=== PATIENT | female | born 1960 | race Caucasian/White ===

== ENCOUNTER → 2023-04-17 06:57 | Outpatient (REF) | payer OTHER, SELFPAY | LOC: RAD 06:57 | PROVIDERS: ATTENDING PHYSICIAN Family Medicine | DX: M54.2 Cervicalgia (principal) | CPT/HCPCS: 72052 ==

== ENCOUNTER → 2023-05-08 13:57 | Outpatient (REF) | payer OTHER, SELFPAY ==
[2023-05-08 15:28] LABS: Blood Urea Nitrogen 24 mg/dl (7-17)
== END ==
LOC: RAD 13:57
PROVIDERS: ATTENDING PHYSICIAN Internal Medicine Hematology & Oncology; FAMILY PHYSICIAN Family Medicine
DX: I74.9 Embolism and thrombosis of unspecified artery (principal); C25.1 Malignant neoplasm of body of pancreas; D50.9 Iron deficiency anemia, unspecified
CPT/HCPCS: 36415; 71260; 74177; 82565; 84520; Q9967

== ENCOUNTER → 2023-05-10 06:59 | Outpatient (REF) | payer OTHER, SELFPAY | LOC: MRI 06:59 | PROVIDERS: ATTENDING PHYSICIAN Orthopaedic Surgery Hand Surgery; FAMILY PHYSICIAN Family Medicine | DX: M25.512 Pain in left shoulder (principal); M54.12 Radiculopathy, cervical region | CPT/HCPCS: 72141 ==

== ENCOUNTER → 2023-05-30 07:48 | Outpatient (REF) | payer OTHER, SELFPAY | LOC: RAD 07:48 | PROVIDERS: ATTENDING PHYSICIAN Surgery Vascular Surgery; FAMILY PHYSICIAN Family Medicine | DX: I73.9 Peripheral vascular disease, unspecified (principal) | CPT/HCPCS: 93922; 93925 ==

== ENCOUNTER → 2023-06-24 13:52 | Outpatient (REF) | payer OTHER, SELFPAY ==
[2023-06-24 10:13] LABS: % Basophils 0.4 % (0-2); % Eosinophils 2.6 % (0-6); % Immature Granulocytes 0.4 % (0-0.5); % Lymphocytes 32.6 % (20.5-51.1); Absolute Eosinophils 0.1 10^3/uL (0-0.7); Absolute Lymphocytes 1.6 10^3/uL (1.2-3.4); Absolute Monocytes 0.4 10^3/uL (0.1-0.6); Absolute Neutrophils 2.7 10^3/uL (1.4-6.5); Hematocrit 34.4 % (37.0-47.0); Hemoglobin 11.1 g/dL (12.0-16.0); Mean Corp Hgb Conc. 32.3 g/dL (33.0-37.0); Mean Corpuscular Hgb 29.3 pg (27.0-31.0); Mean Corpuscular Volume 90.8 fL (81.0-99.0); Mean Platelet Volume 9.8 fL (7.4-10.4); Nucleated Red Blood Cells % 0 %; Platelet Count 278 10^3/uL (130-400); Red Blood Cell Count 3.79 10^6/uL (4.20-5.40); Red Cell Dist. Width 14.2 % (11.5-14.5); White Blood Cell Count 4.9 10^3/uL (4.8-10.8)
[2023-06-24 10:25] LABS: ALT (SGPT) 21 U/L (0-35); AST (SGOT) 28 U/L (14-36); Albumin 3.4 g/dl (3.5-5.0); Alkaline Phosphatase 133 U/L (38-126); Blood Urea Nitrogen 19 mg/dl (7-17); Calcium 8.8 mg/dl (8.4-10.2); Carbon Dioxide 31 mmol/L (22-30); Chloride 101 mmol/L (98-107); Glucose 208 mg/dl (70-99); Sodium 133 mmol/L (135-145); Total Bilirubin 0.5 mg/dl (0.2-1.3); Total Protein 6.8 g/dl (6.3-8.2); eGFR > 60.00
== END ==
LOC: OIDL 13:52
PROVIDERS: ATTENDING PHYSICIAN Nurse Practitioner Adult Health
DX: I74.9 Embolism and thrombosis of unspecified artery (principal)
CPT/HCPCS: 80053; 85025

== ENCOUNTER 2023-07-19 06:49 | Outpatient (RCR) | payer OTHER, SELFPAY | END 2023-07-19 23:59 | disposition home or self-care (01) | LOC: RPT 06:49 | PROVIDERS: ATTENDING PHYSICIAN Orthopaedic Surgery; FAMILY PHYSICIAN Family Medicine | DX: M54.2 Cervicalgia (principal); Z73.6 Limitation of activities due to disability | CPT/HCPCS: 97010; 97110; 97140; 97162 ==

== ENCOUNTER → 2023-07-23 13:45 | Outpatient (REF) | payer OTHER, SELFPAY ==
[2023-07-23 11:58] LABS: ALT (SGPT) 16 U/L (0-35); AST (SGOT) 24 U/L (14-36); Alkaline Phosphatase 136 U/L (38-126); Blood Urea Nitrogen 14 mg/dl (7-17); Carbon Dioxide 27 mmol/L (22-30); Chloride 105 mmol/L (98-107); Glucose 180 mg/dl (70-99); Potassium 4.1 mmol/L (3.5-5.1); Sodium 138 mmol/L (135-145); Total Bilirubin 0.3 mg/dl (0.2-1.3); Total Protein 5.9 g/dl (6.3-8.2); eGFR > 60.00
== END ==
LOC: OIDL 13:45
PROVIDERS: ATTENDING PHYSICIAN Internal Medicine Hematology & Oncology
DX: I74.9 Embolism and thrombosis of unspecified artery (principal)
CPT/HCPCS: 80053

== ENCOUNTER → 2023-08-06 10:28 | Outpatient (REF) | payer OTHER, SELFPAY ==
[2023-08-06 11:07] LABS: ALT (SGPT) 24 U/L (0-35); AST (SGOT) 29 U/L (14-36); Alkaline Phosphatase 135 U/L (38-126); Blood Urea Nitrogen 15 mg/dl (7-17); Calcium 8.5 mg/dl (8.4-10.2); Carbon Dioxide 24 mmol/L (22-30); Chloride 111 mmol/L (98-107); Glucose 110 mg/dl (70-99); Potassium 4.2 mmol/L (3.5-5.1); Sodium 141 mmol/L (135-145); Total Bilirubin 0.3 mg/dl (0.2-1.3); eGFR > 60.00
== END ==
LOC: OIDL 10:28
PROVIDERS: ATTENDING PHYSICIAN Internal Medicine Hematology & Oncology
DX: I74.9 Embolism and thrombosis of unspecified artery (principal)
CPT/HCPCS: 80053

== ENCOUNTER 2023-08-16 08:02 | Outpatient (RCR) | payer OTHER, SELFPAY | END 2023-08-16 23:59 | disposition home or self-care (01) | LOC: RPT 08:02 | PROVIDERS: ATTENDING PHYSICIAN Orthopaedic Surgery; FAMILY PHYSICIAN Family Medicine | DX: M54.2 Cervicalgia (principal); Z73.6 Limitation of activities due to disability | CPT/HCPCS: 97110; 97140 ==

== ENCOUNTER → 2023-09-02 15:48 | Outpatient (REF) | payer OTHER, SELFPAY ==
[2023-09-02 11:49] LABS: % Basophils 0.6 % (0-2); % Eosinophils 0.6 % (0-6); % Immature Granulocytes 0.3 % (0-0.5); % Lymphocytes 17.3 % (20.5-51.1); % Monocytes 0.3 % (1.7-9.3); % Neutrophils 80.9 % (42.2-75.2); Absolute Lymphocytes 0.6 10^3/uL (1.2-3.4); Absolute Neutrophils 2.9 10^3/uL (1.4-6.5); Hematocrit 24.4 % (37.0-47.0); Hemoglobin 8.3 g/dL (12.0-16.0); Mean Corpuscular Hgb 32.9 pg (27.0-31.0); Mean Corpuscular Volume 96.8 fL (81.0-99.0); Mean Platelet Volume 10.2 fL (7.4-10.4); Nucleated Red Blood Cells % 0 %; Platelet Count 136 10^3/uL (130-400); Red Blood Cell Count 2.52 10^6/uL (4.20-5.40); Red Cell Dist. Width 18.3 % (11.5-14.5); White Blood Cell Count 3.5 10^3/uL (4.8-10.8)
== END ==
LOC: OIDL 15:48
PROVIDERS: ATTENDING PHYSICIAN Internal Medicine Hematology & Oncology
DX: I74.9 Embolism and thrombosis of unspecified artery (principal)
CPT/HCPCS: 85025

== ENCOUNTER → 2023-09-03 11:07 | Outpatient (REF) | payer OTHER, SELFPAY ==
[2023-09-03 12:23] LABS: ALT (SGPT) 25 U/L (0-35); AST (SGOT) 36 U/L (14-36); Albumin 3.3 g/dl (3.5-5.0); Alkaline Phosphatase 142 U/L (38-126); Blood Urea Nitrogen 17 mg/dl (7-17); Calcium 8.8 mg/dl (8.4-10.2); Carbon Dioxide 24 mmol/L (22-30); Chloride 111 mmol/L (98-107); Glucose 92 mg/dl (70-99); Potassium 3.8 mmol/L (3.5-5.1); Sodium 140 mmol/L (135-145); Total Bilirubin 0.6 mg/dl (0.2-1.3); Total Protein 6.1 g/dl (6.3-8.2); eGFR > 60.00
== END ==
LOC: OIDL 11:07
PROVIDERS: ATTENDING PHYSICIAN Internal Medicine Hematology & Oncology
DX: I74.9 Embolism and thrombosis of unspecified artery (principal); C25.1 Malignant neoplasm of body of pancreas; D50.9 Iron deficiency anemia, unspecified
CPT/HCPCS: 80053

== ENCOUNTER 2023-09-16 07:44 | Inpatient (IN) | payer OTHER, SELFPAY ==
[2023-09-16] VITALS (15 sets, daily range): BP systolic 120–168; BP diastolic 55–91; PULSE 90–98; O2SAT 100; BMI 26.0; BMI 24.9
[2023-09-16 04:56] LABS: Glucose - Point of Care 170 mg/dl (70-99)
[2023-09-16] MEDS: VENTOLIN NEBULES 7.5 MG INH (05:00)
[2023-09-16] MEDS: ATROVENT NEBULES 0.5 MG INH (05:00)
[2023-09-16] MEDS: VENTOLIN NEBULES INH (05:02)
--- NOTE | 2023-09-16 05:09 | ED.GENMED ---
History of Present Illness
General
Chief Complaint: Chest Pain
Source: patient and spouse
Time Seen by Provider: 09/16/23 04:53
History of Present Illness
History of Present Illness:
This patient is a 63-year-old female presents emergency department with dyspnea. Her offers most of the history given her respiratory distress. She states that she developed a cough recently associated with dyspnea for the last 4 to 5
days. She was seen by her oncologist on Saturday and at that time her pulse ox was within normal limits. She was short of breath throughout the day yesterday but went to sleep and then woke her up with complaints of dyspnea. Upon arrival,
patient was noted to be brought back to her room immediately. She also complains of feeling 'clammy'. She thought her symptoms might be related to her heart which prompted her to take nitroglycerin x 4. This did not help her dyspnea. There was
some discrepancy regarding chest pain, states that he thought she said she had chest discomfort earlier, but patient denies. Patient is currently being treated for pancreatic cancer, most recent chemotherapy was last week. No fever,
abdominal pain, vomiting, new leg swelling.
Past History
Past History
ED Past Medical History: CAD, CVA (TIA), GERD, HTN, Hypercholesterolemia, IDDM, NM, Psychiatric (Anxiety) and Other (Emphysema, pancreatic CA)
ED Past Surgical History: Cardiac (Stents X 7), Orthopedic (Right knee surgery, ), Urological (Right Nephrectomy) and Other (Pancreatic cancer surgery, right-sided nephrectomy)
Social History
Tobacco: Smoker
Alcohol: None
Drug: None
Personal:
Living: with family
Employment: Employed
Family History
Family History: CAD (Her brother at age 47 had an NM )
Phy Exam
Physical Exam
Physical Exam:
GENERAL: Alert , in moderate respiratory distress
EYE: pupils equal and reactive, conjunctive a slightly pale
NECK: Supple, no significant adenopathy.
ENT: o/p clr, mmm, uvula midline, no trismus, no drool, no stridor.
CARDIAC: Regular rate and rhythm .
LUNGS: Moderate respiratory distress, decreased breath sounds noted on the right base, diffuse wheezing with scattered rhonchi and rails, occasional cough noted, speaks in short phrases
ABDOMEN: Soft, without focal tenderness, no r/g
NEUROLOGICAL: Alert and oriented, no focal neuro deficits
SKIN: Warm and dry, skin intact.
MUSCULOSKELETAL: Trace to 1+ bilateral lower extremity edema, well perfused.
PSYCH: Normal and appropriate interaction.
Scores
Heart Score for Chest Pain Patients
STEMI patient?: Not applicable
Course
Orders/Labs/Results
Orders:
Orders
09/16/23 04:43
Electrocardiogram (*1) Urgent
Reason for Study: Chest Pain
EKG- Treatment ONCE
09/16/23 04:46
Chest X-ray Portable [CR Chest Portable - 1 View] Stat
Comment:
Reason For Exam: sob/chest pain
Reason Study Needs to be Portable: Patient Unstable
09/16/23 04:49
Albuterol Nebs [Ventolin Nebules] See Dose Instructions .ROUTE .STK-MED ONE
Ipratropium Nebs [Atrovent Nebules] 0.5 mg .ROUTE .STK-MED ONE
09/16/23 04:55
Cardiac Monitoring- Treatment ONCE
Albuterol Sulfate [Ventolin Nebules] 7.5 mg INH R NOW STA
Dexamethasone Sod Phosphate [Decadron] 10 mg IV NOW STA
Pulse Ox/cont/shift [RESP] Stat
Quantity: 1
09/16/23 04:59
Ipratropium Nebs [Atrovent Nebules] 0.5 mg INH R NOW STA
09/16/23 05:08
COVID-19 Antigen Stat
Source: Nasal Swab
Complete Blood Count/No Diff Urgent
Comprehensive Metabolic Panel Urgent
Glycohemoglobin (HgbA1c) Urgent
Lactic Acid Q4H
Comment: CANCEL 2nd LACTIC ACID IF 1st LACTIC ACID IS LESS THAN 2
NT-proBNP Urgent
Troponin I Urgent
Blood Culture Urgent
MARQUIS Source: Blood/Venous
Specimen Description:
Influenza A+B Rapid Molecular Urgent
MARQUIS Source: Nasal Swab
Specimen Description:
09/16/23 05:14
Vancomycin 1 Gram/200 ml [Vancocin] 1 gram in 200 ml IV NOW
09/16/23 05:16
Aztreonam [Azactam] 2,000 mg IV NOW STA
09/16/23 05:24
Heparin Pf [Heparin Lock Flush] 500 unit .ROUTE .STK-MED ONE
Sterile Water [Sterile Water For Injection] 10 ml .ROUTE .STK-MED ONE
09/16/23 05:26
Furosemide [Lasix] 40 mg IV ONCE ONE
09/16/23 Breakfast
NPO
Allow oral meds: Yes
Allow clear liquids: Sips of Clears
09/16/23 06:15
INR [Prothrombin Time] Urgent
PTT Urgent
09/16/23 06:37
Admit/Transfer Patient As Directed
Co-Sign Provider:
Level of Care: Inpatient admission
Assign to:: Telemetry
Physician / Group: Inocencio
Diagnosis: CHF / Pneumonia
Reason for Telemetry: Subacute Heart Failure
Date to Stop Telemetry: 09/18/23
Time to Stop Telemetry: 11:00
Reason for Hospitalization: CHF / Pneumonia
Expected length of stay greater than two midnights?: Yes
ELOS- Estimated Length of Stay in days: 3
I certify the patient meets the requirements for IP care: Yes
PRN Pain Medication Management As Directed
May give lesser potent ordered pain med per pt: Yes
preference::
Protocol:: Medication orders for pain may be administered in a
manner that supports deferring to patient preference
when the pt is:
- Requesting an ordered lesser potent pain medication.
Least to most potent pain medications are defined
as: acetaminophen < NSAID < tramadol < opioids
(morphine, oxycodone, hydromorphone).
- Requesting a lesser dose of the same medication IF
ORDERED.
- Requesting a less intrusive route of administration
if both routes are prescribed by the provider (PO <
IV).
09/16/23 06:40
Code Status As Directed
Resuscitation Status: Do not resuscitate
Reached after discussion with pt or family/Healthcare POA: Yes
DNR Bracelet Application ONCE
09/16/23 08:00
Piperacillin/Tazo 3.375 Gram [Zosyn] 3.375 gram in 50 ml IV Q6H
09/16/23 08:31
Acetaminophen [Tylenol] 650 mg PO Q4HPRN PRN
Albuterol Nebs [Ventolin Nebules] 2.5 mg INH R Q4HPRN PRN
Apixaban [Eliquis] 5 mg PO BID
Dextrose 50%-Water [Dextrose 50% Syringe] 12.5 grams IV [id number] PRN
Furosemide [Lasix] 40 mg IV DAILY
Glucagon [GlucaGen] 1 mg IM PRN PRN
Ipratropium/Albuterol Sulfate [Duoneb] 3 ml INH R QID
Pt's Own Ins. Pump Aspart [PT'S OWN INSULIN PUMP - NovoLOG] See Dose Instructions SC ACHS
Pt's Own Ins. Pump Aspart [PT'S OWN INSULIN PUMP - NovoLOG] See Dose Instructions SC PRN PRN
09/16/23 08:31
Echo 2D MMode Doppler [Echo 2D MMode Color/Doppler] Routine
Reason for Study: CHF
Diabetes Management by Nurse Practitioner Routine
Consulting Provider: Paola Dunn
Was provider already notified?: No
Reason for Consult: Insulin Management
Date consulting provider notified: 09/16/23
Time consulting provider notified: 08:32
Notified:: Provider
Activity As Directed
Activity Level: Ambulate
With Assistance
Bedside Glucose Monitoring As Directed
Frequency: AC&HS
Additional Instructions:: Change to q6h if pt on TPN, tube feeding or not eating
EKG with chest pain [ECG as needed] As Directed
ECG as needed for:: Chest Pain
I/O [Intake/ Output] As Directed
Frequency: Per unit guidelines
Orthostatic Vital Signs As Directed
Orthostatic VS Frequency: BID
Precautions As Directed
Type of Precautions: Aspiration
Vital Signs As Directed
Frequency: Per unit guidelines
Weight As Directed
Frequency: Daily
Incentive Spirometry [Rx Incentive Spirometry] [RESP] Routine
Frequency: q1h while awake
Oxygen Therapy [O2 Therapy] [RESP] Routine
Titrate/Wean O2 to maintain O2 sat greater than (%): 94
Ot Eval And Treat Routine
PT Consult [Pt Eval And Treat] Routine
Activity Level: Ambulate
With Assistance
Speech Therapy Eval & Treat Routine
US Chest - Right Routine
Comment:
Reason For Exam: Pleural effusion
09/16/23 09:02
TSH Reflex To Free T4 Routine
Troponin I Q6H
09/16/23 14:58
Troponin I Q6H
09/16/23 20:04
Troponin I Q6H
09/17/23 04:46
Basic Metabolic Panel IN AM
Complete Blood Count/No Diff IN AM
09/18/23 11:00
DC Protocol for Telemetry ONCE
Abnormal Lab Results
09/16/23 09/16/23
04:54 05:08
WBC 22.7 H 10^3/uL
(4.8-10.8)
RBC 2.76 L 10^6/uL
(4.20-5.40)
Hgb 9.0 L g/dL
(12.0-16.0)
Hct 28.3 L %
(37.0-47.0)
MCV 102.5 H fL
(81.0-99.0)
MCH 32.6 H pg
(27.0-31.0)
MCHC 31.8 L g/dL
(33.0-37.0)
RDW 23.3 H %
(11.5-14.5)
Plt Count 403 H 10^3/uL
(130-400)
Chloride 112 H mmol/L
(98-107)
Carbon Dioxide 21 L mmol/L
(22-30)
Glucose 146 H mg/dl
(70-99)
Hemoglobin A1c 5.9 H %
(4.0-5.6)
Calcium 8.2 L mg/dl
(8.4-10.2)
Alkaline Phosphatase 223 H U/L
(38-126)
Troponin I 0.095 H* ng/ml
Total Protein 6.2 L g/dl
(6.3-8.2)
Albumin 3.3 L g/dl
(3.5-5.0)
POC Glucose 170 H mg/dl
(70-99)
09/16/23 05:08
09/16/23 05:08
Vital Signs
Initial and Last Documented VS:
Initial Vital Signs
Pulse Resp BP Pulse Ox
116 28 155/88 94
09/16/23 04:39 09/16/23 04:39 09/16/23 04:39 09/16/23 04:39
Last Documented Vital Signs
Temp Pulse Resp BP Pulse Ox
97.8 F 79 14 129/77 99
09/17/23 11:00 09/17/23 11:00 09/17/23 11:00 09/17/23 11:00 09/17/23 11:00
*Critical Care Note
Total Time (30-74mins, 75-104mins- exclusive of procedures): 32
Update Note
Update Note:
Patient presents to the Emergency Department with __dyspnea and questionable chest pain
Number and Complexity of Problems Addressed at the Encounter
� Chronic conditions affecting care:
� Acute Exacerbation and/or Progression of Chronic Illness:
� Differential Diagnosis includes: But not limited to pneumonia, PE, ACS, COPD exacerbation, etc. etc.
Amount and/or Complexity of Data to be Reviewed and Analyzed
� I performed an independent evaluation of and my interpretation is:
EKG:reviewed by me, sinus tachycardia, no acute ischemia
CT:
Xrays: Chest x-ray read by me, mild to moderate right pleural effusion, diffuse increased interstitial markings
Laboratory Studies:increased wbc ?recent neupogen?, anemia noted (baseline), thrombocytosis likely reactive.. Lactic wnl. Indeterm trop at 0.095, trop 61380 (no prior for comparison)
Other:
� Review of other/old records reveals: Echocardiogram 2019 patient's EF was 45 to 50%. April 2023 CT of the chest showed nodules on lung thought likely to be metastatic
� Clinical information was obtained by an independent historian:
� Prescriptions/Medications Considered but not given:
� Further testing considered but not performed:
Risk of Complications and/or Morbidity or Mortality of Patient Management
� Social determinants of health affecting care:
� Discussion with other providers (PCP, Hospitalists, Consultants, etc):
� Escalation of care including admission/observation vs risk of discharge considered: 5:13 AM patient on an hour-long nebulizer treatment, Decadron ordered. X-ray reviewed at bedside, patient has right pleural effusion.
Clinically I think PE is extremely unlikely given that she is fully anticoagulated and compliant with her medication.
526am Pt states she feels good to 'be able to take a deep breathe' and feels better. On repeat exam, rr has lowered, min retractions, less wob. Looks improved. Lungs with min wheeze but diffuse rales now noted, bs decr on R. Will continue to
monitor closely. No cp. Consideration for copd exac with pna given cough, immunosuppressed, rales, etc.
Given persistent rales, elevated bnp, new pleural effusion, cnsoderation for hf, lasix ordered. Pt continues to improve, states' 'I feel better, thank you'. case d/w dr painter for admission.
ED Attending Note
-
Portions of this chart may have been created with voice recognition software.� Occasional wrong word or��sound alike� substitutions may have occurred due to the inherent limitations of voice recognition software.
Discharge Plan
Departure
Patient Disposition: Admit
Date of Disposition: 09/16/23
Time of Disposition: 06:00
Admit to: Telemetry
Admit to doctor: inocencio
Presentation/result/management discussed w/ accepting MD/DO: Hospitalist
Condition: Fair
Discharge Problem:
Acute respiratory distress
Interventions
Interventions:
*Risk Screen - Suicide Last Done: 09/16/23 05:15
*General Assessment Last Done: 09/16/23 05:15
*Neglect/Abuse Screening Last Done: 09/16/23 05:51
ED- Fall Risk Assessment Last Done: 09/16/23 05:15
*ED COVID-19 Vaccine History Last Done: 09/16/23 05:15
*Nursing Disposition Last Done: 09/16/23 08:38
ED- Cardiac Assessment Last Done: 09/16/23 05:15
ED- Pulmonary Assessment Last Done: 09/16/23 06:10
Discharge Date and Time
Discharge Date/Time: 09/16/23 08:41
[2023-09-16] MEDS: DECADRON 10 MG IV (05:27)
[2023-09-16 05:29] LABS: Hematocrit 28.3 % (37.0-47.0); Mean Corp Hgb Conc. 31.8 g/dL (33.0-37.0); Mean Corpuscular Hgb 32.6 pg (27.0-31.0); Mean Corpuscular Volume 102.5 fL (81.0-99.0); Mean Platelet Volume 10.3 fL (7.4-10.4); Platelet Count 403 10^3/uL (130-400); Red Blood Cell Count 2.76 10^6/uL (4.20-5.40); Red Cell Dist. Width 23.3 % (11.5-14.5); White Blood Cell Count 22.7 10^3/uL (4.8-10.8)
[2023-09-16 05:31] LABS: Lactic Acid 0.9 mmol/L (0.7-2.0)
[2023-09-16] MEDS: AZACTAM 2000 MG IV (05:31)
[2023-09-16 05:34] LABS: ALT (SGPT) 18 U/L (0-35); AST (SGOT) 23 U/L (14-36); Albumin 3.3 g/dl (3.5-5.0); Blood Urea Nitrogen 16 mg/dl (7-17); Carbon Dioxide 21 mmol/L (22-30); Estimated Creatinine Clearance 58 ml/min; Glucose 146 mg/dl (70-99); Total Bilirubin 0.4 mg/dl (0.2-1.3); Total Protein 6.2 g/dl (6.3-8.2); eGFR > 60.00
[2023-09-16 05:44] LABS: COVID-19 Antigen Negative (Negative)
[2023-09-16 05:45] LABS: Alkaline Phosphatase 223 U/L (38-126); Calcium 8.2 mg/dl (8.4-10.2); Chloride 112 mmol/L (98-107); Sodium 140 mmol/L (135-145)
[2023-09-16 05:47] LABS: NT-proBNP 17500 pg/ml; Troponin I 0.095 ng/ml
[2023-09-16] MEDS: VANCOCIN 200 IV (05:52)
[2023-09-16] MEDS: LASIX 40 MG IV ×2 (06:02→09:48)
[2023-09-16 06:36] LABS: INR 1.13; PT 14.3 Sec (11.4-14.6)
[2023-09-16 06:37] LABS: APTT 33.4 Sec (23.4-35.0)
--- NOTE | 2023-09-16 06:45 | HPS.HSE ---
Family Physician
-
Family Physician: Daniel Billingsley
Chief Complaint
-
SOB
History of Present Illness
Patient is a 63y F with PMH significant for metastatic pancreatic cancer, DM-II and ASCVD who presents to ED complaining of SOB. History obtained from patient and her at the bedside. Patient has been feeling progressively short of
breath for the past several days. She states that she has had cough productive of whitish mucus for the past 2 weeks or so. She notes recent issues with swallowing / choking on solids and liquids. Her cough occurs even when she is not eating /
drinking however.
Patient states that her dyspnea progressed until this evening. states that she was sitting upright in bed and complained that she could not lie flat due to SOB.
She woke him early this AM complaining of worsening SOB and they presented to the ED for further evaluation and treatment.
Patient denies any fever, sore throat, chest pain, etc.
She complains of feeling cold frequently - but this is chronic and she attributes it to chemo.
Patient is on active chemotherapy for pancreatic cancer. Her last treatment was about 10 days ago. She did receive G-CSF following that session.
Patient denies any prior history of CHF.
She is an active smoker, but also denies any history of formal COPD diagnosis. She does not take inhalers at home.
Medical History
Past Medical History
Past Medical History: Reports Other
Additional Past Medical History:
Metastatic Pancreatic Cancer
ASCVD (CAD, PAD, CVA)
DM-II
Renal Mass (Benign)
History of DVT
Hypothyroidism
Past Surgical History: Reports Other
Additional Past Surgical History:
PTCA with Multiple Stents (5)
LLE Bypass
Whipple
Right Nephrectomy (benign)
R ACW Port Placement
L 5th Toe Amputations (Osteomyelitis)
Social History
Tobacco: Smoker (Current every day smoker.)
Alcohol: None
Drug: None
Personal:
Living: With Family
Family History
Family History: CAD and Other (Mother: Multiple myeloma)
Allergies / Home Medications
Allergies reflects when Allergies were last updated in [facility].
Home Medications with original date entered in [facility]
Allergy/Medication List:
Patient cannot recite her current medications. Family is to bring in med list.
If medication reconciliation has not been performed, why?: Medication List N/A
Review of Systems
-
History Source: Patient
A 12 point ROS was completed and negative except as noted: Yes
Constitutional: Reports Fatigue and Chills; Denies Fever
EENT: Denies Sore Throat
Respiratory: Reports Cough and Trouble Breathing; Denies Hemoptysis
Cardiac: Denies Chest Pain, Diaphoresis or Palpitations
Abdomen/GI: Reports Nausea and Diarrhea (Chronic / unchanged.); Denies Abdominal Pain, Vomiting, Bloody Stools or Black Stools
: Denies Dysuria, Frequency or Flank Pain
Musculoskeletal: Denies Joint Pain or Edema
Neurological: Denies Dizzy or Headache
Psych: Denies Depression or Anxiety
Physical Exam
Vital Signs
Vital Signs
Temp Pulse Resp BP Pulse Ox
97.9 F 107 15 150/81 100
09/16/23 06:30 09/16/23 06:02 09/16/23 06:00 09/16/23 06:02 09/16/23 06:10
Physical Exam
General: Other (Pale, chroniclaly ill-appearing 63y F in no acute distress.)
HEENT: Moist mucous membranes, PERRLA and Other (No JVD or HJR.)
Respiratory: Other (Decreased BS / dullness to percussion at the R base. Decreased BS throughout. No wheezes / rhonchi.)
Cardiac: S1/S2 and Regular Rhythm; No Murmur
GI: Soft, Non Tender, Non Distended and Normal Bowel Sounds
Musculoskeletal: No Clubbing, No Cyanosis and Other (1+ pitting edema b/l LEs. )
Skin: Other (R ACW Port without erythema / bleeding.)
Neuro: AO x 3
Laboratory Results
-
09/16/23 05:08
09/16/23 05:08
Laboratory Results
PT 14.3 Sec (11.4-14.6) 09/16/23 06:15
INR 1.13 09/16/23 06:15
APTT 33.4 Sec (23.4-35.0) 09/16/23 06:15
Lactic Acid 0.9 mmol/L (0.7-2.0) 09/16/23 05:08
Total Bilirubin 0.4 mg/dl (0.2-1.3) 09/16/23 05:08
AST 23 U/L (14-36) 09/16/23 05:08
ALT 18 U/L (0-35) 09/16/23 05:08
Alkaline Phosphatase 223 U/L (38-126) H 09/16/23 05:08
Troponin I 0.095 ng/ml H* 09/16/23 05:08
Impression/Plan
-
A/P: Patient is a 63y F with PMH significant for pancreatic cancer, ASCVD and DM-II who presents to ED complaining of progressive SOB.
Acute HF - Unknown Type
Right Pleural Effusion
- Admit for further evaluation and treatment.
- Patient with new pedal edema, CXR with effusion / vasc prominence and markedly elevated BNP (no prior to compare).
- Significant history of CAD / multiple stents and on active chemo - risk factors for cardiomyopathy.
- Check Echo.
- Trial of IV Lasix and follow I/Os, daily weights, symptoms.
- Consider Cardiology evaluation if Echo is abnormal.
Right Pleural Effusion
- Potentially due to volume / CHF as noted above.
- Only single view CXR done so far.
- Check US chest to eval for volume of effusion.
- Possible IR eval / thoracentesis if significant effusion appreciated.
- May be due to CHF - but also possibly malignant given known pancreatic CA with pulmonary mets / involvement.
Cough / Aspiration
- Patient notes recent issues with coughing / choking with PO intake which she has attributed to uncontrolled GERD.
- NPO for now pending formal Speech eval.
- Aspiration precautions.
- With R base opacity / effusion - will cover with IV abx for now for possible aspiration pneumonia.
- Follow fever curve, cough and monitor foe any new symptoms.
Leukocytosis
Thrombocytosis
Macrocytic Anemia
- Suspect cell line changes are due to chemo / G-CSF received post-chemo.
- Possible infection / aspiration pneumonia as noted above.
- Monitor for changes in cell counts.
Metastatic Pancreatic Cancer
- Last chemo about 10 days ago. Next is due Saturday - will hold for now.
- Follow-up with [facility] as an outpatient after acute hospitalization.
ASCVD
Non-Ischemic Myocardial Injury
- Significant history of CAD, CVA and PAD s/p coronary stents, LLE bypass, etc.
- Continue Eliquis (per external med summary).
- Confirm med list and resume usual CV medications once reconciled.
- Troponin very mildly elevated - likely due to CHF / acute illness. No chest pain or EKG changes.
- Continue to follow to peak.
DM-II
- Stable. Insulin pump in place - continue.
- Follow glucose and update A1C.
- DM GAGE MAKER eval for insulin pump management.
Hypothyroidism
- Continue T4 supplementation (250mcg daily lst documented dose - change if needed after formal med rec).
- Update TFTs.
History of DVT
DVT Prophylaxis
- On Eliquis.
Code Status: DNR
--- NOTE | 2023-09-16 07:52 | PHANOTE ---
Addendum entered by John Estrada 09/16/23 15:50:
called back at 15:50, clarified that Synthroid was recently changed to both the 200mcg and 50mcg tablets every morning, for total of 250mcg every morning. Also mentioned her vascular Dr. was Dr. Ying.
Original Note:
med rec note- spoke to patient about her home medications but she does not take care of them. she did know most of them except Synthroid patient thought she was 150mg but she filling 200mcg and 50mcg. called her to clarify them awaiting call
back
[2023-09-16] MEDS: ELIQUIS 5 MG PO ×2 (08:25→20:59)
[2023-09-16] MEDS: DUONEB INH (08:33)
[2023-09-16 09:33] LABS: Troponin I 0.092 ng/ml
[2023-09-16] MEDS: ZOSYN 50 IV ×3 (09:46→20:56)
[2023-09-16] MEDS: PT'S OWN INSULIN PUMP - NovoLOG SC (09:49)
[2023-09-16 09:55] LABS: TSH Reflex To Free T4 0.81 uIU/ml (0.47-4.68)
--- NOTE | 2023-09-16 10:39 | W.PN.HOSP.TC ---
Today's Communication/Plan
-
Echocardiogram.
Lower extremity Doppler.
Trend troponin.
Right chest ultrasound with consideration of right thoracentesis.
Speech and swallow evaluation.
Empiric antibiotics
IV Lasix.
Continue anticoagulation with Eliquis
Diabetic diet
Insulin pump
Hold Farxiga
Cardiology/oncology consultation
Assessment / Plan
Assessment / Plan
Impression:
Patient is a 63y F with PMH significant for pancreatic cancer, ASCVD and DM-II who presents to ED complaining of progressive SOB.
Acute hypoxic respiratory insufficiency requires up to 4 L NC oxygen
Acute CHF/pulmonary edema suspected.
Right pleural effusion.
Persistent cough with concern for aspiration.
Leukocytosis.
Conditions prior to admission:
Metastatic pancreatic cancer on chemotherapy status post G-CSF 10 days prior to presentation.
CAD with cardiac stents.
PAD.
Ongoing anticoagulation with Eliquis with history of DVT
IDDM on insulin pump
Hypothyroidism on replacement
Plan
Acute HF - Unknown Type
Right Pleural Effusion
- Admit for further evaluation and treatment.
- Patient with new pedal edema, CXR with effusion / vasc prominence and markedly elevated BNP (no prior to compare).
- Significant history of CAD / multiple stents and on active chemo - risk factors for cardiomyopathy.
- Check Echo.
- Trial of IV Lasix and follow I/Os, daily weights, symptoms.
- Consider Cardiology evaluation if Echo is abnormal.
Right Pleural Effusion
- Potentially due to volume / CHF as noted above.
- Only single view CXR done so far.
- Check US chest to eval for volume of effusion.
- Possible IR eval / thoracentesis if significant effusion appreciated.
- May be due to CHF - but also possibly malignant given known pancreatic CA with pulmonary mets / involvement.
Cough / Aspiration
- Patient notes recent issues with coughing / choking with PO intake which she has attributed to uncontrolled GERD.
- NPO for now pending formal Speech eval.
- Aspiration precautions.
- With R base opacity / effusion - will cover with IV abx for now for possible aspiration pneumonia.
- Follow fever curve, cough and monitor foe any new symptoms.
Leukocytosis
Thrombocytosis
Macrocytic Anemia
- Suspect cell line changes are due to chemo / G-CSF received post-chemo.
- Possible infection / aspiration pneumonia as noted above.
- Monitor for changes in cell counts.
Metastatic Pancreatic Cancer
- Last chemo about 10 days ago. Next is due Saturday - will hold for now.
- Follow-up with [facility] as an outpatient after acute hospitalization.
ASCVD
Non-Ischemic Myocardial Injury
- Significant history of CAD, CVA and PAD s/p coronary stents, LLE bypass, etc.
- Continue Eliquis (per external med summary).
- Confirm med list and resume usual CV medications once reconciled.
- Troponin very mildly elevated - likely due to CHF / acute illness. No chest pain or EKG changes.
- Continue to follow to peak.
DM-II
- Stable. Insulin pump in place - continue.
- Follow glucose and update A1C.
- DM OUTSIDE RIGGER eval for insulin pump management.
Hypothyroidism
- Continue T4 supplementation (250mcg daily lst documented dose - change if needed after formal med rec).
- Update TFTs.
History of DVT
DVT Prophylaxis
- On Eliquis.
Code Status: DNR
Anticipated Discharge: > 48 hours
Subjective/Interval History
-
Date of Service: September 16, 2023
Objective Data
-
Labs:
Laboratory Results
09/16/23 09/16/23
05:08 06:15
WBC 22.7 H
Hgb 9.0 L
Hct 28.3 L
Plt Count 403 H
PT 14.3
INR 1.13
APTT 33.4
Sodium 140
Potassium 4.0
Chloride 112 H
Carbon Dioxide 21 L
BUN 16
Creatinine 0.9
Glucose 146 H
Calcium 8.2 L
Total Bilirubin 0.4
AST 23
ALT 18
Alkaline Phosphatase 223 H
Vital Signs:
Vital Signs
Temp Pulse Resp BP Pulse Ox
97.5 F 98 20 134/67 98
09/16/23 08:50 09/16/23 09:48 09/16/23 08:50 09/16/23 09:48 09/16/23 08:50
Physical Exam
-
General: Well Developed and No Apparent Distress
HEENT: Normocephalic, Atraumatic and Moist Mucous Membranes
Respiratory: Other (Decreased breath sounds at the right base); Negative Wheezes
Cardiac: Regular Rhythm and S1/S2; Negative Murmur, Rub or Gallop
GI: Soft, Nontender, Nondistended and Normal Bowel Sounds; Negative Organomegaly
Rectal: Deferred by Provider
Musculoskeletal: No Clubbing, No Cyanosis and No Edema
Skin: Negative Rash
Neuro: Nonfocal/Grossly Intact
--- NOTE | 2023-09-16 10:48 | PTOTSP ---
ST Acute Care Evaluation
Pt currently presents with fairly functional oral and pharyngeal parameters at bedside - no overt s/s of penetration or aspiration noted. Pt reports clinical symptoms of esophageal dysfunction including reports of oncologist in the process of
changing her reflux medications due to pt still being symptomatic (e.g. pt reports waking up in the middle of the night coughing; sudden onset of coughing on her saliva/air where she cannot catch her breath).
Recommendations:
- Initiate PO diet of soft bite sized solids (pt preference - upgrade if requested by pt), thin liquids, meds as tolerated.
- General aspiration precautions.
- Reflux precautions.
- Consider GI consultation given unmanaged GERD/LPR symptoms and pt's report of plan to change med management.
- RN FIELD CASE MANAGER to f/u to ensure pt is safely consuming the recommended diet consistencies and to determine whether pt would benefit from additional instrumental assessment.
--- NOTE | 2023-09-16 10:50 | PN.DE.MGMTRT ---
Insulin Management
- -
09/16/2023: Diabetes Management Consult
63 year old female admitted with progressive SOB and persistent cough concerning for aspiration, Acute CHF/pulmonary edema, Right pleural effusion and Acute hypoxic respiratory insufficiency requiring oxygen up to 4 L NC.
PMH: ASCVD s/p stents, PAD, Hypothyroidism, h/o DVT, Metastatic pancreatic cancer on chemotherapy s/p G-CSF 10 days prior to presentation, IDDM.
Pt awake, A/O x3, sitting up in bed, offers no complaint, appears malnourished with dry mucous membranes, at bedside.
States she sees Endo Dr. Hudson and MAGED Vivar, and was recently transitioned to an insulin pump- MedJayCut med with guardian sensor, due to difficulty controlling her blood sugars from chronic steroid use and recurrent Hypoglycemic episodes.
Reports that she is still taking Farxiga 10mg daily
Glucose on admission was 146(V). A1C 5.9%, Cr 0.9, eGFR >60. Current blood sugar reading via Sensor 182. Pt NPO for procedure.
Of note, pt was given a high dose of IV steroids, contributing to Hyperglycemia.
Current pump settings as follows:
Basal rate 12AM- 12AM 0.65 units
ICR 12AM - 12AM 1:14
ISF 12AM - 12AM 1:50
Target 100-120
24 hr total insulin 15.6 units
Will make no changes to current ump settings. Will follow and make adjustments if steroids continue and if necessary.
Explained to pt need to hold Farxiga while in the hospital given poor PO intake.
Discussed bedside insulin pump sheet with Pt, and Nurse and explained procedure for insulin pump use while staying in the hospital
Diabetes History
- -
Type of Diabetes: 2 requiring insulin
Pre-Admission Diabetes Regimen
09/16/23
05:08
Creatinine 0.9
Insulin Pump Settings
IP Diabetes Regimen
09/16/23 09/16/23
04:54 05:08
Glucose 146 H
POC Glucose 170 H
Meal type: Breakfast
Patient Education
[2023-09-16 11:23] LABS: Glycohemoglobin (HgbA1c) 5.9 % (4.0-5.6)
[2023-09-16] MEDS: DUONEB 3 ML INH (11:37)
--- NOTE | 2023-09-16 11:59 | CON.CAR ---
Addendum entered and electronically signed by Roscoe Gardner MD 09/16/23 16:14:
I saw and examined the patient.
The MILL PLATFORM SUPERVISOR's note was reviewed and I agree with the note.
Comment: 63 y/o female with pancreatic cancer (hx mini whipple post-op UE DVT, receiving chemo therapy- details unknown), severe CAD (hx BMS LAD 2009, multivessel PCI sep and nov 2015, RCA PCI August 2020, LCX PCI 2021, PAD (Dr. Ying), dyslipidemia,
DM2, hx smoking, hx stroke 2009, ICM EF 45-50%, and GERD who is here for evaluation of SOB x 1 week. Although her weight is only mildly elevated, she does have poor p.o. intake. She is feeling so much better after diuresis. On exam, she has a
regular rate and rhythm with a normal S1-S2. She had is decreased at the right base to midlung, no wheezes or rhonchi. She has a port in the right upper chest. Lungs are without edema. Chest x-ray shows pulmonary edema with a right pleural
effusion. EKG shows sinus tachycardia with PVCs. Poor R wave progression and nonspecific ST changes. Acute heart failure with mildly reduced ejection fraction, will update echocardiogram. Agree with ongoing Lasix. add GDMT as indicated pending
echocardiogram result. Seems like we should be able to get some therapy on board with today's blood pressure. She has a right pleural effusion, it is moderate in size and ultrasound, continue diuresis and consider therapeutic thoracentesis.
Pancreatic cancer undergoing chemotherapy, details unknown.
Original Note:
Consultation
Consultation Request
Date/Time Consultation Requested: 09/16/23 1033
Date/Time Consultation Performed: 09/16/23 1159
Requesting Provider: Dr. Rangel
Performing Provider: Josiane SWARTZ for Dr. Gardner
Reason for Consultation: CHF
Medical History
-
Chief Complaint: SOB
History of Present Illness:
63 y/o female with pancreatic cancer (hx mini whipple post-op UE DVT, receiving chemo therapy- details unknown), severe CAD (hx BMS LAD 2009, multivessel PCI sep and nov 2015, RCA PCI August 2020, LCX PCI 2021, PAD (Dr. Ying), dyslipidemia, DM2, hx
smoking, hx stroke 2009, ICM EF 45-50%, and GERD who is here for evaluation of SOB x 1 week. Reports orthopnea, PND, and productive cough (white). 2 lb weight gain, minimal edema. Worsened this AM and became severe. She feels improved s/p steroids,
breathing tx, lasix, and abx. Denies fevers, has chills with chemo. We are consulted for CHF.
Past Medical History
Past Medical History: CAD, Cancer, CVA, GERD, Hypercholesterolemia and NIDDM
Social History
Personal:
Living: With Family
Family History
Family History: Reviewed & Not Pertinent
Allergies / Home Medications
Allergy/AdvReac Type Severity Reaction Status Date / Time
cephalexin monohydrate Allergy Rash; Verified 09/16/23 06:08
[From Keflex] tolerated
PCN per pt
clindamycin Allergy Unknown Verified 09/16/23 06:08
influenza virus vaccine, Allergy Rash Verified 09/16/23 06:08
specific Swelling,
[influenza virus itching.
vacc,specific]
lisinopril Allergy cough Verified 09/16/23 06:08
pneumococcal vaccine Allergy rash, Verified 09/16/23 06:08
welts
throughout
body
Drbjyse-EUT-PbL Reductase Allergy LEG PAIN Verified 09/16/23 06:08
Inhibitor
[Qpqqzqi-Rvc-Cyn Reductase
Inhibitor]
�Medication �Instructions �Recorded �Confirmed �Type
famotidine 40 mg tablet 40 mg PO HS Gastrointestinal issue 08/04/20 09/16/23 History
dapagliflozin propanediol 10 mg 10 mg PO DAILY #30 tabs 08/05/20 09/16/23 Rx
tablet (Farxiga)
duloxetine 60 mg capsule,delayed 60 mg PO DAILY Mental 06/20/21 09/16/23 History
release Health/Anxiety
gabapentin 600 mg tablet 600 mg PO TID Neurological 10/02/21 09/16/23 History
Condition
Patient Own Insulin Pump 1 sliding scale dose SC .NOVOLOG 09/16/23 09/16/23 History
VIA PUMP
apixaban 5 mg tablet (Eliquis) 5 mg PO BID 09/16/23 09/16/23 History
insulin glargine U-300 conc 300 0 unit SC DAILY 09/16/23 History
unit/mL (3 mL) subcutaneous pen
(Toujeo Max U-300 SoloStar)
levothyroxine 200 mcg tablet 200 mcg PO .6 DAYS A WEEK 09/16/23 09/16/23 History
(Synthroid)
levothyroxine 50 mcg tablet 50 mcg PO .6 DAYS A WEEK 09/16/23 09/16/23 History
(Synthroid)
atxeom-sscmwwjk-ltyntbh 2 cap PO DAILYPRN PRN with a snack 09/16/23 09/16/23 History
36,000-114,000-180,000 unit
capsule,delay rel (Creon)
ymkbmb-fsruusqm-atuxeqk 4 cap PO AC 09/16/23 09/16/23 History
36,000-114,000-180,000 unit
capsule,delay rel (Creon)
pantoprazole 40 mg tablet,delayed 40 mg PO DAILY 09/16/23 History
release (Protonix)
Review of Systems
-
History Source: Patient
All other systems: Negative unless noted
Constitutional: Weight Gain and Fatigue
Respiratory: Cough and Trouble Breathing
Physical Exam
Vital Signs
Temp Pulse Resp BP Pulse Ox
98.2 F 88 18 131/71 99
09/16/23 11:00 09/16/23 11:40 09/16/23 11:40 09/16/23 11:00 09/16/23 11:51
Lab Results
09/16/23 05:08
09/16/23 05:08
Troponin I 0.092 ng/ml H* 09/16/23 09:02
Rnd-Y-Zoqqljqvkey Pept 14339 pg/ml 09/16/23 05:08
Physical Exam
General: Well Developed and No Apparent Distress
HEENT: Normocephalic
Respiratory: Other (diminished to b/l bases; on o2 by NC)
Cardiac: Regular Rhythm
Musculoskeletal: Edema (mild BLE edema)
Skin: Warm and Dry
Neuro: AO x 3
Psych: Calm
Impression / Plan
-
Acute HF (type unknown, but last echo 2021 mid range EF 45-50%):
-bnp 35308, CXR as noted below. Patient with orthopnea and PND as well.
-agree with IV lasix, which requires intensive monitoring
-pleural effusion noted and being evaluated for thoracentesis
-update echo
ICM EF 45-50% (2021 study):
-on Farxiga. Not on metoprolol due to hx hypotension per chart, which would also limit other meds, though BP is fine here. Update echo as reassess.
CAD with hx multiple stents:
-denies any CP
-continue Eliquis. Statin is listed as allergy/intolerance.
Pancreatic cancer:
-hx surgery
-on chemotherapy, type unknown
-oncology is consulted
Hx smoking:
-received steroids and breathing tx
Leukocytosis:
-poss aspiration PNA per chart
-on abx
-management per primary
Abnormal troponin:
-suspect acute non-ischemic myocardial injury in setting of acute CHF
-already trending down
-checking echo
Data Reviewed
-
EKG: Tracing Personally Visualized and interpreted (ST with PVC's)
Radiology: Report Reviewed by me (CXR: Pulmonary edema with hfcsq-ng-ifobgoso right and small left pleural effusions. 5 mm nodular opacity in the left upper lobe. )
Medical Tests (Nuc Med, Echo etc): Report Reviewed by me (Echo 06/29/21: Left ventricular ejection fraction is 45-50%. Mid anterolateral and apical lateral dyskinesis. Mid to distal inferolateral severe hypokinesis. Trace MR, TR. )
Labs: Labs Reviewed by me
[2023-09-16 12:12] LABS: Glucose - Point of Care 266 mg/dl (70-99)
[2023-09-16] MEDS: ZENPEP DELAYED RELEASE CAPSULE 4 CAPSULE PO ×2 (12:14→16:19)
[2023-09-16] MEDS: CYMBALTA DELAYED RELEASE 60 MG PO (12:16)
[2023-09-16] MEDS: PT'S OWN INSULIN PUMP - NovoLOG 4.2 UNIT SC (12:19)
[2023-09-16 15:48] LABS: Troponin I 0.083 ng/ml
[2023-09-16] MEDS: NEURONTIN 600 MG PO ×2 (16:20→20:56)
[2023-09-16 16:25] LABS: Glucose - Point of Care 252 mg/dl (70-99)
--- NOTE | 2023-09-16 16:53 | CON.ONC ---
Impression
Impression
CHF, new
Pancreatic cancer
Prior hx CAD s/p [place]
Plan
Plan
Due for outpt restaging, no apparent reason to do scans as inpt.
Risk of cardiac failure <10% and fluid retention <10% with Abraxane.
Gemcitabine can cause peripheral edema and capillary leak syndrome but should not cause CHF.
Aranesp has association with vascular events at undefined frequency.
Cardiac w/u ongoing.
Pt feeling better.
Last chemo was 09/02, Neulasta 09/03. Would not expect cytopenias to develop or worsen from chemo at this point.
Slight platelet elevation likely reflects rebound from gemcitabine.
Thank you for consult, will follow along with you.
Patient History
History of Present Illness
63-year-old woman with metastatic pancreatic cancer, treated with gemcitabine and Abraxane cycle 3, day 15 on September 02. She has not been restaged yet since starting treatment. Treatment has recently been complicated by anemia requiring initiation
of Aranesp 200 mcg on September 02. Over the last 2 weeks or so, patient developed a cough and subsequently paroxysmal nocturnal dyspnea. The symptoms were thought to possibly be due to to reflux and her antireflux medications were adjusted. As of
September 12 she had had an 8 pound weight gain since September 01. She came to the ER earlier this morning with complaint of worsening PND, having trouble breathing even sitting up. She was found to be in hypoxic respiratory failure. Her BNP returned
significantly elevated at 17,500. Patient does have an extensive cardiac history but has no prior history of CHF. She had minimal swelling in her legs. Patient now feeling better, seen on room air this afternoon.
Past-Medical/Surgical History
Past Medical History
Past Medical History: CAD, Pancreatic Cancer, CVA, GERD, Hypercholesterolemia and NIDDM
Past Surgical History
Myocardial infarction, right nephrectomy, fifth toe removed, vascular surgery
Social History
Personal:
Living: With Family
Family History
Mother has multiple myeloma
Patient Medication
�Medication �Instructions �Recorded �Confirmed �Last Taken �Type
famotidine 40 mg tablet 40 mg PO HS Gastrointestinal issue 08/04/20 09/16/23 09/15/23 History
dapagliflozin propanediol 10 mg 10 mg PO DAILY #30 tabs 08/05/20 09/16/23 09/15/23 Rx
tablet (Farxiga)
duloxetine 60 mg capsule,delayed 60 mg PO DAILY Mental 06/20/21 09/16/23 09/15/23 History
release Health/Anxiety
gabapentin 600 mg tablet 600 mg PO TID Neurological 10/02/21 09/16/23 09/15/23 History
Condition
Patient Own Insulin Pump 1 sliding scale dose SC .NOVOLOG 09/16/23 09/16/23 09/15/23 History
VIA PUMP
apixaban 5 mg tablet (Eliquis) 5 mg PO BID 09/16/23 09/16/23 09/15/23 History
insulin glargine U-300 conc 300 0 unit SC DAILY 09/16/23 09/16/23 Unknown History
unit/mL (3 mL) subcutaneous pen
(Toujeo Max U-300 SoloStar)
levothyroxine 200 mcg tablet 200 mcg PO DAILY 09/16/23 09/16/23 Unknown History
(Synthroid)
levothyroxine 50 mcg tablet 50 mcg PO DAILY 09/16/23 09/16/23 Unknown History
(Synthroid)
txaoiu-lcwfroti-kkcotdr 2 cap PO DAILYPRN PRN with a snack 09/16/23 09/16/23 Unknown History
36,000-114,000-180,000 unit
capsule,delay rel (Creon)
mhbwxo-dkubnkpo-xwlvjlk 4 cap PO AC 09/16/23 09/16/23 Unknown History
36,000-114,000-180,000 unit
capsule,delay rel (Creon)
pantoprazole 40 mg tablet,delayed 40 mg PO DAILY 09/16/23 09/16/23 Unknown History
release (Protonix)
Active Medications
Generic Name Dose Route Start Last Admin
Trade Name Freq PRN Reason Stop Dose Admin
Acetaminophen 650 mg 09/16/23 08:31
Acetaminophen 325 Mg Tablet PO 10/14/23 08:30
Q4HPRN PRN
Mild Pain / Temp > 101
Albuterol Sulfate 2.5 mg 09/16/23 08:31
Albuterol Nebs 2.5 Mg/3 Ml Ampul INH
R Q4HPRN PRN
SOB
Protocol
Apixaban 5 mg 09/16/23 08:31 09/16/23 08:25
Apixaban (Eliquis) 5 Mg Tablet PO 10/14/23 08:30 5 mg
BID ENDY Administration
Dextrose 12.5 grams 09/16/23 08:31
Dextrose 50% (0.5 Grams/Ml) 50 Ml Syringe IV 10/14/23 08:30
H22APGE PRN
hypoglycemia
Protocol
Duloxetine HCl 60 mg 09/16/23 11:00 09/16/23 12:16
Duloxetine Delayed Release 60 Mg Capsule PO 10/14/23 10:59 60 mg
DAILY ENDY Administration
Famotidine 40 mg 09/16/23 22:00
Famotidine 40 Mg Tablet PO 10/14/23 21:59
HS ENDY
Furosemide 40 mg 09/16/23 08:31 09/16/23 09:48
Furosemide 40 Mg (10 Mg/Ml) 4 Ml Vial IV 10/14/23 08:30 40 mg
DAILY ENDY Administration
Gabapentin 600 mg 09/16/23 16:00 09/16/23 16:20
Gabapentin 300 Mg Capsule PO 10/14/23 15:59 600 mg
TID ENDY Administration
Glucagon 1 mg 09/16/23 08:31
Glucagon 1 Mg Vial IM 10/14/23 08:30
PRN PRN
hypoglycemia
Protocol
Heparin Sodium (Porcine) 500 unit 09/16/23 09:45 09/16/23 13:41
Heparin Flush Pf (100 Unit/Ml) 5 Ml Syringe IV 10/14/23 09:44 500 unit
PER PROTOCOL ENDY Administration
Piperacillin Sod/Tazobactam Sod 3.375 gram in 50 mls @ 100 mls/hr 09/16/23 08:00 09/16/23 13:02
Zosyn IV 50 mls
Q6H ENDY Administration
Levothyroxine Sodium 50 mcg 09/16/23 11:00
Levothyroxine 50 Mcg Tablet PO 10/14/23 10:59
.6 DAYS A WEEK ENDY
Levothyroxine Sodium 200 mcg 09/16/23 11:00
Levothyroxine 200 Mcg Tablet PO 10/14/23 10:59
.6 DAYS A WEEK ENDY
Pancrelipase 2 capsule 09/16/23 11:07
Pancrelipase (Zenpep) Delayed Release Capsule PO 10/14/23 11:06
DAILYPRN PRN
with a snack
Pancrelipase 4 capsule 09/16/23 11:30 09/16/23 16:19
Pancrelipase (Zenpep) Delayed Release Capsule PO 10/14/23 11:29 4 capsule
AC ENDY Administration
Pantoprazole Sodium 40 mg 09/16/23 20:00
Pantoprazole 40 Mg Delayed Release Tablet PO 10/14/23 19:59
BID ENDY
Patient Own Medication 0 unit 09/16/23 08:31 09/16/23 12:19
Insulin Pump - Patient's Own Novolog (Aspart) SC 10/14/23 08:30 4.2 unit
ACHS ENDY Administration
Patient Own Medication 0 unit 09/16/23 08:31
Insulin Pump - Patient's Own Novolog (Aspart) SC 10/14/23 08:30
PRN PRN
hyperglycemia
Review of Systems
-
History Source: Patient and Records
Constitutional: Reports Weight Gain; Denies Fever or Chills
EENT: Reports No Symptoms
Respiratory: Reports Cough and Trouble Breathing
Cardiac: Denies Chest Pain or Palpitations
GI: Reports No Symptoms
: Reports No Symptoms
Musculoskeletal: Reports No Symptoms
Skin: Reports No Symptoms
Neuro: Reports No Symptoms
Endocrine: Reports No Symptoms
Hematologic/Lymphatic: Reports No Symptoms
Allergy / Immunology: Reports No Symptoms
Psych: Reports No Symptoms
Physical Exam
-
General: Comfortable and Appears Chronically Ill; Negative Respiratory Distress
HEENT: Moist Mucous Membranes; Negative Jaundice
Cardiology: Normal Sinus Rhythm, S1 and S2
Pulmonary: Clear; Negative Wheezes or Rales
GI: Soft; Negative Distended
Genito-Urinary: Negative Costovertebral Angle Tenderness
Musculoskeletal: No Clubbing and No Cyanosis
Extremities: No C/C/E; Negative Phlebitic Signs
Neurology: Non Focal
Skin: Warm and Dry
Hematologic / Lymphatic: No Lymphadenopathy
Psych: Calm and Intact Judgement/Insight
Labs
Lab Results
WBC 22.7 10^3/uL (4.8-10.8) H 09/16/23 05:08
RBC 2.76 10^6/uL (4.20-5.40) L 09/16/23 05:08
Hgb 9.0 g/dL (12.0-16.0) L 09/16/23 05:08
Hct 28.3 % (37.0-47.0) L 09/16/23 05:08
MCV 102.5 fL (81.0-99.0) H 09/16/23 05:08
MCH 32.6 pg (27.0-31.0) H 09/16/23 05:08
MCHC 31.8 g/dL (33.0-37.0) L 09/16/23 05:08
RDW 23.3 % (11.5-14.5) H 09/16/23 05:08
Plt Count 403 10^3/uL (130-400) H 09/16/23 05:08
MPV 10.3 fL (7.4-10.4) 09/16/23 05:08
Creatinine 0.9 mg/dL (0.6-1.0) 09/16/23 05:08
Vital Signs
Vital Signs
Temp Pulse Resp BP Pulse Ox
97.3 F 91 16 122/67 99
09/16/23 15:00 09/16/23 15:00 09/16/23 15:00 09/16/23 15:00 09/16/23 15:00
Wt's in the office: 152.8 on 09/12, 144.4 on 09/01
[2023-09-16] MEDS: PT'S OWN INSULIN PUMP - NovoLOG 3.4 UNIT SC (18:29)
[2023-09-16 20:38] LABS: Troponin I 0.088 ng/ml
[2023-09-16] MEDS: PROTONIX 40 MG PO (20:56)
[2023-09-16] MEDS: PEPCID 40 MG PO (20:59)
[2023-09-16 21:06] LABS: Glucose - Point of Care 154 mg/dl (70-99)
[2023-09-16] MEDS: PT'S OWN INSULIN PUMP - NovoLOG 0.7 UNIT SC (22:18)
[2023-09-17] MEDS: ZOSYN 50 IV ×4 (01:25→20:59)
[2023-09-17 03:00] VITALS: BP 121/69
[2023-09-17 05:10] LABS: Hematocrit 24.8 % (37.0-47.0); Mean Corp Hgb Conc. 32.3 g/dL (33.0-37.0); Mean Corpuscular Hgb 33.5 pg (27.0-31.0); Mean Corpuscular Volume 103.8 fL (81.0-99.0); Mean Platelet Volume 10.3 fL (7.4-10.4); Platelet Count 368 10^3/uL (130-400); Red Blood Cell Count 2.39 10^6/uL (4.20-5.40); Red Cell Dist. Width 22.5 % (11.5-14.5); White Blood Cell Count 14.2 10^3/uL (4.8-10.8)
[2023-09-17 05:27] LABS: Blood Urea Nitrogen 20 mg/dl (7-17); Calcium 8.1 mg/dl (8.4-10.2); Carbon Dioxide 27 mmol/L (22-30); Chloride 110 mmol/L (98-107); Estimated Creatinine Clearance 52 ml/min; Glucose 87 mg/dl (70-99); Potassium 3.7 mmol/L (3.5-5.1); Sodium 139 mmol/L (135-145); eGFR > 60.00
[2023-09-17 06:00] VITALS: BMI 23.7
[2023-09-17 07:00] VITALS: BP 107/63; BP 113/56; BP 115/57; PULSE 86; PULSE 87; PULSE 91
[2023-09-17 07:27] LABS: Glucose - Point of Care 96 mg/dl (70-99)
--- NOTE | 2023-09-17 08:24 | PTCARENOTE ---
Diabetes Education- Suzanne seen by GULSHAN Gillespie. Using insulin pump w/ CGM, no need for monitor instructions.
[2023-09-17] MEDS: PT'S OWN INSULIN PUMP - NovoLOG 0.9 UNIT SC (08:58)
[2023-09-17] MEDS: ZENPEP DELAYED RELEASE CAPSULE 4 CAPSULE PO ×3 (08:58→16:36)
[2023-09-17] MEDS: CYMBALTA DELAYED RELEASE 60 MG PO (08:59)
[2023-09-17] MEDS: NEURONTIN 600 MG PO ×3 (08:59→21:00)
[2023-09-17] MEDS: ELIQUIS 5 MG PO ×2 (09:00→20:59)
[2023-09-17] MEDS: PROTONIX 40 MG PO ×2 (09:00→21:00)
[2023-09-17] MEDS: LASIX 40 MG IV (09:01)
--- NOTE | 2023-09-17 09:12 | PN.DE.MGMTRT ---
Insulin Management
- -
09/17/2023: Diabetes Management Consult Follow up
Patient admitted with progressive SOB and persistent cough concerning for aspiration, Acute CHF/pulmonary edema, Right pleural effusion and Acute hypoxic respiratory insufficiency requiring oxygen up to 4 L NC.
PMH: ASCVD s/p stents, PAD, Hypothyroidism, h/o DVT, Metastatic pancreatic cancer on chemotherapy s/p G-CSF 10 days prior to presentation, IDDM.
Pt awake, A/O x3, sitting up in bed, offers no complaint, appears malnourished with dry mucous membranes, at bedside.
States she sees Endo Dr. Hudson and MAGED Vivar, and was recently transitioned to an insulin pump- Medtronic mini med with guardian sensor, due to difficulty controlling her blood sugars from chronic steroid use and recurrent Hypoglycemic episodes.
Reports that she is still taking Farxiga 10mg daily
Glucose on admission was 146(V). A1C 5.9%, Cr 0.9, eGFR >60. Current blood sugar reading via Sensor 182. Pt NPO for procedure.
Of note, pt was given a high dose of IV steroids, contributing to Hyperglycemia.
Current pump settings as follows:
Basal rate 12AM- 12AM 0.65 units
ICR 12AM - 12AM 1:14
ISF 12AM - 12AM 1:50
Target 100-120
24 hr total insulin 15.6 units, she uses a Trent infusion set and novolog.
Glucose improved today 87.
Will make no changes to current pump settings. Will follow and make adjustments if steroids continue and if necessary.
Explained to pt need to hold Farxiga while in the hospital given poor PO intake and potential for pancreatitis, she is agreeable.
Discussed bedside insulin pump sheet.
Diabetes History
- -
Type of Diabetes: 2 requiring insulin
Pre-Admission Diabetes Regimen
09/17/23
04:46
Creatinine 1.0
Lab Results
Hemoglobin A1c 5.9 % (4.0-5.6) H 09/16/23 05:08
Insulin Pump Settings
IP Diabetes Regimen
09/16/23 09/16/23 09/16/23
12:10 16:23 21:04
Glucose
POC Glucose 266 H 252 H 154 H
09/17/23 09/17/23
04:46 07:26
Glucose 87
POC Glucose 96
Meal type: Dinner
Meal type: Lunch
Amount consumed: 100%
Amount consumed: 100%
Patient Education
[2023-09-17 11:00] VITALS: BP 129/77
--- NOTE | 2023-09-17 11:10 | W.PN.CD ---
Addendum entered and electronically signed by Star Duncan MD 09/17/23 15:16:
Patient seen and examined in collaboration with UPSETTING MACHINE OPERATOR; agree with below.
-Volume status improved with IV Lasix.
-Can discharge to home on Lasix 20 mg PO daily starting tomorrow.
Original Note:
Today's Communication / Plan
-
Continue diuresis
Impression / Plan
-
BACKGROUND: 63F pancreatic cancer (hx mini whipple post-op UE DVT, treated with gemcitabine and Abraxane cycle 3, day 15 on September 02), severe CAD (hx BMS LAD 2009, multivessel PCI sep and nov 2015, RCA PCI August 2020, LCX PCI 2021, PAD (Dr. Ying),
dyslipidemia, DM2, hx smoking, hx stroke 2009, ICM EF 45-50%, and GERD who is here for evaluation of SOB x 1 week.
HFrEF (EF 35-40%), acute
-proBNP 49849, CXR with pulmonary edema with ttfgh-bb-fqbbwrvp right and small left pleural effusions & orthopnea with PND
-Diuresis with furosemide 40mg IV daily, this requires intensive monitoring
-Heart failure education
-GDMT is limited by blood pressure
-SGLT2: Farxiga
-Beta kristina: Had hypotension
-MRA: Can consider, no documented hyperkalemia
-Daily weight, I/Os, and BMP with diuresis
CAD with hx multiple stents:
-Denies any CP
-Statin is listed as allergy/intolerance, consider PCSk9i
Prior DVT, on apixaban
Pancreatic cancer, treated with gemcitabine and Abraxane, per Dr Erazo
Leukocytosis, improving, possible aspiration pneumonia, on antibiotics, per primary
Abnormal troponin, nonischemic myocardial injury in the setting of acute heart failure, peak troponin 0.095
SUBJECTIVE:
Shortness of breath and BARROW is improving
Physical Exam
Vital Signs/Labs
Vital Signs
Temp Pulse Resp BP Pulse Ox
98.1 F 91 14 107/63 94
09/17/23 07:00 09/17/23 07:00 09/17/23 07:00 09/17/23 07:00 09/17/23 07:00
09/16/23 09/17/23 09/18/23
06:59 06:59 06:59
Actual Weight 71 kg 67.993 kg
09/17/23 04:46
09/17/23 04:46
PT 14.3 Sec (11.4-14.6) 09/16/23 06:15
INR 1.13 09/16/23 06:15
APTT 33.4 Sec (23.4-35.0) 09/16/23 06:15
09/16/23
05:08
Zou-B-Wimcmvsyplz Pept [id number]
LAB Results
09/16/23 09/16/23 09/16/23
05:08 09:02 14:58
Troponin I 0.095 H* 0.092 H* 0.083 H*
09/16/23
20:04
Troponin I 0.088 H*
Physical Exam
Constitutional: No acute distress and Comfortable
EENT: Anicteric and Moist mucous membranes
Cardiovascular: Rhythm & rate is regular, Pedal edema is absent and S1S2 is normal
Respiratory: Respiratory effort normal and Lungs clear to auscul.
GI: Soft, Distention absent, Flat, Non tender and Normal bowel sounds
Neuro/Psych: AO x 3
Other: Skin
Data Reviewed
-
Date of Service: September 17, 2023
Labs: Labs Reviewed by me
Old Records: Reviewed
[2023-09-17 11:57] LABS: Glucose - Point of Care 112 mg/dl (70-99)
[2023-09-17] MEDS: PT'S OWN INSULIN PUMP - NovoLOG 3.5 UNIT SC (12:25)
--- NOTE | 2023-09-17 12:36 | W.PN.ONC ---
Today's Communication / Plan
-
She seems much improved. Agree with plans for diagnostic thoracentesis.
Impression
Impression
CHF, new
Pancreatic cancer
Prior hx CAD s/p [place]
Plan
Plan
Due for outpt restaging, no apparent reason to do scans as inpt.
Risk of cardiac failure <10% and fluid retention <10% with Abraxane.
Gemcitabine can cause peripheral edema and capillary leak syndrome but should not cause CHF.
Aranesp has association with vascular events at undefined frequency.
Cardiac w/u ongoing.
Pt feeling better.
Last chemo was 09/02, Neulasta 09/03. Would not expect cytopenias to develop or worsen from chemo at this point.
Slight platelet elevation likely reflects rebound from gemcitabine.
Thank you for consult, will follow along with you.
Subjective/Objective
Subjective/Objective
She is feeling much better. Her breathing has improved. She is off oxygen. Examination shows some diminished breath sounds at the right base. Heart tones are unremarkable.
Vital Signs:
Vital Signs
Temp Pulse Resp BP Pulse Ox
97.8 F 79 14 129/77 99
09/17/23 11:00 09/17/23 11:00 09/17/23 11:00 09/17/23 11:00 09/17/23 11:00
Lab Results:
Laboratory Data
WBC 14.2 10^3/uL (4.8-10.8) H 09/17/23 04:46
Hgb 8.0 g/dL (12.0-16.0) L 09/17/23 04:46
Plt Count 368 10^3/uL (130-400) 09/17/23 04:46
PT 14.3 Sec (11.4-14.6) 09/16/23 06:15
INR 1.13 09/16/23 06:15
APTT 33.4 Sec (23.4-35.0) 09/16/23 06:15
eGFR > 60.00 09/17/23 04:46
[2023-09-17 15:25] VITALS: BP 127/73
--- NOTE | 2023-09-17 16:35 | CM ---
office manager receptionist reviewed patient's chart and met with patient and patient lives alone in an apartment, with 14 steps [place] enter, patient was recently discharged from [facility] home with [facility]. Patient is independent with adl's and uses a cane
with ambulation. Per physical therapy patient will need skilled placement, options reviewed with patient and patient has selected [facility].
PCP: Dr. Donnelly
Pharmacy; [facility]
Plan; Skilled placement
[2023-09-17] MEDS: SYNTHROID 200 MCG PO (16:37)
[2023-09-17] MEDS: SYNTHROID 50 MCG PO (16:37)
[2023-09-17] MEDS: PT'S OWN INSULIN PUMP - NovoLOG 1 UNIT SC (16:39)
--- NOTE | 2023-09-17 16:39 | CM ---
Patient lives with spouse in a one story home, patient is independent with adl's and ambulation, no dme. [employer] reviewed possible visiting nurse services and patient feels she does not need visiting nurses.
PCP: Dr. Billingsley
Pharmacy; [facility]
--- NOTE | 2023-09-17 16:51 | PTOTSP ---
ST Follow-Up
Pt continues to present with slight oral dysphagia 2/2 dentition issues. Pt communicated she would like to be upgraded to regular diet for more options. Pt is deemed safe enough to do so (as IDDSI 6 was initially only chosen per her preference).
Recommendations:
- UPGRADE diet to REGULAR SOLIDS and THIN LIQUIDS with meds as tolerated.
- General aspiration and reflux precautions.
- ROLLER VARNISHER to f/u to ensure pt is safely consuming the recommended diet consistencies and to determine whether or not pt would benefit from an instrumental swallow assessment.
[2023-09-17 16:52] LABS: Glucose - Point of Care 170 mg/dl (70-99)
--- NOTE | 2023-09-17 16:58 | W.PN.HOSP.TC ---
Today's Communication/Plan
-
IV diuresis with plan to transition to oral Lasix on 09/17.
Right pleural effusion improved with diuresis and not amenable for thoracentesis.
Chest x-ray to follow-up with bilateral infiltrates if improved, would consider to discontinue antibiotics and observe
Follow WBC
Physical therapy assessment.
Assessment / Plan
Assessment / Plan
Impression:
Patient is a 63y F with PMH significant for pancreatic cancer, ASCVD and DM-II who presents to ED complaining of progressive SOB.
Acute hypoxic respiratory insufficiency requires up to 4 L NC oxygen
Acute CHF reduced EF/pulmonary edema suspected.
Right pleural effusion.
Persistent cough with concern for aspiration.
Leukocytosis.
Conditions prior to admission:
Metastatic pancreatic cancer on chemotherapy status post G-CSF 10 days prior to presentation.
CAD with cardiac stents.
PAD.
Ongoing anticoagulation with Eliquis with history of DVT
IDDM on insulin pump
Hypothyroidism on replacement
Plan
Acute HF reduced EF.
Echocardiogram 09/15 LVEF 35-40%. Mild to moderate MR. Mild pulmonary hypertension with PA pressure 42 mmHg. Compared with prior study 07/09 EF decreased from 45 to 50%.
Right Pleural Effusion
Responding to diuresis was able to wean off supplemental oxygen
Plan is to transition to oral Lasix on 09/17
Right Pleural Effusion
Most likely due to CHF
Chest ultrasound with mild to moderate pleural effusion
Follow-up ultrasound on 09/16 with minimal effusion not amenable for thoracentesis.
Persistent cough with concern for aspiration
Speech and swallow evaluation with no evidence of aspiration.
Afebrile.
Leukocytosis likely related to recent G-CSF.
Follow-up chest x-ray 09/16 if improvement of bilateral infiltrates, will consider to stop antibiotics and monitor closely.
Leukocytosis
Thrombocytosis
Macrocytic Anemia
- Suspect cell line changes are due to chemo / G-CSF received post-chemo.
- Possible infection / aspiration pneumonia as noted above.
- Monitor for changes in cell counts.
Metastatic Pancreatic Cancer
Outpatient regimen Abraxane/gemfibrozil
- Last chemo about 10 prior to presentation. Next is due Saturday - will hold for now.
-Oncology input appreciated.
ASCVD
Non-Ischemic Myocardial Injury
- Significant history of CAD, CVA and PAD s/p coronary stents, LLE bypass, etc.
- Continue Eliquis (per external med summary).
- Confirm med list and resume usual CV medications once reconciled.
- Troponin very mildly elevated - likely due to CHF / acute illness. No chest pain or EKG changes.
- Continue to follow to peak.
DM-II
- Stable. Insulin pump in place - continue.
- Follow glucose and update A1C.
- DM ELECTRONIC DIE MAKER eval for insulin pump management.
Hypothyroidism
- Continue T4 supplementation (250mcg daily lst documented dose - change if needed after formal med rec).
- Update TFTs.
History of DVT
DVT Prophylaxis
- On Eliquis.
Code Status: DNR
Anticipated Discharge: 24 - 48 hours
Subjective/Interval History
-
Date of Service: September 17, 2023
Objective Data
-
Labs:
Laboratory Results
09/17/23
04:46
WBC 14.2 H
Hgb 8.0 L
Hct 24.8 L
Plt Count 368
Sodium 139
Potassium 3.7
Chloride 110 H
Carbon Dioxide 27
BUN 20 H
Creatinine 1.0
Glucose 87
Calcium 8.1 L
Vital Signs:
Vital Signs
Temp Pulse Resp BP Pulse Ox
98.3 F 79 14 127/73 100
09/17/23 15:25 09/17/23 15:25 09/17/23 15:25 09/17/23 15:25 09/17/23 15:25
I&O
09/16/23 09/17/23 09/18/23
06:59 06:59 06:59
Intake Total 0 / 111
Balance 1109
Physical Exam
-
General: Well Developed and No Apparent Distress
HEENT: Normocephalic, Atraumatic and Moist Mucous Membranes
Respiratory: Other (Decreased breath sounds at the right base); Negative Wheezes
Cardiac: Regular Rhythm and S1/S2; Negative Murmur, Rub or Gallop
GI: Soft, Nontender, Nondistended and Normal Bowel Sounds; Negative Organomegaly
Rectal: Deferred by Provider
Musculoskeletal: No Clubbing, No Cyanosis and No Edema
Skin: Negative Rash
Neuro: Nonfocal/Grossly Intact
[2023-09-17 19:00] VITALS: BP 129/70
[2023-09-17 20:55] LABS: Glucose - Point of Care 116 mg/dl (70-99)
[2023-09-17] MEDS: PEPCID 20 MG PO (20:59)
[2023-09-17 23:00] VITALS: BP 114/64
[2023-09-17] MEDS: PT'S OWN INSULIN PUMP - NovoLOG SC (23:55)
[2023-09-18] MEDS: ZOSYN 50 IV ×3 (01:53→13:16)
[2023-09-18 03:00] VITALS: BP 123/70
[2023-09-18 05:34] LABS: % Basophils 0.7 % (0-2); % Eosinophils 1.5 % (0-6); % Immature Granulocytes 2.8 % (0-0.5); % Lymphocytes 21.2 % (20.5-51.1); % Monocytes 11.3 % (1.7-9.3); % Neutrophils 62.5 % (42.2-75.2); Absolute Basophils 0.1 10^3/uL (0-0.2); Absolute Eosinophils 0.2 10^3/uL (0-0.7); Absolute Immature Granulocytes 0.3 10^3/uL (0-0.05); Absolute Lymphocytes 2.1 10^3/uL (1.2-3.4); Absolute Monocytes 1.1 10^3/uL (0.1-0.6); Absolute Neutrophils 6.3 10^3/uL (1.4-6.5); Hematocrit 27.1 % (37.0-47.0); Hemoglobin 8.6 g/dL (12.0-16.0); Mean Corp Hgb Conc. 31.7 g/dL (33.0-37.0); Mean Corpuscular Volume 100.7 fL (81.0-99.0); Platelet Count 502 10^3/uL (130-400); Red Blood Cell Count 2.69 10^6/uL (4.20-5.40); Red Cell Dist. Width 22.4 % (11.5-14.5)
[2023-09-18] MEDS: SYNTHROID 200 MCG PO (05:51)
[2023-09-18] MEDS: SYNTHROID 50 MCG PO (05:51)
[2023-09-18 05:57] LABS: Blood Urea Nitrogen 17 mg/dl (7-17); Carbon Dioxide 29 mmol/L (22-30); Chloride 109 mmol/L (98-107); Estimated Creatinine Clearance 48 ml/min; Glucose 90 mg/dl (70-99); Potassium 4.1 mmol/L (3.5-5.1); Sodium 140 mmol/L (135-145); eGFR 56.81
[2023-09-18 07:00] VITALS: BP 99/70
[2023-09-18 07:34] LABS: Glucose - Point of Care 106 mg/dl (70-99)
--- NOTE | 2023-09-18 08:24 | PN.DE.MGMTRT ---
Insulin Management
- -
09/18/2023: Diabetes Management Consult Follow up
Patient admitted with progressive SOB and persistent cough concerning for aspiration, Acute CHF/pulmonary edema, Right pleural effusion and Acute hypoxic respiratory insufficiency requiring oxygen up to 4 L NC.
PMH: ASCVD s/p stents, PAD, Hypothyroidism, h/o DVT, Metastatic pancreatic cancer on chemotherapy s/p G-CSF 10 days prior to presentation, IDDM. Glucose on admission was 146(V). A1C 5.9%, Cr 0.9, eGFR >60.
Pt awake, A/O x3, sitting up in bed, offers no complaint. Sees Dr. Hudson and [facility] Vivar at [facility], and was recently transitioned to an insulin pump- Medtronic mini med with guardian sensor, due to difficulty controlling her
blood sugars from chronic steroid use and recurrent Hypoglycemic episodes. Reports that she is still taking Farxiga 10mg daily
Of note, pt was given a high dose of IV steroids, contributing to Hyperglycemia.
Current pump settings as follows:
Basal rate 12AM- 12AM 0.65 units
ICR 12AM - 12AM 1:14
ISF 12AM - 12AM 1:50
Target 100-120
24 hr total insulin 15.6 units, she uses a [place] infusion set and novolog.
09/16 Glucose improved pre meal range 112 to 170.
Will make no changes to current pump settings. Will follow and make adjustments if needed.
Explained to pt need to hold Farxiga while in the hospital given poor PO intake and potential for pancreatitis, she is agreeable.
Discussed bedside insulin pump sheet.
Diabetes History
- -
Type of Diabetes: 2 requiring insulin
Pre-Admission Diabetes Regimen
09/18/23
05:15
Creatinine 1.1 H
Lab Results
Hemoglobin A1c 5.9 % (4.0-5.6) H 09/16/23 05:08
Insulin Pump Settings
IP Diabetes Regimen
09/17/23 09/17/23 09/17/23
11:56 16:50 20:52
Glucose
POC Glucose 112 H 170 H 116 H
09/18/23 09/18/23
05:15 07:31
Glucose 90
POC Glucose 106 H
Patient Education
[2023-09-18] MEDS: PT'S OWN INSULIN PUMP - NovoLOG 3.2 UNIT SC (09:20)
[2023-09-18] MEDS: ZENPEP DELAYED RELEASE CAPSULE 4 CAPSULE PO ×2 (09:21→11:41)
[2023-09-18] MEDS: NEURONTIN 600 MG PO (09:21)
[2023-09-18] MEDS: PROTONIX 40 MG PO (09:21)
[2023-09-18] MEDS: ELIQUIS 5 MG PO (09:22)
[2023-09-18] MEDS: LASIX 20 MG PO (09:23)
[2023-09-18] MEDS: CYMBALTA DELAYED RELEASE 60 MG PO (09:23)
--- NOTE | 2023-09-18 09:52 | PN.CDI ---
CDI
- -
CDI:
Physician Documentation Request
Admit Date: 09/16/23 07:44
Dear Doctor Claire,
Clinical Indicators:
Patient admitted with suspected Acute CHF reduced EF/pulmonary edema.
09/15 ED Report, Physical Exam: 'Moderate respiratory distress...speaks in short phrases...On repeat exam, rr has lowered, min retractions, less wob.'
02 requirement on admission:
09/16/23
06:10
Nasal Cannula flow liters per minute 6
09/16 PN, 'Acute hypoxic respiratory insufficiency requires up to 4 L NC oxygen'
Please clarify which of the following accurately represents the patient's respiratory status:
Acute hypoxic respiratory failure, resolved
Acute hypoxic respiratory insufficiency (documentation complete)
Other, please specify
Additional information for Respiratory Failure:
Recognized criteria for Respiratory Failure (Source: [facility] Hospitalist Dec 2012)
ABGs: (1 or more) Symptoms Please indicate type if known
1. p)2 <60 or RA SPO2 <91% on RA 1. Tachypnea, SOB, dyspnea Hypoxic
2. pCO2 50 and pH <7.35 2. Use of accessory muscles Hypercapnic
3. pO2 decrease of pCO2 increase by 3. Pallor or cyanosis Hypoxic and Hypercapnic
10 mmHg from baseline if known 4. Anxiety or restlessness Unable to determine
5. Unable to speak in full sentences
Supplemental O2 of > 40% (5LPM) Intubation is not required
Use of terms such as suspected, likely, concern for, or probable (associated with a specific diagnosis that is being evaluated, monitored, or treated as if it exists) are acceptable and can be coded in the inpatient setting, when documented at the
time of discharge.
Thank you,
Viri Gonzalez RN BSN
CDI Specialist
available via tiger text
Please use your independent medical judgment in providing your response.
[2023-09-18 11:28] VITALS: BP 123/72
[2023-09-18 11:43] LABS: Glucose - Point of Care 133 mg/dl (70-99)
[2023-09-18] MEDS: PT'S OWN INSULIN PUMP - NovoLOG 5.7 UNIT SC (11:52)
[2023-09-18 12:48] VITALS: BP 122/62; O2SAT 98
--- NOTE | 2023-09-18 13:22 | W.DS.TRANS ---
DC Summary - Instructor Decorating
-
Discharge Instructions:
Discharge Diagnosis/Procedures Acute hypoxic respiratory insufficiency requires
up to 4 L NC oxygen
Acute CHF reduced EF/pulmonary edema suspected.
Right pleural effusion.
Diet Regular
Instructions:
Stand-Alone Forms:
Changes to Home Medications: Yes
Discharge Medications:
DC Medications w/original date entered in [employer]
famotidine 40 mg tablet 40 mg PO HS Gastrointestinal issue 08/04/20
dapagliflozin propanediol 10 mg tablet (Farxiga) 10 mg PO DAILY #30 tabs 08/05/20
duloxetine 60 mg capsule,delayed release 60 mg PO DAILY Mental Health/Anxiety 06/20/21
gabapentin 600 mg tablet 600 mg PO TID Neurological Condition 10/02/21
Patient Own Insulin Pump 1 sliding scale dose SC .NOVOLOG VIA PUMP Diabetes 09/16/23
apixaban 5 mg tablet (Eliquis) 5 mg PO BID Blood Clot Prevention/Tx 09/16/23
insulin glargine U-300 conc 300 unit/mL (3 mL) subcutaneous pen (Toujeo Max U-300 SoloStar) 0 unit SC DAILY Diabetes 09/16/23
levothyroxine 200 mcg tablet (Synthroid) 200 mcg PO DAILY Thyroid 09/16/23
levothyroxine 50 mcg tablet (Synthroid) 50 mcg PO DAILY Thyroid 09/16/23
xzcdhe-yqklmupy-wofrzzh 36,000-114,000-180,000 unit capsule,delay rel (Creon) 2 cap PO DAILYPRN PRN with a snack 09/16/23
fifpii-mytjfvab-kfemccj 36,000-114,000-180,000 unit capsule,delay rel (Creon) 4 cap PO AC Gastrointestinal Issue 09/16/23
pantoprazole 40 mg tablet,delayed release (Protonix) 40 mg PO DAILY Gastrointestinal Issue 09/16/23
amoxicillin 875 mg-potassium clavulanate 125 mg tablet 1 tab PO BID #10 tabs 09/18/23
furosemide 20 mg tablet 20 mg PO DAILY #30 tabs 09/18/23
Home Medication Changes
Lasix added.
Antibiotics for additional 5 days
Pending Results: No
--- NOTE | 2023-09-18 13:24 | CM ---
Home no needs, patient has declined visiting nurses at discharge.
Plan; Home with spouse no needs.
--- NOTE | 2023-09-23 15:09 | W.HF.CON ---
Heart Failure
- LV Function
Left ventricular function study result: LV Ejection fraction >35% - 40%
Ejection Fraction Percentage: 35-40
- ARNI
Patient already on ARNI: No
Heart Failure ARNI Contraindication: Hypotension
- ACEI/ARB
Patient already on ACEI/ARB: No
Heart Failure ACEI/ARB Contraindication: Hypotension
- Beta Andres
Patient already on Evidence Based Beta Andres: No
Heart Failure Evidence Based Beta Andres: Hypotension
- Mineralocorticord Receptor Antagonist
Patient already on MRA: No
Heart Failure MRA Contraindication: Hypotension
- SGLT-2 Inhibitor
Patient already on SGLT-2 Inhibitor: Yes
- NYHA CHF Classification
NYHA CHF Classification Level: Class III - Symptoms w/ min exertion, interferes w/ nml daily activity (under going chemotherapy, anemia)
- ACC/AHA Stage
ACC/AHA Stage: Stage C: Symptomatic Heart Failure
--- NOTE | 2023-09-23 15:17 | HFEDUCATE ---
Pt has a F/U appt on 09/26/23 at 9:15AM with Dr. Daniel Billingsley MD
== END 2023-09-18 14:38 | disposition home or self-care (01) | DRG 291 ==
LOC: 4 WEST ACU 07:44
PROVIDERS: ADMITTING PHYSICIAN Hospitalist; ATTENDING PHYSICIAN Internal Medicine; CONSULT PHYSICIAN Internal Medicine Cardiovascular Disease; CONSULT PHYSICIAN Internal Medicine Hematology & Oncology; EMERGENCY PHYSICIAN Emergency Medicine; FAMILY PHYSICIAN Family Medicine
DX: I11.0 Hypertensive heart disease with heart failure (principal); I50.21 Acute systolic (congestive) heart failure; J18.9 Pneumonia, unspecified organism; C25.9 Malignant neoplasm of pancreas, unspecified; D84.821 Immunodeficiency due to drugs; C78.02 Secondary malignant neoplasm of left lung; J90 Pleural effusion, not elsewhere classified; E78.00 Pure hypercholesterolemia, unspecified; Z66 Do not resuscitate; I25.10 Atherosclerotic heart disease of native coronary artery without angina pectoris; K21.9 Gastro-esophageal reflux disease without esophagitis; E11.51 Type 2 diabetes mellitus with diabetic peripheral angiopathy without gangrene; E03.9 Hypothyroidism, unspecified; D64.81 Anemia due to antineoplastic chemotherapy; T45.1X5A Adverse effect of antineoplastic and immunosuppressive drugs, initial encounter; Z96.41 Presence of insulin pump (external) (internal); F41.9 Anxiety disorder, unspecified; R06.89 Other abnormalities of breathing; R09.02 Hypoxemia; D75.839 Thrombocytosis, unspecified; F17.200 Nicotine dependence, unspecified, uncomplicated; I25.2 Old myocardial infarction; Z95.5 Presence of coronary angioplasty implant and graft; Z95.820 Peripheral vascular angioplasty status with implants and grafts; Z89.422 Acquired absence of other left toe(s); Z86.73 Personal history of transient ischemic attack (TIA), and cerebral infarction without residual deficits; Z88.7 Allergy status to serum and vaccine; Z88.8 Allergy status to other drugs, medicaments and biological substances; Z86.718 Personal history of other venous thrombosis and embolism; Z90.5 Acquired absence of kidney; Z79.01 Long term (current) use of anticoagulants; Z79.4 Long term (current) use of insulin; Z79.899 Other long term (current) drug therapy; Z79.890 Hormone replacement therapy
CPT/HCPCS: 71045; 71046; 76604; 80048; 80053; 82962; 83036; 83605; 83880; 84443; 84484; 85025; 85027; 85610; 85730; 87040; 87502; 87811; 92526; 92610; 93005; 93306; 93970; 94640; 96365; 96375; 97162; 97166; 97535; 99291; 99406

== ENCOUNTER → 2023-09-23 09:07 | Outpatient (REF) | payer OTHER, SELFPAY | LOC: RAD 09:07 | PROVIDERS: ATTENDING PHYSICIAN Nurse Practitioner Adult Health; FAMILY PHYSICIAN Family Medicine | DX: I74.9 Embolism and thrombosis of unspecified artery (principal); C25.1 Malignant neoplasm of body of pancreas; D50.9 Iron deficiency anemia, unspecified; D63.0 Anemia in neoplastic disease | CPT/HCPCS: 71046 ==

== ENCOUNTER → 2023-10-09 07:46 | Outpatient (REF) | payer OTHER, SELFPAY | LOC: RAD 07:46 | PROVIDERS: ATTENDING PHYSICIAN Internal Medicine Hematology & Oncology; FAMILY PHYSICIAN Family Medicine | DX: I74.9 Embolism and thrombosis of unspecified artery (principal); C25.1 Malignant neoplasm of body of pancreas; D50.9 Iron deficiency anemia, unspecified; D63.0 Anemia in neoplastic disease | CPT/HCPCS: 71260; 74177; Q9967 ==

== ENCOUNTER 2023-10-13 12:54 | Emergency (ER) | payer OTHER, SELFPAY ==
[2023-10-13 13:05] VITALS: BP 129/64
[2023-10-13 14:37] VITALS: BMI 25.4
--- NOTE | 2023-10-13 14:46 | ED.GENMED ---
History of Present Illness
General
Chief Complaint: Back Pain
Time Seen by Provider: 10/13/23 14:15
History of Present Illness
History of Present Illness:
63-year-old female with history of pancreatic cancer with metastasis to the lung, CHF, anticoagulation with Eliquis, diabetes presenting to the emergency department for generalized weakness and right-sided back pain. Patient reports that she had
her last chemotherapy on Saturday, 10/07. The following day she had infusion of white blood cells. Since her chemo, she has felt generally weak and has had right sided back pain. Does note some mild dyspnea and cough. She reports that this was her
last of 12 chemo treatments. Denies fever. Reports some generalized abdominal discomfort without any vomiting. Denies any changes in her stool. Notes she was hospitalized about 2 weeks ago for congestive heart failure. Denies any present chest
pain. Notes that she typically feels unwell after her chemo, however this feels worse than usual. Denies additional acute medical complaints.
Past History
Past History
ED Past Medical History: CAD, CVA (TIA), GERD, HTN, Hypercholesterolemia, IDDM, [place], Psychiatric (Anxiety) and Other (Emphysema, pancreatic CA)
ED Past Surgical History: Cardiac (Stents X 7), Orthopedic (Right knee surgery, ), Urological (Right Nephrectomy) and Other (Pancreatic cancer surgery, right-sided nephrectomy)
Social History
Tobacco: Smoker
Alcohol: None
Drug: None
Personal:
Living: with family
Employment: Employed
Family History
Family History: CAD (Her brother at age 47 had an TN )
Phy Exam
Physical Exam
Physical Exam:
General: no clinical signs of dehydration, nontoxic and in no acute distress
HEENT: protecting airway
Neck: appears supple
CV: Normal heart rate, regular rhythm, no evidence of cyanosis
Resp: No accessory muscle use, no increased work of breathing, lungs clear to auscultation bilaterally
Abd: Soft and non-distended, no tenderness to palpation, normal bowel sounds
Extremities: No deformities, no swelling, no erythema, pulses and sensation intact. No reproducible tenderness to the back
Neuro: alert, no focal neurologic deficit
: deferred
Rectal: deferred
Psych: Normal affect
Skin: Intact
Course
Orders/Labs/Results
Orders:
Orders
10/13/23 13:08
EKG [Electrocardiogram (*1)] Urgent
Reason for Study: Tachycardia
EKG- Treatment ONCE
10/13/23 14:38
CR Chest - 2 Views Urgent
Comment:
Reason For Exam: R-back pain, hx pneumonia
10/13/23 14:46
COVID-19 Antigen Urgent
Source: Nasal Swab
10/13/23 14:52
Complete Blood Count/With Diff Urgent
10/13/23 14:53
Comprehensive Metabolic Panel Urgent
10/13/23 17:04
Doxycycline [Vibramycin] 100 mg PO NOW STA
Abnormal Lab Results
10/13/23 10/13/23
14:52 14:53
WBC 19.9 H 10^3/uL
(4.8-10.8)
RBC 2.33 L 10^6/uL
(4.20-5.40)
Hgb 7.8 L g/dL
(12.0-16.0)
Hct 23.5 L %
(37.0-47.0)
MCV 100.9 H fL
(81.0-99.0)
MCH 33.5 H pg
(27.0-31.0)
RDW 18.8 H %
(11.5-14.5)
Plt Count 117 L 10^3/uL
(130-400)
Abs Immat Gran (auto) 0.4 H 10^3/uL
(0-0.05)
Absolute Neuts (auto) 17.3 H 10^3/uL
(1.4-6.5)
Immature Gran % 1.9 H %
(0-0.5)
Neutrophils % 87.0 H %
(42.2-75.2)
Lymphocytes % 7.2 L %
(20.5-51.1)
BUN 23 H mg/dl
(7-17)
Creatinine 1.1 H mg/dL
(0.6-1.0)
Alkaline Phosphatase 199 H U/L
(38-126)
Total Protein 5.8 L g/dl
(6.3-8.2)
Albumin 3.0 L g/dl
(3.5-5.0)
10/13/23 14:52
10/13/23 14:53
Vital Signs
Initial and Last Documented VS:
Initial Vital Signs
Temp Pulse Resp BP Pulse Ox
98.9 F 103 16 129/64 98
10/13/23 13:05 10/13/23 13:05 10/13/23 13:05 10/13/23 13:05 10/13/23 13:05
Last Documented Vital Signs
Temp Pulse Resp BP Pulse Ox
98.9 F 74 18 124/74 98
10/13/23 13:05 10/13/23 17:26 10/13/23 17:26 10/13/23 17:26 10/13/23 17:26
MDM/Problems Addressed
MDM/Problems Addressed:
63-year-old female with history of pancreatic cancer with metastasis to the lung, CHF, anticoagulation with Eliquis, diabetes presenting for generalized weakness and right-sided back pain. Vital signs on arrival are significant for mild tachycardia
On exam, patient is in no acute distress, nontoxic. She is afebrile. Benign cardiac and pulmonary exam. No reproducible tenderness. Lungs clear to auscultation. No signs of volume overload. Suspect source of patient's symptoms is reaction to
recent chemotherapy, possible mild dehydration. EKG obtained, nonischemic with lower suspicion for cardiac etiology. No focal abnormal lung sounds, no lower extremity edema, lower suspicion for acute on chronic CHF. Patient does note mild cough,
has had pneumonia in the past, so we will obtain chest x-ray imaging and COVID swab. Patient is anticoagulated on Eliquis, denies missing any doses, without concern for PE. Will screen with laboratory analysis to assess for any signs of severe
dehydration. On review of EMR, patient recently had CT of the chest/abdomen/pelvis on 10/08, 4 days ago which showed improved pulmonary nodules and a small right pleural effusion, otherwise no acute pathology. Do not feel patient requires repeat
advanced imaging at this time.
17:00 -Labs relatively unremarkable. Patient does have a leukocytosis, however suspected to be reactive from recent chemotherapy. Mild anemia, increased from baseline, however no transfusion criteria. Chest x-ray shows possible right lower lobe
pneumonia, which is region of patient's pain. This is consistent with patient's symptoms. Patient remains hemodynamically stable, particularly stable from a respiratory standpoint. Patient offered admission versus discharge with close outpatient
follow-up and oral antibiotics. She would prefer to go home with outpatient follow-up. Will start doxycycline. Strict return precautions communicated and patient verbalized understanding.
*EKG
Interpreted by ED Provider?: Yes
EKG Intrepretation Date: 10/13/23
EKG Intrepretation Time: 14:52
Interpretation: normal
Comparison EKG: no changes (09/11/23)
Heart Rate: 103
Rate: tachycardiac
Rhythm: sinus
[place]: normal axis
Interval: normal interval
QRS Pattern: normal QRS
Ischemia: no ischemia
*Critical Care Note
Total Time (30-74mins, 75-104mins- exclusive of procedures): Not Applicable
ED Attending Note
-
Portions of this chart may have been created with voice recognition software.� Occasional wrong word or��sound alike� substitutions may have occurred due to the inherent limitations of voice recognition software.
Discharge Plan
Departure
Patient Disposition: Home (Routine Discharge)
Date of Disposition: 10/13/23
Time of Disposition: 17:06
Patient with high blood pressure during this ER visit?: No
Condition: Good
Discharge Problem:
Pneumonia involving right lung, Weakness
Instructions: Pneumonia in adults
Prescriptions:
New
doxycycline hyclate 100 mg capsule
100 mg PO BID 7 Days Qty: 14 0RF
No Action
famotidine 40 MG tablet
40 mg PO HS
dapagliflozin propanediol [Farxiga] 10 MG tablet
10 mg PO DAILY Qty: 30 5RF
duloxetine 60 MG capsule,delayed release(DR/EC)
60 mg PO DAILY
gabapentin 600 mg Tablet
600 mg PO TID
levothyroxine [Synthroid] 50 mcg Tablet
50 mcg PO DAILY
Rx Instructions:
take with 200mcg for total of 250mcg
pantoprazole [Protonix] 40 mg Tablet,Delayed Release (Dr/Ec)
40 mg PO DAILY
levothyroxine [Synthroid] 200 mcg Tablet
200 mcg PO DAILY
Rx Instructions:
take with 50mcg for total of 250mcg
Eliquis 5 mg Tablet
5 mg PO BID
Creon 36,000-114,000- 180,000 unit Capsule,Delayed Release(Dr/Ec)
4 cap PO AC
Creon 36,000-114,000- 180,000 unit Capsule,Delayed Release(Dr/Ec)
2 cap PO DAILYPRN PRN (Reason: with a snack)
insulin glargine U-300 conc [Toujeo Max U-300 SoloStar] 300 unit/mL (3 mL) Insulin Pen
0 unit SC DAILY
Patient Own Insulin Pump
1 sliding scale dose SC .NOVOLOG VIA PUMP
furosemide 20 mg Tablet
20 mg PO DAILY Qty: 30 0RF
amoxicillin-pot clavulanate 875-125 mg tablet
1 tab PO BID Qty: 10 0RF
Referrals:
Daniel Billingsley MD [Family Provider] -
Activity Restrictions/Additional Instructions:
You were seen in the emergency department for generalized weakness and cough
You were found to have a right lower lobe pneumonia. You were started on antibiotics.
Please follow-up closely with your primary care physician.
Return to the emergency department for any worsening of your symptoms, or any development of chest pain, difficulty breathing, abdominal pain with persistent vomiting and inability to tolerate food or liquid by mouth (concern for dehydration),
weakness or feeling like you are going to pass out, headache or confusion, fever greater than 100.4, or any additional symptoms that are concerning to you.
Thank you for choosing [facility].
Interventions
Interventions:
*Risk Screen - Suicide Last Done: 10/13/23 16:50
*General Assessment Last Done: 10/13/23 17:26
*Neglect/Abuse Screening Last Done: 10/13/23 16:50
ED- Fall Risk Assessment Last Done: 10/13/23 17:26
*ED COVID-19 Vaccine History Last Done: 10/13/23 17:26
*Nursing Disposition Last Done: 10/13/23 17:26
ED-Musculoskeletal Assessment Last Done: 10/13/23 17:26
Discharge Date and Time
Discharge Date/Time: 10/13/23 17:27
Print Language: MACANESE
[2023-10-13 15:08] LABS: Hematocrit 23.5 % (37.0-47.0); Hemoglobin 7.8 g/dL (12.0-16.0); Mean Corp Hgb Conc. 33.2 g/dL (33.0-37.0); Mean Corpuscular Hgb 33.5 pg (27.0-31.0); Mean Corpuscular Volume 100.9 fL (81.0-99.0); Mean Platelet Volume 10.2 fL (7.4-10.4); Platelet Count 117 10^3/uL (130-400); Red Blood Cell Count 2.33 10^6/uL (4.20-5.40); Red Cell Dist. Width 18.8 % (11.5-14.5); White Blood Cell Count 19.9 10^3/uL (4.8-10.8)
[2023-10-13 15:18] LABS: COVID-19 Antigen Negative (Negative)
[2023-10-13 15:31] LABS: ALT (SGPT) 17 U/L (0-35); AST (SGOT) 35 U/L (14-36); Alkaline Phosphatase 199 U/L (38-126); Blood Urea Nitrogen 23 mg/dl (7-17); Calcium 8.6 mg/dl (8.4-10.2); Carbon Dioxide 23 mmol/L (22-30); Chloride 107 mmol/L (98-107); Estimated Creatinine Clearance 46 ml/min; Glucose 75 mg/dl (70-99); Potassium 4.3 mmol/L (3.5-5.1); Sodium 137 mmol/L (135-145); Total Bilirubin 0.6 mg/dl (0.2-1.3); Total Protein 5.8 g/dl (6.3-8.2); eGFR 56.81
[2023-10-13 15:40] LABS: % Basophils 0.6 % (0-2); % Immature Granulocytes 1.9 % (0-0.5); % Lymphocytes 7.2 % (20.5-51.1); % Monocytes 2.3 % (1.7-9.3); Absolute Basophils 0.1 10^3/uL (0-0.2); Absolute Eosinophils 0.2 10^3/uL (0-0.7); Absolute Immature Granulocytes 0.4 10^3/uL (0-0.05); Absolute Lymphocytes 1.4 10^3/uL (1.2-3.4); Absolute Monocytes 0.5 10^3/uL (0.1-0.6); Absolute Neutrophils 17.3 10^3/uL (1.4-6.5); Nucleated Red Blood Cells % 0.1 %
[2023-10-13] MEDS: VIBRAMYCIN 100 MG PO (17:10)
[2023-10-13 17:26] VITALS: BP 124/74
== END 2023-10-13 17:27 | disposition home or self-care (01) ==
LOC: EMR 12:54
PROVIDERS: EMERGENCY PHYSICIAN Student in an Organized Health Care Education/Training Program; FAMILY PHYSICIAN Family Medicine
DX: J18.9 Pneumonia, unspecified organism (principal); R53.1 Weakness; I11.0 Hypertensive heart disease with heart failure; I50.9 Heart failure, unspecified; K21.9 Gastro-esophageal reflux disease without esophagitis; E11.9 Type 2 diabetes mellitus without complications; E78.00 Pure hypercholesterolemia, unspecified; F41.9 Anxiety disorder, unspecified; I25.10 Atherosclerotic heart disease of native coronary artery without angina pectoris; D64.9 Anemia, unspecified; F17.200 Nicotine dependence, unspecified, uncomplicated; C78.00 Secondary malignant neoplasm of unspecified lung; Z79.01 Long term (current) use of anticoagulants; Z82.49 Family history of ischemic heart disease and other diseases of the circulatory system; Z85.07 Personal history of malignant neoplasm of pancreas; Z86.73 Personal history of transient ischemic attack (TIA), and cerebral infarction without residual deficits; Z87.01 Personal history of pneumonia (recurrent); Z95.5 Presence of coronary angioplasty implant and graft
CPT/HCPCS: 99283; 71046; 80053; 85025; 87811; 93005

== ENCOUNTER → 2023-10-18 08:20 | Outpatient (REF) | payer OTHER, SELFPAY | LOC: RAD 08:20 | PROVIDERS: ATTENDING PHYSICIAN Internal Medicine Hematology & Oncology; FAMILY PHYSICIAN Family Medicine | DX: I74.9 Embolism and thrombosis of unspecified artery (principal); Y84.4 Aspiration of fluid as the cause of abnormal reaction of the patient, or of later complication, without mention of misadventure at the time of the procedure; C25.1 Malignant neoplasm of body of pancreas; D50.9 Iron deficiency anemia, unspecified; D63.0 Anemia in neoplastic disease | CPT/HCPCS: 74230; 92611 ==

== ENCOUNTER → 2023-10-31 10:26 | Outpatient (REF) | payer OTHER, SELFPAY | LOC: RAD 10:26 | PROVIDERS: ATTENDING PHYSICIAN Nurse Practitioner Primary Care | DX: I74.9 Embolism and thrombosis of unspecified artery (principal); C25.1 Malignant neoplasm of body of pancreas; D50.9 Iron deficiency anemia, unspecified; D63.0 Anemia in neoplastic disease | CPT/HCPCS: 71046 ==

== ENCOUNTER → 2023-11-29 08:50 | Outpatient (REF) | payer OTHER, SELFPAY | LOC: RAD 08:50 | PROVIDERS: ATTENDING PHYSICIAN Family Medicine | DX: Z20.828 Contact with and (suspected) exposure to other viral communicable diseases (principal); Z90.5 Acquired absence of kidney; Z79.4 Long term (current) use of insulin; N18.31 Chronic kidney disease, stage 3a; J44.9 Chronic obstructive pulmonary disease, unspecified; I25.10 Atherosclerotic heart disease of native coronary artery without angina pectoris; E11.40 Type 2 diabetes mellitus with diabetic neuropathy, unspecified; E13.40 Other specified diabetes mellitus with diabetic neuropathy, unspecified; C25.9 Malignant neoplasm of pancreas, unspecified; I25.5 Ischemic cardiomyopathy; I50.22 Chronic systolic (congestive) heart failure | CPT/HCPCS: 71046 ==

== ENCOUNTER → 2023-12-03 12:45 | Outpatient (REF) | payer OTHER, SELFPAY ==
[2023-12-03 13:25] VITALS: BP 134/88; BP_SYST 105
[2023-12-03 13:42] VITALS: BP 135/90; BP_SYST 104
[2023-12-03 13:55] VITALS: BP 130/84; BP_SYST 105
[2023-12-03 14:45] VITALS: BP 130/84
== END ==
LOC: RADI 12:45
PROVIDERS: ATTENDING PHYSICIAN Internal Medicine Hematology & Oncology; FAMILY PHYSICIAN Family Medicine
DX: J90 Pleural effusion, not elsewhere classified (principal)
CPT/HCPCS: 88305; 32555; 71045; 88112

== ENCOUNTER 2023-12-04 21:44 | Inpatient (IN) | payer OTHER, SELFPAY ==
[2023-12-04] VITALS (23 sets, daily range): BP systolic 80–109; BP diastolic 53–75; BMI 25.5
[2023-12-04 17:43] LABS: % Basophils 0.4 % (0-2); % Eosinophils 1.1 % (0-6); % Immature Granulocytes 0.4 % (0-0.5); % Lymphocytes 6.6 % (20.5-51.1); % Neutrophils 83.5 % (42.2-75.2); Absolute Eosinophils 0.1 10^3/uL (0-0.7); Absolute Lymphocytes 0.7 10^3/uL (1.2-3.4); Absolute Monocytes 0.8 10^3/uL (0.1-0.6); Absolute Neutrophils 8.5 10^3/uL (1.4-6.5); Hematocrit 30.3 % (37.0-47.0); Hemoglobin 9.4 g/dL (12.0-16.0); Mean Corpuscular Hgb 32.1 pg (27.0-31.0); Mean Corpuscular Volume 103.4 fL (81.0-99.0); Nucleated Red Blood Cells % 0 %; Platelet Count 579 10^3/uL (130-400); Red Blood Cell Count 2.93 10^6/uL (4.20-5.40); Red Cell Dist. Width 18.7 % (11.5-14.5); White Blood Cell Count 10.2 10^3/uL (4.8-10.8)
[2023-12-04 18:07] LABS: Troponin I 0.055 ng/ml
--- NOTE | 2023-12-04 18:46 | EDRN ---
Received patient on stretcher with c/o right sided chest pain. Denies any SOB. Patient stated that she had a thoracentesis done yesterday and had 1 Liter of fluid removed.
--- NOTE | 2023-12-04 18:48 | ED.GENMED ---
Addendum entered and electronically signed by SHERIDAN Nassar 12/05/23 01:38:
Into see patient. Patient was sleeping. Patient arouses easily. States that she was feeling better after the IV fluid was started. Explained that her Chest x-ray shows an increased in a small Pneumothorax. Will admit patient. Second Troponin was
also elevated to 0.637/ Hospitalist notified.
Original Note:
History of Present Illness
General
Chief Complaint: Chest Pain
Source: patient
Exam Limitations: none
Time Seen by Provider: 12/04/23 18:22
History of Present Illness
History of Present Illness:
This is a 63 year old female that comes in with c/o right sided chest pain with pain in the right elbow. States that this started at 5pm tonight. States that yesterday she was here in the ER as Dr. Erazo sent her in for evaluation as she had a
Pleural effusion. States that she had a Thoracentesis and they took 1 liter out. States that she also has a headache. Denies any fever, chills, SOB, abd pain, nausea, vomiting, diarrhea, dizziness, urinary burning.
Past History
Past History
ED Past Medical History: CAD, Cancer (Pancreatic CA, Kidney CA), CVA (No residual), GERD, HTN, Hypercholesterolemia, IDDM, NE, Psychiatric (Anxiety) and Other (Emphysema, PNA, )
ED Past Surgical History: Cardiac (Stents X 7), Cholecystectomy, Orthopedic (Right knee surgery, , Left 5th toe amputation, ), Urological (Right Nephrectomy) and Other (Mini Whipple, right-sided nephrectomy, Popliteal to tibial artery bypass)
Social History
Tobacco: Smoker
Alcohol: None
Drug: None
Personal:
Living: with family
Employment: Employed
Family History
Family History: CAD (Her brother at age 47 had an NE )
Review of Systems
Review of Systems
All Other Systems: ROS reviewed and negative except as documented in HPI and ROS
Constitutional: Reports no symptoms; Denies fever or chills
EENT: Reports no symptoms
Respiratory: Reports cough; Denies trouble breathing
Cardiac: Reports chest pain
ABD/GI: Reports no symptoms; Denies abdominal pain, nausea, vomiting or diarrhea
: Reports no symptoms; Denies dysuria, frequency or urgency
Musculoskeletal: Reports no symptoms
Skin: Reports no symptoms
Neurological: Reports headache; Denies dizzy
Psychiatric: Reports no symptoms
Phy Exam
General Physical Exam
General Presentation: mild distress
General age: appears older than age
General Skin: warm, dry and pale
General Habitus: normal
General Mental: alert
General Hydration: dry mucous membranes
ENT Exam
ENT Exam: TM's normal, pharynx normal and neck supple
Eye Exam
Eye Exam: EOMI
Cardiovascular Exam
Cardiovascular Exam: regular rate/rhythm, no edema and normal peripheral pulses
Pulmonary Exam
Pulmonary Exam: no respiratory distress, chest non tender, no rhonchi, no wheezing and other (Fine crackles at right base, Cough noted)
Gastrointestinal Exam
Gastrointestinal Exam: normal bowel sounds, non tender, soft, no organomegaly, no pulsatile mass and non distended
Musculoskeletal Exam
Musculoskeletal Exam: full ROM and no edema
Skin Exam
Skin Exam: warm/dry, no rash, no petechia and pallor
Psychiatric Exam
Psychiatric Exam: normal mood/affect
Scores
Heart Score for Chest Pain Patients
STEMI patient?: No
History: Slightly or Non-Suspicious
ECG: Normal
Age: >45 - <65 years
Risk Factors: 1 or 2 Risk Factors
Troponin: >1 - <3 x Normal Limit
Heart Score for Chest Pain Patients: 3
Heart Score Risk: 2.5% MACE over next 6 weeks
Course
Orders/Labs/Results
Orders:
Orders
12/04/23 17:24
Electrocardiogram (*1) Urgent
Reason for Study: Chest Pain
EKG- Treatment ONCE
12/04/23 17:36
Complete Blood Count/With Diff Urgent
Comprehensive Metabolic Panel Urgent
NT-proBNP Urgent
Comment: ADDON
Troponin I Urgent
12/04/23 18:46
CR Chest - 2 Views Urgent
Comment:
Reason For Exam: Chest pain
12/04/23 18:47
Electrocardiogram (*1) Urgent
Reason for Study: Chest Pain
Other Reason for Exam: Repeat with Troponin
Nitroglycerin Sublingual [Nitrostat (Sublingual)] 0.4 mg SL [id number] PRN
12/04/23 18:58
Morphine Sulfate 2 mg IV NOW STA
12/04/23 19:31
Add On- LAB Urgent
Tests Added?: Pro-BNP
12/04/23 19:33
0.9% Sodium Chloride 500 ml [Nss] 500 ml IV BOLUS
12/04/23 20:35
EKG- Treatment ONCE
12/04/23 20:41
Sodium Zirconium Cyclosilicate [Lokelma] 10 gram PO NOW STA
12/04/23 20:47
Admit/Transfer Patient As Directed
Co-Sign Provider:
Level of Care: Inpatient admission
Assign to:: Telemetry
Physician / Group: Kimmy
Diagnosis: Hyperkalemia, Chest Pain, Pneumothorax
Reason for Telemetry: Arrhythmia
Date to Stop Telemetry: 12/07/23
Time to Stop Telemetry: 11:00
Reason for Hospitalization: serial troponin, lab monitoring, repeat CXR
Expected length of stay greater than two midnights?: Yes
ELOS- Estimated Length of Stay in days: 3
I certify the patient meets the requirements for IP care: Yes
12/04/23 20:49
PRN Pain Medication Management As Directed
May give lesser potent ordered pain med per pt: Yes
preference::
Protocol:: Medication orders for pain may be administered in a
manner that supports deferring to patient preference
when the pt is:
- Requesting an ordered lesser potent pain medication.
Least to most potent pain medications are defined
as: acetaminophen < NSAID < tramadol < opioids
(morphine, oxycodone, hydromorphone).
- Requesting a lesser dose of the same medication IF
ORDERED.
- Requesting a less intrusive route of administration
if both routes are prescribed by the provider (PO <
IV).
12/04/23 20:53
BMP [Basic Metabolic Panel] Urgent
Troponin I Urgent
12/04/23 20:55
Code Status As Directed
Resuscitation Status: Full Code
0.9% Sodium Chloride [Nss (Preservative Free)] 8 ml IV NOW STA
Famotidine [Pepcid] 20 mg IV NOW STA
12/04/23 21:12
Furosemide [Lasix] 40 mg IV NOW STA
12/04/23 21:15
COVID-19 Antigen Urgent
Source: Nasal Swab
Influenza A+B Rapid Molecular Urgent
MARQUIS Source: Nasal Swab
Specimen Description:
12/04/23 21:19
Apixaban [Eliquis] 5 mg PO NOW STA
12/04/23 21:24
Aspirin Chewable [Low Strength Aspirin] 81 mg PO NOW STA
12/07/23 11:00
DC Protocol for Telemetry ONCE
Abnormal Lab Results
12/04/23 12/04/23
17:36 20:53
RBC 2.93 L 10^6/uL
(4.20-5.40)
Hgb 9.4 L g/dL
(12.0-16.0)
Hct 30.3 L %
(37.0-47.0)
MCV 103.4 H fL
(81.0-99.0)
MCH 32.1 H pg
(27.0-31.0)
MCHC 31.0 L g/dL
(33.0-37.0)
RDW 18.7 H %
(11.5-14.5)
Plt Count 579 H 10^3/uL
(130-400)
Absolute Neuts (auto) 8.5 H 10^3/uL
(1.4-6.5)
Absolute Lymphs (auto) 0.7 L 10^3/uL
(1.2-3.4)
Absolute Monos (auto) 0.8 H 10^3/uL
(0.1-0.6)
Neutrophils % 83.5 H %
(42.2-75.2)
Lymphocytes % 6.6 L %
(20.5-51.1)
Potassium 5.9 H mmol/L
(3.5-5.1)
BUN 31 H mg/dl 31 H mg/dl
(7-17) (7-17)
Creatinine 1.1 H mg/dL
(0.6-1.0)
Glucose 147 H mg/dl 124 H mg/dl
(70-99) (70-99)
Calcium 7.8 L mg/dl
(8.4-10.2)
Alkaline Phosphatase 146 H U/L
(38-126)
Troponin I 0.055 H* ng/ml
Albumin 3.0 L g/dl
(3.5-5.0)
12/04/23 17:36
12/04/23 20:53
RBC's low. H/H low. Anemia Thrombocytosis, Elevated Troponin, Chronic renal insufficiency, Alk phos elevation, Hyperglycemia. Albumin low. Pro-BNP 23,200
Vital Signs
Initial and Last Documented VS:
Initial Vital Signs
Temp Pulse Resp BP Pulse Ox
98.4 F 84 16 108/63 98
12/04/23 17:29 12/04/23 17:29 12/04/23 17:29 12/04/23 17:29 12/04/23 17:29
Last Documented Vital Signs
Temp Pulse Resp BP Pulse Ox
98.4 F 90 15 95/61 99
12/04/23 17:29 12/04/23 20:30 12/04/23 20:30 12/04/23 20:30 12/04/23 19:50
MDM/Problems Addressed
Differential Diagnosis Includes:
Coronary Syndrome. Pneumothorax,
MDM/Problems Addressed:
This is a 63 year old female that comes in with c/o right sided chest pain. States that she has pain down to the right elbow. States that this started at 5pm. Nursing states that the patient took 2 nitro at home and she told them that this did not
help.
Will get labs, Chest x-ray and medicate with nitro.
Repeat ECG: rate 94, NSR, NOrmal axis. NOrmal QRS, T wave inversion. I, aVL, V4, V5, V6,
Chronic conditions affecting care:
Thoracentesis yesterday
Chronic conditions affecting care: CAD and Cancer
Acute Exacerbation and/or Progression of Chronic Illness: CAD and Cancer
*Radiology
Radiology exam reviewed: preliminary read by ED provider (Chest- Right pleural effusion. ) and radiology read reviewed (Chest-Small right apical pneumothorax. Slightly progressed. Moderate right pleural effusion. Small left pleural effusion. Both
probably loculated. Mildly progressed on the right. Stable on the left. )
*Pulse Oximetry
Patient hypoxic: no
*EKG
Interpreted by ED Provider?: Yes
Heart Rate: 96
Rate: tachycardiac
Rhythm: sinus tachycardia
[place]: normal axis
Interval: normal interval
QRS Pattern: normal QRS
Ischemia: non-specific ST changes (and T wave, I, aVL, V4, V5, V6, )
*Railroad Car Inspector Interpretation
Rate: tachycardiac
Heart Rate: 100
Rhythm: sinus tachycardia
*Critical Care Note
Total Time (30-74mins, 75-104mins- exclusive of procedures): Not Applicable
ED Attending Note
-
Portions of this chart may have been created with voice recognition software.� Occasional wrong word or��sound alike� substitutions may have occurred due to the inherent limitations of voice recognition software.
Discharge Plan
Departure
Patient Disposition: Admit
Date of Disposition: 12/04/23
Time of Disposition: 20:38
Admit to: Telemetry
Presentation/result/management discussed w/ accepting MD/DO: Hospitalist
Patient with high blood pressure during this ER visit?: No
Condition: Good
Covid-19: Not Applicable
Discharge Problem:
right upper lobe Pneumothorax, Bilateral pleural effusion
Prescriptions:
No Action
dapagliflozin propanediol [Farxiga] 10 MG tablet
10 mg PO DAILY Qty: 30 5RF
duloxetine 60 MG capsule,delayed release(DR/EC)
60 mg PO DAILY
gabapentin 600 mg Tablet
600 mg PO TID
levothyroxine [Synthroid] 50 mcg Tablet
50 mcg PO DAILY
Rx Instructions:
take with 200mcg for total of 250mcg
levothyroxine [Synthroid] 200 mcg Tablet
200 mcg PO DAILY
Rx Instructions:
take with 50mcg for total of 250mcg
Eliquis 5 mg Tablet
5 mg PO BID
Creon 36,000-114,000- 180,000 unit Capsule,Delayed Release(Dr/Ec)
5 cap PO AC
Creon 36,000-114,000- 180,000 unit Capsule,Delayed Release(Dr/Ec)
2 cap PO DAILYPRN PRN (Reason: with a snack)
Patient Own Insulin Pump
1 sliding scale dose SC .NOVOLOG VIA PUMP
omeprazole 20 mg Capsule,Delayed Release(Dr/Ec)
20 mg PO DAILY
acetaminophen [Tylenol Extra Strength] 500 mg Tablet
1,000 mg PO Q6HPRN PRN (Reason: mild pain)
furosemide 20 mg tablet
20 mg PO BID
Referrals:
Daniel Billingsley MD [Family Provider] -
Interventions
Interventions:
*Risk Screen - Suicide Last Done: 12/04/23 17:29
*General Assessment Last Done: 12/04/23 18:23
*Neglect/Abuse Screening Last Done: 12/04/23 17:29
ED- Fall Risk Assessment Last Done: 12/04/23 18:23
*ED COVID-19 Vaccine History Last Done: 12/04/23 18:23
ED- Cardiac Assessment Last Done: 12/04/23 18:23
Discharge Date and Time
Print Language: THAI
[2023-12-04] MEDS: NITROSTAT (SUBLINGUAL) 0.4 MG SL (18:53)
--- NOTE | 2023-12-04 18:54 | EDRN ---
Patient given NTG SL x1 as ordered. Patient with c/o 10 out of 10 right sided chest pain that radiates into her right elbow and head. Patient stated that she took NTG SL x2 earlier with no relief.
[2023-12-04 19:27] LABS: ALT (SGPT) 12 U/L (0-35); AST (SGOT) 22 U/L (14-36); Alkaline Phosphatase 146 U/L (38-126); Blood Urea Nitrogen 31 mg/dl (7-17); Calcium 8.5 mg/dl (8.4-10.2); Carbon Dioxide 26 mmol/L (22-30); Chloride 105 mmol/L (98-107); Estimated Creatinine Clearance 48 ml/min; Glucose 147 mg/dl (70-99); Potassium 5.9 mmol/L (3.5-5.1); Sodium 140 mmol/L (135-145); Total Bilirubin 0.4 mg/dl (0.2-1.3); Total Protein 6.3 g/dl (6.3-8.2); eGFR 56.81
[2023-12-04] MEDS: NSS 500 IV (19:37)
--- NOTE | 2023-12-04 20:18 | HPS.HSE ---
Family Physician
-
Family Physician: Daniel Billingsley
Chief Complaint
-
Chest Pain
History of Present Illness
Patient is a 63 y/o female past medical history of metastatic pancreatic, ASCVD and right pleural effusion s/p thoracentesis yesterday who presents with chest pain. Patient reports she was feeling well most of the day, but around 5pm she started to
feel 'flu-johnnie'. She states she took some Tylenol with a big glass of orange juice, and then she developed chest pain. She describes the pain as a pressure in the center of her chest radiating to the right breast, and the right armpit. She notes
persistent lower extremity edema associated with moist cough and shortness of breath.
Medical History
Past Medical History
Past Medical History: Reports Other
Additional Past Medical History:
Metastatic Pancreatic Cancer
ASCVD (CAD, PAD, CVA)
DM-II
Renal Mass (Benign)
History of DVT
Hypothyroidism
Past Surgical History: Reports Other
Additional Past Surgical History:
PTCA with Multiple Stents (5)
LLE Bypass
Whipple
Right Nephrectomy (benign)
R ACW Port Placement
L 5th Toe Amputations (Osteomyelitis)
Social History
Tobacco: Smoker (Current every day smoker.)
Alcohol: None
Drug: None
Personal:
Living: With Family
Family History
Family History: CAD and Other (Mother: Multiple myeloma)
Allergies / Home Medications
Allergies reflects when Allergies were last updated in [facility]
Home Medications with original date entered in [facility]
Allergy/Medication List:
Allergies
Allergy/AdvReac Type Severity Reaction Status Date / Time
cephalexin monohydrate Allergy Rash; Verified 12/04/23 17:28
[From Keflex] tolerated
PCN per pt
clindamycin Allergy Unknown Verified 12/04/23 17:28
influenza virus vaccine, Allergy Rash Verified 12/04/23 17:28
specific Swelling,
[influenza virus itching.
vacc,specific]
lisinopril Allergy cough Verified 12/04/23 17:28
pneumococcal vaccine Allergy rash, Verified 12/04/23 17:28
welts
throughout
body
Ogskrpe-DTC-BxQ Reductase Allergy LEG PAIN Verified 12/04/23 17:28
Inhibitor
[Lrdeopg-Wgg-Qmj Reductase
Inhibitor]
Home Medications
dapagliflozin propanediol 10 mg tablet (Farxiga) 10 mg PO DAILY #30 tabs 08/05/20
duloxetine 60 mg capsule,delayed release 60 mg PO DAILY Mental Health/Anxiety 06/20/21
gabapentin 600 mg tablet 600 mg PO TID Neurological Condition 10/02/21
Patient Own Insulin Pump 1 sliding scale dose SC .NOVOLOG VIA PUMP Diabetes 09/16/23
apixaban 5 mg tablet (Eliquis) 5 mg PO BID Blood Clot Prevention/Tx 09/16/23
levothyroxine 200 mcg tablet (Synthroid) 200 mcg PO DAILY Thyroid 09/16/23
levothyroxine 50 mcg tablet (Synthroid) 50 mcg PO DAILY Thyroid 09/16/23
hnftgw-wifucmqq-trszbrm 36,000-114,000-180,000 unit capsule,delay rel (Creon) 2 cap PO DAILYPRN PRN with a snack 09/16/23
riruto-kleczqlx-qiyouas 36,000-114,000-180,000 unit capsule,delay rel (Creon) 5 cap PO AC Gastrointestinal Issue 09/16/23
omeprazole 20 mg capsule,delayed release 20 mg PO DAILY 12/03/23
acetaminophen 500 mg tablet (Tylenol Extra Strength) 1,000 mg PO Q6HPRN PRN mild pain 12/04/23
furosemide 20 mg tablet 20 mg PO BID 12/04/23
Review of Systems
-
A 12 point ROS was completed and negative except as noted: Yes
Respiratory: Reports Cough and Trouble Breathing
Cardiac: Reports Chest Pain
Physical Exam
Vital Signs
Vital Signs
Temp Pulse Resp BP Pulse Ox
98.4 F 96 17 93/70 99
12/04/23 17:29 12/04/23 20:00 12/04/23 19:50 12/04/23 20:00 12/04/23 19:50
Physical Exam
General: Comfortable, Conversant and Appears Chronically Ill
HEENT: Anicteric and Moist mucous membranes
Respiratory: Rales (Bilateral Bases) and Non Labored Respirations
Cardiac: S1/S2 and Regular Rhythm
GI: Soft and Non Tender
Rectal: Deferred by Provider
Musculoskeletal: No Clubbing, No Cyanosis and Other (+2 pitting edema bilateral lower extremities)
Skin: Warm and Dry
Neuro: Awake, Alert, Oriented and Nonfocal/grossly intact
Psych: Calm
Laboratory Results
-
12/04/23 17:36
12/04/23 17:36
Laboratory Results
Total Bilirubin 0.4 mg/dl (0.2-1.3) 12/04/23 17:36
AST 22 U/L (14-36) 12/04/23 17:36
ALT 12 U/L (0-35) 12/04/23 17:36
Alkaline Phosphatase 146 U/L (38-126) H 12/04/23 17:36
Troponin I 0.055 ng/ml H* 12/04/23 17:36
Data Reviewed
-
Diagnostic Radiology: Report Reviewed by me
Lab Data: Labs Reviewed by me
Impression/Plan
-
Acute on Chronic HFpEF
-Consult Cardiology
-Give Lasix 40mg IV Now then transition to Lasix 20mg IV BID
-Monitor Is&Os and Daily Weights
Elevated Troponin, possible NSTEMI vs Non-Ischemic Myocardial Injury due to CHF
-Continue to trend troponin
-If troponin trends upwards would start heparin drip
-Start aspirin
Hyperkalemia
-Check repeat potassium later this evening - suspect will improve following Lasix
Metastatic Pancreatic Cancer
-Patient received chemotherapy 12/02
-Monitor CBC
-Continue Creon
Insulin-Dependent Diabetes Mellitus
-Continue patient's own insulin pump
-Monitor sugars and continue coverage insulin
Hypothyroidism
-Continue levothyroxine
Hx DVT: Continue Eliquis
Code Status: Full Code
[2023-12-04 20:30] LABS: NT-proBNP 23200 pg/ml
--- NOTE | 2023-12-04 20:35 | W.PN.UPDATE ---
Addendum entered and electronically signed by Lilly Oneal MD 12/04/23 21:37:
Patient is on Eliquis for hx DVT
Original Note:
Update Note
Progress Note Update
This is an addendum to H&P written by PEARL Brown
I saw and examined the patient.
The PURCHASING AGENT's note was reviewed and I agree with the note.
Comment:
Ms. Suzanne Corado is a 63 yo woman with hx metastatic pancreatic CA, severe CAD s/p multiple PCI, HFrEF with worsening EF to 35-40% dx admission in August presented with chest pain after drinking orange juice. She describes the pain as right-sided
extending to right elbow but similar to how she felt during prior episodes of IA. She received nitro in the ER. Currently she is chest pain free. She also reports increased LE swelling. Her PERSONNEL MONITOR lasix was recently increased from daily to BID 1-2
days ago without significant effect.
On exam patient is in no acute distress, frail appearing. port in place. CV: S1, S2. Lungs with decreased breath sounds. Abdomen benign. LE with 2+ edema.
Initial Troponin is 0.055, BNP 23,200.
CXR
IMPRESSION:
Small right apical pneumothorax. Slightly progressed.
Patient will be admitted for further evaluation of chest discomfort, leading diagnosis GERD (as occurred post orange juice) versus ACS given patient's history and description of similar symptoms to prior IA. She is currently pain free. She is also
found to be in heart failure without response to increasing oral dose. Heart failure may explain Troponin elevation.
-admit to telemetry
-trend Troponins. Discussed with Dr. Nolasco - will continue PERSONNEL MONITOR Eliquis for now but if Troponin rises, will need to switch to IV heparin gtt
-give baby aspirin now
-s/p IV pepcid, continue PERSONNEL MONITOR PPI
-IV lasix 40mg x 1 now, continue 20 IV BID starting tomorrow
-formal cardiology consult
-monitor hyperK - should improve s/p fluids + lasix
-regarding pneumothorax, this is small and was present yesterday; doubt cause of symptoms. repeat CXR tomorrow
76 minutes spent on patient care
[2023-12-04 21:21] LABS: Blood Urea Nitrogen 31 mg/dl (7-17); Calcium 7.8 mg/dl (8.4-10.2); Carbon Dioxide 24 mmol/L (22-30); Chloride 105 mmol/L (98-107); Estimated Creatinine Clearance 52 ml/min; Glucose 124 mg/dl (70-99); Sodium 140 mmol/L (135-145); eGFR > 60.00
[2023-12-04 21:36] LABS: Troponin I 0.637 ng/ml
[2023-12-04 21:45] LABS: COVID-19 Antigen Negative (Negative)
[2023-12-04] MEDS: LASIX 40 MG IV (22:20)
[2023-12-04] MEDS: PEPCID 20 MG IV (22:23)
[2023-12-04] MEDS: NSS (PRESERVATIVE FREE) 8 ML IV (22:23)
[2023-12-04] MEDS: LOW STRENGTH ASPIRIN 81 MG PO (22:24)
[2023-12-04] MEDS: NSS 250 IV (23:28)
[2023-12-05] VITALS (15 sets, daily range): BP systolic 89–114; BP diastolic 57–77; BMI 24.7
[2023-12-05] MEDS: NEURONTIN 600 MG PO ×4 (00:11→21:09)
[2023-12-05] MEDS: HEPARIN 25000 UNITS/250 ML IV ×2 (00:27→20:26)
[2023-12-05 03:51] LABS: APTT 55.6 Sec (23.4-35.0)
[2023-12-05 04:07] LABS: Hematocrit 26.5 % (37.0-47.0); Hemoglobin 8.4 g/dL (12.0-16.0); Mean Corp Hgb Conc. 31.7 g/dL (33.0-37.0); Mean Corpuscular Hgb 32.1 pg (27.0-31.0); Mean Corpuscular Volume 101.1 fL (81.0-99.0); Mean Platelet Volume 10.1 fL (7.4-10.4); Platelet Count 454 10^3/uL (130-400); Red Blood Cell Count 2.62 10^6/uL (4.20-5.40); Red Cell Dist. Width 18.7 % (11.5-14.5); White Blood Cell Count 5.6 10^3/uL (4.8-10.8)
[2023-12-05 04:13] LABS: Blood Urea Nitrogen 32 mg/dl (7-17); Calcium 7.8 mg/dl (8.4-10.2); Carbon Dioxide 21 mmol/L (22-30); Chloride 108 mmol/L (98-107); Estimated Creatinine Clearance 52 ml/min; Glucose 176 mg/dl (70-99); Potassium 4.8 mmol/L (3.5-5.1); Sodium 139 mmol/L (135-145); eGFR > 60.00
--- NOTE | 2023-12-05 04:13 | PTCARENOTE ---
Pt. received from Emergency Department. Pt. AOx3, tele reading. Pt. has no complaints at this time. Heparin gtt running. Normal Saline running through subq port. Pt. oriented to room. Call cabrera within reach. RN explained plan of care to patient. Pt.
verbalizes understanding of plan of care. Continuing to monitor at this time.
--- NOTE | 2023-12-05 04:40 | PTCARENOTE ---
3am troponin done. Resulting as 7.92, previous troponin done at 2052 in ED, troponin was 0.637 then. Next troponin to be done at 10am. EKG done. House provider and multimedia services manager aware. Pt. stating she has no chest pain, just 'feeling tired'. BP
between 89-110s/70s. HR 90s. Heparin gtt running at 1250u/hr, next PTT at 1015. Continuing to monitor at this time.
[2023-12-05] MEDS: SYNTHROID 50 MCG PO (04:50)
[2023-12-05] MEDS: SYNTHROID 200 MCG PO (04:50)
[2023-12-05 04:51] LABS: Glucose - Point of Care 158 mg/dl (70-99)
--- NOTE | 2023-12-05 05:28 | W.PN.UPDATE ---
Update Note
Progress Note Update
RN notified CUTTING TORCH OPERATOR, Troponin level increased to 7.92. Patient is on Heparin drip for possible NSTEMI vs Non-Ischemic Myocardial Injury due to CHF. Advised RN to check EKG and make sandblaster supervisor aware. Stable VS, Patient stated tired, but without chest
pain or shortness of breath. Will trend Troponin. Java Websphere Developer made aware by RN.
--- NOTE | 2023-12-05 06:51 | CON.CAR ---
Consultation
Consultation Request
Date/Time Consultation Requested: Dec 03 2199
Date/Time Consultation Performed: Dec 04 629
Requesting Provider: hospitalist
Performing Provider: Antoine Nolasco
Reason for Consultation: CP and elevated trop
Medical History
-
Chief Complaint: Chest pain
History of Present Illness:
63-year-old female with past medical history of CAD status post RCA circumflex and PDA stenting, DVT on Eliquis, metastatic pancreatic cancer, pleural effusions with recent thoracentesis on December 02 who is coming in with chest pain. She reports
that she felt well most of the day on December 03 however, around 5 PM she started to feel unwell. She then took a glass of orange juice and drink some and developed chest pain. The pain is in the center and radiates to the right breast and into
the armpit. Because of this she decided to present to the emergency room. In the emergency room troponin was mildly elevated and ECG showed possible lateral ischemia. Troponins have been trending and most recent is significantly elevated at
approximately 7 with evolving ECG changes with worsening lateral ST depressions concerning for ischemia.
She is currently chest pain-free and is only complaining of a cough.
Past Medical History
Past Medical History: Other (Metastatic Pancreatic Cancer ASCVD (CAD, PAD, CVA) DM-II Renal Mass (Benign) History of DVT Hypothyroidism)
Past Surgical History: Other (PTCA with Multiple Stents (5) LLE Bypass Whipple Right Nephrectomy (benign) R ACW Port Placement L 5th Toe Amputations (Osteomyelitis))
Social History
Tobacco: Smoker
Alcohol: None
Drug: None
Personal:
Living: With Family
Family History
Family History: CAD and Other (multiple myeloma)
Allergies / Home Medications
Allergy/AdvReac Type Severity Reaction Status Date / Time
cephalexin monohydrate Allergy Rash; Verified 12/04/23 17:28
[From Keflex] tolerated
PCN per pt
clindamycin Allergy Unknown Verified 10/16/24 17:28
influenza virus vaccine, Allergy Rash Verified 12/04/23 17:28
specific Swelling,
[influenza virus itching.
vacc,specific]
lisinopril Allergy cough Verified 12/04/23 17:28
pneumococcal vaccine Allergy rash, Verified 12/04/23 17:28
welts
throughout
body
Glaoqeq-MAB-RcY Reductase Allergy LEG PAIN Verified 12/04/23 17:28
Inhibitor
[Suotpbm-Hkt-Kzr Reductase
Inhibitor]
�Medication �Instructions �Recorded �Confirmed �Type
dapagliflozin propanediol 10 mg 10 mg PO DAILY #30 tabs 08/05/20 12/04/23 Rx
tablet (Farxiga)
duloxetine 60 mg capsule,delayed 60 mg PO DAILY Mental 06/20/21 12/04/23 History
release Health/Anxiety
gabapentin 600 mg tablet 600 mg PO TID Neurological 10/02/21 12/04/23 History
Condition
Patient Own Insulin Pump 1 sliding scale dose SC .NOVOLOG 09/16/23 12/04/23 History
VIA PUMP Diabetes
apixaban 5 mg tablet (Eliquis) 5 mg PO BID Blood Clot 09/16/23 12/04/23 History
Prevention/Tx
levothyroxine 200 mcg tablet 200 mcg PO DAILY Thyroid 09/16/23 12/04/23 History
(Synthroid)
levothyroxine 50 mcg tablet 50 mcg PO DAILY Thyroid 09/16/23 12/04/23 History
(Synthroid)
nmkopi-czjijuic-lrokvaa 2 cap PO DAILYPRN PRN with a snack 09/16/23 12/04/23 History
36,000-114,000-180,000 unit
capsule,delay rel (Creon)
dkwawy-qcbykfgy-xontlfl 5 cap PO AC Gastrointestinal Issue 09/16/23 12/04/23 History
36,000-114,000-180,000 unit
capsule,delay rel (Creon)
omeprazole 20 mg capsule,delayed 20 mg PO DAILY 12/03/23 12/04/23 History
release
acetaminophen 500 mg tablet 1,000 mg PO Q6HPRN PRN mild pain 12/04/23 12/04/23 History
(Tylenol Extra Strength)
furosemide 20 mg tablet 20 mg PO BID 12/04/23 12/04/23 History
Review of Systems
-
All other systems: Negative unless noted
Physical Exam
Vital Signs
Temp Pulse Resp BP Pulse Ox
98 F 101 29 89/60 95
12/05/23 04:39 12/05/23 05:15 12/05/23 01:21 12/05/23 03:23 12/05/23 01:00
Lab Results
12/05/23 03:33
12/05/23 03:32
Troponin I 7.920 ng/ml H* D 12/05/23 03:32
Qei-A-Yqhpvlllwlz Pept Cancelled 12/04/23 20:35
Physical Exam
General: Other (chronically ill appearing)
HEENT: Normocephalic
Respiratory: Clear and Non Labored Respirations
Cardiac: Regular Rhythm
GI: Soft
Musculoskeletal: Edema (trace to 1+ )
Skin: Warm and Dry
Neuro: AO x 3
Psych: Calm
Impression / Plan
-
A: 63-year-old female with past medical history of CAD status post RCA circumflex and PDA stenting, DVT on Eliquis, metastatic pancreatic cancer, pleural effusions with recent thoracentesis on December 02 who is coming in with chest pain. She has
worsening lateral ST-T wave depressions and elevated troponin consistent with NSTEMI.
NSTEMI
- aspirin and heparin gtt
- start statin
- NPO for cath later today
- lipid profile
- cessation of smoking
- update echo
DVT hx
- holding Eliquis for heparin gtt
Pleural effusions
- consider thoracentesis later if necessary
metastatic pancreatic CA
- receiving chemo
DM2
- per primary
Data Reviewed
-
EKG: Tracing Personally Visualized and interpreted (sr )
Medical Tests (Nuc Med, Echo etc): Report Reviewed by me
Labs: Labs Reviewed by me, Discussed with Nurse and Discussed with Patient
[2023-12-05] MEDS: ASPIRIN 325 MG PO (08:23)
[2023-12-05] MEDS: CYMBALTA DELAYED RELEASE 60 MG PO (08:24)
[2023-12-05] MEDS: PT'S OWN INSULIN PUMP - NovoLOG SC ×4 (08:24→22:01)
[2023-12-05] MEDS: FARXIGA 10 MG PO (08:24)
[2023-12-05] MEDS: LASIX 20 MG IV ×2 (08:25→17:36)
[2023-12-05 08:30] LABS: Glucose - Point of Care 112 mg/dl (70-99)
--- NOTE | 2023-12-05 09:38 | W.PN.HOSP.TC ---
Today's Communication/Plan
-
Echocardiogram
Cardiac catheterization
Assessment / Plan
Assessment / Plan
Gen-AAOx3, NAD
HEENT-NC, AT, anicteric, clear oral mm
Neck-supple
CV-reg, no M, +S1/S2
Lungs-clear B/L
Abd-soft, NT, ND
Ext-no edema
Musculoskeletal-no cyanosis, clubbing
Skin-warm and dry
Neuro-grossly non-focal
Psych-calm, cooperative
NSTEMI -continue aspirin, heparin IV. Await cardiac catheterization today. Cardiology following.
Acute on chronic heart failure reduced EF -started on IV Lasix on admission. BNP elevated. She admits to weight gain prior to admission. Admits to drinking at least 64 ounces of fluid daily. Discussed fluid restriction with patient. Sodium
restriction moving forward. Check echocardiogram. Prior to admission she was on furosemide 20 mg once daily, just increased to twice daily 2 days prior to admission.
Hyperkalemia -resolved.
Recurrent right pleural effusion -had thoracentesis 12/02, residual small apical pneumothorax noted on chest x-ray. Asymptomatic. Fluid cytology from thoracentesis pending. Differential diagnosis for pleural effusion includes heart failure versus
cancer versus other.
DM 2 without hyperglycemia -she has an insulin pump. Uses glargine insulin as well as NovoLog. Pump is running currently. Glucoses are controlled.
Hypothyroidism -continue Synthroid.
Chronic macrocytic anemia -hemoglobin trending 8-9 range which appears to be her recent baseline. Monitor for now. Etiology unclear but possibly due to metastatic cancer, chemotherapy, etc.
Metastatic pancreatic cancer -on chemotherapy, followed by Dr. Erazo. I did inform Dr. Erazo via [place] text.
History of DVT -hold Eliquis, continue heparin IV.
Full code
Anticipated Discharge: 24 - 48 hours
Subjective/Interval History
-
Date of Service: December 05, 2023
Patient seen and examined. No complaints.
Objective Data
-
Labs:
Laboratory Results
12/04/23 12/05/23 12/05/23
22:51 03:32 03:33
WBC 5.6
Hgb 8.4 L
Hct 26.5 L
Plt Count 454 H D
APTT 35.0 55.6 H
Sodium 139
Potassium 4.8
Chloride 108 H
Carbon Dioxide 21 L
BUN 32 H
Creatinine 1.0
Glucose 176 H
Calcium 7.8 L
12/05/23
10:16
WBC
Hgb
Hct
Plt Count
APTT Pending
Sodium
Potassium
Chloride
Carbon Dioxide
BUN
Creatinine
Glucose
Calcium
Vital Signs:
Vital Signs
Temp Pulse Resp BP Pulse Ox
99.6 F 107 20 111/70 94
12/05/23 06:58 12/05/23 08:25 12/05/23 06:58 12/05/23 08:25 12/05/23 06:58
I&O
12/04/23 12/05/23 12/06/23
06:59 06:59 06:59
Intake Total 220 / 220
Balance 220 / 220
Review of Systems
-
History Source: Patient
All other systems: Reviewed and negative
[2023-12-05 10:54] LABS: APTT 77.3 Sec (23.4-35.0)
[2023-12-05] MEDS: ZENPEP DELAYED RELEASE CAPSULE PO ×2 (11:30→16:07)
--- NOTE | 2023-12-05 11:58 | PTCARENOTE ---
Pt noted to be in sinus tachycardia, heart rate 138. Pt asleep and w/o symptoms. VSS. EKG obtained and MD notified. Will monitor.
--- NOTE | 2023-12-05 13:35 | CM ---
Chart reviewed. Patient is independent of ADLS, lives with her in a 1 S[address], 3 TOPHER, 0 DME. Plan is for the patient to return home. CM to follow
--- NOTE | 2023-12-05 14:55 | W.PN.UPDATE ---
Update Note
Progress Note Update
When I went to bedside to consent, pt was in ST 136, BP 96/60. Cath cancelled and pt sent for followup CXR to make sure PTX stable. CXR confirms stable PTX. Pt fed.
Will be reevaluated in AM for possible cath.
--- NOTE | 2023-12-05 15:00 | W.PN.UPDATE ---
Update Note
Progress Note Update
possible npo after breakfast except clears as we are orally hydrating all cath patients now due to IVF shortage. This will be ordered tomorrow. Regular diet tonight and for breakfast
--- NOTE | 2023-12-05 16:04 | PTOTSP ---
ST Acute Care Evaluations
Pt is currently presenting with fairly functional oropharyngeal and esophageal parameters for safe PO intake of all solids and liquids. No overt s/s of penetration or aspiration noted at bedside.
Recommendations:
- Continue with regular solids, thin liquids, meds as tolerated.
- General aspiration and reflux aspirations.
- RESOURCE RECOVERY SPECIALIST to sign off - no skilled services deemed necessary at this time.
[2023-12-05 16:07] LABS: Glucose - Point of Care 104 mg/dl (70-99)
[2023-12-05] MEDS: ZENPEP DELAYED RELEASE CAPSULE 5 CAPSULE PO (16:08)
[2023-12-05 18:17] LABS: APTT 102.6 Sec (23.4-35.0)
[2023-12-05 21:11] LABS: Glucose - Point of Care 256 mg/dl (70-99)
--- NOTE | 2023-12-05 21:18 | PTCARENOTE ---
Received patient at change of shift. patient awake, alert, and oriented sitting in bed with family around. Patient has no complaints of chest pain. BP 102/67, NSR 99, 98%. Discussed being NPO after breakfast tomorrow for possible cath, but to
continue drinking clear liquids. Patient verbalized understanding. Call cabrera within reach.
--- NOTE | 2023-12-05 21:39 | PTCARENOTE ---
Patient ST 120. Reached out to Dr. Nolan about rate-- as long as patient remains asymptomatic, no need to control rate with medication at this time.
[2023-12-06] VITALS (17 sets, daily range): BP systolic 100–122; BP diastolic 60–79; PULSE 97–100; O2SAT 97; BMI 24.7
[2023-12-06] MEDS: NSS IV (01:10)
[2023-12-06 04:03] LABS: Hematocrit 27.2 % (37.0-47.0); Hemoglobin 8.6 g/dL (12.0-16.0); Mean Corp Hgb Conc. 31.6 g/dL (33.0-37.0); Mean Corpuscular Hgb 32.2 pg (27.0-31.0); Mean Corpuscular Volume 101.9 fL (81.0-99.0); Mean Platelet Volume 10.6 fL (7.4-10.4); Platelet Count 503 10^3/uL (130-400); Red Blood Cell Count 2.67 10^6/uL (4.20-5.40); Red Cell Dist. Width 18.7 % (11.5-14.5); White Blood Cell Count 7.4 10^3/uL (4.8-10.8)
[2023-12-06] MEDS: SYNTHROID 50 MCG PO (06:26)
[2023-12-06] MEDS: SYNTHROID 200 MCG PO (06:26)
[2023-12-06 07:02] LABS: Glucose - Point of Care 92 mg/dl (70-99)
--- NOTE | 2023-12-06 08:46 | W.PN.HOSP.TC ---
Today's Communication/Plan
-
[place]
Await cardiac cath
Increase Lasix if okay with cardiology
Assessment / Plan
Assessment / Plan
Gen-AAOx3, NAD
HEENT-NC, AT, anicteric, clear oral mm
Neck-supple
CV-reg, no M, +S1/S2
Lungs-clear B/L
Abd-soft, NT, ND
Ext-bilateral lower extremity edema
Musculoskeletal-no cyanosis, clubbing
Skin-warm and dry
Neuro-grossly non-focal
Psych-calm, cooperative
NSTEMI -continue aspirin, heparin IV. Await cardiac catheterization today. Cardiology following.
Acute on chronic heart failure reduced EF -started on IV Lasix 20 mg twice daily on admission. BNP elevated. She admits to weight gain prior to admission. Admits to drinking at least 64 ounces of fluid daily. Discussed fluid restriction with
patient. Sodium restriction moving forward. Prior to admission she was on furosemide 20 mg once daily, just increased to twice daily 2 days prior to admission.
Echocardiogram looks worse, LVEF 20 to 25%, global hypokinesis, stage III diastolic dysfunction, moderate to severe MR, moderate TR. EF declined compared to August echo.
Of note she is on gemcitabine which can rarely cause congestive heart failure.
Still looks volume overloaded, lower extremity edema. Chest x-ray from yesterday looks wet. Would increase Lasix to 40 mg twice daily if okay with cardiology. Not requiring oxygen currently. Unclear why urine output is not recorded, discussed
with nursing.
Hyperkalemia -resolved.
Recurrent right pleural effusion -had thoracentesis 12/02, residual small apical pneumothorax noted on chest x-ray. Asymptomatic. Fluid cytology from thoracentesis negative. Differential diagnosis for pleural effusion includes heart failure
versus cancer versus other. Chest x-ray from 12/04 with stable tiny right apical pneumothorax.
DM 2 without hyperglycemia -she has an insulin pump. Uses glargine insulin as well as NovoLog. Pump is running currently. Glucoses are controlled. Hemoglobin A1c 6.0%. Glucose 92 this morning. She is also on Farxiga.
Hypothyroidism -continue Synthroid.
Chronic macrocytic anemia -hemoglobin trending 8-9 range which appears to be her recent baseline. Monitor for now. Etiology unclear but possibly due to metastatic cancer, chemotherapy, etc.
Metastatic pancreatic cancer -on gemcitabine, followed by Dr. Erazo. I did inform Dr. Erazo via [place] text.
History of DVT -hold Eliquis, continue heparin IV.
Full code
Anticipated Discharge: 24 - 48 hours
Subjective/Interval History
-
Date of Service: December 06, 2023
Patient seen and examined. Complaining of cough.
Objective Data
-
Labs:
Laboratory Results
12/06/23
03:21
WBC 7.4
Hgb 8.6 L
Hct 27.2 L
Plt Count 503 H
APTT 96.0 H
Vital Signs:
Vital Signs
Temp Pulse Resp BP Pulse Ox
98.8 F 107 16 105/67 93
12/06/23 06:51 12/06/23 05:30 12/06/23 06:51 12/06/23 03:18 12/06/23 06:51
I&O
12/05/23 12/06/23 12/07/23
06:59 06:59 06:59
Intake Total 220 / 220 390.0 / 390.0
Balance 220 / 220 390.0 / 390.0
Review of Systems
-
History Source: Patient
All other systems: Reviewed and negative
[2023-12-06] MEDS: CYMBALTA DELAYED RELEASE 60 MG PO (08:48)
[2023-12-06] MEDS: FARXIGA 10 MG PO (08:48)
[2023-12-06] MEDS: NEURONTIN 600 MG PO ×3 (08:48→21:11)
[2023-12-06] MEDS: LASIX 20 MG IV ×2 (08:49→09:11)
[2023-12-06] MEDS: PT'S OWN INSULIN PUMP - NovoLOG 30 UNIT SC (08:52)
[2023-12-06] MEDS: ZENPEP DELAYED RELEASE CAPSULE PO ×2 (08:52→15:17)
[2023-12-06 11:22] LABS: Glucose - Point of Care 224 mg/dl (70-99)
--- NOTE | 2023-12-06 13:13 | CM ---
Chart reviewed. Patient is independent of ADLS, lives with her in a 1 STH, 3 TOPHER, 0 DME. PT evaluation recommending HH. Patient agreeable. Referral sent to [facility]. Plan is for the patient to return home with [facility]. CM to follow
--- NOTE | 2023-12-06 15:10 | W.PN.UPDATE ---
Addendum entered and electronically signed by Star Duncan MD 12/06/23 17:05:
Agree with below.
-Patient will undergo diagnostic cardiac catheterization today.
Original Note:
Update Note
Progress Note Update
Patient without SOB, vitals stable. CXR 12/05/23 with stable tiny right apical pneumothorax. Stable for cath today, updated patient and family and all questions answered.
[2023-12-06] MEDS: PT'S OWN INSULIN PUMP - NovoLOG SC ×2 (15:16→17:30)
--- NOTE | 2023-12-06 16:51 | ITS.CL.CATH ---
[facility] - Catheterization
Cardiac Catheterization
Procedure Report:
LEFT HEART CATHETERIZATION
Date of Procedure: December 06, 2023
Referring: Antoine Nolasco
PROCEDURES:
1. Left heart catheterization, coronary angiogram.
2. Ultrasound-guided access
INDICATION: Suzanne is a 63-year-old female with metastatic pancreatic cancer undergoing active chemotherapy, hypertension, hyperlipidemia, prior DVT on chronic Eliquis, coronary artery disease with multiple prior stents who presents with an NSTEMI
and a new reduction in LVEF of 20 to 25%, down from 35 to 40% being referred for a diagnostic left heart catheterization.
ACCESS: Right common femoral artery, 5 Tunisian sheath, under ultrasound guidance using a micropuncture kit.
HEMODYNAMICS : (mmHg)
AO (s/d) : 117/64
LV (s/d) : 112/12
LVEDP : 35
CORONARY FINDINGS
DOMINANCE: Right
LEFT MAIN: The left main artery is a large caliber vessel which gives rise to the left anterior descending artery and the left circumflex artery. There is minimal luminal irregularities.
LEFT ANTERIOR DESCENDING: The left anterior descending artery is medium to large caliber and gives rise to 1 major diagonal branch. Proximal to mid LAD stents are widely patent with mild luminal irregularities in the LAD. D1 is a jailed branch
vessel from prior LAD stents and appears to have a hazy eccentric ostial 80% stenosis with AXEL II flow into the distal vessel, likely culprit for presenting NSTEMI.
CIRCUMFLEX: The left circumflex artery is a large-caliber, nondominant vessel which gives rise to 1 major obtuse marginal branch. Previously placed mid left circumflex stent extending into the OM is patent with eccentric 50% in-stent restenosis in
the midportion.
RIGHT CORONARY ARTERY: The right coronary artery is a large-caliber, dominant vessel that gives rise to the right posterior descending artery and the right posterolateral system. Previously placed proximal RCA stent is patent. There is an
eccentric ostial 70 to 75% stenosis with significant pressure dampening and ventricularization upon selective engagement with a 5 Tunisian diagnostic catheter. Ostial RPL branch has 60 to 70% stenosis. There is otherwise mild luminal irregularities.
SEDATION: 21 minutes of procedural sedation was utilized. An independent emergency medical dispatcher was present to assist with and help manage the patient's level of consciousness and physiologic status.
RADIATION SUMMARY: Fluoro Time (min): 2.4, Dose (mGy): 212.84, DAP (Gy.cm2) : 22.9
Closure Device: Manual pressure was held over the right common femoral arterial access site with successful hemostasis.
CONCLUSIONS
1. D1 is a a jailed branch vessel from prior LAD stents and appears to have a hazy eccentric ostial 80% stenosis with AXEL II flow into the distal vessel, likely culprit for presenting NSTEMI.
2. Previously placed mid left circumflex stent extending into the OM is patent with eccentric 50% in-stent restenosis in the midportion.
3. There is an eccentric ostial 70 to 75% RCA stenosis with significant pressure dampening and ventricularization upon selective engagement with a 5 Tunisian diagnostic catheter. Ostial RPL branch has 60 to 70% stenosis.
4. Significantly elevated LVEDP at 35 mmHg.
RECOMMENDATIONS
1. Coronary artery disease appears to be out of proportion to explain LVEF drop to 20-25%.
2. Multidisciplinary discussion with oncology in regards to overall prognosis with metastatic pancreatic cancer.
3. 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
4. If fails medical therapy and deemed to have good prognosis from an oncologic standpoint with recurrent angina, consider PCI to ostial RCA for symptom relief.
Copy to: Antoine Nolasco
Stacy Wilson MD, FACC, [facility]
--- NOTE | 2023-12-06 17:05 | W.PN.CD ---
Today's Communication / Plan
-
- Will undergo diagnostic cardiac catheterization today.
- Echocardiogram yesterday revealed a decline in LVEF compared to previous echo on 09/16/2023, and with progressive valvular heart disease.
- Moderate to severe MR, moderate TR.
- Monitor volume status; was diuresed with Lasix on admission.
- Receiving chemo; long-term oncologic prognosis uncertain (that is why only diagnostic cath only is being performed today for now).
Impression / Plan
-
A: 63-year-old female with CAD status-post RCA circumflex and PDA stenting, chronic HFrEF (previous EF 35-40%), DVT on Eliquis, metastatic pancreatic cancer, pleural effusions with recent thoracentesis on December 02 who is coming in with chest pain.
She has worsening lateral ST-T wave depressions and elevated troponin consistent with NSTEMI.
NSTEMI
- Aspirin 81 mg daily while Eliquis is being held.
- Statin-allergy.
- Will undergo diagnostic cardiac catheterization today.
- cessation of smoking
Chronic HFrEF (EF 20-25%)
-Echocardiogram yesterday revealed a decline in LVEF compared to previous echo on 09/16/2023, and with progressive valvular heart disease.
-GDMT limited by low blood pressure.
Valvular heart disease:
-Moderate to severe MR, moderate TR.
-Monitor volume status; was diuresed with Lasix on admission.
DVT hx
- holding Eliquis for heparin gtt
Pleural effusions
- consider thoracentesis later if necessary
metastatic pancreatic CA
- Receiving chemo; long-term oncologic prognosis uncertain (that is why only diagnostic cath only is being performed today for now).
DM2
- per primary
Physical Exam
Vital Signs/Labs
Vital Signs
Temp Pulse Resp BP Pulse Ox
98.6 F 98 16 106/64 97
12/06/23 16:07 12/06/23 16:03 12/06/23 16:07 12/06/23 16:03 12/06/23 16:07
12/05/23 12/06/23 12/07/23
06:59 06:59 06:59
Actual Weight 67.4 kg 67.4 kg
12/06/23 03:21
12/05/23 03:32
APTT 96.0 Sec (23.4-35.0) H 12/06/23 03:21
12/04/23 12/04/23
17:36 20:35
Ecw-Y-Krgpiuslseu Pept 18531 Cancelled
LAB Results
12/04/23 12/04/23 12/05/23
17:36 20:53 03:32
Troponin I 0.055 H* 0.637 H* D 7.920 H* D
12/05/23 12/05/23 12/06/23
10:31 17:44 00:13
Troponin I 9.340 H* 8.020 H* Cancelled
Physical Exam
Constitutional: No acute distress and Comfortable
EENT: Anicteric
Cardiovascular: Rhythm & rate is regular, Systolic murmur present (2/) and S1S2 is normal
Respiratory: Respiratory effort normal and Lungs clear to auscul.
GI: Soft
Neuro/Psych: AO x 3
Other: Skin (warm)
Data Reviewed
-
Date of Service: December 06, 2023
Echo: Report Reviewed by me (EF 20-25%)
Labs: Labs Reviewed by me
[2023-12-06] MEDS: LASIX IV (18:44)
[2023-12-06] MEDS: ZENPEP DELAYED RELEASE CAPSULE 5 CAPSULE PO (18:44)
[2023-12-06] MEDS: LOW STRENGTH ASPIRIN 81 MG PO (18:44)
--- NOTE | 2023-12-06 19:35 | PTCARENOTE ---
Received pt from label pinker w/ right groin site intact. No redness, swelling or hematoma noted. VSS. Pt w/o any chest discomfort. Orders noted.
[2023-12-06] MEDS: PT'S OWN INSULIN PUMP - NovoLOG 2.5 UNIT SC (22:21)
[2023-12-06 22:22] LABS: Glucose - Point of Care 225 mg/dl (70-99)
--- NOTE | 2023-12-06 23:23 | PTCARENOTE ---
Received patient at change of shift. Patient awake, alert, and oriented on bed rest post cath. bedside. Right groin clean, dry, and intact. No ecchymosis or hematoma. BP 122/78, SB/NSR 99-103, 93% on room air. Discussed plan to restart
Heparin at midnight. Patient verbalized understanding. Call cabrera within reach.
[2023-12-07] VITALS (8 sets, daily range): BP systolic 109–125; BP diastolic 55–76; BMI 24.5
[2023-12-07] MEDS: NSS 500 IV (00:01)
[2023-12-07] MEDS: HEPARIN 25000 UNITS/250 ML IV ×2 (00:03→16:56)
[2023-12-07 06:08] LABS: Glucose - Point of Care 104 mg/dl (70-99)
[2023-12-07] MEDS: SYNTHROID 200 MCG PO (06:12)
[2023-12-07] MEDS: SYNTHROID 50 MCG PO (06:12)
[2023-12-07 06:18] LABS: Hematocrit 24.6 % (37.0-47.0); Hemoglobin 7.9 g/dL (12.0-16.0); Mean Corp Hgb Conc. 32.1 g/dL (33.0-37.0); Mean Corpuscular Hgb 32.4 pg (27.0-31.0); Mean Corpuscular Volume 100.8 fL (81.0-99.0); Mean Platelet Volume 10.2 fL (7.4-10.4); Platelet Count 437 10^3/uL (130-400); Red Blood Cell Count 2.44 10^6/uL (4.20-5.40); Red Cell Dist. Width 18.6 % (11.5-14.5)
[2023-12-07 06:33] LABS: APTT 57.2 Sec (23.4-35.0)
[2023-12-07 06:49] LABS: Blood Urea Nitrogen 36 mg/dl (7-17); Calcium 7.9 mg/dl (8.4-10.2); Carbon Dioxide 26 mmol/L (22-30); Chloride 102 mmol/L (98-107); Estimated Creatinine Clearance 52 ml/min; Potassium 3.9 mmol/L (3.5-5.1); Sodium 137 mmol/L (135-145); eGFR > 60.00
[2023-12-07 06:59] LABS: Glucose 93 mg/dl (70-99)
[2023-12-07 07:48] LABS: Glucose - Point of Care 108 mg/dl (70-99)
--- NOTE | 2023-12-07 08:18 | W.PN.HOSP.TC ---
Today's Communication/Plan
-
Continue diuretics
Assessment / Plan
Assessment / Plan
Gen-AAOx3, NAD
HEENT-NC, AT, anicteric, clear oral mm
Neck-supple
CV-reg, no M, +S1/S2
Lungs-clear B/L
Abd-soft, NT, ND
Ext-bilateral lower extremity edema
Musculoskeletal-no cyanosis, clubbing
Skin-warm and dry
Neuro-grossly non-focal
Psych-calm, cooperative
NSTEMI -continue aspirin, heparin IV. Underwent catheterization 12/05 showing D1 eccentric ostial 80% stenosis, likely culprit for presenting NSTEMI. Previously placed mid left circumflex stent extending into the OM is patent with a eccentric 50%
in-stent restenosis. Eccentric ostial 70 to 75% RCA stenosis. 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 No intervention was done yesterday. Cardiology recommends oncology input.
Acute on chronic heart failure reduced EF -volume status improving on increased dose of Lasix, 40 mg BID.
Echocardiogram looks worse, LVEF 20 to 25%, global hypokinesis, stage III diastolic dysfunction, moderate to severe MR, moderate TR. EF declined compared to August echo.
Of note she is on gemcitabine which can rarely cause congestive heart failure.
Still looks volume overloaded, lower extremity edema. Chest x-ray from 12/04 looks wet, right greater than left pleural effusions.
Hyperkalemia -resolved.
Recurrent right pleural effusion -had thoracentesis 12/02, residual small apical pneumothorax noted on chest x-ray. Asymptomatic. Fluid cytology from thoracentesis negative. Differential diagnosis for pleural effusion includes heart failure
versus cancer versus other. Chest x-ray from 12/04 with stable tiny right apical pneumothorax.
DM 2 without hyperglycemia -she has an insulin pump. Uses glargine insulin as well as NovoLog. Pump is running currently. Glucoses are controlled. Hemoglobin A1c 6.0%. Glucose 93 this morning. She is also on Farxiga.
Hypothyroidism -continue Synthroid.
Chronic macrocytic anemia -hemoglobin trending 8-9 range which appears to be her recent baseline. Monitor for now. Etiology unclear but possibly due to metastatic cancer, chemotherapy, etc. hemoglobin noted to be 7.9 this morning, recheck in the
morning. No evidence of bleeding.
Metastatic pancreatic cancer -on gemcitabine, followed by Dr. Erazo. I did inform Dr. Erazo via [place] text.
History of DVT -hold Eliquis, continue heparin IV.
Full code
Anticipated Discharge: 24 - 48 hours
Subjective/Interval History
-
Date of Service: December 07, 2023
Patient seen and examined. States she feels better overall. No complaints.
Objective Data
-
Labs:
Laboratory Results
12/07/23 12/07/23
05:55 12:45
WBC 8.0
Hgb 7.9 L
Hct 24.6 L
Plt Count 437 H
APTT 57.2 H Pending
Sodium 137
Potassium 3.9
Chloride 102
Carbon Dioxide 26
BUN 36 H
Creatinine 1.0
Glucose 93
Calcium 7.9 L
Vital Signs:
Vital Signs
Temp Pulse Resp BP Pulse Ox
98.8 F 100 16 124/76 100
12/07/23 00:18 12/07/23 07:50 12/07/23 00:18 12/07/23 07:50 12/07/23 08:14
I&O
12/06/23 12/07/23 12/08/23
06:59 06:59 06:59
Intake Total 390.0 / 390.0 438.75 / 438.75
Output Total 2925 / 2925
Balance 390.0 / 390.0 -2486.25 / -2486.25
Review of Systems
-
History Source: Patient
All other systems: Reviewed and negative
[2023-12-07] MEDS: FARXIGA 10 MG PO (08:54)
[2023-12-07] MEDS: NEURONTIN 600 MG PO ×3 (08:54→21:07)
[2023-12-07] MEDS: LOW STRENGTH ASPIRIN 81 MG PO (08:54)
[2023-12-07] MEDS: ZENPEP DELAYED RELEASE CAPSULE 5 CAPSULE PO ×3 (08:54→16:44)
[2023-12-07] MEDS: CYMBALTA DELAYED RELEASE 60 MG PO (08:54)
[2023-12-07] MEDS: LASIX 40 MG IV ×2 (08:54→16:44)
[2023-12-07] MEDS: PT'S OWN INSULIN PUMP - NovoLOG 3 UNIT SC (08:57)
--- NOTE | 2023-12-07 10:50 | W.PN.CD ---
Addendum entered and electronically signed by Inge Delacruz MD 12/07/23 13:00:
I personally evaluated and examined the patient. I agree with the assessment and documentation, examination and plan of care as noted below.
Briefly, 64-year-old woman with coronary disease status post PCI to RCA and PDA, chronic systolic heart failure with LVEF of 35%, metastatic pancreatic cancer with history of mini Whipple on chemotherapy and pleural effusions who is hospitalized
with heart failure and pleural effusions. Patient appears to be close to euvolemic at this time. Continue IV diuresis today. Will switch her back to p.o. tomorrow.
Original Note:
Today's Communication / Plan
-
She had a diagnostic cardiac catheterization yesterday due to her decline in LVEF and progressive valvular heart disease. Cardiomyopathy appears to be a mixed picture. Diagnostic catheterization was being performed as her long-term oncologic
process is currently uncertain.
We may be nearing euvolemia, consider possible transition to oral diuretic tomorrow.
Impression / Plan
-
BACKGROUND: 63-year-old female with CAD status-post RCA circumflex and PDA stenting, chronic HFrEF (previous EF 35-40%), DVT on Eliquis, metastatic pancreatic cancer s/p mini Whipple on chemotherapy, pleural effusions with recent thoracentesis on
December 02 who is coming in with chest pain. She has worsening lateral ST-T wave depressions and elevated troponin consistent with NSTEMI.
NSTEMI
-Aspirin 81 mg daily, apixaban on hold she is on heparin drip
-Statin-allergy.
-Diagnostic [facility] 12/06/2023, can consider PCI to ostial RCA if she has recurrent angina
-Cessation of smoking
HFrEF (EF 20-25%), acute on chronic
-Diuresis as tolerated with furosemide 40 mg IV twice daily, her standing home dose will likely need to be increased at discharge
-Dry weight to be determined, she is currently her lowest documented weight at this facility
-CAD appears to be out of proportion to explain her significant decline in LVEF, mixed ischemic/nonischemic picture
-GDMT limited by low blood pressure.
-SGLT2: Farxiga
-ACEi/ARB: Lisinopril caused cough, currently with low BP
-Beta kristina: Had hypotension
-MRA: Can consider, no documented hyperkalemia
-ICD: Long-term prognosis uncertain, re-evaluate LVEF in 3 months
-Trend daily weight, I/O, and BMP with diuresis
-Heart failure education
Valvular heart disease:
-Moderate to severe MR, moderate TR.
-Achieve and maintain euvolemia
Anemia, acute on chronic
-Worsening anemia, on heparin drip, apixaban on hold
-She denies abnormal bleeding
-Right femoral access site soft
DVT hx, heparin drip while apixaban is on hold
Pleural effusions, consider thoracentesis later if necessary
Metastatic pancreatic CA
-Receiving chemo
-Long-term oncologic prognosis uncertain, consider oncology evaluation
DM2, per primary
SUBJECTIVE:
Breathing has improved. She has no chest pain with activity.
DATA:
Cardiac catheterization 12/06/2023:
CONCLUSIONS
1. D1 is a a jailed branch vessel from prior LAD stents and appears to have a hazy eccentric ostial 80% stenosis with AXEL II flow into the distal vessel, likely culprit for presenting NSTEMI.
2. Previously placed mid left circumflex stent extending into the OM is patent with eccentric 50% in-stent restenosis in the midportion.
3. There is an eccentric ostial 70 to 75% RCA stenosis with significant pressure dampening and ventricularization upon selective engagement with a 5 [place] diagnostic catheter. Ostial RPL branch has 60 to 70% stenosis.
4. Significantly elevated LVEDP at 35 mmHg.
RECOMMENDATIONS
1. Coronary artery disease appears to be out of proportion to explain LVEF drop to 20-25%.
2. Multidisciplinary discussion with oncology in regards to overall prognosis with metastatic pancreatic cancer.
3. 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
4. If fails medical therapy and deemed to have good prognosis from an oncologic standpoint with recurrent angina, consider PCI to ostial RCA for symptom relief.
Transthoracic echocardiogram, 12/05/2023:
Severely reduced left ventricular systolic function. LV ejection fraction is
20-25%.
Global hypokinesis with more severe hypokinesis of the inferior/inferolateral
segments.
Stage III diastolic dysfunction suggestive of restrictive filling pattern and
increased filling pressures.
Moderate/severe eccentric mitral regurgitation.
Moderate tricuspid regurgitation. Moderately elevated PASP. Estimated pulmonary
artery pressure of 45 mmHg assuming a right atrial pressure of 8 mmHg.
Trivial pericardial effusion.
Pleural effusion present.
Physical Exam
Vital Signs/Labs
Vital Signs
Temp Pulse Resp BP Pulse Ox
98.8 F 100 16 124/76 100
12/07/23 00:18 12/07/23 07:50 12/07/23 00:18 12/07/23 07:50 12/07/23 08:14
12/06/23 12/07/23 12/08/23
06:59 06:59 06:59
Actual Weight 67.4 kg 66.9 kg
12/07/23 05:55
12/07/23 05:55
APTT 57.2 Sec (23.4-35.0) H 12/07/23 05:55
12/04/23 12/04/23
17:36 20:35
Qvm-L-Hxgytgjgqtg Pept [id number] Cancelled
LAB Results
12/04/23 12/04/23 12/05/23
17:36 20:53 03:32
Troponin I 0.055 H* 0.637 H* D 7.920 H* D
12/05/23 12/05/23 12/06/23
10:31 17:44 00:13
Troponin I 9.340 H* 8.020 H* Cancelled
Data Reviewed
-
Date of Service: December 07, 2023
[2023-12-07 12:34] LABS: Glucose - Point of Care 237 mg/dl (70-99)
[2023-12-07] MEDS: PT'S OWN INSULIN PUMP - NovoLOG 4.5 UNIT SC (12:51)
[2023-12-07 13:57] LABS: APTT > 200 Sec (23.4-35.0)
[2023-12-07 15:01] LABS: APTT 81.9 Sec (23.4-35.0)
[2023-12-07 17:49] LABS: Glucose - Point of Care 115 mg/dl (70-99)
[2023-12-07] MEDS: PT'S OWN INSULIN PUMP - NovoLOG 5 UNIT SC (18:37)
[2023-12-07 21:05] LABS: Glucose - Point of Care 91 mg/dl (70-99)
[2023-12-07] MEDS: PT'S OWN INSULIN PUMP - NovoLOG SC (21:23)
[2023-12-07 21:52] LABS: APTT 92.1 Sec (23.4-35.0)
--- NOTE | 2023-12-07 22:30 | PTCARENOTE ---
Received patient at change of shift. SR on the monitor, HR in the 90s. Heparin running as per protocol. No complaints from pt at this time, call cabrera within reach.
[2023-12-08 02:04] VITALS: BP 113/59
[2023-12-08 02:09] VITALS: BMI 24.2
[2023-12-08] MEDS: SYNTHROID 50 MCG PO (05:29)
[2023-12-08] MEDS: SYNTHROID 200 MCG PO (05:30)
[2023-12-08 05:55] LABS: Hematocrit 24.4 % (37.0-47.0); Hemoglobin 7.7 g/dL (12.0-16.0); Mean Corp Hgb Conc. 31.6 g/dL (33.0-37.0); Mean Corpuscular Hgb 30.7 pg (27.0-31.0); Mean Corpuscular Volume 97.2 fL (81.0-99.0); Mean Platelet Volume 9.9 fL (7.4-10.4); Platelet Count 431 10^3/uL (130-400); Red Blood Cell Count 2.51 10^6/uL (4.20-5.40); Red Cell Dist. Width 18.5 % (11.5-14.5); White Blood Cell Count 7.9 10^3/uL (4.8-10.8)
[2023-12-08 05:59] LABS: APTT 129.6 Sec (23.4-35.0)
[2023-12-08 06:14] LABS: Blood Urea Nitrogen 29 mg/dl (7-17); Calcium 7.8 mg/dl (8.4-10.2); Carbon Dioxide 29 mmol/L (22-30); Chloride 101 mmol/L (98-107); Estimated Creatinine Clearance 52 ml/min; Glucose 86 mg/dl (70-99); Potassium 3.6 mmol/L (3.5-5.1); Sodium 139 mmol/L (135-145); eGFR > 60.00
[2023-12-08 06:47] VITALS: BP 106/63
[2023-12-08 07:26] LABS: Glucose - Point of Care 92 mg/dl (70-99)
[2023-12-08] MEDS: ZENPEP DELAYED RELEASE CAPSULE 5 CAPSULE PO (07:39)
[2023-12-08] MEDS: FARXIGA 10 MG PO (07:39)
[2023-12-08] MEDS: CYMBALTA DELAYED RELEASE 60 MG PO (07:39)
[2023-12-08] MEDS: NEURONTIN 600 MG PO (07:39)
[2023-12-08] MEDS: LOW STRENGTH ASPIRIN 81 MG PO (07:40)
[2023-12-08] MEDS: PT'S OWN INSULIN PUMP - NovoLOG 2.1 UNIT SC (07:41)
[2023-12-08] MEDS: LASIX 40 MG IV (07:41)
--- NOTE | 2023-12-08 09:29 | W.PN.HOSP.TC ---
Today's Communication/Plan
-
Discharge
Assessment / Plan
Assessment / Plan
Gen-AAOx3, NAD
HEENT-NC, AT, anicteric, clear oral mm
Neck-supple
CV-reg, no M, +S1/S2
Lungs-clear B/L
Abd-soft, NT, ND
Ext-bilateral lower extremity edema
Musculoskeletal-no cyanosis, clubbing
Skin-warm and dry
Neuro-grossly non-focal
Psych-calm, cooperative
NSTEMI -continue aspirin, heparin IV. Underwent catheterization 12/05 showing D1 eccentric ostial 80% stenosis, likely culprit for presenting NSTEMI. Previously placed mid left circumflex stent extending into the OM is patent with a eccentric 50%
in-stent restenosis. Eccentric ostial 70 to 75% RCA stenosis. 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 No intervention was done. Cardiology recommends oncology input.
Acute on chronic heart failure reduced EF -volume status improving on increased dose of Lasix, 40 mg BID.
Echocardiogram looks worse, LVEF 20 to 25%, global hypokinesis, stage III diastolic dysfunction, moderate to severe MR, moderate TR. EF declined compared to August echo.
Of note she is on gemcitabine which can rarely cause congestive heart failure.
Volume status improved on higher dose of IV Lasix. I spoke with cardiology, okay to discharge on higher dose of Lasix 40 mg twice daily. Outpatient follow-up.
Hyperkalemia -resolved.
Recurrent right pleural effusion -had thoracentesis 12/02, residual small apical pneumothorax noted on chest x-ray. Asymptomatic. Fluid cytology from thoracentesis negative. Differential diagnosis for pleural effusion includes heart failure
versus cancer versus other. Chest x-ray from 12/04 with stable tiny right apical pneumothorax.
DM 2 without hyperglycemia -she has an insulin pump. Uses glargine insulin as well as NovoLog. Pump is running currently. Glucoses are controlled. Hemoglobin A1c 6.0%. Glucose 86 this morning. She is also on Farxiga.
Hypothyroidism -continue Synthroid.
Chronic macrocytic anemia -hemoglobin trending 8-9 range which appears to be her recent baseline. Monitor for now. Etiology unclear but possibly due to metastatic cancer, chemotherapy, etc. hemoglobin noted to be 7.9 this morning, recheck in the
morning. No evidence of bleeding.
Metastatic pancreatic cancer -on gemcitabine, followed by Dr. Erazo. I did inform Dr. Erazo via [place] text.
History of DVT -resume Eliquis this morning if okay with cardiology. Heparin discontinued.
Full code
Dispo -discharge today and outpatient follow-up. Discussed with cardiology, Dr. Delacruz.
32 minutes spent in discharge process.
Anticipated Discharge: Today
Subjective/Interval History
-
Date of Service: December 08, 2023
Patient seen and examined. Denies shortness of breath. No complaints.
Objective Data
-
Labs:
Laboratory Results
12/07/23 12/08/23 12/08/23
21:32 05:34 12:30
WBC 7.9
Hgb 7.7 L
Hct 24.4 L
Plt Count 431 H
APTT 92.1 H 129.6 H Pending
Sodium 139
Potassium 3.6
Chloride 101
Carbon Dioxide 29
BUN 29 H
Creatinine 1.0
Glucose 86
Calcium 7.8 L
Vital Signs:
Vital Signs
Temp Pulse Resp BP Pulse Ox
98.9 F 98 20 106/63 98
12/08/23 06:47 12/08/23 05:00 12/08/23 06:47 12/08/23 07:41 12/08/23 06:47
I&O
12/07/23 12/08/23 12/09/23
06:59 06:59 06:59
Intake Total 438.75 / 438.75 844 / 844
Output Total 2925 / 2925 2250 / 2250 700 / 700
Balance -2486. / -2486. -1406 / -140 - /
Review of Systems
-
History Source: Patient
All other systems: Reviewed and negative
--- NOTE | 2023-12-08 09:31 | W.PN.CD ---
Today's Communication / Plan
-
-Okay to resume Eliquis
-Change home dose Lasix to 40 mg p.o. twice a day.
-Stable for discharge from cardiac standpoint
Impression / Plan
-
BACKGROUND: 63-year-old female with CAD status-post RCA circumflex and PDA stenting, chronic HFrEF (previous EF 35-40%), DVT on Eliquis, metastatic pancreatic cancer s/p mini Whipple on chemotherapy, pleural effusions with recent thoracentesis on
December 02 who is coming in with chest pain. She has worsening lateral ST-T wave depressions and elevated troponin consistent with NSTEMI.
NSTEMI
-Aspirin 81 mg daily, apixaban on hold she is on heparin drip
-Statin-allergy.
-Diagnostic [facility] 12/06/2023, can consider PCI to ostial RCA if she has recurrent angina
-Cessation of smoking
HFrEF (EF 20-25%), acute on chronic
-Diuresis as tolerated with furosemide 40 mg IV twice daily, her standing home dose will likely need to be increased at discharge
-Dry weight to be determined, she is currently her lowest documented weight at this facility
-CAD appears to be out of proportion to explain her significant decline in LVEF, mixed ischemic/nonischemic picture
-GDMT limited by low blood pressure.
-SGLT2: Farxiga
-ACEi/ARB: Lisinopril caused cough, currently with low BP
-Beta kristina: Had hypotension
-MRA: Can consider, no documented hyperkalemia
-ICD: Long-term prognosis uncertain, re-evaluate LVEF in 3 months
-Trend daily weight, I/O, and BMP with diuresis
-Heart failure education
Valvular heart disease:
-Moderate to severe MR, moderate TR.
-Achieve and maintain euvolemia
Anemia, acute on chronic
-Worsening anemia, on heparin drip, apixaban on hold
-She denies abnormal bleeding
-Right femoral access site soft
DVT hx, heparin drip while apixaban is on hold
Pleural effusions, consider thoracentesis later if necessary
Metastatic pancreatic CA
-Receiving chemo
-Long-term oncologic prognosis uncertain, consider oncology evaluation
DM2, per primary
SUBJECTIVE:
Breathing has improved. She has no chest pain with activity.
DATA:
Cardiac catheterization 12/06/2023:
CONCLUSIONS
1. D1 is a a jailed branch vessel from prior LAD stents and appears to have a hazy eccentric ostial 80% stenosis with AXEL II flow into the distal vessel, likely culprit for presenting NSTEMI.
2. Previously placed mid left circumflex stent extending into the OM is patent with eccentric 50% in-stent restenosis in the midportion.
3. There is an eccentric ostial 70 to 75% RCA stenosis with significant pressure dampening and ventricularization upon selective engagement with a 5 [place] diagnostic catheter. Ostial RPL branch has 60 to 70% stenosis.
4. Significantly elevated LVEDP at 35 mmHg.
RECOMMENDATIONS
1. Coronary artery disease appears to be out of proportion to explain LVEF drop to 20-25%.
2. Multidisciplinary discussion with oncology in regards to overall prognosis with metastatic pancreatic cancer.
3. 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
4. If fails medical therapy and deemed to have good prognosis from an oncologic standpoint with recurrent angina, consider PCI to ostial RCA for symptom relief.
Transthoracic echocardiogram, 12/05/2023:
Severely reduced left ventricular systolic function. LV ejection fraction is
20-25%.
Global hypokinesis with more severe hypokinesis of the inferior/inferolateral
segments.
Stage III diastolic dysfunction suggestive of restrictive filling pattern and
increased filling pressures.
Moderate/severe eccentric mitral regurgitation.
Moderate tricuspid regurgitation. Moderately elevated PASP. Estimated pulmonary
artery pressure of 45 mmHg assuming a right atrial pressure of 8 mmHg.
Trivial pericardial effusion.
Pleural effusion present.
Physical Exam
Vital Signs/Labs
Vital Signs
Temp Pulse Resp BP Pulse Ox
98.9 F 98 20 106/63 98
12/08/23 06:47 12/08/23 05:00 12/08/23 06:47 12/08/23 07:41 12/08/23 06:47
12/07/23 12/08/23 12/09/23
06:59 06:59 06:59
Actual Weight 66.9 kg 66 kg
12/08/23 05:34
12/08/23 05:34
APTT 129.6 Sec (23.4-35.0) H 12/08/23 05:34
12/04/23 12/04/23
17:36 20:35
Dgc-Q-Rmesfxohtyu Pept [id number] Cancelled
LAB Results
12/05/23 12/05/23 12/06/23
10:31 17:44 00:13
Troponin I 9.340 H* 8.020 H* Cancelled
Physical Exam
Constitutional: No acute distress and Comfortable
EENT: Anicteric and Moist mucous membranes
Cardiovascular: Rhythm & rate is regular, Pedal edema is absent and JVD pressure is normal
Respiratory: Respiratory effort normal, Lungs clear to auscul. and Wheeze Absent
GI: Soft, Flat and Non tender
Neuro/Psych: Alert, Oriented and AO x 3
Data Reviewed
-
Date of Service: December 08, 2023
Medical Decision Making: Reviewed Test Results, Independent Historian Assessment, Test Interpretation and Review of Case with other Provider
EKG: Tracing Personally Visualized and interpreted
Echo: Report Reviewed by me
Labs: Labs Reviewed by me
Old Records: Reviewed
--- NOTE | 2023-12-08 09:36 | W.DS.TRANS ---
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
-
Discharge Instructions:
Discharge Diagnosis/Procedures Cardiac cath, congestive heart failure
Diet Restrict fluids to 48 oz,Low Sodium,Diabetic,
Carb Controlled
Activity With assistance
Driving Restrictions As prior to admission
Bathing Restrictions None
Blood Work BMP, CBC in 1 week
Other Services VN
Instructions:
Stand-Alone Forms: DC Instructions- Cath/EP Lab
Changes to Home Medications: Yes
Discharge Medications:
DC Medications w/original date entered in [facility]
dapagliflozin propanediol 10 mg tablet (Farxiga) 10 mg PO DAILY #30 tabs 08/05/20
duloxetine 60 mg capsule,delayed release 60 mg PO DAILY Mental Health/Anxiety 06/20/21
gabapentin 600 mg tablet 600 mg PO TID Neurological Condition 10/02/21
Patient Own Insulin Pump 1 sliding scale dose SC .NOVOLOG VIA PUMP Diabetes 09/16/23
apixaban 5 mg tablet (Eliquis) 5 mg PO BID Blood Clot Prevention/Tx 09/16/23
levothyroxine 200 mcg tablet (Synthroid) 200 mcg PO DAILY Thyroid 09/16/23
levothyroxine 50 mcg tablet (Synthroid) 50 mcg PO DAILY Thyroid 09/16/23
zgumbc-zxwpayux-asraoqv 36,000-114,000-180,000 unit capsule,delay rel (Creon) 2 cap PO DAILYPRN PRN with a snack 09/16/23
ddlriy-qoygljdq-llemipf 36,000-114,000-180,000 unit capsule,delay rel (Creon) 5 cap PO AC Gastrointestinal Issue 09/16/23
omeprazole 20 mg capsule,delayed release 20 mg PO DAILY Gastrointestinal Issue 12/03/23
acetaminophen 500 mg tablet (Tylenol Extra Strength) 1,000 mg PO Q6HPRN PRN mild pain 12/04/23
aspirin 81 mg chewable tablet 81 mg PO DAILY #0 tabs 12/08/23
furosemide 40 mg tablet 40 mg PO BID AT 0800,1600 #60 tabs 12/08/23
nitroglycerin 0.4 mg sublingual tablet 0.4 mg sublingual [id number] PRN ANGINA #30 tabs 12/08/23
Home Medication Changes
Lasix increased to 40 mg twice daily.
Pending Results: No
[2023-12-08] MEDS: ELIQUIS 5 MG PO (10:06)
[2023-12-08] MEDS: KCL 40 MEQ PO (10:06)
[2023-12-08 11:17] VITALS: BP 112/65
--- NOTE | 2023-12-09 09:28 | W.HF.CON ---
Heart Failure
- LV Function
Left ventricular function study result: LV Ejection fraction </= 35%
Ejection Fraction Percentage: 20-25
- ARNI
Patient already on ARNI: No
Heart Failure ARNI Contraindication: Hypotension
- ACEI/ARB
Patient already on ACEI/ARB: No
Heart Failure ACEI/ARB Contraindication: Cough Response to ACEI, Hypotension
- Beta Andres
Patient already on Evidence Based Beta Andres: No
Heart Failure Evidence Based Beta Andres: Hypotension, Mod/Severe Heart Failure
- Mineralocorticord Receptor Antagonist
Patient already on MRA: No
Heart Failure MRA Contraindication: Hypotension
- SGLT-2 Inhibitor
Patient already on SGLT-2 Inhibitor: Yes
- Afib Anticoagulation
Patient already on Anticoagulation for Afib: Yes
- NYHA CHF Classification
NYHA CHF Classification Level: Class III - Symptoms w/ min exertion, interferes w/ nml daily activity
- ACC/AHA Stage
ACC/AHA Stage: Stage C: Symptomatic Heart Failure
== END 2023-12-08 11:39 | disposition home health service (06) | DRG 280 ==
LOC: IVU 21:44
PROVIDERS: Clinical Nurse Specialist Family Health; Emergency Medicine; Internal Medicine Interventional Cardiology; Nurse Practitioner Adult Health; Nurse Practitioner Gerontology; Physician Assistant Medical; ADMITTING PHYSICIAN Student in an Organized Health Care Education/Training Program; ATTENDING PHYSICIAN Hospitalist; CONSULT PHYSICIAN Internal Medicine Cardiovascular Disease; EMERGENCY PHYSICIAN Emergency Medicine; FAMILY PHYSICIAN Family Medicine
PROC: 4A023N7 Measurement of Cardiac Sampling and Pressure, Left Heart, Percutaneous Approach (ICD-10-PCS; 2023-12-06)
PROC: B211YZZ Fluoroscopy of Multiple Coronary Arteries using Other Contrast (ICD-10-PCS; 2023-12-06)
DX: I21.4 Non-ST elevation (NSTEMI) myocardial infarction (principal); I50.23 Acute on chronic systolic (congestive) heart failure; C25.9 Malignant neoplasm of pancreas, unspecified; J93.83 Other pneumothorax; I42.8 Other cardiomyopathies; C79.9 Secondary malignant neoplasm of unspecified site; E03.9 Hypothyroidism, unspecified; E11.65 Type 2 diabetes mellitus with hyperglycemia; I11.0 Hypertensive heart disease with heart failure; E87.5 Hyperkalemia; I25.10 Atherosclerotic heart disease of native coronary artery without angina pectoris; E11.51 Type 2 diabetes mellitus with diabetic peripheral angiopathy without gangrene; F17.200 Nicotine dependence, unspecified, uncomplicated; D63.0 Anemia in neoplastic disease; K21.9 Gastro-esophageal reflux disease without esophagitis; I08.1 Rheumatic disorders of both mitral and tricuspid valves; I25.5 Ischemic cardiomyopathy; E78.5 Hyperlipidemia, unspecified; Z90.5 Acquired absence of kidney; Z88.8 Allergy status to other drugs, medicaments and biological substances; Z88.7 Allergy status to serum and vaccine; Z88.1 Allergy status to other antibiotic agents; Z86.73 Personal history of transient ischemic attack (TIA), and cerebral infarction without residual deficits; Z86.718 Personal history of other venous thrombosis and embolism; Z79.899 Other long term (current) drug therapy; Z79.890 Hormone replacement therapy; Z79.4 Long term (current) use of insulin; Z95.820 Peripheral vascular angioplasty status with implants and grafts; Z95.5 Presence of coronary angioplasty implant and graft; Z96.41 Presence of insulin pump (external) (internal); Z79.01 Long term (current) use of anticoagulants; Z11.52 Encounter for screening for COVID-19
CPT/HCPCS: 71046; 80048; 80053; 82962; 83036; 83880; 84484; 85025; 85027; 85730; 87502; 87811; 92610; 93005; 93306; 93458; 96361; 96365; 96375; 97163; 97167; 99152; 99285; Q9967

== ENCOUNTER → 2023-12-25 07:34 | Outpatient (REF) | payer OTHER, SELFPAY | LOC: RAD 07:34 | PROVIDERS: ATTENDING PHYSICIAN Family Medicine | DX: I25.5 Ischemic cardiomyopathy (principal) | CPT/HCPCS: 71046 ==

== ENCOUNTER → 2024-01-07 07:15 | Outpatient (REF) | payer OTHER, SELFPAY | LOC: RAD 07:15 | PROVIDERS: ATTENDING PHYSICIAN Internal Medicine Hematology & Oncology; FAMILY PHYSICIAN Family Medicine | DX: I74.9 Embolism and thrombosis of unspecified artery (principal); C25.1 Malignant neoplasm of body of pancreas; D50.9 Iron deficiency anemia, unspecified; D63.0 Anemia in neoplastic disease | CPT/HCPCS: 71260; 74177; Q9967 ==

== ENCOUNTER → 2024-03-25 08:10 | Outpatient (REF) | payer OTHER, SELFPAY | LOC: RCS 08:10 | PROVIDERS: ATTENDING PHYSICIAN Internal Medicine; FAMILY PHYSICIAN Family Medicine | DX: I25.5 Ischemic cardiomyopathy (principal); I21.4 Non-ST elevation (NSTEMI) myocardial infarction; I34.0 Nonrheumatic mitral (valve) insufficiency; I36.1 Nonrheumatic tricuspid (valve) insufficiency | CPT/HCPCS: 93306 ==

== ENCOUNTER → 2024-03-31 07:57 | Outpatient (REF) | payer OTHER, SELFPAY | LOC: RAD 07:57 | PROVIDERS: ATTENDING PHYSICIAN Internal Medicine Hematology & Oncology; FAMILY PHYSICIAN Family Medicine | DX: I74.9 Embolism and thrombosis of unspecified artery (principal); C25.1 Malignant neoplasm of body of pancreas; D50.9 Iron deficiency anemia, unspecified; D63.0 Anemia in neoplastic disease | CPT/HCPCS: 71260; 74177; Q9967 ==

== ENCOUNTER 2024-04-10 15:02 | Day surgery (SDC) | payer OTHER, SELFPAY ==
[2024-04-10] VITALS (9 sets, daily range): BP systolic 102–136; BP diastolic 51–81; BMI 21.3
--- NOTE | 2024-04-10 14:11 | ED.GENMED ---
History of Present Illness
General
Chief Complaint: Swallowing Problem
Time Seen by Provider: 04/10/24 13:59
History of Present Illness
History of Present Illness:
Patient presents to the emergency department with concern for food impaction. Notes that she has been having worsening difficulty with swallowing over the past month. Notes intermittent episodes of food getting stuck but resolving. She was able
to make an appoint with a GI doctor in May. However, last night she was eating chicken and felt something get stuck. Since then she has not been able to have any liquid or solid without vomiting
Past History
Past History
ED Past Medical History: CAD, Cancer (Pancreatic CA, Kidney CA), CVA (No residual), GERD, HTN, Hypercholesterolemia, IDDM, MS, Psychiatric (Anxiety) and Other (Emphysema, PNA, )
ED Past Surgical History: Cardiac (Stents X 7), Cholecystectomy, Orthopedic (Right knee surgery, , Left 5th toe amputation, ), Urological (Right Nephrectomy) and Other (Mini Whipple, right-sided nephrectomy, Popliteal to tibial artery bypass)
Social History
Tobacco: Smoker
Alcohol: None
Drug: None
Personal:
Living: with family
Employment: Employed
Family History
Family History: CAD (Her brother at age 47 had an MS )
Phy Exam
Physical Exam
Physical Exam:
GENERAL APPEARANCE: NAD, well developed/ well nourished
EYES lids/conjunctiva normal
EARS/NOSE/THROAT Mucous membranes moist, uvula midline without oral pharyngeal erythema, exudate or swelling
HEAD/NECK normocephalic atraumatic, neck is supple.
RESPIRATORY respiratory effort normal, speaks in full sentences, no accessory muscle use. Lungs clear to auscultation without rhonchi, wheezes, rales
CARDIAC Regular rate and rhythm, no edema.
ABDOMINAL Soft, ND/NT. No pulsatile masses on exam, rebound tenderness, Lechuga sign or pain over Mcburney's point.
MUSCLES/EXTREMITIES No abnormal range of motion, no swelling.
SKIN Warm, pink and dry. No rashes
NEUROLOGICAL Speech is clear and appropriate. Normal level of consciousness. 5/5 strength in all extremities.
PSYCH Normal mood and affect. Judgement/competence is appropriate
Course
Orders/Labs/Results
Orders:
Orders
04/10/24 14:24
CBC/With Diff [Complete Blood Count/With Diff] Urgent
Comprehensive Metabolic Panel Urgent
04/10/24 14:54
Fentanyl Citrate/Pf [Sublimaze] 100 mcg .ROUTE .STK-MED ONE
Abnormal Lab Results
04/10/24
14:24
MCH 26.9 L pg
(27.0-31.0)
MCHC 30.9 L g/dL
(33.0-37.0)
RDW 17.3 H %
(11.5-14.5)
Eosinophils % 9.6 H %
(0-6)
BUN 35 H mg/dl
(7-17)
Creatinine 1.3 H mg/dL
(0.6-1.0)
Glucose 122 H mg/dl
(70-99)
Alkaline Phosphatase 127 H U/L
(38-126)
Albumin 3.4 L g/dl
(3.5-5.0)
04/10/24 14:24
04/10/24 14:24
Vital Signs
Initial and Last Documented VS:
Initial Vital Signs
Temp Pulse Resp BP Pulse Ox
97.7 F 69 18 108/61 100
04/10/24 12:23 04/10/24 12:23 04/10/24 12:23 04/10/24 12:23 04/10/24 12:23
Last Documented Vital Signs
Temp Pulse Resp BP Pulse Ox
98.5 F 82 20 136/81 99
04/10/24 14:40 04/10/24 14:40 04/10/24 14:40 04/10/24 14:40 04/10/24 14:40
*Critical Care Note
Total Time (30-74mins, 75-104mins- exclusive of procedures): Not Applicable
ED Attending Note
ED Attending Note
ED Attending Note:
Discussed case with on-call car checker Dr. Muhammad. Concern for complete esophageal food impaction. Plan for endoscopy
-
Portions of this chart may have been created with voice recognition software.� Occasional wrong word or��sound alike� substitutions may have occurred due to the inherent limitations of voice recognition software.
Discharge Plan
Departure
Patient Disposition: GI LAB
Date of Disposition: 04/10/24
Time of Disposition: 14:18
Presentation/result/management discussed w/ accepting MD/DO: EVIE Muhammad
Discharge Problem:
Esophageal obstruction due to food impaction
Interventions
Interventions:
*Risk Screen - Suicide Last Done: 04/10/24 12:23
*General Assessment Last Done: 04/10/24 12:23
*Neglect/Abuse Screening Last Done: 04/10/24 14:40
ED- Fall Risk Assessment Last Done: 04/10/24 14:40
*ED COVID-19 Vaccine History Last Done: 04/10/24 12:23
*Nursing Disposition Last Done: 04/10/24 14:46
SU-Wafyhc-Gyjbupbjwv Assessment Last Done: 04/10/24 14:40
ED-EENT Assessment Last Done: 04/10/24 14:40
ED- Neurological Assessment Last Done: 04/10/24 14:40
ED- Pulmonary Assessment Last Done: 04/10/24 14:40
ED Swallowing Screen Last Done: 04/10/24 14:40
Discharge Date and Time
Discharge Date/Time: 04/10/24 14:51
[2024-04-10 14:42] LABS: % Eosinophils 9.6 % (0-6); % Immature Granulocytes 0.2 % (0-0.5); % Lymphocytes 21.5 % (20.5-51.1); % Monocytes 6.1 % (1.7-9.3); % Neutrophils 61.6 % (42.2-75.2); Absolute Basophils 0.1 10^3/uL (0-0.2); Absolute Eosinophils 0.6 10^3/uL (0-0.7); Absolute Lymphocytes 1.3 10^3/uL (1.2-3.4); Absolute Monocytes 0.4 10^3/uL (0.1-0.6); Absolute Neutrophils 3.9 10^3/uL (1.4-6.5); Hematocrit 38.8 % (37.0-47.0); Mean Corp Hgb Conc. 30.9 g/dL (33.0-37.0); Mean Corpuscular Hgb 26.9 pg (27.0-31.0); Mean Platelet Volume 9.2 fL (7.4-10.4); Nucleated Red Blood Cells % 0 %; Platelet Count 316 10^3/uL (130-400); Red Blood Cell Count 4.46 10^6/uL (4.20-5.40); Red Cell Dist. Width 17.3 % (11.5-14.5); White Blood Cell Count 6.2 10^3/uL (4.8-10.8)
--- NOTE | 2024-04-10 14:43 | EDRN ---
Lydia from GI labs called this RN and verbal report was given
[2024-04-10 15:08] LABS: ALT (SGPT) 21 U/L (0-35); AST (SGOT) 33 U/L (14-36); Albumin 3.4 g/dl (3.5-5.0); Alkaline Phosphatase 127 U/L (38-126); Blood Urea Nitrogen 35 mg/dl (7-17); Carbon Dioxide 28 mmol/L (22-30); Chloride 107 mmol/L (98-107); Estimated Creatinine Clearance 41 ml/min; Glucose 122 mg/dl (70-99); Potassium 5.1 mmol/L (3.5-5.1); Sodium 139 mmol/L (135-145); Total Bilirubin 0.6 mg/dl (0.2-1.3); Total Protein 7.5 g/dl (6.3-8.2); eGFR 46.21
[2024-04-10 15:57] LABS: Glucose - Point of Care 106 mg/dl (70-99)
--- NOTE | 2024-04-10 16:06 | CON.GI ---
Consultation
-
Date/Time Consultation Requested: 04/10/24
Date/Time Consultation Performed: 04/10/24
Requesting Provider:
Performing Provider:
Reason for Consultation: Food bolus impaction
Medical History
Chief Complaint / HPI
Chief Complaint: food bolus impaction
History of Present Illness:
This is a 64-year-old female with past medical history of Metastatic Pancreatic Cancer s/p Whipple in past and sees Dr. Erazo on chemo, ASCVD (CAD, PAD, CVA), NSTEMI and CHF 11/2023, pleural effusion s/p thoracentesis 11/2023, DM-II, Renal Mass
(Benign), History of DVT on Eliquis, Hypothyroidism, GERD presented to the emergency room with food bolus impaction. She says that she was eating dinner yesterday and had a piece of chicken and since then has not been able to really swallow
secretions or drink fluids and presented to ER today. She says that she has been having trouble with swallowing over the past couple of months and did have a swallow evaluation in September with speech and was found to have mild pharyngeal dysphagia
no aspiration risk was noted on video swallow. She does have a history of reflux and is pretty well-controlled on omeprazole 20 mg daily. denies any diarrhea or constipation or rectal bleeding or melena. She has never had an endoscopy or
colonoscopy in the past.
Past Medical History
Past Medical History: Other (Metastatic Pancreatic Cancer, ASCVD (CAD, PAD, CVA), CHF, DM-II, Renal Mass (Benign), History of DVT, Hypothyroidism)
Past Surgical History: Other (PTCA with Multiple Stents (5), LLE Bypass, Whipple, Right Nephrectomy (benign), R ACW Port Placement, L 5th Toe Amputations (Osteomyelitis))
Social History
Tobacco: Smoker
Alcohol: None
Drug: None
Personal:
Living: With Family
Family History
Family History: Reviewed & Not Pertinent and Other (no FH colon or pancreatic cancer)
Allergies / Home Medications
Allergy/AdvReac Type Severity Reaction Status Date / Time
cephalexin monohydrate Allergy Rash; Verified 04/10/24 12:27
[From Keflex] tolerated
PCN per pt
clindamycin Allergy Unknown Verified 04/10/24 12:27
influenza virus vaccine, Allergy Rash Verified 04/10/24 12:27
specific Swelling,
[influenza virus itching.
vacc,specific]
lisinopril Allergy cough Verified 04/10/24 12:27
pneumococcal vaccine Allergy rash, Verified 04/10/24 12:
welts
throughout
body
Hinxycm-XYM-BfF Reductase Allergy LEG PAIN Verified 04/10/24 12:27
Inhibitor
[Gclbbas-Vqw-Ruf Reductase
Inhibitor]
�Medication �Instructions �Recorded
dapagliflozin propanediol 10 mg 10 mg PO DAILY #30 tabs 08/05/20
tablet (Farxiga)
duloxetine 60 mg capsule,delayed 60 mg PO DAILY Mental 06/20/21
release Health/Anxiety
gabapentin 600 mg tablet 600 mg PO TID Neurological 10/02/21
Condition
Patient Own Insulin Pump 1 sliding scale dose SC .NOVOLOG 09/16/23
VIA PUMP Diabetes
apixaban 5 mg tablet (Eliquis) 5 mg PO BID Blood Clot 09/16/23
Prevention/Tx
levothyroxine 200 mcg tablet 200 mcg PO DAILY Thyroid 09/16/23
(Synthroid)
levothyroxine 50 mcg tablet 50 mcg PO DAILY Thyroid 09/16/23
(Synthroid)
lyyxkz-ewxggnms-oglxnwt 2 cap PO DAILYPRN PRN with a snack 09/16/23
36,000-114,000-180,000 unit
capsule,delay rel (Creon)
ywppvu-gdkvycta-aljhswr 5 cap PO AC Gastrointestinal Issue 09/16/23
36,000-114,000-180,000 unit
capsule,delay rel (Creon)
omeprazole 20 mg capsule,delayed 20 mg PO DAILY Gastrointestinal 12/03/23
release Issue
acetaminophen 500 mg tablet 1,000 mg PO Q6HPRN PRN mild pain 12/04/23
(Tylenol Extra Strength)
aspirin 81 mg chewable tablet 81 mg PO DAILY #0 tabs 12/08/23
furosemide 40 mg tablet 40 mg PO BID AT 0800,1600 #60 tabs 12/08/23
nitroglycerin 0.4 mg sublingual 0.4 mg sublingual [id number] PRN 12/08/23
tablet ANGINA #30 tabs
digoxin 125 mcg (0.125 mg) tablet 125 mcg PO DAILY 04/10/24
ezetimibe 10 mg tablet 10 mg PO DAILY 04/10/24
metoprolol succinate 25 mg capsule 25 mg PO DAILY 04/10/24
sprinkle, ext. release 24 hr
valsartan 80 mg tablet 80 mg PO DAILY 04/10/24
Review of Systems
-
All other systems: A 12 pt ROS was Negative except as stated above in HPI
Vital Signs
Temp Pulse Resp BP Pulse Ox
97.8 F 70 13 117/58 100
04/10/24 15:52 04/10/24 16:00 04/10/24 16:00 04/10/24 16:00 04/10/24 15:53
Physical Exam
Exam
General: Other (thin built)
HEENT: Normocephalic
Respiratory: Clear
Cardiac: S1/S2
GI: Soft, Non Tender, Non Distended and Normal Bowel Sounds
Musculoskeletal: No Clubbing
Skin: Warm
Neuro: Awake, Alert and Oriented
Psych: Calm
Results
WBC 6.2 10^3/uL (4.8-10.8) 04/10/24 14:24
Hgb 12.0 g/dL (12.0-16.0) 04/10/24 14:24
Hct 38.8 % (37.0-47.0) 04/10/24 14:24
MCV 87.0 fL (81.0-99.0) 04/10/24 14:24
Plt Count 316 10^3/uL (130-400) 04/10/24 14:24
Absolute Neuts (auto) 3.9 10^3/uL (1.4-6.5) 04/10/24 14:24
Sodium 139 mmol/L (135-145) 04/10/24 14:24
Potassium 5.1 mmol/L (3.5-5.1) 04/10/24 14:24
Chloride 107 mmol/L (98-107) 04/10/24 14:24
Carbon Dioxide 28 mmol/L (22-30) 04/10/24 14:24
BUN 35 mg/dl (7-17) H 04/10/24 14:24
Creatinine 1.3 mg/dL (0.6-1.0) H 04/10/24 14:24
Calcium 9.0 mg/dl (8.4-10.2) 04/10/24 14:24
Total Bilirubin 0.6 mg/dl (0.2-1.3) 04/10/24 14:24
AST 33 U/L (14-36) 04/10/24 14:24
ALT 21 U/L (0-35) 04/10/24 14:24
Alkaline Phosphatase 127 U/L (38-126) H 04/10/24 14:24
Diagnostic Image Results:
03/31/24 CT chest, abdomen, and pelvis With intravenous and oral contrast.
IMPRESSION:
Resolved right pleural effusion. Persistent, though smaller left pleural effusion with somewhat loculated configuration.
1.7 cm masslike nodular opacity in the posterior left lung base has developed. Although this could represent a focus of round atelectasis, neoplasm cannot be entirely excluded. Possible metastatic 8.7 mm nodule having increased slightly in size in
the right middle lobe.
Multiple persistent small mediastinal lymph nodes, slightly smaller in size. Relatively stable mild confluent hilar lymphoid tissue.
Postsurgical changes related to mini Whipple procedure. Persistent relatively stable low-attenuation confluent attenuation occupying the expected location of the pancreatic head.. The splenic and portal veins are patent. As before, there is a soft
tissue mass with central coarse calcification, rounded in configuration measuring approximate 2.7 cm contiguous with the inferior margin of the pancreas.
Small lymph node in the gastrohepatic ligament measures 12 mm, previously measuring 13 mm.
Stable mild soft tissue stranding of the root of the small bowel mesentery.
Prior GI Procedures:
EGD: none
Colonoscopy: none
Assessment / Plan
-
1. Food bolus impaction since eating chicken for dinner last night. Will schedule for endoscopy since she is unable to swallow her secretions since then or tolerate diet. If she does have evidence of esophageal stricture will need to repeat
endoscopy off of Eliquis for 2 days for dilation. If the endoscopy is unremarkable likely need esophageal manometry or barium swallow as outpatient. She did have a speech evaluation with a video swallow in the past which showed mild pharyngeal
dysphagia but no aspiration noted. She also does have evidence of possible lung lesions/mets and mediastinal/hilar adenopathy noted on CT chest abdomen pelvis from March so possible extrinsic compression also.
2. Metastatic pancreatic cancer status post Whipple in the past and sees Dr. Erazo and was on chemotherapy follow-up as outpatient
3. She also has never had a colonoscopy in the past will discuss as outpatient Cologuard versus colonoscopy.
-
-
Thank you for consultation and allowing me to participate in the patient's care. Please call the electronic assembly GI physician during the after hours with any questions or concerns.
== END 2024-04-10 17:20 | disposition home or self-care (01) ==
LOC: GI 15:02
PROVIDERS: ATTENDING PHYSICIAN Internal Medicine Gastroenterology; EMERGENCY PHYSICIAN Emergency Medicine; FAMILY PHYSICIAN Family Medicine
DX: R13.12 Dysphagia, oropharyngeal phase (principal); T18.128A Food in esophagus causing other injury, initial encounter; W44.F3XA Food entering into or through a natural orifice, initial encounter; K22.2 Esophageal obstruction; R13.14 Dysphagia, pharyngoesophageal phase
CPT/HCPCS: 43247; 80053; 82962; 85025; 99284

== ENCOUNTER 2024-04-28 06:13 | Day surgery (SDC) | payer OTHER, SELFPAY ==
[2024-04-28 07:50] VITALS: BP 138/63
[2024-04-28 07:57] VITALS: BMI 22.3
[2024-04-28 07:58] VITALS: BMI 22.3
[2024-04-28 08:30] LABS: Glucose - Point of Care 50 mg/dl (70-99)
[2024-04-28] MEDS: DEXTROSE 50% SYRINGE 12.5 GRAMS IV (08:36)
--- NOTE | 2024-04-28 08:41 | PTCARENOTE ---
0832 patient's accuchek is 50. Dr. Faust was notified and Insulin Protocol followed.
[2024-04-28 08:59] LABS: Glucose - Point of Care 135 mg/dl (70-99)
--- NOTE | 2024-04-28 08:59 | PTCARENOTE ---
Accuchek at [address] Faust was notified via tiger text.
[2024-04-28 12:06] VITALS: BP 134/68
[2024-04-28 12:16] VITALS: BP 132/83
[2024-04-28 12:30] VITALS: BP 155/60
== END 2024-04-28 12:56 | disposition home or self-care (01) ==
LOC: GI 06:13
PROVIDERS: ATTENDING PHYSICIAN Internal Medicine Gastroenterology
DX: K22.2 Esophageal obstruction (principal); K22.89 Other specified disease of esophagus; K86.9 Disease of pancreas, unspecified; R13.10 Dysphagia, unspecified; R59.1 Generalized enlarged lymph nodes; C78.89 Secondary malignant neoplasm of other digestive organs; R93.3 Abnormal findings on diagnostic imaging of other parts of digestive tract; K63.89 Other specified diseases of intestine; Z98.890 Other specified postprocedural states; Z90.411 Acquired partial absence of pancreas
CPT/HCPCS: 43242; 43239; 88172; 88173; 88305; 82962; 88342

== ENCOUNTER 2024-06-01 12:16 | Emergency (ER) | payer OTHER, SELFPAY ==
[2024-06-01 12:34] VITALS: BP 114/73
[2024-06-01 14:30] VITALS: BP 103/52
[2024-06-01 15:34] VITALS: BP 97/56
--- NOTE | 2024-06-01 16:24 | ED.GENMED ---
History of Present Illness
General
Chief Complaint: Esophageal Problem
Source: patient, records and spouse
Exam Limitations: none
Time Seen by Provider: 06/01/24 15:24
Nursing documentation reviewed up to this point in time: agreed with
History of Present Illness
History of Present Illness:
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 She is notably on radiation treatment for esophageal metastasis.
Patient reports that at around 10:30 AM she was eating mashed potatoes which had some lumps in it. She says that when she swallowed she felt it get stuck in her throat. She has had issues with food obstructions in the past. She was having
difficulty swallowing saliva and was spitting up. Not improving with attempts at drinking fluids and so she came to the emergency room. While here in the emergency room symptoms have resolved she now feels well and is asymptomatic.
Past History
Past History
ED Past Medical History: CAD, Cancer (Pancreatic CA, Kidney CA), CVA (No residual), GERD, HTN, Hypercholesterolemia, IDDM, VA, Psychiatric (Anxiety) and Other (Emphysema, PNA, )
ED Past Surgical History: Cardiac (Stents X 7), Cholecystectomy, Orthopedic (Right knee surgery, , Left 5th toe amputation, ), Urological (Right Nephrectomy) and Other (Mini Whipple, right-sided nephrectomy, Popliteal to tibial artery bypass)
Social History
Tobacco: Smoker
Alcohol: None
Drug: None
Personal:
Living: with family
Employment: Employed
Family History
Family History: CAD (Her brother at age 47 had an VA )
Review of Systems
Review of Systems
All Other Systems: ROS reviewed and negative except as documented in HPI and ROS
Respiratory: Denies cough or trouble breathing
Cardiac: Reports chest pain
ABD/GI: Denies abdominal pain, nausea or vomiting
Phy Exam
Physical Exam
Physical Exam:
General: Awake, alert, oriented x3; no acute distress
Head: Normocephalic, atraumatic
Eyes: Conjunctiva normal, sclera anicteric
Throat: Airway intact, handling secretions, midline uvula without edema
Neck: Trachea midline
Lungs: Clear to auscultation bilaterally, no wheezing, rales, rhonchi
Heart: Regular rate and rhythm, no murmurs, gallops, or rubs; chest wall port in place
Abd: Soft, non distended, nontender
Neuro: No gross deficits
Extremities: Warm and well-perfused
Scores
Heart Failure Risk
Heart Failure Risk Score: Not Applicable
Heart Score for Chest Pain Patients
STEMI patient?: Not applicable
Withdrawal Assessment of Alcohol
Withdrawal Assessment Completed?: Not applicable
Course
Vital Signs
Initial and Last Documented VS:
Initial Vital Signs
Temp Pulse Resp BP Pulse Ox
36.6 C 62 16 114/73 98
06/01/24 12:34 06/01/24 12:34 06/01/24 12:34 06/01/24 12:34 06/01/24 12:34
Last Documented Vital Signs
Temp Pulse Resp BP Pulse Ox
36.6 C 59 15 97/56 100
06/01/24 14:30 06/01/24 15:35 06/01/24 15:35 06/01/24 15:34 06/01/24 14:30
MDM/Problems Addressed
Differential Diagnosis Includes:
Food obstruction
MDM/Problems Addressed:
64-year-old female presents for evaluation after transient esophageal food obstruction. Was swallowing some lumpy mashed potatoes and felt food get stuck in her esophagus. Has been drinking water since arrival here in the ER and symptoms have
completely resolved. Drank an entire cup of water with no issue, no pain, no vomiting. Stable for discharge. Advised to avoid large pieces of food in the future. Follow-up with outpatient physicians as scheduled.
Chronic conditions affecting care:
Pancreatic cancer with esophageal metastasis
*Pulse Oximetry
Patient hypoxic: no
*Critical Care Note
Total Time (30-74mins, 75-104mins- exclusive of procedures): Not Applicable
Data Reviewed
Further Testing Considered But Not Given:
Considered chest x-ray
ED Attending Note
-
Portions of this chart may have been created with voice recognition software.� Occasional wrong word or��sound alike� substitutions may have occurred due to the inherent limitations of voice recognition software.
Discharge Plan
Departure
Patient Disposition: Home (Routine Discharge)
Date of Disposition: 06/01/24
Time of Disposition: 16:22
Patient with high blood pressure during this ER visit?: No
Discharge Problem:
Food impaction of esophagus
Instructions: Food Obstruction
Prescriptions:
No Action
dapagliflozin propanediol [Farxiga] 10 MG tablet
10 mg PO DAILY Qty: 30 5RF
duloxetine 60 MG capsule,delayed release(DR/EC)
60 mg PO DAILY
gabapentin 600 mg Tablet
600 mg PO TID
levothyroxine [Synthroid] 50 mcg Tablet
50 mcg PO .
Rx Instructions:
take with 200mcg for total of 250mcg
levothyroxine [Synthroid] 200 mcg Tablet
250 mcg PO DAILY
Eliquis 5 mg Tablet
5 mg PO BID
Creon 36,000-114,000- 180,000 unit Capsule,Delayed Release(Dr/Ec)
5 cap PO AC
Creon 36,000-114,000- 180,000 unit Capsule,Delayed Release(Dr/Ec)
2 cap PO DAILYPRN PRN (Reason: with a snack)
Patient Own Insulin Pump
1 sliding scale dose SC .NOVOLOG VIA PUMP
omeprazole 20 mg Capsule,Delayed Release(Dr/Ec)
40 mg PO DAILY
nitroglycerin 0.4 mg Tablet, Sublingual
0.4 mg sublingual [id number] PRN (Reason: ANGINA) Qty: 30 0RF
aspirin 81 mg Tablet,Chewable
81 mg PO DAILY Qty: 0 0RF
valsartan 80 mg Tablet
80 mg PO DAILY
digoxin 125 mcg (0.125 mg) Tablet
125 mcg PO DAILY
ezetimibe 10 mg Tablet
10 mg PO HS
metoprolol succinate 25 mg Capsule,Sprinkle,Er 24hr
25 mg PO HS
furosemide 40 mg Tablet
40 mg PO ...SAT.SUN.D
furosemide 40 mg tablet
40 mg PO .
Referrals:
Daniel Billingsley MD [Family Provider] - Follow up in 5-7 days
Activity Restrictions/Additional Instructions:
Thank you for visiting the Emergency Department at [facility].
1. Please schedule a follow up appointment as directed. Call first thing tomorrow morning to make an appointment.
2. If indicated, please take your medications as instructed and indicated on discharge paperwork.
3. If any of your symptoms do not improve, or persist, or become more severe within 6-12 hours, please return to the emergency department for further care.
4. Please return to the emergency department if you develop a headache, neck pain/stiffness, fever greater than 100.4F, chest pain, shortness of breath, persistent nausea, vomiting, slurred speech, difficulty walking, numbness/tingling, weakness,
signs of infection or any other symptoms that are worrisome to you.
Please call [phone] if you have any questions.
Interventions
Interventions:
*Risk Screen - Suicide Last Done: 06/01/24 12:34
*General Assessment Last Done: 06/01/24 15:31
*Neglect/Abuse Screening Last Done: 06/01/24 12:34
*ED- Fall Risk Assessment Last Done: 06/01/24 15:31
*ED COVID-19 Vaccine History Last Done: 06/01/24 15:31
*Nursing Disposition Last Done: 06/01/24 16:27
JR-Ajntck-Pnhodtpoap Assessment Last Done: 06/01/24 15:31
ED-EENT Assessment Last Done: 06/01/24 15:31
Discharge Date and Time
Print Language: ESTONIAN
[2024-06-01 16:25] VITALS: BP 135/55
== END 2024-06-01 16:27 | disposition home or self-care (01) ==
LOC: EMR 12:16
PROVIDERS: EMERGENCY PHYSICIAN Emergency Medicine; FAMILY PHYSICIAN Family Medicine
DX: T18.128A Food in esophagus causing other injury, initial encounter (principal); W44.F3XA Food entering into or through a natural orifice, initial encounter; C25.9 Malignant neoplasm of pancreas, unspecified; C78.89 Secondary malignant neoplasm of other digestive organs; E78.00 Pure hypercholesterolemia, unspecified; I10 Essential (primary) hypertension; I25.10 Atherosclerotic heart disease of native coronary artery without angina pectoris; Z86.73 Personal history of transient ischemic attack (TIA), and cerebral infarction without residual deficits; F17.200 Nicotine dependence, unspecified, uncomplicated; Z90.49 Acquired absence of other specified parts of digestive tract; Z95.5 Presence of coronary angioplasty implant and graft; Z92.3 Personal history of irradiation
CPT/HCPCS: 99284; 93922; 93925

== ENCOUNTER 2024-06-07 18:32 | Inpatient (IN) | payer OTHER, SELFPAY ==
[2024-06-07 14:47] VITALS: BP 131/79
[2024-06-07 15:07] VITALS: BMI 22.2
[2024-06-07 15:30] VITALS: BP 149/68
--- NOTE | 2024-06-07 15:55 | ED.GENMED ---
History of Present Illness
General
Chief Complaint: Esophageal Problem
Source: patient
Exam Limitations: none
Time Seen by Provider: 06/07/24 15:42
Nursing documentation reviewed up to this point in time: agreed with
History of Present Illness
History of Present Illness:
This is a 64-year-old female with a past medical history of coronary artery disease, hypertension, hyperlipidemia, GERD, insulin-dependent diabetes, pancreatic cancer presents emergency department today with concerns of impaction. Patient reports
that last evening, she ate some potato salad and felt like a piece of the potato got stuck her throat. Patient reports that she drank a lot of water and states that the PCP never went down. When she woke up today, she tried to eat some more food
noticed at any time she would try to eat, she would vomit. She is able to get some small sips of water down in bits of applesauce but not any significant bites of food. Patient states that she continue to try drink water and states that nothing
was working. Of note, she is undergoing radiation of the neck currently for pancreatic cancer that has metastasized to the esophagus. She follows with Dr. West and Dr. Erazo. Patient states that she has a history of this in the past and has
required endoscopic retrieval. Her last dose of Eliquis was yesterday morning.
Past History
Past History
ED Past Medical History: CAD, Cancer (Pancreatic CA, Kidney CA), CVA (No residual), GERD, HTN, Hypercholesterolemia, IDDM, NC, Psychiatric (Anxiety) and Other (Emphysema, PNA, )
ED Past Surgical History: Cardiac (Stents X 7), Cholecystectomy, Orthopedic (Right knee surgery, , Left 5th toe amputation, ), Urological (Right Nephrectomy) and Other (Mini Whipple, right-sided nephrectomy, Popliteal to tibial artery bypass)
Social History
Tobacco: Smoker
Alcohol: None
Drug: None
Personal:
Living: with family
Employment: Employed
Family History
Family History: CAD (Her brother at age 47 had an NC )
Review of Systems
Review of Systems
All Other Systems: ROS reviewed and negative except as documented in HPI and ROS
Phy Exam
Physical Exam
Physical Exam:
General: Patient is well appearing and in no acute distress; non-toxic
Skin: Warm and dry, no rashes or lesions
Head: Normocephalic, atraumatic
Eyes: Sclera non-icteric. EOMs intact.
Mouth: Uvula midline, no pharyngeal erythema
Cardiac: Regular rate and rhythm, no murmurs
Pulm: Normal respiratory effort, no wheezes, rales, or rhonchi
Abdomen: No abdominal tenderness to palpation
Neuro: CN II-XII intact, no focal neurologic deficits.
Psychiatric: Appropriate mood and affect.
Course
Orders/Labs/Results
Orders:
Orders
06/07/24 Dinner
NPO
Allow oral meds: No
Allow clear liquids: No
06/07/24 16:05
Glucagon [GlucaGen] 1 mg IV NOW STA
06/07/24 16:17
Complete Blood Count/With Diff Urgent
Comprehensive Metabolic Panel Urgent
06/07/24 16:50
Calcium Gluconate 1,000 mg IV NOW STA
Dextrose 50%-Water [Dextrose 50% Syringe] 25 grams IV NOW STA
Insulin Human Regular [Novolin R] 4 units IV NOW STA
06/07/24 16:51
EKG [Electrocardiogram (*1)] Urgent
Reason for Study: Tachycardia
EKG- Treatment ONCE
06/07/24 16:55
Bedside Glucose PRE IV Insulin- HyperK+ NOW
06/07/24 17:09
Glucagon [GlucaGen] 1 mg IV NOW STA
06/07/24 18:07
Admit/Transfer Patient As Directed
Co-Sign Provider:
Level of Care: Inpatient admission
Assign to:: Telemetry
Physician / Group: Martin Herron
Diagnosis: esophageal food impaction, hyperkalemia
Reason for Telemetry: Arrhythmia
Date to Stop Telemetry: 06/10/24
Time to Stop Telemetry: 11:00
Reason for Hospitalization: esophageal food impaction, hyperkalemia
Expected length of stay greater than two midnights?: Yes
ELOS- Estimated Length of Stay in days: 3
I certify the patient meets the requirements for IP care: Yes
PRN Pain Medication Management As Directed
May give lesser potent ordered pain med per pt: Yes
preference::
Protocol:: Medication orders for pain may be administered in a
manner that supports deferring to patient preference
when the pt is:
- Requesting an ordered lesser potent pain medication.
Least to most potent pain medications are defined
as: acetaminophen < NSAID < tramadol < opioids
(morphine, oxycodone, hydromorphone).
- Requesting a lesser dose of the same medication IF
ORDERED.
- Requesting a less intrusive route of administration
if both routes are prescribed by the provider (PO <
IV).
06/07/24 18:11
Code Status As Directed
Resuscitation Status: Full Code
06/07/24 18:25
Bedside Glucose POST IV Insulin- HyperK+ Q1HX2,Q2HX2
06/07/24 19:47
Potassium Urgent
Comment: draw 2 hours after regular insulin IV administration
06/07/24 19:54
Dextrose 50%-Water [Dextrose 50% Syringe] 12.5 grams IV [id number] PRN
Glucagon [GlucaGen] 1 mg IM PRN PRN
06/07/24 19:54
GASTROINTESTINAL CONSULT Routine
Consulting Provider: Rui Elliott
Was physician already notified: Yes
Activity As Directed
Activity Level: Out of Bed-Early Mobility
Bedside Glucose Monitoring As Directed
Frequency: AC&HS
Additional Instructions:: Change to q6h if pt on TPN, tube feeding or not eating
Pneumatic Compression Sleeves As Directed
Type: Knee high
Vital Signs As Directed
Frequency: Per unit guidelines
Weight As Directed
Frequency: Once
Comment: on admission
DX Deep Vein Thrombosis Video Routine
06/08/24 06:00
Basic Metabolic Panel IN AM
Complete Blood Count/No Diff IN AM
Glycohemoglobin (HgbA1c) IN AM
06/08/24 07:30
Insulin Aspart Corrective Low [Novolog Flexpen-Low Resistance] See Protocol SC AC
06/10/24 11:00
DC Protocol for Telemetry ONCE
Abnormal Lab Results
06/07/24 06/07/24
16:17 17:40
RBC 4.05 L 10^6/uL
(4.20-5.40)
Hct 33.6 L %
(37.0-47.0)
RDW 15.0 H %
(11.5-14.5)
Absolute Lymphs (auto) 0.7 L 10^3/uL
(1.2-3.4)
Lymphocytes % 12.5 L %
(20.5-51.1)
Monocytes % 12.1 H %
(1.7-9.3)
Sodium 129 L mmol/L
(135-145)
Potassium 6.1 H* mmol/L
(3.5-5.1)
Chloride 93 L mmol/L
(98-107)
BUN 32 H mg/dl
(7-17)
POC Glucose 149 H mg/dl
(70-99)
06/07/24 16:17
06/07/24 16:17
Vital Signs
Initial and Last Documented VS:
Initial Vital Signs
Temp Pulse Resp BP Pulse Ox
98.3 F 86 16 131/79 98
06/07/24 14:47 06/07/24 14:47 06/07/24 14:47 06/07/24 14:47 06/07/24 14:47
Last Documented Vital Signs
Temp Pulse Resp BP Pulse Ox
98.3 F 88 17 131/72 97
06/07/24 23:25 06/07/24 23:25 06/07/24 23:25 06/07/24 23:25 06/07/24 23:25
MDM/Problems Addressed
Differential Diagnosis Includes:
esophageal food impaction, esophagitis, gastritis/GERD
MDM/Problems Addressed:
This is a 64-year-old female with a past medical history of coronary artery disease, hypertension, hyperlipidemia, GERD, insulin-dependent diabetes, pancreatic cancer presents emergency department today with concerns of food bolus impaction. She
ate a piece of potato salad last night it became stuck in her throat. She is able to tolerate this occasional sips of fluid and softer liquid food like applesauce however she if she consumes food or drinks much water, she will vomit. On physical
exam she is well-appearing no acute distress she is tolerating her secretions and has clear speech. Blood work was obtained which did reveal hyperkalemia. Insulin initiated as well as calcium gluconate. Case reviewed with attending. Patient will
be admitted for this abnormality as well as for endoscopy. Spoke and reviewed case with roll contour grinder on the phone, no indication for emergent EGD at this time, considering patient is tolerating secretions will correct electrolytes and patient
will get upper endoscopy tomorrow morning. Patient referred for admission.
Chronic conditions affecting care:
CAD, hypertension, hyperlipidemia, insulin-dependent diabetes
*Pulse Oximetry
Patient hypoxic: no
*Critical Care Note
Total Time (30-74mins, 75-104mins- exclusive of procedures): Not Applicable
Data Reviewed
Review of Other/Old Records Reveals: Records (Reviewed ER physician documentation from 06/01/2024 patient seen for food impaction that resolved spontaneously) and Discharge Summary (, Reviewed discharge summary from 12/09/2023 patient seen for acute
on chronic heart failure and recurrent right pleural effusion)
Source: patient and records
Patient Management
Discussion with other providers: Cheese Grader (case reviewed with gastroenterology regional medical director)
ED Attending Note
-
Portions of this chart may have been created with voice recognition software.� Occasional wrong word or��sound alike� substitutions may have occurred due to the inherent limitations of voice recognition software.
Discharge Plan
Departure
Patient Disposition: Admit
Date of Disposition: 06/07/24
Time of Disposition: 17:04
Admit to: Med/Surg
Presentation/result/management discussed w/ accepting MD/DO: Hospitalist
Patient with high blood pressure during this ER visit?: Yes
Condition: Fair
Discharge Problem:
Acute hyperkalemia, Food impaction of esophagus
Interventions
Interventions:
*Risk Screen - Suicide Last Done: 06/07/24 15:07
*General Assessment Last Done: 06/07/24 15:07
*Neglect/Abuse Screening Last Done: 06/07/24 15:07
*ED- Fall Risk Assessment Last Done: 06/07/24 15:07
*ED COVID-19 Vaccine History Last Done: 06/07/24 15:07
*Nursing Disposition Last Done: 06/07/24 19:02
TK-Kswhqe-Uxjdqwdzyn Assessment Last Done: 06/07/24 15:07
ED-EENT Assessment Last Done: 06/07/24 15:07
Discharge Date and Time
Discharge Date/Time: 06/07/24 19:51
[2024-06-07 16:00] VITALS: BP 162/75
[2024-06-07] MEDS: GlucaGen 1 MG IV ×2 (16:19→17:50)
[2024-06-07 16:26] LABS: % Basophils 0.4 % (0-2); % Eosinophils 2.1 % (0-6); % Immature Granulocytes 0.4 % (0-0.5); % Lymphocytes 12.5 % (20.5-51.1); % Monocytes 12.1 % (1.7-9.3); % Neutrophils 72.5 % (42.2-75.2); Absolute Eosinophils 0.1 10^3/uL (0-0.7); Absolute Lymphocytes 0.7 10^3/uL (1.2-3.4); Absolute Monocytes 0.6 10^3/uL (0.1-0.6); Absolute Neutrophils 3.8 10^3/uL (1.4-6.5); Hematocrit 33.6 % (37.0-47.0); Mean Corp Hgb Conc. 35.7 g/dL (33.0-37.0); Mean Corpuscular Hgb 29.6 pg (27.0-31.0); Mean Platelet Volume 9.5 fL (7.4-10.4); Nucleated Red Blood Cells % 0 %; Platelet Count 166 10^3/uL (130-400); Red Blood Cell Count 4.05 10^6/uL (4.20-5.40); White Blood Cell Count 5.2 10^3/uL (4.8-10.8)
[2024-06-07 16:44] LABS: ALT (SGPT) 17 U/L (0-35); AST (SGOT) 28 U/L (14-36); Albumin 4.3 g/dl (3.5-5.0); Alkaline Phosphatase 120 U/L (38-126); Blood Urea Nitrogen 32 mg/dl (7-17); Calcium 9.6 mg/dl (8.4-10.2); Carbon Dioxide 27 mmol/L (22-30); Chloride 93 mmol/L (98-107); Estimated Creatinine Clearance 55 ml/min; Glucose 78 mg/dl (70-99); Potassium 6.1 mmol/L (3.5-5.1); Sodium 129 mmol/L (135-145); Total Bilirubin 0.8 mg/dl (0.2-1.3); Total Protein 7.7 g/dl (6.3-8.2); eGFR > 60.00
[2024-06-07] MEDS: DEXTROSE 50% SYRINGE 25 GRAMS IV (17:40)
[2024-06-07 17:41] LABS: Glucose - Point of Care 149 mg/dl (70-99)
[2024-06-07] MEDS: NOVOLIN R 4 UNITS IV (17:44)
[2024-06-07] MEDS: CALCIUM GLUCONATE 1000 MG IV (17:46)
--- NOTE | 2024-06-07 17:46 | HPS.HSE ---
Family Physician
-
Family Physician:
Chief Complaint
-
food stuck in esophagus
History of Present Illness
Patient is a 64-year-old female with past medical history significant for hypertension, metastatic pancreatic cancer, ASCVD, DM-II, hypothyroidism and Hx DVT who presented to [facility] ED for evaluation of esophageal food impaction. Patient reports
eating potato salad when she felt like a piece of the potato got stuck in her throat. Patient reports attempting to drink a ton of water and the piece never went down. After getting up this morning patient states she attempted to eat food and it
ultimately caused vomiting. 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 West and Dr. Erazo). Patient does report previous food impaction that required endoscopic retrieval. Last dose of
Eliquis was yesterday morning.
Medical History
Past Medical History
Past Medical History: Reports Other
Additional Past Medical History:
Hypertension
Metastatic Pancreatic Cancer
ASCVD (CAD, PAD, CVA)
DM-II
Renal Mass (Benign)
History of DVT
Hypothyroidism
CKD III
Cardiomyopathy, ischemic (LVEF 45-50%)
Past Surgical History: Reports Other
Additional Past Surgical History:
PTCA with Multiple Stents (5)
LLE Bypass
Whipple
Right Nephrectomy (benign)
R ACW Port Placement
L 5th Toe Amputations (Osteomyelitis)
Cholecystectomy and pancreaticoduodenectomy
Social History
Tobacco: Smoker (occasional )
Alcohol: None
Drug: None
Living: With Roomate
Family History
Family History: Other (Mother: Multiple Myeloma, DM; Father: DM )
Allergies / Home Medications
Allergies reflects when Allergies were last updated in [facility].
Home Medications with original date entered in [facility]
Allergy/Medication List:
Allergies
Allergy/AdvReac Type Severity Reaction Status Date / Time
cephalexin monohydrate Allergy Rash; Verified 06/07/24 14:50
[From Keflex] tolerated
PCN per pt
clindamycin Allergy Rash Verified 06/07/24 14:50
influenza virus vaccine, Allergy Rash Verified 06/07/24 14:50
specific Swelling,
[influenza virus itching.
vacc,specific]
lisinopril Allergy cough Verified 06/07/24 14:50
pneumococcal vaccine Allergy rash, Verified 06/07/24 14:50
welts
throughout
body
Ovphdtg-ZAW-MnS Reductase Allergy LEG PAIN Verified 06/07/24 14:50
Inhibitor
[Hekcsfa-Hvq-Xaj Reductase
Inhibitor]
Home Medications
dapagliflozin propanediol 10 mg tablet (Farxiga) 10 mg PO DAILY #30 tabs 08/05/20
duloxetine 60 mg capsule,delayed release 60 mg PO DAILY Mental Health/Anxiety 06/20/21
gabapentin 600 mg tablet 600 mg PO TID Neurological Condition 10/02/21
Patient Own Insulin Pump 1 sliding scale dose SC .NOVOLOG VIA PUMP Diabetes 09/16/23
apixaban 5 mg tablet (Eliquis) 5 mg PO BID Blood Clot Prevention/Tx 09/16/23
levothyroxine 200 mcg tablet (Synthroid) 200 mcg PO DAILY Thyroid 09/16/23
kigcsz-skzgbtft-iijnjsg 36,000-114,000-180,000 unit capsule,delay rel (Creon) 2 cap PO DAILYPRN PRN with a snack 09/16/23
zjfarx-qqliilkt-erdmgdr 36,000-114,000-180,000 unit capsule,delay rel (Creon) 5 cap PO AC Gastrointestinal Issue 09/16/23
omeprazole 20 mg capsule,delayed release 40 mg PO DAILY Gastrointestinal Issue 12/03/23
aspirin 81 mg chewable tablet 81 mg PO DAILY #0 tabs 12/08/23
nitroglycerin 0.4 mg sublingual tablet 0.4 mg sublingual [id number] PRN ANGINA #30 tabs 12/08/23
digoxin 125 mcg (0.125 mg) tablet 125 mcg PO DAILY 04/10/24
ezetimibe 10 mg tablet 10 mg PO HS 04/10/24
metoprolol succinate 25 mg capsule sprinkle, ext. release 24 hr 25 mg PO HS 04/10/24
furosemide 40 mg tablet 40 mg PO .MON.WED.FRIBID 04/28/24
furosemide 40 mg tablet 40 mg PO .TUTHSASU 04/28/24
insulin aspart U-100 100 unit/mL subcutaneous solution (Novolog U-100 Insulin aspart) 1 sliding scale dose SC .VIA PUMP 06/07/24
valsartan 40 mg tablet 40 mg PO BID 06/07/24
Review of Systems
-
History Source: Patient
Constitutional: Reports No Symptoms
EENT: Reports Other (something caught in lower throat )
Respiratory: Reports No Symptoms
Cardiac: Reports No Symptoms
Abdomen/GI: Reports Vomiting
: Reports No Symptoms
Musculoskeletal: Reports No Symptoms
Skin: Reports No Symptoms
Neurological: Reports No Symptoms
Endocrine: Reports No Symptoms
Hematologic/Lymphatic: Reports No Symptoms
Psych: Reports No Symptoms
Physical Exam
Vital Signs
Vital Signs
Temp Pulse Resp BP Pulse Ox
98.3 F 77 14 162/75 99
06/07/24 14:47 06/07/24 16:15 06/07/24 16:15 06/07/24 16:00 06/07/24 16:15
Physical Exam
General: Well Developed, No Apparent Distress and Appears Chronically Ill
HEENT: NormoCephalic, Moist mucous membranes, Atraumatic, [place] Conjunctivae, Nose Appears Normal and Ears Appear Normal
Respiratory: Clear
Cardiac: S1/S2 and Regular Rhythm
Breast: Deferred by me
GI: Soft, Non Tender, Non Distended and Normal Bowel Sounds; No Organomegaly
Rectal: Deferred by Provider
Genito-urinary: Deferred by me
Musculoskeletal: No Clubbing, No Cyanosis and No Edema
Skin: Warm and IV/Catheter Site
Neuro: Awake, Alert, AO x 3 and Nonfocal/grossly intact
Psych: Calm and Intact Judgment/Insight
Laboratory Results
-
06/07/24 16:17
Laboratory Results
Total Bilirubin 0.8 mg/dl (0.2-1.3) 06/07/24 16:17
AST 28 U/L (14-36) 06/07/24 16:17
ALT 17 U/L (0-35) 06/07/24 16:17
Alkaline Phosphatase 120 U/L (38-126) 06/07/24 16:17
Data Reviewed
-
Medical Tests (Nuc Med, Echo, EKG etc): Report Reviewed by me (EKG: NORMAL SINUS RHYTHM POSSIBLE LEFT ATRIAL ENLARGEMENT ST and T WAVE ABNORMALITY, CONSIDER LATERAL ISCHEMIA)
Lab Data: Labs Reviewed by me (Na+ 129, K+ 6.1)
Impression/Plan
-
IMPRESSION/PLAN:
#esophageal food impaction
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
Na+ 129, K+ 6.1
patient receiving radiation to neck for mass follows with Dr. West and Dr. Erazo
- Admit to med/surg
- NPO
- Consult GI
#hyperkalemia
K+ 6.1
- repeat K+ after insulin and dextrose administered
#hypertension
- hold furosemide, metoprolol and losartan in setting of food impaction
#ASCVD
- hold aspirin and ezetimibe in setting of food impaction
#DM-II
- AccuCheck q6
- SSI
- patients own insulin pump on hold
- hold Farxiga
#hypothyroidism
- hold levothyroxine in setting of food impaction
#CKD III
BUN 32, Creat 0.9
- monitor BMP
#Cardiomyopathy, ischemic (LVEF 45-50%)
- hold Farxiga, digoxin and nitroglycerin PRN in setting of food impaction
#Hx DVT
last dose of Eliquis yesterday morning 06/06/2024
- Hold Eliquis in setting of food impaction
Code status: full code
DVT prophylaxis: SCDs
--- NOTE | 2024-06-07 18:38 | W.PN.UPDATE ---
Update Note
Progress Note Update
This is an addendum to the H&P written by Guera Eldridge on 06/07/2024.� Patient seen and examined independently with [facility].
64-year-old female past medical history of CAD status post stents, chronic HFrEF, recurrent right pleural effusion, hypertension, hyperlipidemia, GERD, diabetes on insulin pump, metastatic pancreatic cancer with metastases to esophagus undergoing
radiation to the neck, history of food impaction, kidney cancer status post right nephrectomy, CVA, anxiety, hypothyroidism, chronic macrocytic anemia, DVT on Eliquis presenting with concern for food impaction.
Last evening she ate potato salad and potato got stuck in her throat.� When she woke up this morning she would notice anytime she tried to eat she would vomit.�
Labs show potassium 6.1.� EKG shows normal sinus rhythm, peaked T waves.
Patient with food impaction secondary to dysphagia from radiation for esophageal metastasis.� Also with hyperkalemia secondary to losartan.
Strict n.p.o. including sips of water and medications. GI to perform EGD in the morning. Stop insulin pump. Insulin Sliding Scale.�
Insulin dextrose, calcium gluconate given.� Recheck potassium.
[2024-06-07 18:46] LABS: Glucose - Point of Care 236 mg/dl (70-99)
[2024-06-07 19:47] LABS: Glucose - Point of Care 146 mg/dl (70-99)
[2024-06-07 20:04] VITALS: BMI 22.2
[2024-06-07 20:05] LABS: Potassium 4.5 mmol/L (3.5-5.1)
[2024-06-07 20:10] VITALS: BP 138/63
[2024-06-07 21:48] LABS: Glucose - Point of Care 70 mg/dl (70-99)
[2024-06-07 23:25] VITALS: BP 131/72
[2024-06-07 23:36] LABS: Glucose - Point of Care 80 mg/dl (70-99)
[2024-06-08] VITALS (13 sets, daily range): BP systolic 103–154; BP diastolic 55–77
[2024-06-08 06:15] LABS: Glucose - Point of Care 63 mg/dl (70-99)
[2024-06-08 07:17] LABS: Hematocrit 35.4 % (37.0-47.0); Hemoglobin 12.3 g/dL (12.0-16.0); Mean Corp Hgb Conc. 34.7 g/dL (33.0-37.0); Mean Corpuscular Hgb 29.5 pg (27.0-31.0); Mean Corpuscular Volume 84.9 fL (81.0-99.0); Mean Platelet Volume 10.3 fL (7.4-10.4); Platelet Count 198 10^3/uL (130-400); Red Blood Cell Count 4.17 10^6/uL (4.20-5.40); Red Cell Dist. Width 14.9 % (11.5-14.5)
[2024-06-08] MEDS: FLUSH (NSS) 2 FLUSH IV (07:31)
[2024-06-08] MEDS: DEXTROSE 50% SYRINGE 12.5 GRAMS IV (07:40)
--- NOTE | 2024-06-08 08:13 | W.PN.UPDATE ---
Update Note
Progress Note Update
Brief GI Note:
Plan for EGD today, 06/08/24, given her known esophageal mets/stricture and concern for partial food impaction. Full consult note to follow from today for additional details along with EGD report for further recommendations.
[2024-06-08 08:14] LABS: Glucose - Point of Care 121 mg/dl (70-99)
--- NOTE | 2024-06-08 08:21 | CON.GI ---
Consultation
-
Date/Time Consultation Requested: 06/07/241953
Date/Time Consultation Performed: 06/08/24 0810
Requesting Provider: Rosangela SWARTZ
Performing Provider: Dr. Rui Elliott / Mariam Mccall PA-C
Reason for Consultation: food impaction
Medical History
Chief Complaint / HPI
Chief Complaint: food bolus impaction
History of Present Illness:
This is a 64-year-old female with a past medical history of metastatic pancreatic cancer (s/p Whipple) and esophageal cancer (? if metastatic vs primary esophageal adenocarcinoma), CAD, PAD, CVA, CHF, pleural effusion s/p thoracentesis 11/2023,
IDDM, benign renal mass, history of DVT (on Eliquis), hypothyroidism, and GERD who follows closely with Dr. West as well as Oncology (Dr. Erazo) who presented to the emergency room yesterday 06/07/24 with food bolus impaction. She had a similar
presentation in March 2024 with food impaction and had EGD with Dr. Muhammad at that time for removal. This time, she states she ate potato salad and feels like the potato got stuck. She attempted to drink water to cause it to go down,
unsuccessfully. She denies chest pain, odynophagia, dyspnea, or abdominal pain at this time. Patient is scheduled for endoscopy with Dr. Elliott this morning. Last dose of Eliquis 06/06/24 in the morning. Patient underwent endoscopic ultrasound with
Dr. West on 04/28/24 and at that time the esophageal stricture was able to be traversed without dilation. Possibility of esophageal stent was discussed with patient and Dr. West. She did have hyperkalemia with K of 6.1 upon arrival to ER; now in normal
range (5.4).
Past Medical History
Past Medical History: Other (metastatic pancreatic cancer (s/p Whipple) and esophageal cancer (? if metastatic vs primary esophageal adenocarcinoma), CAD, PAD, CVA, CHF, pleural effusion s/p thoracentesis 11/2023, IDDM, benign renal mass, history of
DVT (on Eliquis), hypothyroidism, and GERD)
Past Surgical History: Other (PTCA with Multiple Stents (5), LLE Bypass, Whipple, Right Nephrectomy (benign), R ACW Port Placement, L 5th Toe Amputations (Osteomyelitis))
Social History
Tobacco: Smoker
Alcohol: None
Drug: None
Personal:
Living: With Family
Family History
Family History: Reviewed & Not Pertinent and Other (no FH colon or pancreatic cancer)
Allergies / Home Medications
Allergy/AdvReac Type Severity Reaction Status Date / Time
cephalexin monohydrate Allergy Rash; Verified 06/07/24 14:50
[From Keflex] tolerated
PCN per pt
clindamycin Allergy Rash Verified 06/07/24 14:50
influenza virus vaccine, Allergy Rash Verified 06/07/24 14:50
specific Swelling,
[influenza virus itching.
vacc,specific]
lisinopril Allergy cough Verified 06/07/24 14:50
pneumococcal vaccine Allergy rash, Verified 06/07/24 14:50
welts
throughout
body
Ergcxea-IVT-SgU Reductase Allergy LEG PAIN Verified 06/07/24 14:50
Inhibitor
[Lxlrczu-Oey-Upv Reductase
Inhibitor]
�Medication �Instructions �Recorded
dapagliflozin propanediol 10 mg 10 mg PO DAILY #30 tabs 08/05/20
tablet (Farxiga)
duloxetine 60 mg capsule,delayed 60 mg PO DAILY Mental 06/20/21
release Health/Anxiety
gabapentin 600 mg tablet 600 mg PO TID Neurological 10/02/21
Condition
Patient Own Insulin Pump 1 sliding scale dose SC .NOVOLOG 09/16/23
VIA PUMP Diabetes
apixaban 5 mg tablet (Eliquis) 5 mg PO BID Blood Clot 09/16/23
Prevention/Tx
levothyroxine 200 mcg tablet 200 mcg PO DAILY Thyroid 09/16/23
(Synthroid)
anilyu-vsierlyj-pgqnced 2 cap PO DAILYPRN PRN with a snack 09/16/23
36,000-114,000-180,000 unit
capsule,delay rel (Creon)
vazhxz-vxjivelr-vewppxy 5 cap PO AC Gastrointestinal Issue 09/16/23
36,000-114,000-180,000 unit
capsule,delay rel (Creon)
omeprazole 20 mg capsule,delayed 40 mg PO DAILY Gastrointestinal 12/03/23
release Issue
aspirin 81 mg chewable tablet 81 mg PO DAILY #0 tabs 12/08/23
nitroglycerin 0.4 mg sublingual 0.4 mg sublingual [id number] PRN 12/08/23
tablet ANGINA #30 tabs
digoxin 125 mcg (0.125 mg) tablet 125 mcg PO DAILY Heart 04/10/24
Disease/Condition
ezetimibe 10 mg tablet 10 mg PO HS High Cholesterol 04/10/24
metoprolol succinate 25 mg capsule 25 mg PO HS Heart Disease/Condition 04/10/24
sprinkle, ext. release 24 hr
furosemide 40 mg tablet 40 mg PO .MON.WED.FRIBID Fluid 04/28/24
Retention/Swelling
furosemide 40 mg tablet 40 mg PO .TUTHSASU Fluid 04/28/24
Retention/Swelling
insulin aspart U-100 100 unit/mL 1 sliding scale dose SC .VIA PUMP 06/07/24
subcutaneous solution (Novolog Diabetes
U-100 Insulin aspart)
valsartan 40 mg tablet 40 mg PO BID Blood Pressure 06/07/24
Review of Systems
-
History Source: Patient
All other systems: A 12 pt ROS was Negative except as stated above in HPI
Vital Signs
Temp Pulse Resp BP Pulse Ox
97.5 F 79 16 127/62 96
06/08/24 03:15 06/08/24 03:15 06/08/24 03:15 06/08/24 03:15 06/08/24 03:15
Physical Exam
Exam
General: Well Developed and No Apparent Distress
HEENT: Other (frail, chronically ill in appearance)
Respiratory: Clear
Cardiac: Regular Rhythm
GI: Soft, Non Tender, Non Distended and Normal Bowel Sounds
Skin: Warm and Dry
Neuro: AO x 3
Psych: Calm
Results
WBC 5.0 10^3/uL (4.8-10.8) 06/08/24 06:28
Hgb 12.3 g/dL (12.0-16.0) 06/08/24 06:28
Hct 35.4 % (37.0-47.0) L 06/08/24 06:28
MCV 84.9 fL (81.0-99.0) 06/08/24 06:28
Plt Count 198 10^3/uL (130-400) 06/08/24 06:28
Absolute Neuts (auto) 3.8 10^3/uL (1.4-6.5) 06/07/24 16:17
Sodium 129 mmol/L (135-145) L 06/07/24 16:17
Potassium 4.5 mmol/L (3.5-5.1) D 06/07/24 19:47
Chloride 93 mmol/L (98-107) L 06/07/24 16:17
Carbon Dioxide 27 mmol/L (22-30) 06/07/24 16:17
BUN 32 mg/dl (7-17) H 06/07/24 16:17
Creatinine 0.9 mg/dL (0.6-1.0) 06/07/24 16:17
Calcium 9.6 mg/dl (8.4-10.2) 06/07/24 16:17
Total Bilirubin 0.8 mg/dl (0.2-1.3) 06/07/24 16:17
AST 28 U/L (14-36) 06/07/24 16:17
ALT 17 U/L (0-35) 06/07/24 16:17
Alkaline Phosphatase 120 U/L (38-126) 06/07/24 16:17
Diagnostic Image Results:
CT chest/abdomen/pelvis 03/31/24:
-Resolved right pleural effusion. Persistent, though smaller left pleural effusion with somewhat loculated configuration.
-1.7 cm masslike nodular opacity in the posterior left lung base has developed. Although this could represent a focus of round atelectasis, neoplasm cannot be entirely excluded. Possible metastatic 8.7 mm nodule having increased slightly in size in
the right middle lobe.
-Multiple persistent small mediastinal lymph nodes, slightly smaller in size. Relatively stable mild confluent hilar lymphoid tissue.
-Postsurgical changes related to mini Whipple procedure. Persistent relatively stable low-attenuation confluent attenuation occupying the expected location of the pancreatic head.. The splenic and portal veins are patent. As before, there is a soft
tissue mass with central coarse calcification, rounded in configuration measuring approximate 2.7 cm contiguous with the inferior margin of the pancreas.
-Small lymph node in the gastrohepatic ligament measures 12 mm, previously measuring 13 mm.
-Stable mild soft tissue stranding of the root of the small bowel mesentery.
Prior GI Procedures:
EGD:
04/28/24 Endoscopic US: (Dr West):
Benign-appearing esophageal stenosis. Biopsied.
- No gross lesions in the entire stomach.
- Widely patent mini Whipple was found.
- Wall thickening was seen in the thoracic esophagus.
The thickening appeared to primarily be within the
deep mucosa (Layer 2) and submucosa (Layer 3).
- One enlarged lymph node was visualized in the
possibly aortopulmonary region (level 5).
- One enlarged lymph node was visualized in the
gastrohepatic ligament (level 18). Fine needle
aspiration performed.
- Three enlarged lymph nodes were visualized in the
celiac region (level 20).
- No obvious mass in the genu of pancreas region.
Abnormal echogenic area was seen and attempts were
made to sample the region but further attempts were
deferred due to benign preliminary finding and absence
of obvious target lesion.
- Pancreatic parenchymal abnormalities consisting of
atrophy were noted in the pancreatic body and
pancreatic tail.
- There was no evidence of significant pathology in
the left lobe of the liver.
Pathology: esophageal stricture- invasive moderately differentiated adenocarcinoma
04/10/24 EGD: (Dr Muhammad):
- Food in the middle third of the esophagus-large
piece of chicken. Removal was successful.
- Extrinsic compression in the middle third of the
esophagus around 28 cm from incisors with luminal
narrowing.
- Normal stomach.
- Pylorus-sparing Whipple, characterized by healthy
appearing anastamosis and mucosa was found in the
duodenum bulb.
- Normal examined jejunum.
Assessment / Plan
-
64-year-old female with metastatic pancreatic cancer (s/p Whipple) and esophageal cancer (? if metastatic vs primary esophageal adenocarcinoma, s/p radiation) who presented to the emergency room yesterday 06/07/24 with food bolus impaction after
eating potato salad. She had a similar presentation in March 2024 with food impaction and had EGD with Dr. Muhammad at that time for removal. She denies chest pain, odynophagia, dyspnea, or abdominal pain at this time. Patient is scheduled for
endoscopy with Dr. Elliott this morning. Last dose of Eliquis 06/06/24 in the morning. Patient is s/p EUS with Dr. West (04/28/24) and at that time the esophageal stricture was able to be traversed without dilation.
IMPRESSION / PLAN:
Esophageal Food Impaction
- in the setting of known esophageal cancer (metastatic vs primary) with history of radiation to neck
- scheduled for endoscopy today with Dr. Elliott (Eliquis has been held)
- await findings of endoscopy; may require esophageal stent
Esophageal Cancer/Pancreatic Cancer
- follows with Oncology Dr. Erazo
All other medical issues managed as per hospitalist team.
-
-
Thank you for consultation and allowing me to participate in the patient's care. Please call the regional environmental manager GI physician during the after hours with any questions or concerns.
[2024-06-08 08:31] LABS: Blood Urea Nitrogen 32 mg/dl (7-17); Calcium 9.7 mg/dl (8.4-10.2); Carbon Dioxide 27 mmol/L (22-30); Chloride 97 mmol/L (98-107); Estimated Creatinine Clearance 55 ml/min; Glucose 52 mg/dl (70-99); Potassium 5.4 mmol/L (3.5-5.1); Sodium 134 mmol/L (135-145); eGFR > 60.00
--- NOTE | 2024-06-08 09:07 | PN.DE.MGMTRT ---
Insulin Management
- -
06/08/2024: Diabetes Management Consult
64 year old female with PMH: Metastatic pancreatic cancer (s/p Whipple) and esophageal cancer (? if metastatic vs primary esophageal adenocarcinoma), CAD, PAD, CVA, CHF, pleural effusion s/p thoracentesis 11/2023, IDDM, benign renal mass, history of
DVT (on Eliquis), hypothyroidism, and GERD who follows closely with Dr. West as well as Oncology (Dr. Erazo) who presented to the emergency room yesterday 06/07/24 with food bolus impaction.
Pt uses insulin pump- Medtronic mini med with guardian sensor, due to difficulty controlling her blood sugars from chronic steroid use and recurrent Hypoglycemic episodes. States she sees Endo Dr. Hudson and [facility].
Pt awake, A/O x3, sitting up in chair, offers no complaint, appears malnourished with dry mucous membranes, and Mom at bedside.
Pt was NPO for EGD today. Glucose trended up to 236 yesterday @dinner time, received 4 units of aspart--> subsequent prolonged Hypoglycemia, down to 52 this AM, improved after 12.5mg Dextrose. Insulin pump remains in place at basal rate only.
A1C 6.0%, Cr 0.9, eGFR >60. Current blood sugar reading via Sensor 146. Diet has been ordered.
Current pump settings as follows:
Basal rate 12AM- 12AM 0.65 units
ICR 12AM - 12AM 1:13
ISF 12AM - 12AM 1:50
Target 100-120
24 hr total insulin 15.6 units
Will make no changes to current [facility] settings. Will follow and make adjustments if necessary.
Discussed bedside insulin pump sheet with Pt, and Nurse and explained hospital policy on insulin pump use while staying in the hospital
Diabetes History
- -
Type of Diabetes: 2 requiring insulin
Pre-Admission Diabetes Regimen
06/07/24 06/08/24
16:17 06:28
Creatinine 0.9 0.9
Insulin Pump Settings
IP Diabetes Regimen
06/07/24 06/07/24 06/07/24
16:17 17:40 18:44
Glucose 78
POC Glucose 149 H 236 H
06/07/24 06/07/24 06/07/24
19:46 21:46 23:34
Glucose
POC Glucose 146 H 70 80
06/08/24 06/08/24 06/08/24
06:12 06:28 08:13
Glucose 52 L*
POC Glucose 63 L 121 H
Patient Education
[2024-06-08 09:32] LABS: Glucose - Point of Care 81 mg/dl (70-99)
--- NOTE | 2024-06-08 12:33 | W.PN.HOSP.TC ---
Addendum entered and electronically signed by Lew Sales MD 06/09/24 14:38:
Late addendum-received text from patient RN that patient wants to discuss about discharge on 06/08/24. Discussed with patient over the phone that patient case was discussed in detail with gastroenterology and recommending for esophagus stent
placement as significantly high risk of food impaction. Patient did not want to stay in the hospital further. Recommended to receive esophagus stent however patient refused and states she would like to leave AGAINST MEDICAL ADVICE. Offered
patient the medical treatment and management to be done in the hospital and receive IV medication and monitor labs. Patient refused. Cross cover was informed. And patient left second medical advice.
Original Note:
Today's Communication/Plan
-
Clear liquid diet only
Lokelma
Restart home meds
Assessment / Plan
Assessment / Plan
General: Well Developed, No Apparent Distress and Appears Chronically Ill
HEENT: NormoCephalic, Moist mucous membranes, Atraumatic, [place] Conjunctivae, Nose Appears Normal and Ears Appear Normal
Respiratory: Clear, right chest wall port noted
Cardiac: S1/S2 and Regular Rhythm
GI: Soft, Non Tender, Non Distended and Normal Bowel Sounds; No Organomegaly
Musculoskeletal: No Clubbing, No Cyanosis and No Edema
Skin: Warm and IV/Catheter Site
Neuro: Awake, Alert, AO x 3 and Nonfocal/grossly intact
Psych: Calm and Intact Judgment/Insight
#esophageal food impaction
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
patient receiving radiation to neck for mass follows with Dr. West and Dr. Erazo
- Status post endoscopy with food impaction noted. Food was removed. High grade malignant appearing esophagus stricture was noted. Repeat biopsies were obtained.
- Plan for clear liquid diet only.
- PPI added BID
- Hold Eliquis for additional 24 hours.
- Await further input by interventional gastroenterology Dr. West for consideration of esophageal stent. Timing to be determined.
#hyperkalemia
- Mild improvement potassium 5.4. Lokelma ordered
#hypertension primary
- hold furosemide,and losartan for now. May need to consider stopping losartan as with severe hypokalemia
#ASCVD
- Restart aspirin and ezetimibe
#DM-II
- SSI
- patients own insulin pump on hold for endoscopy
- hold Farxiga
- Diabetic DANCE STUDIO MANAGER consulted for insulin pump management
#hypothyroidism
- Restart Synthroid
#CKD III
BUN 32, Creat 0.9
- monitor BMP
#Cardiomyopathy, ischemic (LVEF 45-50%)
- Restart Farxiga, digoxin and nitroglycerin PRN
#Hx DVT
last dose of Eliquis yesterday morning 06/06/2024
- Hold Eliquis in setting of food impaction
Code status: full code
DVT prophylaxis: SCD
Discussed with GI
Anticipated Discharge: > 48 hours
Subjective/Interval History
-
Date of Service: June 08, 2024
Seen post endoscopy
Feeling weak
Objective Data
-
Labs:
Laboratory Results
06/08/24
06:28
WBC 5.0
Hgb 12.3
Hct 35.4 L
Plt Count 198
Sodium 134 L
Potassium 5.4 H
Chloride 97 L
Carbon Dioxide 27
BUN 32 H
Creatinine 0.9
Glucose 52 L*
Calcium 9.7
Vital Signs:
Vital Signs
Temp Pulse Resp BP Pulse Ox
98.1 F 71 16 113/63 100
06/08/24 11:50 06/08/24 11:50 06/08/24 10:50 06/08/24 11:50 06/08/24 11:50
I&O
06/07/24 06/08/24 06/09/24
06:59 06:59 06:59
Intake Total 320 / 320
Balance 320 / 320
Data Reviewed
-
Total Time Spent with Patient (in minutes): 55
[2024-06-08] MEDS: NSS (PRESERVATIVE FREE) 10 ML IV (13:25)
[2024-06-08] MEDS: LOKELMA 10 GRAM PO (13:25)
[2024-06-08] MEDS: PROTONIX IV 40 MG IV (13:25)
[2024-06-08 13:29] LABS: Glucose - Point of Care 112 mg/dl (70-99)
[2024-06-08] MEDS: FLUSH (NSS) 1 FLUSH IV (13:33)
--- NOTE | 2024-06-08 14:10 | CM ---
Reviewed the chart notes and spoke with the patient's [id number]-gia at the bedside. Patient off floor. Patient resides with spouse in a one story home with three steps to enter. The patient uses no DME nor been to a SNF. Patient did have VN in
past, but could not recall name of agency. The patient's pharmacy of choice is the [facility]. CM continues to be available to patient/family and is monitoring medical plan for needs at discharge.
Plan: Discharge to home when medically stable. No needs anticipated.
[2024-06-08 17:07] LABS: Glucose - Point of Care 98 mg/dl (70-99)
--- NOTE | 2024-06-08 17:43 | PTCARENOTE ---
Patient requesting to leave AMA after talking with Dr. Sales.She does not want to stay until they do the procedure to place the stent.Dr. Lisa meehan cover also notified.Patient was told that the doctor would be here shortly but while I was in with
another patient she walked out without signing the AMA paperwork.
--- NOTE | 2024-06-08 18:11 | W.PN.UPDATE ---
Update Note
Progress Note Update
I came to evaluate patient since she wants to sign AGAINST MEDICAL ADVICE. Unfortunately patient eloped and did not wait for any instructions or recommendations on my end. Of note, she did discussed with RN in person and with attending physician
over the phone prior to me coming over and they had explained risks and benefits and she had decided to leave.
--- NOTE | 2024-06-08 18:42 | W.DCSUMMARY ---
Discharge Summary
Discharge Data
Date of Admission: 06/07/24
Date of Discharge: 06/09/24
-
Pending Results: Yes (Esophagus biopsy with outpatient gastroenterology)
Hospital Course
63-year-old female past medical history of metastatic pancreatic cancer with known mets to esophagus, hypertension, diabetes mellitus, hypothyroidism, CKD, cardiomyopathy, history of DVT who is presenting with nausea. Patient was found to have a
suspicion of food impaction. Patient was kept NPO. Patient was started on IV fluids. Patient was eval by gastroenterology. Status post endoscopy with food impaction noted. Food was removed. High grade malignant appearing esophagus stricture was
noted. Repeat biopsies were obtained. Gastroenterology recommended patient to undergo esophageal stent placement inpatient and timing to be decided. Patient did not want to stay for further for esophageal stent placement and decided to leave
AGAINST MEDICAL ADVICE before physician can talk to her [id number]. Patient left AGAINST MEDICAL ADVICE.
Discharge Plan
-
Patient Disposition: Against Medical Advice
Referrals:
Daniel Billingsley MD [Family Provider] -
Prescriptions:
No Action
dapagliflozin propanediol [Farxiga] 10 MG tablet
10 mg PO DAILY Qty: 30 5RF
duloxetine 60 MG capsule,delayed release(DR/EC)
60 mg PO DAILY
gabapentin 600 mg Tablet
600 mg PO TID
levothyroxine [Synthroid] 200 mcg Tablet
200 mcg PO DAILY
Eliquis 5 mg Tablet
5 mg PO BID
Creon 36,000-114,000- 180,000 unit Capsule,Delayed Release(Dr/Ec)
5 cap PO AC
Creon 36,000-114,000- 180,000 unit Capsule,Delayed Release(Dr/Ec)
2 cap PO DAILYPRN PRN (Reason: with a snack)
Patient Own Insulin Pump
1 sliding scale dose SC .NOVOLOG VIA PUMP
omeprazole 20 mg Capsule,Delayed Release(Dr/Ec)
40 mg PO DAILY
nitroglycerin 0.4 mg Tablet, Sublingual
0.4 mg sublingual [id number] PRN (Reason: ANGINA) Qty: 30 0RF
aspirin 81 mg Tablet,Chewable
81 mg PO DAILY Qty: 0 0RF
digoxin 125 mcg (0.125 mg) Tablet
125 mcg PO DAILY
ezetimibe 10 mg Tablet
10 mg PO HS
metoprolol succinate 25 mg Capsule,Sprinkle,Er 24hr
25 mg PO HS
furosemide 40 mg Tablet
40 mg PO .TUTHSASU
furosemide 40 mg tablet
40 mg PO ..
valsartan 40 mg Tablet
40 mg PO BID
insulin aspart U-100 [Novolog U-100 Insulin aspart] 100 unit/mL solution
1 sliding scale dose SC .VIA PUMP
Discharge Date and Time
Discharge Date/Time: 06/08/24 17:45
Print Language: BRUNEIAN
== END 2024-06-08 17:45 | disposition left against medical advice (07) | DRG 394 ==
LOC: 2 SOUTH 18:32
PROVIDERS: Nurse Practitioner Family; Physician Assistant; ADMITTING PHYSICIAN Hospitalist; ATTENDING PHYSICIAN Hospitalist; CONSULT PHYSICIAN Student in an Organized Health Care Education/Training Program; EMERGENCY PHYSICIAN Emergency Medicine; FAMILY PHYSICIAN Family Medicine
PROC: 0DC28ZZ Extirpation of Matter from Middle Esophagus, Via Natural or Artificial Opening Endoscopic (ICD-10-PCS; 2024-06-08)
PROC: 0DB58ZX Excision of Esophagus, Via Natural or Artificial Opening Endoscopic, Diagnostic (ICD-10-PCS; 2024-06-08)
DX: T18.128A Food in esophagus causing other injury, initial encounter (principal); Z53.29 Procedure and treatment not carried out because of patient's decision for other reasons; C78.89 Secondary malignant neoplasm of other digestive organs; E11.22 Type 2 diabetes mellitus with diabetic chronic kidney disease; K22.2 Esophageal obstruction; I12.9 Hypertensive chronic kidney disease with stage 1 through stage 4 chronic kidney disease, or unspecified chronic kidney disease; N18.30 Chronic kidney disease, stage 3 unspecified; I25.5 Ischemic cardiomyopathy; E78.00 Pure hypercholesterolemia, unspecified; E87.5 Hyperkalemia; F17.200 Nicotine dependence, unspecified, uncomplicated; E03.9 Hypothyroidism, unspecified; E11.51 Type 2 diabetes mellitus with diabetic peripheral angiopathy without gangrene; I25.10 Atherosclerotic heart disease of native coronary artery without angina pectoris; Z95.5 Presence of coronary angioplasty implant and graft; W44.F3XA Food entering into or through a natural orifice, initial encounter; Z92.3 Personal history of irradiation; Z90.5 Acquired absence of kidney; Z90.411 Acquired partial absence of pancreas; Z88.8 Allergy status to other drugs, medicaments and biological substances; Z88.7 Allergy status to serum and vaccine; Z88.1 Allergy status to other antibiotic agents; Z86.73 Personal history of transient ischemic attack (TIA), and cerebral infarction without residual deficits; Z86.718 Personal history of other venous thrombosis and embolism; Z85.07 Personal history of malignant neoplasm of pancreas; Z79.890 Hormone replacement therapy; Z79.4 Long term (current) use of insulin; Z79.82 Long term (current) use of aspirin; Z79.01 Long term (current) use of anticoagulants; Z79.84 Long term (current) use of oral hypoglycemic drugs
CPT/HCPCS: 88305; 80048; 80053; 82962; 83036; 84132; 85025; 85027; 93005; 96374; 96375; 96376; 99285; J1610

== ENCOUNTER 2024-06-11 14:32 | Day surgery (SDC) | payer OTHER, SELFPAY ==
[2024-06-11] VITALS (9 sets, daily range): BP systolic 113–188; BP diastolic 72–147; BMI 21.3
[2024-06-11 12:30] LABS: Glucose - Point of Care 131 mg/dl (70-99)
--- NOTE | 2024-06-11 13:34 | PTCARENOTE ---
Checked on patient & spouse at bedside. Updated on wait time. No further care needed at this time.
[2024-06-11 16:35] LABS: Glucose - Point of Care 135 mg/dl (70-99)
[2024-06-11] MEDS: ZOFRAN 4 MG IV (17:00)
== END 2024-06-11 18:05 | disposition home or self-care (01) ==
LOC: SDS 14:32
PROVIDERS: ATTENDING PHYSICIAN Internal Medicine Gastroenterology
DX: R13.10 Dysphagia, unspecified (principal); C15.9 Malignant neoplasm of esophagus, unspecified; K22.2 Esophageal obstruction; K31.89 Other diseases of stomach and duodenum
CPT/HCPCS: 43266; 71045; 76000; 82962; C1769; C1874

== ENCOUNTER 2024-06-12 02:09 | Emergency (ER) | payer OTHER, SELFPAY ==
[2024-06-12] VITALS (8 sets, daily range): BP systolic 147–185; BP diastolic 75–93
--- NOTE | 2024-06-12 02:31 | ED.GENMED ---
History of Present Illness
General
Chief Complaint: Chest Pain
Source: patient
Time Seen by Provider: 06/12/24 02:21
History of Present Illness
History of Present Illness:
Pleasant 64-year-old female presents to the emergency department with chest pain. Patient had an esophageal stent placed yesterday by GI. Received a call from the on-call customer service rep who requested imaging to rule out an esophageal
perforation. Patient denies any other chest pain or shortness of breath. Patient does have esophageal cancer and has a chest port.
Past History
Past History
ED Past Medical History: CAD, Cancer (Pancreatic CA, Kidney CA), CVA (No residual), GERD, HTN, Hypercholesterolemia, IDDM, [place], Psychiatric (Anxiety) and Other (Emphysema, PNA, )
ED Past Surgical History: Cardiac (Stents X 7), Cholecystectomy, Orthopedic (Right knee surgery, , Left 5th toe amputation, ), Urological (Right Nephrectomy) and Other (Mini Whipple, right-sided nephrectomy, Popliteal to tibial artery bypass)
Social History
Tobacco: Smoker
Alcohol: None
Drug: None
Personal:
Living: with family
Employment: Employed
Family History
Family History: CAD (Her brother at age 47 had an [place] )
Review of Systems
Review of Systems
Allergies reviewed?: Yes
All Other Systems: ROS reviewed and negative except as documented in HPI and ROS
Psychiatric: Reports anxiety
Phy Exam
General Physical Exam
General Presentation: well appearing and mild distress
General Skin: warm and dry
General Habitus: frail
General Mental: alert
General Hydration: appears well hydrated
ENT Exam
ENT Exam: EOMI, pharynx normal, neck supple and normocephalic
Eye Exam
Eye Exam: PERRL, cornea clear and conjunctiva normal
Cardiovascular Exam
Cardiovascular Exam: regular rate/rhythm, no edema, no murmur and normal peripheral pulses
Pulmonary Exam
Pulmonary Exam: lungs clear, no respiratory distress, no rales, no crackles, no rhonchi, no stridor, no wheezing and no cough
Gastrointestinal Exam
Gastrointestinal Exam: normal bowel sounds, non tender, soft, no organomegaly, no pulsatile mass and non distended
Neurological Exam
Neurological Exam: alert, oriented x3, no motor deficits and speech normal
Musculoskeletal Exam
Musculoskeletal Exam: full ROM and no edema
Skin Exam
Skin Exam: normal color, warm/dry, no rash and no petechia
Psychiatric Exam
Psychiatric Exam: normal mood/affect
Scores
Heart Score for Chest Pain Patients
STEMI patient?: Not applicable
Course
Orders/Labs/Results
Orders:
Orders
06/12/24 02:28
CT Chest With Iv Contrast Urgent
Comment:
Reason For Exam: possible esoph perf
06/12/24 03:05
Complete Blood Count/With Diff Urgent
Comprehensive Metabolic Panel Urgent
PTT Urgent
Prothrombin Time Urgent
06/12/24 03:23
Morphine Sulfate 4 mg IV NOW STA
Ondansetron Injectable [Zofran] 4 mg IV NOW STA
06/12/24 03:38
Heparin Pf [Heparin Lock Flush] 500 unit .ROUTE .STK-MED ONE
06/12/24 05:35
Morphine Sulfate 4 mg IV NOW STA
Ondansetron Injectable [Zofran] 4 mg IV NOW STA
Pantoprazole [Protonix] 40 mg PO NOW STA
06/12/24 06:01
Pantoprazole [Protonix IV] 40 mg .ROUTE .STK-MED ONE
06/12/24 06:16
Heparin Pf [Heparin Lock Flush] 500 unit .ROUTE .STK-MED ONE
Abnormal Lab Results
06/12/24
03:05
RDW 15.3 H %
(11.5-14.5)
Absolute Neuts (auto) 7.8 H 10^3/uL
(1.4-6.5)
Absolute Lymphs (auto) 0.3 L 10^3/uL
(1.2-3.4)
Neutrophils % 92.2 H %
(42.2-75.2)
Lymphocytes % 3.8 L %
(20.5-51.1)
PT 16.0 H Sec
(11.4-14.6)
APTT > 200 H* Sec
(23.4-35.0)
Chloride 108 H mmol/L
(98-107)
BUN 31 H mg/dl
(7-17)
Glucose 222 H mg/dl
(70-99)
06/12/24 03:05
06/12/24 03:05
Vital Signs
Initial and Last Documented VS:
Initial Vital Signs
Temp Pulse Resp BP Pulse Ox
98.0 F 95 20 178/90 98
06/12/24 02:12 06/12/24 02:12 06/12/24 02:12 06/12/24 02:12 06/12/24 02:12
Last Documented Vital Signs
Temp Pulse Resp BP Pulse Ox
98.0 F 97 14 148/75 98
06/12/24 02:12 06/12/24 06:20 06/12/24 06:20 06/12/24 06:20 06/12/24 06:20
*Critical Care Note
Total Time (30-74mins, 75-104mins- exclusive of procedures): 31 (Critical care statement: A total of 31 minutes of critical care time was provided for this patient. This time is separate from time utilized to perform the aforementioned documented
procedures. Aggregate critical care time includes only time during which I was engaged in work directl)
Update Note
Update Note:
Received a [facility] text from Dr. Ayala. Patient had an esophageal stent and there is concern for possible esophageal perforation.
She requests imaging
ED Attending Note
-
Portions of this chart may have been created with voice recognition software.� Occasional wrong word or��sound alike� substitutions may have occurred due to the inherent limitations of voice recognition software.
Discharge Plan
Departure
Patient Disposition: Home (Routine Discharge)
Date of Disposition: 06/12/24
Time of Disposition: 05:46
Patient with high blood pressure during this ER visit?: Yes
Condition: Good
Discharge Problem:
Postoperative pain, Esophagitis
Instructions: Esophagitis
Prescriptions:
New
pantoprazole [Protonix] 20 mg tablet,delayed release (DR/EC)
20 mg PO BID Qty: 30 0RF
sucralfate [Carafate] 100 mg/mL suspension
10 ml PO QID Qty: 200 0RF
ondansetron HCl 4 mg tablet
4 mg PO TID 4 Days Qty: 12 0RF
No Action
dapagliflozin propanediol [Farxiga] 10 MG tablet
10 mg PO DAILY Qty: 30 5RF
duloxetine 60 MG capsule,delayed release(DR/EC)
60 mg PO DAILY
gabapentin 600 mg Tablet
600 mg PO TID
levothyroxine [Synthroid] 200 mcg Tablet
200 mcg PO DAILY
Eliquis 5 mg Tablet
5 mg PO BID
Creon 36,000-114,000- 180,000 unit Capsule,Delayed Release(Dr/Ec)
5 cap PO AC
Creon 36,000-114,000- 180,000 unit Capsule,Delayed Release(Dr/Ec)
2 cap PO DAILYPRN PRN (Reason: with a snack)
Patient Own Insulin Pump
1 sliding scale dose SC .NOVOLOG VIA PUMP
omeprazole 20 mg Capsule,Delayed Release(Dr/Ec)
40 mg PO DAILY
nitroglycerin 0.4 mg Tablet, Sublingual
0.4 mg sublingual [id number] PRN (Reason: ANGINA) Qty: 30 0RF
aspirin 81 mg Tablet,Chewable
81 mg PO DAILY Qty: 0 0RF
digoxin 125 mcg (0.125 mg) Tablet
125 mcg PO DAILY
ezetimibe 10 mg Tablet
10 mg PO HS
metoprolol succinate 25 mg Capsule,Sprinkle,Er 24hr
25 mg PO HS
furosemide 40 mg Tablet
40 mg PO .TUTHSASU
furosemide 40 mg tablet
40 mg PO .MON.WED.FRIBID
valsartan 40 mg Tablet
40 mg PO DAILY
Referrals:
Daniel Billingsley MD [Family Provider] -
Interventions
Interventions:
*Risk Screen - Suicide Last Done: 06/12/24 03:43
*General Assessment Last Done: 06/12/24 03:43
*Neglect/Abuse Screening Last Done: 06/12/24 03:43
*ED- Fall Risk Assessment Last Done: 06/12/24 02:16
*ED COVID-19 Vaccine History Last Done: 06/12/24 02:16
*Nursing Disposition Last Done: 06/12/24 06:30
ED- Cardiac Assessment Last Done: 06/12/24 03:35
Discharge Date and Time
Discharge Date/Time: 06/12/24 06:30
Print Language: SWEDISH
[2024-06-12] MEDS: MORPHINE SULFATE 4 MG IV ×2 (03:29→06:05)
[2024-06-12] MEDS: ZOFRAN 4 MG IV ×2 (03:30→06:04)
[2024-06-12 03:42] LABS: % Basophils 0.2 % (0-2); % Immature Granulocytes 0.5 % (0-0.5); % Lymphocytes 3.8 % (20.5-51.1); % Monocytes 3.3 % (1.7-9.3); % Neutrophils 92.2 % (42.2-75.2); Absolute Lymphocytes 0.3 10^3/uL (1.2-3.4); Absolute Monocytes 0.3 10^3/uL (0.1-0.6); Absolute Neutrophils 7.8 10^3/uL (1.4-6.5); Hemoglobin 13.1 g/dL (12.0-16.0); Mean Corp Hgb Conc. 33.6 g/dL (33.0-37.0); Mean Corpuscular Hgb 29.6 pg (27.0-31.0); Mean Corpuscular Volume 88.2 fL (81.0-99.0); Mean Platelet Volume 10.1 fL (7.4-10.4); Nucleated Red Blood Cells % 0 %; Platelet Count 214 10^3/uL (130-400); Red Blood Cell Count 4.42 10^6/uL (4.20-5.40); Red Cell Dist. Width 15.3 % (11.5-14.5); White Blood Cell Count 8.4 10^3/uL (4.8-10.8)
[2024-06-12 03:51] LABS: INR 1.23
[2024-06-12 04:09] LABS: APTT > 200 Sec (23.4-35.0)
[2024-06-12 04:37] LABS: ALT (SGPT) 16 U/L (0-35); AST (SGOT) 26 U/L (14-36); Alkaline Phosphatase 115 U/L (38-126); Blood Urea Nitrogen 31 mg/dl (7-17); Calcium 9.4 mg/dl (8.4-10.2); Carbon Dioxide 25 mmol/L (22-30); Chloride 108 mmol/L (98-107); Glucose 222 mg/dl (70-99); Potassium 4.6 mmol/L (3.5-5.1); Sodium 145 mmol/L (135-145); Total Bilirubin 0.8 mg/dl (0.2-1.3); Total Protein 7.7 g/dl (6.3-8.2); eGFR > 60.00
== END 2024-06-12 06:30 | disposition home or self-care (01) ==
LOC: EMR 02:09
PROVIDERS: EMERGENCY PHYSICIAN Student in an Organized Health Care Education/Training Program; FAMILY PHYSICIAN Family Medicine
DX: K20.90 Esophagitis, unspecified without bleeding (principal); G89.18 Other acute postprocedural pain; F17.200 Nicotine dependence, unspecified, uncomplicated; I10 Essential (primary) hypertension
CPT/HCPCS: 99285; 96374; 96375; 96376 ×2; 71260; 80053; 85025; 85610; 85730; Q9967

== ENCOUNTER → 2024-06-17 08:38 | Outpatient (REF) | payer OTHER, SELFPAY | LOC: RAD 08:38 | PROVIDERS: ATTENDING PHYSICIAN Internal Medicine Hematology & Oncology; FAMILY PHYSICIAN Family Medicine | DX: I74.9 Embolism and thrombosis of unspecified artery (principal); C25.1 Malignant neoplasm of body of pancreas; D50.9 Iron deficiency anemia, unspecified; D63.0 Anemia in neoplastic disease | CPT/HCPCS: 71260; 74177; Q9967 ==

== ENCOUNTER → 2024-06-22 07:31 | Outpatient (REF) | payer OTHER, SELFPAY | LOC: MRI 3T 07:31 | PROVIDERS: ATTENDING PHYSICIAN Family Medicine Geriatric Medicine; FAMILY PHYSICIAN Family Medicine | DX: C78.89 Secondary malignant neoplasm of other digestive organs (principal); M54.42 Lumbago with sciatica, left side | CPT/HCPCS: 72158; A9575 ==

== ENCOUNTER 2024-07-02 01:33 | Inpatient (IN) | payer OTHER, SELFPAY ==
[2024-07-01] VITALS (11 sets, daily range): BP systolic 81–114; BP diastolic 24–56; BMI 19.9
[2024-07-01 20:07] LABS: Glucose - Point of Care 104 mg/dl (70-99)
--- NOTE | 2024-07-01 20:14 | ED.GENMED ---
History of Present Illness
General
Chief Complaint: Weakness
Source: patient and family
Exam Limitations: none
Time Seen by Provider: 07/01/24 20:14
Nursing documentation reviewed up to this point in time: agreed with
History of Present Illness
History of Present Illness:
64-year-old female with history of TIA, CAD, HTN, HLD, [place], GERD, right nephrectomy, IDDM, hypothyroid, renal cell CA, metastatic pancreatic CA, her last chemotherapy was November 2023, she is currently under radiation therapy and had a dose of
radiation therapy today.
at bedside states she is here for confusion and weakness. He states she went out to breakfast this morning, had radiation therapy at 3 PM this afternoon and at 6 PM she was in bed and he found her confused, staring straight ahead. He
states she fell 7 days ago injuring her right ankle. She has fallen 3 times since then per with no significant injury. She saw Dr. Erazo 2 days ago and showed him the foot and ankle and he told them that it was a bad sprain.
She does say she has pain about the ankle and the foot. She has been walking on it.
She states right now she is having low back pain which is typical for her. Her states that her cancer has spread to her tailbone and she has a lumbar fracture from the cancer.
states he called Dr. Erazo's office and spoke to the on-call doctor explaining patient's symptoms and took her blood pressure at home and it was 90/50, she has not been drinking much and he was told to bring her here for possible dehydration.
Past History
Past History
ED Past Medical History: CAD, Cancer (Pancreatic CA, Kidney CA), CVA (No residual), GERD, HTN, Hypercholesterolemia, IDDM, [place], Psychiatric (Anxiety) and Other (Emphysema, PNA, )
ED Past Surgical History: Cardiac (Stents X 7), Cholecystectomy, Orthopedic (Right knee surgery, , Left 5th toe amputation, ), Urological (Right Nephrectomy) and Other (Mini Whipple, right-sided nephrectomy, Popliteal to tibial artery bypass)
Social History
Tobacco: Smoker
Alcohol: None
Drug: None
Personal:
Living: with family
Employment: Employed
Family History
Family History: CAD (Her brother at age 47 had an [place] )
Review of Systems
Review of Systems
Allergies reviewed?: Yes
All Other Systems: ROS reviewed and negative except as documented in HPI and ROS
Constitutional: Reports fever and fatigue
Respiratory: Denies trouble breathing
Cardiac: Denies chest pain or syncope
ABD/GI: Denies abdominal pain, nausea, vomiting or diarrhea
Musculoskeletal: Reports back pain and other (Pain, swelling, redness right ankle and foot)
Skin: Reports other (Redness right ankle and foot)
Neurological: Reports weakness (Generalized); Denies dizzy or headache
Phy Exam
Physical Exam
Physical Exam:
GENERAL: No acute distress. Frail-appearing, alert and oriented.
CONSTITUTIONAL: Temperature 102.3
EYES: clear, conjunctivae normal
ENMT: Dry mucus membranes, Pharynx nl
RESPIRATORY: Regular respirations, nonlabored, lungs clear.
CARDIOVASCULAR: Regular rate and rhythm, no murmurs, no rubs.
GI: Soft, nontender, normal BS
MUSCULOSKELETAL: Right ankle and foot are significantly swollen, red, warm, tender and swollen great toe, tenderness about the foot and ankle. Moves with ease. Well perfused.
SKIN: Warm, dry, pale
PSYCH: Depressed mood and affect. Well kept, interactive and appropriate
NEUROLOGIC: Awake, alert and oriented. No focal neurological deficits
Course
Orders/Labs/Results
Orders:
Orders
07/01/24 20:15
0.9% Sodium Chloride 1000 ml [Nss] 1,000 ml IV BOLUS
07/01/24 20:16
CT Head W/o Iv Contrast Urgent
Comment:
Reason For Exam: confusion new, hx pancreatic ca w radiation tx
07/01/24 20:29
Complete Blood Count/With Diff Urgent
Comprehensive Metabolic Panel Urgent
07/01/24 20:49
Acetaminophen [Tylenol/Feverall] 650 mg .ROUTE .STK-MED ONE
07/01/24 20:50
Urinalysis Reflex To Culture Urgent
Date Specimen was Collected: 07/01/24
Time Specimen was Collected: 20:41
Urine Microscopic Reflex Cult Urgent
Urine Culture Urgent
[facility] Source: U
Specimen Description:
Date Specimen was Collected: 07/01/24
Time Specimen was Collected: 20:41
07/01/24 20:57
Acetaminophen [Tylenol/Feverall] 650 mg RECTAL NOW STA
07/01/24 21:05
Cardiac Monitoring- Treatment ONCE
07/01/24 21:06
Lactic Acid Q4H
Comment: ON ICE, CANCEL 2ND ORDER IF FIRST LACTIC ACID LEVEL <2
Prothrombin Time Urgent
07/01/24 21:07
Blood Culture Q20M
[facility] Source: Blood/Venous
Specimen Description:
Comment: Urgent from separate sites. If patient screens positive for possible sepsis
07/01/24 21:10
Ankle, Right 3 view CR [CR Ankle - Right Min 3 Views *] Urgent
Comment:
Reason For Exam: pain, swelling after fall
Foot, Right 3 View [CR Foot - Right Min 3 Views] Urgent
Comment:
Reason For Exam: pain, swelling after fall
07/01/24 21:11
CR Chest - 2 Views Urgent
Comment:
Reason For Exam: Fever, metastatic ca, leukocytosis
07/01/24 21:17
Electrocardiogram (*1) Urgent
Reason for Study: Other
Other Reason for Exam: Possible Sepsis
EKG- Treatment ONCE
07/01/24 21:35
Blood Culture Q20M
[facility] Source: Blood/Venous
Specimen Description:
Comment: Urgent from separate sites. If patient screens positive for possible sepsis
07/01/24 22:00
Flush (0.9% Sodium Chloride) [Flush (Nss)] See Dose Instructions IV PER PROTOCOL
07/01/24 23:41
Vancomycin [Vancocin] 1,500 mg 0.9% Sodium Chloride 500 ml [Nss] 500 ml IV NOW
07/01/24 23:43
Piperacillin/Tazo 3.375 Gram [Zosyn] 3.375 gram in 50 ml IV NOW
07/01/24 23:59
Vancomycin [Vancocin] 1,500 mg 0.9% Sodium Chloride 500 ml [Nss] 500 ml IV NOW
07/02/24 00:19
0.9% Sodium Chloride 500 ml [Nss] 500 ml IV BOLUS
Abnormal Lab Results
07/01/24 07/01/24 07/01/24
20:05 20:29 20:50
WBC 16.7 H 10^3/uL
(4.8-10.8)
RBC 3.35 L 10^6/uL
(4.20-5.40)
Hgb 9.9 L g/dL
(12.0-16.0)
Hct 28.8 L %
(37.0-47.0)
RDW 14.6 H %
(11.5-14.5)
Abs Immat Gran (auto) 0.1 H 10^3/uL
(0-0.05)
Absolute Neuts (auto) 15.3 H 10^3/uL
(1.4-6.5)
Absolute Lymphs (auto) 0.3 L 10^3/uL
(1.2-3.4)
Absolute Monos (auto) 0.9 H 10^3/uL
(0.1-0.6)
Immature Gran % 0.7 H %
(0-0.5)
Neutrophils % 91.3 H %
(42.2-75.2)
Lymphocytes % 2.0 L %
(20.5-51.1)
PT
Sodium 130 L mmol/L
(135-145)
BUN 32 H mg/dl
(7-17)
Creatinine 1.3 H mg/dL
(0.6-1.0)
Calcium 7.1 L mg/dl
(8.4-10.2)
Total Protein 5.2 L g/dl
(6.3-8.2)
Albumin 2.5 L g/dl
(3.5-5.0)
Ur Occult Blood Reflex 3+ A
(Negative)
Leukocyte Esterase Rfl 3+ A
(Negative)
Urine WBC (Reflex) 26-30 A /HPF
(0-5)
Urine Bacteria (Reflex) Many A
(Negative)
Urine Glucose 2+ A
(Negative)
Urine Albumin (Reflex) 3+ A
(Neg - Trace)
POC Glucose 104 H mg/dl
(70-99)
07/01/24
21:06
WBC
RBC
Hgb
Hct
RDW
Abs Immat Gran (auto)
Absolute Neuts (auto)
Absolute Lymphs (auto)
Absolute Monos (auto)
Immature Gran %
Neutrophils %
Lymphocytes %
PT 22.8 H Sec
(11.4-14.6)
Sodium
BUN
Creatinine
Calcium
Total Protein
Albumin
Ur Occult Blood Reflex
Leukocyte Esterase Rfl
Urine WBC (Reflex)
Urine Bacteria (Reflex)
Urine Glucose
Urine Albumin (Reflex)
POC Glucose
07/01/24 20:29
07/01/24 20:29
Vital Signs
Initial and Last Documented VS:
Initial Vital Signs
Temp Pulse Resp BP Pulse Ox
99.3 F 94 20 81/24 96
07/01/24 19:51 07/01/24 19:51 07/01/24 19:51 07/01/24 19:51 07/01/24 19:51
Last Documented Vital Signs
Temp Pulse Resp BP Pulse Ox
98.5 F 83 10 97/81 97
07/01/24 22:58 07/02/24 01:15 07/02/24 00:45 07/02/24 01:15 07/02/24 00:45
MDM/Problems Addressed
MDM/Problems Addressed:
64-year-old female with history of TIA, CAD, HTN, HLD, [place], GERD, right nephrectomy, IDDM, hypothyroid, renal cell CA, metastatic pancreatic CA, her last chemotherapy was November 2023, she is currently under radiation therapy and had a dose of
radiation therapy today.
at bedside states she is here for confusion and weakness. He states she went out to breakfast this morning, had radiation therapy at 3 PM this afternoon and at 6 PM she was in bed and he found her confused, staring straight ahead. He
states she fell 7 days ago injuring her right ankle. She has fallen 3 times since then per with no significant injury. She saw Dr. Erazo 2 days ago and showed him the foot and ankle and he told them that it was a bad sprain.
She does say she has pain about the ankle and the foot. She has been walking on it.
She states right now she is having low back pain which is typical for her. Her states that her cancer has spread to her tailbone and she has a lumbar fracture from the cancer.
states he called Dr. Erazo's office and spoke to the on-call doctor explaining patient's symptoms and took her blood pressure at home and it was 90/50, she has not been drinking much and he was told to bring her here for possible dehydration.
9:00 PM:
WBC 16.7 with a left shift, hemoglobin 9.9 down from 13.13 weeks ago
CMP: Sodium 130, BUN/creat 32/1.3 IV fluids infusing for dehydration
UA: Looks infected with 3+ leukocytes 26-30 WBCs, many bacteria, urine culture pending
Chest x-ray radiology report read: No acute disease of the chest.
Head CT radiology report read: No acute intracranial abnormality noted
Right foot: Possible nondisplaced fracture of the base of the proximal phalanx of the great toe clinical correlation recommended.
Patient's right great toe is significantly swollen, erythematous and tender, suspect this fracture
Probable subacute or old fracture the base of the fifth metatarsal bone. This is most likely new as her entire foot is swollen and tender.
Right ankle x-ray: Avulsion fracture distal fibula.
11:45 PM:
64-year-old female with history of metastatic pancreatic CA was found with a change in mental state by her at 6:00 tonight. She arrives awake, very feeble but oriented and appropriate
She has a significantly swollen red warm right ankle and foot 1 week after a fall with x-rays revealing several fractures.
It is unclear whether her leukocytosis and fever are from cellulitis of the right ankle and foot, or from a urinary tract infection so I will cover her with Zosyn and vancomycin.
Urine and blood cultures pending.
Hospitalist notified of admission.
*Critical Care Note
Total Time (30-74mins, 75-104mins- exclusive of procedures): Not Applicable
ED Attending Note
-
Portions of this chart may have been created with voice recognition software.� Occasional wrong word or��sound alike� substitutions may have occurred due to the inherent limitations of voice recognition software.
Discharge Plan
Departure
Patient Disposition: Admit
Date of Disposition: 07/01/24
Time of Disposition: 21:10
Admit to: Med/Surg
Presentation/result/management discussed w/ accepting MD/DO: Hospitalist
Condition: Serious
Discharge Problem:
Acute dehydration, UTI (urinary tract infection), Cellulitis of right foot, Fracture of right foot, Fracture of right great toe, Fracture of distal end of right fibula
Prescriptions:
No Action
dapagliflozin propanediol [Farxiga] 10 MG tablet
10 mg PO DAILY Qty: 30 5RF
duloxetine 60 MG capsule,delayed release(DR/EC)
60 mg PO DAILY
gabapentin 600 mg Tablet
600 mg PO TID
levothyroxine [Synthroid] 200 mcg Tablet
250 mcg PO DAILY
Eliquis 5 mg Tablet
5 mg PO BID
Patient Own Insulin Pump
1 sliding scale dose SC .NOVOLOG VIA PUMP
omeprazole 20 mg Capsule,Delayed Release(Dr/Ec)
40 mg PO DAILY
aspirin 81 mg Tablet,Chewable
81 mg PO DAILY Qty: 0 0RF
digoxin 125 mcg (0.125 mg) Tablet
125 mcg PO DAILY
ezetimibe 10 mg Tablet
10 mg PO DAILY
metoprolol succinate 25 mg Capsule,Sprinkle,Er 24hr
25 mg PO DAILY
furosemide 40 mg Tablet
40 mg PO .TUTHSASU
furosemide 40 mg tablet
40 mg PO .
valsartan 40 mg Tablet
40 mg PO BID
sucralfate 100 mg/mL Suspension
10 ml PO Q6H
oxycodone 10 mg Tablet
10 mg PO Q4H PRN (Reason: pain)
Creon 24,000-76,000 -120,000 unit Capsule,Delayed Release(Dr/Ec)
5 cap PO AC
Creon 24,000-76,000 -120,000 unit Capsule,Delayed Release(Dr/Ec)
2 cap PO PRN PRN (Reason: with snacks)
Referrals:
Daniel Billingsley MD [Family Provider] -
Interventions
Interventions:
*Risk Screen - Suicide Last Done: 07/01/24 20:13
*General Assessment Last Done: 07/01/24 19:51
*Neglect/Abuse Screening Last Done: 07/01/24 20:13
*ED COVID-19 Vaccine History Last Done: 07/01/24 21:34
ED- Cardiac Assessment Last Done: 07/01/24 21:01
ED- Neurological Assessment Last Done: 07/01/24 21:01
ED- Pulmonary Assessment Last Done: 07/01/24 21:01
Discharge Date and Time
Print Language: ARMENIAN
[2024-07-01] MEDS: NSS 1000 IV (20:31)
[2024-07-01 20:36] LABS: % Basophils 0.4 % (0-2); % Eosinophils 0.2 % (0-6); % Immature Granulocytes 0.7 % (0-0.5); % Monocytes 5.4 % (1.7-9.3); % Neutrophils 91.3 % (42.2-75.2); Absolute Basophils 0.1 10^3/uL (0-0.2); Absolute Immature Granulocytes 0.1 10^3/uL (0-0.05); Absolute Lymphocytes 0.3 10^3/uL (1.2-3.4); Absolute Monocytes 0.9 10^3/uL (0.1-0.6); Absolute Neutrophils 15.3 10^3/uL (1.4-6.5); Hematocrit 28.8 % (37.0-47.0); Hemoglobin 9.9 g/dL (12.0-16.0); Mean Corp Hgb Conc. 34.4 g/dL (33.0-37.0); Mean Corpuscular Hgb 29.6 pg (27.0-31.0); Mean Platelet Volume 9.4 fL (7.4-10.4); Nucleated Red Blood Cells % 0 %; Platelet Count 261 10^3/uL (130-400); Red Blood Cell Count 3.35 10^6/uL (4.20-5.40); Red Cell Dist. Width 14.6 % (11.5-14.5); White Blood Cell Count 16.7 10^3/uL (4.8-10.8)
[2024-07-01 21:01] LABS: ALT (SGPT) < 10 U/L (0-35); AST (SGOT) 15 U/L (14-36); Albumin 2.5 g/dl (3.5-5.0); Alkaline Phosphatase 95 U/L (38-126); Blood Urea Nitrogen 32 mg/dl (7-17); Calcium 7.1 mg/dl (8.4-10.2); Carbon Dioxide 23 mmol/L (22-30); Chloride 101 mmol/L (98-107); Estimated Creatinine Clearance 39 ml/min; Glucose 78 mg/dl (70-99); Potassium 3.5 mmol/L (3.5-5.1); Sodium 130 mmol/L (135-145); Total Bilirubin 0.9 mg/dl (0.2-1.3); Total Protein 5.2 g/dl (6.3-8.2); eGFR 46.21
[2024-07-01] MEDS: TYLENOL/FEVERALL 650 MG RECTAL (21:09)
[2024-07-01 21:16] LABS: Urine Albumin 3+ (Neg - Trace); Urine Bilirubin Negative (Negative); Urine Character Cloudy (Clear); Urine Color Yellow; Urine Glucose 2+ (Negative); Urine Ketone Negative (Negative); Urine Leukocyte 3+ (Negative); Urine Nitrite Negative (Negative); Urine Occult Blood 3+ (Negative); Urine Specific Gravity 1.025 (<1.030); Urine Urobilinogen Negative (Neg - 1+)
[2024-07-01 21:22] LABS: Urine Squamous Cell 0-2 /LPF (Few)
[2024-07-01 21:23] LABS: Urine Bacteria Many (Negative); Urine Red Blood Cell 0-2 /HPF (0-2); Urine White Cell 26-30 /HPF (0-5)
[2024-07-01 21:28] LABS: INR 1.96; PT 22.8 Sec (11.4-14.6)
[2024-07-01] MEDS: FLUSH (NSS) 1 FLUSH IV (22:59)
[2024-07-02] VITALS (52 sets, daily range): BP systolic 80–173; BP diastolic 40–81; PULSE 73–78; O2SAT 98; BMI 22.4
--- NOTE | 2024-07-02 00:01 | HPS.HSE ---
Family Physician
-
Family Physician: Daniel Billingsley
Chief Complaint
-
No weakness
History of Present Illness
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
poor response to communication.
Patient has been having decreased appetite and low p.o. intake for some time. They reduced valsartan to 40 mg daily due to that. She is continued on Lasix regimen as well as digoxin. She had radiation today and after radiation patient went home.
She had something small to eat in the morning. But she has not had much to eat all day. At home the spouse check blood pressure and it was low with a systolic of 90. She called her oncologist who recommended patient be brought to the emergency
department for hydration. On arrival in the emergency department the patient was hypotensive and febrile to 102.3.
Patient stated that she had a fall about 5 days ago at the doctor's office. She injured her right foot. She had pain there and has been ambulating on the right foot without any further investigation. She stated that this morning was the first
time she noticed redness and swelling in that foot. She denied having fevers or chills at home. She denies any nausea or vomiting since she had a stent placed about 2 weeks ago. She denies any diarrhea. She denies any known sick contacts.
In the emergency department she had a Tmax of 102.3. Blood pressure was 100/50 with a pulse rate of 80 and she was satting 97% on room air.
She has a leukocytosis of 16.7, hemoglobin down to 9.9, platelet count stable at 261. Electrolytes notable for a sodium of 130 but otherwise unremarkable. BUN/creatinine was stable at 12.3.
UA was positive.
She had screening skeletal survey and head CT. The head CT was negative. The x-rays of the ankle shows a possible nondisplaced fracture of the tip of the distal fibula with associated mild soft tissue swelling. There is also nondisplaced fracture
of the base of the proximal phalanx of the great toe. There is significant associated soft tissue subcutaneous emphysema as well.
Medical History
Past Medical History
Past Medical History: Reports Other
Additional Past Medical History:
Hypertension
Metastatic Pancreatic Cancer
ASCVD (CAD, PAD, CVA)
DM-II
Renal Mass (Benign)
History of DVT
Hypothyroidism
CKD III
Cardiomyopathy, ischemic (LVEF 45-50%)
Past Surgical History: Reports Other
Additional Past Surgical History:
PTCA with Multiple Stents (5)
LLE Bypass
Whipple
Right Nephrectomy (benign)
R ACW Port Placement
L 5th Toe Amputations (Osteomyelitis)
Cholecystectomy and pancreaticoduodenectomy
Social History
Tobacco: Smoker (occasional )
Alcohol: None
Drug: None
Living: With Roomate
Family History
Family History: Other (Mother: Multiple Myeloma, DM; Father: DM )
Allergies / Home Medications
Allergies reflects when Allergies were last updated in [facility].
Home Medications with original date entered in [facility]
Allergy/Medication List:
Allergies
Allergy/AdvReac Type Severity Reaction Status Date / Time
cephalexin monohydrate Allergy Rash; Verified 06/07/24 14:50
[From Keflex] tolerated
PCN per pt
clindamycin Allergy Rash Verified 06/07/24 14:50
influenza virus vaccine, Allergy Rash Verified 06/07/24 14:50
specific Swelling,
[influenza virus itching.
vacc,specific]
lisinopril Allergy cough Verified 06/07/24 14:50
pneumococcal vaccine Allergy rash, Verified 06/07/24 14:50
welts
throughout
body
Slhsmts-TUC-AbQ Reductase Allergy LEG PAIN Verified 06/07/24 14:50
Inhibitor
[Htopshp-Pqj-Fzj Reductase
Inhibitor]
Home Medications
dapagliflozin propanediol 10 mg tablet (Farxiga) 10 mg PO DAILY #30 tabs 08/05/20
duloxetine 60 mg capsule,delayed release 60 mg PO DAILY Mental Health/Anxiety 06/20/21
gabapentin 600 mg tablet 600 mg PO TID Neurological Condition 10/02/21
Patient Own Insulin Pump 1 sliding scale dose SC .NOVOLOG VIA PUMP Diabetes 09/16/23
apixaban 5 mg tablet (Eliquis) 5 mg PO BID Blood Clot Prevention/Tx 09/16/23
levothyroxine 200 mcg tablet (Synthroid) 200 mcg PO DAILY Thyroid 09/16/23
vmjnkv-bduwtceo-kapdquw 36,000-114,000-180,000 unit capsule,delay rel (Creon) 2 cap PO DAILYPRN PRN with a snack 09/16/23
mbhcua-uopvjlmr-mjzklne 36,000-114,000-180,000 unit capsule,delay rel (Creon) 5 cap PO AC Gastrointestinal Issue 09/16/23
omeprazole 20 mg capsule,delayed release 40 mg PO DAILY Gastrointestinal Issue 12/03/23
aspirin 81 mg chewable tablet 81 mg PO DAILY #0 tabs 12/08/23
nitroglycerin 0.4 mg sublingual tablet 0.4 mg sublingual [id number] PRN ANGINA #30 tabs 12/08/23
digoxin 125 mcg (0.125 mg) tablet 125 mcg PO DAILY 04/10/24
ezetimibe 10 mg tablet 10 mg PO HS 04/10/24
metoprolol succinate 25 mg capsule sprinkle, ext. release 24 hr 25 mg PO HS 04/10/24
furosemide 40 mg tablet 40 mg PO .MON.WED.FRIBID 04/28/24
furosemide 40 mg tablet 40 mg PO .TUTHSASU 04/28/24
insulin aspart U-100 100 unit/mL subcutaneous solution (Novolog U-100 Insulin aspart) 1 sliding scale dose SC .VIA PUMP 06/07/24
valsartan 40 mg tablet 40 mg PO BID 06/07/24
Review of Systems
-
History Source: Patient
Constitutional: Reports No Symptoms
EENT: Reports Other (something caught in lower throat )
Respiratory: Reports No Symptoms
Cardiac: Reports No Symptoms
Abdomen/GI: Reports Vomiting
: Reports No Symptoms
Musculoskeletal: Reports Joint Pain, Joint Swelling and Edema
Skin: Reports Rash
Neurological: Reports No Symptoms
Endocrine: Reports No Symptoms
Hematologic/Lymphatic: Reports No Symptoms
Psych: Reports No Symptoms
Physical Exam
Vital Signs
Vital Signs
Temp Pulse Resp BP Pulse Ox
98.5 F 80 18 107/55 97
07/01/24 22:58 07/01/24 23:15 07/01/24 23:00 07/01/24 23:00 07/01/24 23:15
Physical Exam
General: Well Developed, No Apparent Distress and Appears Chronically Ill
HEENT: NormoCephalic, Moist mucous membranes, Atraumatic, [place] Conjunctivae, Nose Appears Normal and Ears Appear Normal
Respiratory: Clear
Cardiac: S1/S2 and Regular Rhythm
Breast: Deferred by me
GI: Soft, Non Tender, Non Distended and Normal Bowel Sounds; No Organomegaly
Rectal: Deferred by Provider
Genito-urinary: Deferred by me
Musculoskeletal: No Clubbing, No Cyanosis and Edema, Right Lower Extremity
Skin: Warm, Rash (redness swelling of the foot from the great toe to the mid foot and ankle. Edema slightly beyond the ankle. Tenderness to palpations and mild crepitus.) and IV/Catheter Site
Neuro: Awake, Alert, AO x 3 and Nonfocal/grossly intact
Psych: Calm and Intact Judgment/Insight
Laboratory Results
-
07/01/24 20:29
07/01/24 20:29
Laboratory Results
PT 22.8 Sec (11.4-14.6) H 07/01/24 21:06
INR 1.96 07/01/24 21:06
Lactic Acid 1.0 mmol/L (0.7-2.0) 07/01/24 21:06
Total Bilirubin 0.9 mg/dl (0.2-1.3) 07/01/24 20:29
AST 15 U/L (14-36) 07/01/24 20:29
ALT < 10 U/L (0-35) 07/01/24 20:29
Alkaline Phosphatase 95 U/L (38-126) 07/01/24 20:29
Data Reviewed
-
Diagnostic Radiology: Report Reviewed by me
Lab Data: Labs Reviewed by me
Old Records: Reviewed
Impression/Plan
-
IMPRESSION:
64 y.o with h/o metastatic renal cell ca with mets to esophagus s/p stenting, drug induced NICM EF 25% on digoxin, DVT, CKD who is here with sepsis. Had a right foot injury about 1 week ago and appears to have significant cellulitis of that foot
today. She is febrile and hypotensive with MAPs of 55. Lactate is negative. There is mild traumatic injury to bone with surround soft tissue swelling and subcutanous emphysema. Given trauma, unlikely necrotizing fasciitis but high risk. U/A is
also a possible source.
PLAN:
1. Sepsis - source is skin/soft tissue. Normal lactic acid. Likely puncture with trauma and fracture. Nondisplaced.
- admit to IMU
- s/p 30ml/kg NS based on weight
- blood cultures, urine cultures
- IV vancomycin. IV zosyn
- allergy to keflex and some emphysamous subcutanous findings, zosyn for now given risk factors
- check lactic acid, esr
- podiatry consult
- ID consultation
2. CHF - NICM EF 25%
- hold lasix, metoprolol and arb
- check dig level
- continue current dig dosing
- restart metoprolol in am with hold parameters
3. DVT
- continue eliquis
4. DM
- per patient pump
- continue farxiga
5. Hypothyroid
- on levothyroxin
DVT PPX - on eliquis
Code status - Full code
[2024-07-02] MEDS: ZOSYN 50 IV ×4 (00:09→17:18)
[2024-07-02] MEDS: VANCOCIN 530 MG IV (00:16)
[2024-07-02] MEDS: NSS 500 IV (00:28)
[2024-07-02] MEDS: ROXICODONE 10 MG PO ×2 (01:55→17:20)
[2024-07-02] MEDS: LEVOPHED 250 IV (02:49)
--- NOTE | 2024-07-02 03:15 | PTCARENOTE ---
Patient arrived from ED via stretcher accompanied by ED RN. Patient transferred from stretcher to bed with assist from staff without difficulty. Nursing assessment and as documented. Patient with accessed R SubQ port, levophed infusing per orders -
see worklist for titration. IV vanco completed. Patient's at bedside requested to be notified when doctor is rounding. Oriented to room/facility, call cabrera within reach and instructed use, VSS, care ongoing.
[2024-07-02 04:22] LABS: Hematocrit 27.5 % (37.0-47.0); Hemoglobin 9.2 g/dL (12.0-16.0); Mean Corp Hgb Conc. 33.5 g/dL (33.0-37.0); Mean Corpuscular Hgb 29.1 pg (27.0-31.0); Mean Platelet Volume 9.3 fL (7.4-10.4); Platelet Count 264 10^3/uL (130-400); Red Blood Cell Count 3.16 10^6/uL (4.20-5.40); Red Cell Dist. Width 14.5 % (11.5-14.5); White Blood Cell Count 16.6 10^3/uL (4.8-10.8)
[2024-07-02 04:51] LABS: Digoxin 2.1 ng/ml (0.8-2.0)
[2024-07-02] MEDS: SYNTHROID 50 MCG PO (05:55)
[2024-07-02] MEDS: CARAFATE SUSPENSION 1 GM PO ×3 (05:55→17:19)
[2024-07-02] MEDS: SYNTHROID 200 MCG PO (05:55)
[2024-07-02 07:10] LABS: Lactic Acid 0.8 mmol/L (0.7-2.0)
[2024-07-02 07:45] LABS: Glucose - Point of Care 101 mg/dl (70-99)
[2024-07-02] MEDS: PT'S OWN INSULIN PUMP - NovoLOG SC ×4 (08:13→21:57)
[2024-07-02] MEDS: ZENPEP DELAYED RELEASE CAPSULE 10 CAPSULE PO ×2 (08:14→12:37)
[2024-07-02] MEDS: ZETIA 10 MG PO (08:15)
[2024-07-02] MEDS: TOPROL XL 25 MG PO (08:15)
[2024-07-02] MEDS: LOW STRENGTH ASPIRIN 81 MG PO (08:15)
[2024-07-02] MEDS: CYMBALTA DELAYED RELEASE 60 MG PO (08:15)
[2024-07-02] MEDS: FARXIGA 10 MG PO (08:15)
[2024-07-02] MEDS: NEURONTIN 600 MG PO ×3 (08:16→21:19)
[2024-07-02] MEDS: PROTONIX 40 MG PO (08:16)
[2024-07-02] MEDS: ELIQUIS 5 MG PO ×2 (08:16→21:50)
[2024-07-02] MEDS: LR 500 IV (08:55)
--- NOTE | 2024-07-02 09:15 | W.PN.HOSP.TC ---
Today's Communication/Plan
-
See PN
Assessment / Plan
Assessment / Plan
64yo F with PMHx of metastatic pancreatic CA with spinal mets, currently on RT, anxiety, hypothyroidism, Renal cell CA, HLD, HFrEF of 25%, NSTEMI and ischemic CM, DM, GERD, HTN, anxiety, Hx of recent admission due to esophageal food impaction due to
esophageal stricture with metastasis (left AMA declining stent), Hx of DVT on Eliquis brought by her due to hypotension, confusion. Was advised to bring patient to ED by oncologist.
Found R foot swelling, redness and pain, XR showed subacute or old fracture of the base of the fifth metatarsal bone and Possible nondisplaced fracture of the base of the proximal phalanx of the great toe with possible superimposed infection.
Patient had few falls over past week too.
A/P:
#Possible nondisplaced fracture of the base of the proximal phalanx of the great toe
#Probable subacute or old fracture of the base of the fifth metatarsal bone
#R foot cellulitis with sepsis on admission (AMS, leukocytosis) and septic vs hypovolemic shock
Zosyn
ID cosnult
Fluid recuscitation
Midodrine PRN
Surgical boot for ambulation
Podiatry consult, PT/OT
wean off pressors
Bcx pending
#Pyuria
Ucx pending
no significant urinary symptoms
#Mild hyponatremia
#Mild hypocalcemia
#EVETTE
2/2 dehydration and poor oral intake
Baseline Cr 1.0
hydrate and follow labs
correct electrolytes
#Anemia
most liekyl 2/2 CA
anemia w/u
watch CBC
#Hx of dysphagia 2/2 esophageal mets s/p esophageal stent
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
#Hypothyroidfism
check TSH and cont synthroid
#DM type 2 with neuropathy
Accuchecks, Insulin SS, hold Farxiga ro avoid diuretic effect
DM diet
#HLD
#Renal cell CA
#Metastatic pancreatic CA
#Pathologic sacral Fx with spinal mets on RT
#HFrEF, not in exacerbation
#Hx of DVT
#Ischhemic CM
#Neuropathy
Essential HTN
Digoxil level elevated -hold and watch level. restart q48h
hold BB and diuretics while hypotensive, watch for fluid overload with low EF
cont rest of meds
Cont outpatient follow up with established specialists
DVT ppx Eliquis
Full code
I have spent at least 59min reviewing chart, test results, communication with consultants and providing direct patient care
Anticipated Discharge: > 48 hours
Subjective/Interval History
-
Date of Service: July 02, 2024
Objective Data
-
Labs:
Laboratory Results
07/01/24 07/02/24 07/02/24
21:06 04:09 06:50
WBC 16.6 H
Hgb 9.2 L
Hct 27.5 L
Plt Count 264
PT 22.8 H
INR 1.96
Sodium Pending
Potassium Pending
Chloride Pending
Carbon Dioxide Pending
BUN Pending
Creatinine Pending
Glucose Pending
Calcium Pending
Vital Signs:
Vital Signs
Temp Pulse Resp BP Pulse Ox
98.1 F 78 21 128/61 97
07/02/24 07:50 07/02/24 08:15 07/02/24 06:30 07/02/24 08:15 07/02/24 06:30
Review of Systems
-
History Source: Patient
All other systems: Reviewed and negative
Constitutional: Reports Weakness
Physical Exam
-
General: No Apparent Distress
HEENT: Normocephalic
GI: Soft, Nontender and Nondistended
Musculoskeletal: No Clubbing, No Cyanosis and Edema, Right Lower Extrem (foot)
Skin: Other (R foot redness)
--- NOTE | 2024-07-02 09:26 | PHA.VAN.IN ---
Assessment
- Assessment
Renal Function: Appears elevated from baseline (SCR 1.3-->1.4 vs ~0.9)
Concomitant Antimicrobials: piperacillin/tazobactam
- Previous Dosing Experience
Previous Regimen: Vanc 1500mg Q24H
Date of Regimen: June 2021
Provided Trough of: 13
Provided AUC of: 525
Patient's SCR is: Elevated compared to previous dosing experience (SCR 1.4 vs 1-1.2)
Patient's weight is: Decreased compared to previous dosing experience (currently 57kg vs ~87kg)
Regimen provided the following additional patient-specific PK:
Extrapolated Cmax (mcg/mL): 33.3 (Peak level was drawn: Appropriately)
Extrapolated Cmin (mcg/mL): 13.3 (Trough Drawn: Appropriately)
Calculated ke: 0.0407
Calculated half life (H): 17
Calculated Vd (L): 70.18
Calculated Vanc CL (ml/min): 47.6
Plan
- Plan
Initial / Loading Dose: 1500mg - 07/02 00:16
Maintenance Regimen: dosing by level - give additional 500mg x1 now to maintain levels
Monitoring: random 07/03 0600
Pharmacokinetics Vancomycin I
- -
Patient Age: 64
Patient Sex: Female
Vancomycin Day #: 1
Indication: Skin And Soft Tissue
Requesting Provider: Dr. Cadena
Pertinent Antimicrobial Allergies:
cephalexin - rash, toelrated penicillin
clindamycin - rash
Height / Weight:
Height 5 ft 3 in
Actual Weight 57.3 kg
Pertinent Past Medical History: metastatic pancreatic cancer, DM 2
- Vital Signs / Lab Results
Temp Pulse Resp BP Pulse Ox
98.1 F 78 21 128/61 97
07/02/24 07:50 07/02/24 08:15 07/02/24 06:30 07/02/24 08:15 07/02/24 06:30
Lab Results - Hematology
07/01/24 07/02/24
20:29 04:09
WBC 16.7 H 16.6 H
Lab Results - Chemistry
07/01/24
20:29
BUN 32 H
Creatinine 1.3 H
Estimated Creat Clear 39
Albumin 2.5 L
07/01/24 07/02/24 07/02/24
21:06 01:15 06:50
Lactic Acid 1.0 Cancelled 0.8
Lab Results - Urine
07/01/24
20:50
Urine Nitrite (Reflex) Negative
Leukocyte Esterase Rfl 3+ A
Urine WBC (Reflex) 26-30 A
Ur Squamous Epith Cells 0-2
Urine Bacteria (Reflex) Many A
--- NOTE | 2024-07-02 11:18 | W.CS.POD ---
Addendum entered and electronically signed by Chinedu Hagen DPM 07/03/24 17:06:
A non excisional debridement performed at bedside to remove all hyperkeratotic skin from Rt plantar aspect under submet 1st, About 2.5 cm x 2.0
Original Note:
Consult Summary - Podiatry
-
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
poor response to communication. Patient had fever and hypotension, admitted with septic symptoms, Patient currently awake, alert, no acute distress, . She states that she had injured her Rt foot few days back when she fell. She has swollen Rt foot
with large bulla to rt 1st toe area dorsal aspect and dusky and cold Rt big toe . Rt submet 1st with callus
She is diabetic with diabetic small vessel disease , recent OCTAVIANO'S with possible infrapopliteal disease, She follows up with Dr. Ying.
Reviewed PMH, meds and allergies
Exam : Diminished pedal pulses B/l feet
Rt foot edematous, erythematous with distal cooling and some duskiness to Rt hallux
Serous bulla to the Rt dorsum foot at the base of the hallux, Rt sub 1st dry callus with local fluctuance noted
No red streaking up the leg, no crepitus felt to Rt foot
No other areas of any ecchymosis, no other open ulcerations noted.
Xrays showing non displaced fracture at base proximal phalanx, small old chipped fracture at Rt 5th met base
Bone demineralization noted
WBC count at 16
A/P; Rt foot cellultis with abscess
Diabetic vascular disease
Rt foot injury - possible Rt proximal phalanx base non displaced fracture - stable
Plan: Patient evaluated at bedside
Cont IV abx
At beside using # 15 blade debrided Rt submet 1st callus and noted some purulent drainage below the callus, drainage sent for aerobic and anaerobic cultures
Dorsal bulla drained 1cc serous drainage .
Will request vascular consult
Surgical shoe to Rt foot can wt bear as tolerated.
Podiatry will follow
--- NOTE | 2024-07-02 11:44 | CON.ID ---
Consultation
-
Date/Time Consultation Requested: July 02, 2024 0316
Date/Time Consultation Performed: July 02, 2024 1145
Requesting Provider: Dr. Arcadio Bush
Performing Provider: Dr. Wendy Neil
Reason for Consultation: foot cellulitis
Chief Complaint / Past History
Chief Complaint
Foot redness and pain
History of Present Illness
64-year-old female with diabetes, mellitus, CAD, cardiomyopathy, metastatic pancreatic cancer on treatment who presented to the hospital July 01 due to right foot redness and swelling. She states that she fell and twisted her right foot/ankle on her
way to doctors visit last week. There was foot and ankle pain. She was able to bear weight. Foot became swollen. Yesterday she noted that the foot was red. Also with subjective fevers. She came to the ER. Temperature 102.3. White count was
16.7. X-ray shows nondisplaced fracture of the proximal phalanx of the great toe with emphysema and nondisplaced fracture tip of the distal fibula. Her blood pressure was low. Blood cultures 1 out of 2 so far growing gram-negative rods and
gram-positive cocci in clusters. She is currently on vancomycin and Zosyn. She complains of malaise and weakness. Positive foot and ankle pain. No cough or shortness of breath. No nausea, vomit, abdominal pain or diarrhea. No urine symptoms.
Past History
Additional Past Medical History:
Diabetes mellitus
Pancreatic cancer status post Whipple, mets to esophagus (s/p stent placed), mets to spine
Esophageal cancer status post stent
Pathological L2 compression fracture due to osseous mets
CAD status post PTCA with multiple stents
Cardiomyopathy
CVA
CKD3
PAD status post left lower extremity bypass
Hypothyroidism
History of DVT
Right nephrectomy, benign tumor
Right chest wall port placement
Osteomyelitis status post left fifth toe amputation
Allergy History:
cephalexin monohydrate [From Keflex] Allergy (Verified 07/01/24 19:51)
Rash; tolerated PCN per pt
clindamycin Allergy (Verified 07/01/24 19:51)
Rash
influenza virus vaccine, specific [influenza virus vacc,specific] Allergy (Verified 07/01/24 19:51)
Rash Swelling, itching.
lisinopril Allergy (Verified 07/01/24 19:51)
cough
pneumococcal vaccine Allergy (Verified 07/01/24 19:51)
rash, welts throughout body
Fvhogep-JWH-DvG Reductase Inhibitor [Rzjajrc-Nit-Rwo Reductase Inhibitor] Allergy (Verified 07/01/24 19:51)
LEG PAIN
Medications Reviewed: Yes
Current Antibiotics:
Vancomycin
Zosyn
Social History
Tobacco: Smoker
Alcohol: None
Drug: None
Personal:
Living: With Family
Review of Systems
Review of Systems
General: Fever, Chills and Change in Appetite
HEENT: Negative Sinus Problems, Headache or Pharyngitis
Cardiovascular: Negative Chest Pain or Dyspnea
Respiratory: Negative Dyspnea or Cough
Gasteroenterology: Negative Nausea, Vomiting or Diarrhea
Genital / Urological: Negative Dysuria or Flank Pain
Endocrine: Weakness and Fatigue
Neurological: Negative Headache or Dizziness
All systems: All other systems were reviewed and were negative
Vital Signs
Temp Pulse Resp BP Pulse Ox
98.1 F 78 21 128/61 97
07/02/24 07:50 07/02/24 08:15 07/02/24 06:30 07/02/24 08:15 07/02/24 06:30
Selected Entries
07/01/24
20:55
Temp 102.3 F H
Physical Exam
Physical Exam
Constitutional: Chronically Ill and Cachetic
Eyes: No Conjunctival Hemorrhage and Sclera Anicteric
Cardiovascular: Regular Rate and S1/S2
Pulmonary: Clear
Gastrointestinal: Soft, Non Tender, Non Distended and Normal Bowel Sounds
Genito-Urinary: Negative CVA Tenderness
Extremities: Edema (Right foot/ankle) and Erythema (Right foot from prox great toe to dorsum of foot with bright erythema; +large blister first toe web; + callus on plantar first met head)
Neurological: AO x 3
Lines: Port (RCW no erythema)
Lab / Diagnostic Study Results
07/02/24 04:09
Abs Immat Gran (auto) 0.1 10^3/uL (0-0.05) H 07/01/24 20:29
Absolute Neuts (auto) 15.3 10^3/uL (1.4-6.5) H 07/01/24 20:29
Absolute Lymphs (auto) 0.3 10^3/uL (1.2-3.4) L 07/01/24 20:29
Absolute Monos (auto) 0.9 10^3/uL (0.1-0.6) H 07/01/24 20:29
Absolute Basos (auto) 0.1 10^3/uL (0-0.2) 07/01/24 20:29
Immature Gran % 0.7 % (0-0.5) H 07/01/24 20:29
Neutrophils % 91.3 % (42.2-75.2) H 07/01/24 20:
Lymphocytes % 2.0 % (20.5-51.1) L 07/01/24 20:
Monocytes % 5.4 % (1.7-9.3) 07/01/24 20:29
Eosinophils % 0.2 % (0-6) 07/01/24 20:
Basophils % 0.4 % (0-2) 07/01/24 20:29
ESR Cancelled 07/02/24 06:50
PT 22.8 Sec (11.4-14.6) H 07/01/24 21:06
INR 1.96 07/01/24 21:06
Lactic Acid 0.8 mmol/L (0.7-2.0) 07/02/24 06:50
Ur Squamous Epith Cells 0-2 /LPF (Few) 07/01/24 20:50
Microbiology Results
Micro:
07/01/24 21:35 Blood Culture - Preliminary
Blood/Venous Positive culture in progress
Gram Stain - Preliminary
07/01/24 20:50 Urine Culture - Pending
Urine
07/01/24 21:07 Blood Culture - Pending
Blood/Venous
07/01/24 CXR: No acute disease of the chest.
07/01/24 Foot XRAY: Possible nondisplaced fracture of the base of the proximal phalanx of the great toe. Clinical correlation recommended. Associated soft tissue subcutaneous emphysema. This can be seen with a laceration or infection. Clinical
correlation recommended. Probable subacute or old fracture of the base of the fifth metatarsal bone. New.
07/01/24 Ankle XRAY: Probable nondisplaced fracture of the tip of the distal fibula with associated mild soft tissue swelling. New.
Assessment / Plan
# Right foot cellulitis with abscess
# GNR and GPC cluster bacteremia
# Right proximal hallux and distal fibula nondisplaced fx
# Fever
# Leukocytosis
# Metastatic pancreatic ca
# DM
# PAD hx LLE bypass
# Allergy to cephalosporin and clindamycin
-Appreciate podiatry who debrided right submet callus, noted purulent drainage. Cx's pending.
- Repeat blood cx's
- Continue Vancomycin and Zosyn for now pending cx data.
- Consider MRI of foot.
- Follow temps/wbc.
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
Diabetes mellitus
Pancreatic cancer status post Whipple, mets to esophagus (s/p stent placed), mets to spine
Esophageal cancer status post stent
Pathological L2 compression fracture due to osseous mets
CAD status post PTCA with multiple stents
Cardiomyopathy
CVA
CKD3
PAD status post left lower extremity bypass
Hypothyroidism
History of DVT
Right nephrectomy, benign tumor
Right chest wall port placement
Osteomyelitis status post left fifth toe amputation
Care Review
Plan reviewed with: Physician (Dr. Bush)
[2024-07-02 12:27] LABS: Glucose - Point of Care 70 mg/dl (70-99)
[2024-07-02 12:45] LABS: Blood Urea Nitrogen 36 mg/dl (7-17); Carbon Dioxide 27 mmol/L (22-30); Chloride 99 mmol/L (98-107); Creatine Phosphokinase 470 U/L (30-135); Estimated Creatinine Clearance 34 ml/min; Glucose 60 mg/dl (70-99); Potassium 3.9 mmol/L (3.5-5.1); Sodium 131 mmol/L (135-145); eGFR 42.27
--- NOTE | 2024-07-02 13:07 | W.PN.UPDATE ---
Update Note
Progress Note Update
Bacteremia noted
Bcx reordered
cont Abx
Echo ordered
complicated by presence of the chemo-port
[2024-07-02 13:15] LABS: TSH 1.36 uIU/ml (0.47-4.68)
[2024-07-02 13:48] LABS: Erythrocyte Sed Rate 72 mm/hour (0-20)
--- NOTE | 2024-07-02 14:05 | PTOTSP ---
Speech Therapy Evaluation:
Pt presents with grossly functional oropharyngeal swallow at bedside. No s/sx of aspiration across trials. Pt did endorse difficulty swallowing with stasis/pain in mid-sternal region, indicating esophageal > pharyngeal dysfunction. Difficulty is
likely in the setting of pancreatic cancer with metastasis to the esophagus, especially with symptoms beginning following recent stent placement. Pt remains at increased risk of post-prandial aspiration due to aforementioned areas of concern. CXR
without PNA, WBC WNL, pt afebrile, and on room air.
Recommend:
1. Continue regular solids and thin liquids
2. Medications as tolerated in puree (crushed, cut in 1/2, whole)
3. General aspiration precautions, strict reflux precautions
4. Consider GI consult given increased difficulty swallowing following esophageal stent
5. CLAMP REMOVER to follow, likely brief
[2024-07-02] MEDS: VANCOCIN HCL 500 MG 100 IV (14:38)
--- NOTE | 2024-07-02 15:40 | CM ---
Patient with Hx metastatic pancreatic CA with spinal mets, current radiation therapy, chest Port, recents falls with Dx R foot cellulitis with sepsis, Possible fracture proximal phalanx great toe, Probable subacute/old fracture fifth metatarsal.
Receiving Levophed gtt, IV Abx, Roxicodone prn. PT & OT recommend HH, Right foot surgical shoe, WBAT.
Met with patient and Jua nJose;
the patient resides with her in a 1 story house [facility].
The patient has been independent in ADLs and ambulating with her RW.
She has had difficulty ambulating due to discomfort in her right foot and since a fall a few weeks ago.
The patient has had 3 falls total in the past few weeks.
DME - RW
Prior [facility]
No prior SNF.
PCP - Daniel Billingsley
[facility]
Plan offer [facility].
Plan probable home with VN.
[2024-07-02] MEDS: ZENPEP DELAYED RELEASE CAPSULE 5 CAPSULE PO (16:30)
--- NOTE | 2024-07-02 16:45 | CON.VAS ---
Consultation
Consultation Request
Date/Time Consultation Performed: 07/03/24 7:30
Performing Provider: Eduard
Reason for Consultation: Dusky right great toe
Medical History
-
Chief Complaint: Weakness
History of Present Illness:
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 Now recent fall and right
foot injury. Subsequent foot infection. Incision and drainage performed at bedside by podiatry yesterday.
Vascular consult for right foot wound/PAD evaluation. On exam/awake and alert. Breathing unlabored. Abdomen soft. 2+ femoral pulses palpable bilaterally. On the right side 1+/2+ popliteal and DP pulse palpable relatively easily. Foot with
cellulitis/erythema, slight distal boggy appearance.
Recent outpatient arterial ultrasound: IMPRESSION: 1. Left ankle brachial index measures 0.93, compared to 0.77 on prior study. Left toe brachial index 0.76. Chronic occlusion of the left popliteal to posterior tibial arterial bypass. Infrapopliteal
disease is suspected based on pressure differential between the posterior tibial and dorsalis pedis arteries.
2. Right ankle-brachial index 0.94, compared to 0.88 on prior study. Right toe brachial index 0.6. Mild stenosis within the right common femoral artery. Infrapopliteal disease is suspected based on pressure differential and spectral Doppler waveform
analysis.
Past Medical History
Past Medical History: Other (Hypertension, Metastatic Pancreatic Cancer, ASCVD (CAD, PAD, CVA), DM-II, Renal Mass (Benign), History of DVT, Hypothyroidism, CKD III , Cardiomyopathy, ischemic (LVEF 45-50%))
Past Surgical History: Other (PTCA with Multiple Stents (5), LLE Bypass (occluded), Whipple, Right Nephrectomy (benign), R ACW Port Placement, L 5th Toe Amputations (Osteomyelitis), Cholecystectomy and pancreaticoduodenectomy)
Social History
Tobacco: Smoker
Alcohol: None
Drug: None
Living: With Roomate
Family History
Family History: Cancer (mother: Multiple Myeloma) and Diabetes (Father)
Allergies / Home Medications
Allergy/AdvReac Type Severity Reaction Status Date / Time
cephalexin monohydrate Allergy Rash; Verified 07/01/24 19:51
[From Keflex] tolerated
PCN per pt
clindamycin Allergy Rash Verified 07/01/24 19:51
influenza virus vaccine, Allergy Rash Verified 07/01/24 19:51
specific Swelling,
[influenza virus itching.
vacc,specific]
lisinopril Allergy cough Verified 07/01/24 19:51
pneumococcal vaccine Allergy rash, Verified 07/01/24 19:51
welts
throughout
body
Ewizhic-BMB-NqH Reductase Allergy LEG PAIN Verified 07/01/24 19:51
Inhibitor
[Tqjyfmc-Ulp-Yef Reductase
Inhibitor]
�Medication �Instructions �Recorded �Confirmed �Type
dapagliflozin propanediol 10 mg 10 mg PO DAILY #30 tabs 08/05/20 07/01/24 Rx
tablet (Farxiga)
duloxetine 60 mg capsule,delayed 60 mg PO DAILY Mental 06/20/21 07/01/24 History
release Health/Anxiety
gabapentin 600 mg tablet 600 mg PO TID Neurological 10/02/21 07/01/24 History
Condition
Patient Own Insulin Pump 1 sliding scale dose SC .NOVOLOG 09/16/23 07/01/24 History
VIA PUMP Diabetes
apixaban 5 mg tablet (Eliquis) 5 mg PO BID Blood Clot 09/16/23 07/01/24 History
Prevention/Tx
levothyroxine 200 mcg tablet 250 mcg PO DAILY Thyroid 09/16/23 07/01/24 History
(Synthroid)
omeprazole 20 mg capsule,delayed 40 mg PO DAILY Gastrointestinal 12/03/23 07/01/24 History
release Issue
aspirin 81 mg chewable tablet 81 mg PO DAILY #0 tabs 12/08/23 07/01/24 Rx
digoxin 125 mcg (0.125 mg) tablet 125 mcg PO DAILY Heart 04/10/24 07/01/24 History
Disease/Condition
ezetimibe 10 mg tablet 10 mg PO DAILY High Cholesterol 04/10/24 07/01/24 History
metoprolol succinate 25 mg capsule 25 mg PO DAILY Heart 04/10/24 07/01/24 History
sprinkle, ext. release 24 hr Disease/Condition
furosemide 40 mg tablet 40 mg PO .MON.WED.FRIBID Fluid 04/28/24 07/01/24 History
Retention/Swelling
furosemide 40 mg tablet 40 mg PO .TUTHSASU Fluid 04/28/24 07/01/24 History
Retention/Swelling
valsartan 40 mg tablet 40 mg PO BID Blood Pressure 06/07/24 07/01/24 History
tfpomp-yjphnhhp-yavmcne 2 cap PO PRN PRN with snacks 07/01/24 07/01/24 History
24,000-76,000-120,000 unit
capsule,delayed rel (Creon)
wfwkpk-jacgqfow-dcajjsf 5 cap PO AC 07/01/24 07/01/24 History
24,000-76,000-120,000 unit
capsule,delayed rel (Creon)
oxycodone 10 mg tablet 10 mg PO Q4H PRN pain 07/01/24 07/01/24 History
sucralfate 100 mg/mL oral 10 ml PO Q6H 07/01/24 07/01/24 History
suspension
Review of Systems
-
History Source: Patient
All other systems: Negative unless noted
Constitutional: Reports Fatigue
EENT: Reports No Symptoms
Respiratory: Reports No Symptoms
Cardiac: Reports No Symptoms
Vascular: Denies Leg Pain / Claudication
Abdomen/GI: Reports Nausea and Vomiting
: Reports No Symptoms
Musculoskeletal: Reports Edema
Skin: Reports Other (Right foot redness/swelling, great toe discoloration)
Neurological: Reports No Symptoms
Physical Exam
Vital Signs
Temp Pulse Resp BP Pulse Ox
99.1 F 81 21 123/53 97
07/02/24 15:43 07/02/24 15:30 07/02/24 15:30 07/02/24 15:30 07/02/24 15:30
Lab Results
07/02/24 04:09
07/02/24 11:43
Physical Exam
General: No Apparent Distress
HEENT: Normocephalic and Atraumatic
Respiratory: Non Labored Respirations
Cardiac: Negative JVD
GI: Soft and Non Tender
Musculoskeletal: No Clubbing and Edema
Skin: Warm and Other (Right great toe dusky, warm. Open site at the base of right toe on the plantar side)
Neuro: Awake, Alert and Oriented
Pulses: Right Popliteal: +2 and Right Dorsalis Pedis: +1
Assessment / Plan
-
Plan/ Right foot infection. Noninvasive studies reviewed from a month or 2 ago. OCTAVIANO in low normal limits 0.93 on the right side. TBI slightly decreased in the 0.6 range. Palpable DP pulse. However for completeness sake would favor angiography
given her history of peripheral arterial disease. I discussed this all with her. She does have some renal insufficiency. Would favor renal optimization, and possible angiogram Saturday. Hold Eliquis 24 hours prior. Discussed angiogram with
patient. Discussed procedure/anticipated outcomes. Discussed risks including but not limited to bleeding, arterial injury/worsened or acute limb ischemia, renal failure. She understands all these things and is in agreement to proceed. Further
foot debridement as needed given persistent infection. Will defer to podiatry. If operative intervention is needed for the foot, would proceed. Imperative to get source control prior to any revascularization.
Data Reviewed
-
Ultrasound: Discussed with Patient
Labs: Labs Reviewed by me
[2024-07-02 16:46] LABS: Glucose - Point of Care 99 mg/dl (70-99)
[2024-07-02 21:18] LABS: Hematocrit 29.9 % (37.0-47.0); Hemoglobin 10.4 g/dL (12.0-16.0)
[2024-07-02 21:45] LABS: Glucose - Point of Care 117 mg/dl (70-99)
--- NOTE | 2024-07-02 23:25 | PTCARENOTE ---
Assumed care for patient overnight, received report from saeid RN. Pt AAOx3, very drowsy this afternoon. Pt states it is 'the pain medication', bedside who agrees. Pt denies any pain at this time. Levophed weaned to 1mcq/min BP 107/57 MAP
72. Pt remains on room air SpO2 97%. Pt has a dry occasional cough. Pt ambulated from the chair back to bed with assist x1 with a rolling walker. Pt became tachycardic HR 150's. Pt denies any symptoms related. IV abx cont. Pt took pills whole with
water fine. Blood cultures drawn and sent. Pt rings appropriately, call cabrera within reach.
[2024-07-03] VITALS (22 sets, daily range): BP systolic 93–136; BP diastolic 50–65
[2024-07-03] MEDS: ZOSYN 50 IV ×5 (00:42→23:59)
[2024-07-03] MEDS: CARAFATE SUSPENSION 1 GM PO ×5 (00:42→23:58)
[2024-07-03] MEDS: ROXICODONE 5 MG PO (04:01)
[2024-07-03] MEDS: TYLENOL 650 MG PO ×2 (04:02→21:51)
[2024-07-03 04:35] LABS: % Basophils 0.4 % (0-2); % Eosinophils 0.8 % (0-6); % Lymphocytes 3.9 % (20.5-51.1); % Monocytes 8.2 % (1.7-9.3); % Neutrophils 85.7 % (42.2-75.2); Absolute Eosinophils 0.1 10^3/uL (0-0.7); Absolute Immature Granulocytes 0.1 10^3/uL (0-0.05); Absolute Lymphocytes 0.4 10^3/uL (1.2-3.4); Absolute Monocytes 0.8 10^3/uL (0.1-0.6); Absolute Neutrophils 8.3 10^3/uL (1.4-6.5); Hematocrit 27.4 % (37.0-47.0); Mean Corp Hgb Conc. 32.8 g/dL (33.0-37.0); Mean Corpuscular Hgb 28.8 pg (27.0-31.0); Mean Corpuscular Volume 87.8 fL (81.0-99.0); Mean Platelet Volume 9.4 fL (7.4-10.4); Nucleated Red Blood Cells % 0 %; Platelet Count 284 10^3/uL (130-400); Red Blood Cell Count 3.12 10^6/uL (4.20-5.40); Red Cell Dist. Width 14.6 % (11.5-14.5); Reticulocyte Count 1.2 % (0.4-2.8); White Blood Cell Count 9.7 10^3/uL (4.8-10.8)
[2024-07-03 04:54] LABS: Vancomycin Random 13.3 ug/ml
[2024-07-03 05:12] LABS: ALT (SGPT) 12 U/L (0-35); AST (SGOT) 34 U/L (14-36); Albumin 2.3 g/dl (3.5-5.0); Alkaline Phosphatase 133 U/L (38-126); Blood Urea Nitrogen 35 mg/dl (7-17); Calcium 7.8 mg/dl (8.4-10.2); Carbon Dioxide 30 mmol/L (22-30); Chloride 100 mmol/L (98-107); Digoxin 1.8 ng/ml (0.8-2.0); Estimated Creatinine Clearance 37 ml/min; Glucose 84 mg/dl (70-99); LDH 186 U/L (120-246); Magnesium 1.8 mg/dl (1.6-2.3); Phosphorus 2.8 mg/dl (2.5-4.5); Potassium 3.6 mmol/L (3.5-5.1); Sodium 132 mmol/L (135-145); Total Bilirubin 0.7 mg/dl (0.2-1.3); Total Protein 5.3 g/dl (6.3-8.2); eGFR 46.21
[2024-07-03 05:19] LABS: Total Iron Binding Capacity 125 ug/dl (265-497)
[2024-07-03 05:27] LABS: Iron < 20 ug/dl (37-170)
[2024-07-03] MEDS: SYNTHROID 50 MCG PO (06:00)
[2024-07-03] MEDS: SYNTHROID 200 MCG PO (06:00)
[2024-07-03 06:14] LABS: Vitamin B12 455 pg/ml (239-931)
--- NOTE | 2024-07-03 08:06 | W.PN.UPDATE ---
Update Note
Progress Note Update
Seen and evaluated. Seen with HEAVY REPAIRER. Full consultation to follow. 64-year-old female known to our service status post left lower extremity bypass, failed. Now recent fall and right foot injury. Subsequent foot infection. Incision and drainage
performed at bedside by podiatry. On exam/awake and alert. Breathing unlabored. Abdomen soft. 2+ femoral pulses palpable bilaterally. On the right side 1+/2+ popliteal and DP pulse palpable relatively easily. Foot with cellulitis/erythema,
slight distal boggy appearance.
Plan/ Right foot infection. Noninvasive studies reviewed from a month or 2 ago. OCTAVIANO in low normal limits 0.93 on the right side. TBI slightly decreased in the 0.6 range. Palpable DP pulse. However for completeness sake would favor angiography
given her history of peripheral arterial disease. I discussed this all with her. She does have some renal insufficiency. Would favor renal optimization, and possible angiogram Saturday. Hold Eliquis 24 hours prior. Discussed angiogram with
patient. Discussed procedure/anticipated outcomes. Discussed risks including but not limited to bleeding, arterial injury/worsened or acute limb ischemia, renal failure. She understands all these things and is in agreement to proceed. Further
foot debridement as needed given persistent infection. Will defer to podiatry. If operative intervention is needed for the foot, would proceed. Imperative to get source control prior to any revascularization.
[2024-07-03] MEDS: ELIQUIS 5 MG PO ×2 (08:26→21:52)
[2024-07-03] MEDS: ZENPEP DELAYED RELEASE CAPSULE 5 CAPSULE PO ×3 (08:26→17:08)
[2024-07-03] MEDS: PROTONIX 40 MG PO (08:27)
[2024-07-03] MEDS: CYMBALTA DELAYED RELEASE 60 MG PO (08:27)
[2024-07-03] MEDS: NEURONTIN 600 MG PO ×3 (08:27→21:52)
[2024-07-03] MEDS: ZETIA 10 MG PO (08:27)
[2024-07-03] MEDS: LOW STRENGTH ASPIRIN 81 MG PO (08:27)
[2024-07-03] MEDS: PT'S OWN INSULIN PUMP - NovoLOG SC ×3 (08:30→22:53)
[2024-07-03 08:41] LABS: Glucose - Point of Care 84 mg/dl (70-99)
--- NOTE | 2024-07-03 08:59 | PHA.VAN.FU ---
Vancomycin Assessment / Plan
- Assessment
Renal Function: Stable
WBC's are: WNL
In the past 24 hrs, patient has been: Afebrile
Concomitant Antimicrobials: piperacillin/tazobactam
- Assessment - Therapeutic Drug Monitoring
Random Level: 13.3 - drawn ~13.5H after supplemental dose of 500mg
- Dosing Plan
Dosing by Level: Re-dose today (Vanc 750mg)
- Monitoring Plan
Random Level: 07/04 06
- Follow Up
Pharmacy will continue to follow.
Vancomycin Follow UP
- -
Patient Age: 64
Patient Sex: Female
Vancomycin Day #: 2
Indication: Skin And Soft Tissue
Requesting Provider: Dr. Cadena / Rashaad
Pertinent Antimicrobial Allergies:
cephalexin - rash, toelrated penicillin
clindamycin - rash
Height / Weight:
Height 5 ft 3 in
Actual Weight 57.3 kg
Pertinent Past Medical History: metastatic pancreatic cancer, DM 2
- Vital Signs / Lab Results
Temp Pulse Resp BP Pulse Ox
98.8 F 69 14 104/50 98
07/03/24 03:00 07/03/24 06:00 07/03/24 06:00 07/03/24 06:00 07/03/24 06:00
Lab Results - Hematology
07/01/24 07/02/24 07/03/24
20:29 04:09 04:16
WBC 16.7 H 16.6 H 9.7
Lab Results - Chemistry
07/01/24 07/02/24 07/02/24
20:29 04:09 06:50
BUN 32 H Cancelled Cancelled
Creatinine 1.3 H Cancelled Cancelled
Estimated Creat Clear 39 Cancelled Cancelled
Albumin 2.5 L
07/02/24 07/03/24
11:43 04:16
BUN 36 H 35 H
Creatinine 1.4 H 1.3 H
Estimated Creat Clear 34 37
Albumin 2.3 L
07/01/24 07/02/24 07/02/24
21:06 01:15 06:50
Lactic Acid 1.0 Cancelled 0.8
Microbiology Results
07/01/24 21:07 Blood Culture - Preliminary
Blood/Venous Staphylococcus species
Gram Stain - Final
07/01/24 21:35 Blood Culture - Preliminary
Blood/Venous Klebsiella pneumoniae group
Staphylococcus species
Gram Stain - Final
07/02/24 11:43 Gram Stain - Preliminary
Foot - Right
Therapeutic Drug Monitoring
Random Vancomycin 13.3 ug/ml 07/03/24 04:16
[2024-07-03] MEDS: NSS 1000 IV (09:30)
[2024-07-03] MEDS: FLUSH (NSS) 1 FLUSH IV (09:31)
--- NOTE | 2024-07-03 09:34 | W.PN.HOSP.TC ---
Today's Communication/Plan
-
BP improved - off Pressors, cont Abx pending final ID
MRI R foot
noted vascSx plans
restart Digoxin q48h, watch level
Slow hydration ahead of IV contrast with angio
VSE
GI consult
Assessment / Plan
Assessment / Plan
64yo F with PMHx of metastatic pancreatic CA with spinal mets, currently on RT, anxiety, hypothyroidism, PAD s/p LLE bypass failure, Renal cell CA, HLD, HFrEF of 25%, NSTEMI and ischemic CM, DM, GERD, HTN, anxiety, Hx of recent admission due to
esophageal food impaction due to esophageal stricture with metastasis (left AMA declining stent), Hx of DVT on Eliquis brought by her due to hypotension, confusion. Was advised to bring patient to ED by oncologist.
Found R foot swelling, redness and pain, XR showed subacute or old fracture of the base of the fifth metatarsal bone and Possible nondisplaced fracture of the base of the proximal phalanx of the great toe with possible superimposed infection due to
abscess and bacteremia, cannot exclude UTI. Podiatry did I&D, pending final Cx. VascularSx planning on angio on 07/06/24
A/P:
#Possible nondisplaced fracture of the base of the proximal phalanx of the great toe
#Probable subacute or old fracture of the base of the fifth metatarsal bone
#R foot cellulitis with sepsis on admission (AMS, leukocytosis) and septic vs hypovolemic shock with R foot abscess and bacteremia
Zosyn
ID consult
Fluid resuscitation
Surgical boot for ambulation
Podiatry consult: s/p I&D, follow Cx (Staph)
PT/OT: cont with walker
wean off pressors
Bcx: K.pneumonia and staph species
TTE with improved EF but persistent wall motion abnormalities, no overt signs of vegetations
#PAD s/p LLE failed bypass
VascConsult
for angio on 07/06/24 - hold Eliquis 24h prior
#Hx of dysphagia 2/2 esophageal mets and post RT stricture s/p esophageal stent with recurrent pain on swallowing
#Esophageal>pharyngeal dysfunction
Previously was also advised PEG if still not sufficient oral intake - and patient would consider this option
TEST ENGINEER: Regular and thin liquids
Since patient said that patient had trouble swallowing even before stent - VSE
GI consult
#Pyuria with dysuria (burning during urination) - UTI
Ucx GNB
cont Abx pending ID
#Mild hyponatremia
#Mild hypocalcemia
#EVETTE
2/2 dehydration and poor oral intake
Baseline Cr 1.0
hydrate and follow labs
correct electrolytes
#Anemia, most likely 2/2 metastatic bleeds and CA
most likely 2/2 CA
JAIME
watch CBC
FOBT positive
#Hypothyroidism
TSH WNL so cont Synthroid
#DM type 2 with neuropathy
Accuchecks, Insulin SS, hold Farxiga ro avoid diuretic effect
DM diet
#pathological L2 compression Fx with lesion on RT
#Chronic pain on opioids
decrease OXy since patient is sleepy with home dose
cont RT upon D/C
#HLD
#Renal cell CA
#Metastatic pancreatic CA
#HFrEF, not in exacerbation
#Hx of DVT
#Ischemic CM
#Neuropathy
Essential HTN
Digoxin level elevated -hold and watch level. restart q48h and follow digoxin levels
hold BB and diuretics while hypotensive, watch for fluid overload with low EF
cont rest of meds
Cont outpatient follow up with established specialists
DVT ppx Eliquis
Full code
I have spent at least 59min reviewing chart, test results, communication with consultants and providing direct patient care
Anticipated Discharge: > 48 hours
Subjective/Interval History
-
Date of Service: July 03, 2024
Objective Data
-
Labs:
Laboratory Results
07/03/24
04:16
WBC 9.7
Hgb 9.0 L
Hct 27.4 L
Plt Count 284
Sodium 132 L
Potassium 3.6
Chloride 100
Carbon Dioxide 30
BUN 35 H
Creatinine 1.3 H
Glucose 84
Calcium 7.8 L
Total Bilirubin 0.7
AST 34
ALT 12
Alkaline Phosphatase 133 H
Vital Signs:
Vital Signs
Temp Pulse Resp BP Pulse Ox
97.5 F 69 14 104/50 98
07/03/24 07:25 07/03/24 06:00 07/03/24 06:00 07/03/24 06:00 07/03/24 06:00
I&O
07/02/24 07/03/24 07/04/24
06:59 06:59 06:59
Intake Total 2045
Balance 2045
--- NOTE | 2024-07-03 09:47 | W.PN.ID1 ---
Date of Service
Date of Service: July 03, 2024
Today's Communication
Continue Vanco and Zosyn
Assessment / Plan
# Right hallux abscess, ischemic toe
# Right foot cellulitis
# Klebsiella (1 of 4 bottles) and Staph species (2 of 4 bottles) bacteremia, foot source
# Right proximal hallux and distal fibula nondisplaced fx
# Fever resolved
# Leukocytosis resolved
# Metastatic pancreatic ca on tx via port
# DM
# PAD hx failed LLE bypass
# Allergy to cephalosporin and clindamycin
- Podiatry debrided right submet callus, noted purulent drainage. Cx's: staph species
- Repeat blood cx's pending
- For angiogram Saturday when EVETTE improves, per Vascular.
- MRI of foot.
- Follow temps/wbc.
- Continue Vancomycin and Zosyn for now pending cx data.
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
Diabetes mellitus
Pancreatic cancer status post Whipple, mets to esophagus (s/p stent placed), mets to spine
Esophageal cancer status post stent
Pathological L2 compression fracture due to osseous mets
CAD status post PTCA with multiple stents
Cardiomyopathy
CVA
CKD3
PAD status post left lower extremity bypass
Hypothyroidism
History of DVT
Right nephrectomy, benign tumor
Right chest wall port placement
Osteomyelitis status post left fifth toe amputation
Chief Complaint
-: Clinical Sepsis, Cellulitis and Bacteremia
Subjective / Review of Systems
at bedside.
Feels better today.
Vital Signs / Physical Exam
Vital Signs
Vital Signs
Temp Pulse Resp BP Pulse Ox
97.5 F 69 14 104/50 98
07/03/24 07:25 07/03/24 06:00 07/03/24 06:00 07/03/24 06:00 07/03/24 06:00
Physical Exam
Constitutional: Chronically Ill
Eyes: Sclera Anicteric
Cardiovascular: Regular Rate and S1/S2
Pulmonary: Clear
Gastrointestinal: Soft, Non Tender, Non Distended and Normal Bowel Sounds
Extremities: Edema (right foot/ankle), Cyanosis (Right great toe) and Erythema (Right dorsum foot)
Neurological: AO x 3
Lines: Port (RCW no erythema)
Objective Data
Lab Data
Lab Results
07/03/24 04:16
07/03/24 04:16
ESR Cancelled 07/02/24 06:50
PT 22.8 Sec (11.4-14.6) H 07/01/24 21:06
INR 1.96 07/01/24 21:06
Estimated Creat Clear 37 ml/min 07/03/24 04:16
Lactic Acid 0.8 mmol/L (0.7-2.0) 07/02/24 06:50
Total Bilirubin 0.7 mg/dl (0.2-1.3) 07/03/24 04:16
AST 34 U/L (14-36) 07/03/24 04:16
ALT 12 U/L (0-35) 07/03/24 04:16
Alkaline Phosphatase 133 U/L (38-126) H 07/03/24 04:16
Most recent labs reviewed.
Micro Results:
07/01/24 20:50 Urine Culture - Preliminary
Urine Gram negative bacilli
07/02/24 11:43 Wound Culture - Preliminary
Foot - Right Staphylococcus species
Gram Stain - Preliminary
07/01/24 21:07 Blood Culture - Preliminary
Blood/Venous Staphylococcus species
Gram Stain - Final
07/01/24 21:35 Blood Culture - Preliminary
Blood/Venous Klebsiella pneumoniae group
Staphylococcus species
Gram Stain - Final
07/02/24 22:13 Blood Culture - Pending
Blood/Venous
07/02/24 21:10 Blood Culture - Pending
Blood/Venous
07/02/24 13:37 Blood Culture - Pending
Blood/Venous
07/02/24 12:51 Blood Culture - Pending
Blood/Venous
07/01/24 CXR: No acute disease of the chest.
07/01/24 Foot XRAY: Possible nondisplaced fracture of the base of the proximal phalanx of the great toe. Clinical correlation recommended. Associated soft tissue subcutaneous emphysema. This can be seen with a laceration or infection. Clinical
correlation recommended. Probable subacute or old fracture of the base of the fifth metatarsal bone. New.
07/01/24 Ankle XRAY: Probable nondisplaced fracture of the tip of the distal fibula with associated mild soft tissue swelling. New.
--- NOTE | 2024-07-03 10:20 | PTOTSP ---
Speech Language Pathology
VIDEOFLUOROSCOPIC SWALLOWING EXAMINATION (VSE) completed. Oropharyngeal swallow WFL. No penetration/aspiration or any significant pharyngeal residue noted during study.
Recommend:
(1) Continue regular solids/thin liquids
(2) Esophageal precautions
(3) Meds as tolerated
(4) Consider GI consult as indicated in this level of care
(5) FILLING OPERATOR to sign off. Please reconsult as indicated.
[2024-07-03] MEDS: VANCOCIN 150 IV (11:11)
--- NOTE | 2024-07-03 11:18 | W.CON.NEPH ---
Consultation
-
Date/Time Consultation Requested: 07/03/2024 11:15 AM
Date/Time Consultation Performed: 07/03/2024 11:20 AM
Requesting Provider: Dr. Chapa
Performing Provider: Dr. Tabares
Reason for Consultation: CKD/hyponatremia
Medical History
-
Chief Complaint: CKD stage III/hyponatremia
History of Present Illness:
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
cardiomyopathy (on lasix 40mg daily and BID alternating days) , presenting to the emergency department with weakness and poor response to communication.
Patient has been having decreased appetite and low p.o. intake for some time. They reduced valsartan to 40 mg daily due to that. She is continued on Lasix regimen as well as digoxin. She had radiation on 07/02/24) and after radiation patient went
home. But she has not had much to eat all day. At home the spouse check blood pressure and it was low with a systolic of 90. She called her oncologist who recommended patient be brought to the emergency department for hydration. On arrival in
the emergency department the patient was hypotensive and febrile to 102.3.
Patient stated that she had a fall about 5 days ago at the doctor's office. She injured her right foot. She had pain there and has been ambulating on the right foot without any further investigation. She stated that this morning was the first
time she noticed redness and swelling in that foot. She denied having fevers or chills at home. She denies any nausea or vomiting since she had a stent placed about 2 weeks ago. She denies any diarrhea. She denies any known sick contacts.
In the emergency department she had a Tmax of 102.3. Blood pressure was 100/50 with a pulse rate of 80 and she was satting 97% on room air.
She has a leukocytosis of 16.7, hemoglobin down to 9.9, platelet count stable at 261. Electrolytes notable for a sodium of 130 but otherwise unremarkable. BUN/creatinine was stable at 1.3 She did have some hyponatremia with a serum sodium of 132
today.
UA was positive.
She had screening skeletal survey and head CT. The head CT was negative. The x-rays of the ankle shows a possible nondisplaced fracture of the tip of the distal fibula with associated mild soft tissue swelling. There is also nondisplaced fracture
of the base of the proximal phalanx of the great toe. There is significant associated soft tissue subcutaneous emphysema as well.
Nephrology was consulted by vascular surgery as they may need to pursue angiogram of her lower extremity next week in the setting of her CKD.
Past Medical History
Hypertension
Metastatic Pancreatic Cancer
ASCVD (CAD, PAD, CVA)
DM-II
Renal Mass (Benign)
History of DVT
Hypothyroidism
CKD III
Cardiomyopathy, ischemic (LVEF 45-50%)
Past Surgical History: Reports Other
Additional Past Surgical History:
PTCA with Multiple Stents (5)
LLE Bypass
Whipple
Right Nephrectomy (benign)
R ACW Port Placement
L 5th Toe Amputations (Osteomyelitis)
Cholecystectomy and pancreaticoduodenectomy
Social History
Tobacco: Smoker
Alcohol: None
Drug: None
Family History
no CKD
Family History: Not Pertinent
Allergies / Home Medications
Allergy/AdvReac Type Severity Reaction Status Date / Time
cephalexin monohydrate Allergy Rash; Verified 07/01/24 19:51
[From Keflex] tolerated
PCN per pt
clindamycin Allergy Rash Verified 07/01/24 19:51
influenza virus vaccine, Allergy Rash Verified 07/01/24 19:51
specific Swelling,
[influenza virus itching.
vacc,specific]
lisinopril Allergy cough Verified 07/01/24 19:51
pneumococcal vaccine Allergy rash, Verified 07/01/24 19:51
welts
throughout
body
Yzufhop-IKK-YmY Reductase Allergy LEG PAIN Verified 07/01/24 19:51
Inhibitor
[Ymmnomq-Cpj-Ytg Reductase
Inhibitor]
�Medication �Instructions �Recorded �Confirmed �Type
dapagliflozin propanediol 10 mg 10 mg PO DAILY #30 tabs 08/05/20 07/01/24 Rx
tablet (Farxiga)
duloxetine 60 mg capsule,delayed 60 mg PO DAILY Mental 06/20/21 07/01/24 History
release Health/Anxiety
gabapentin 600 mg tablet 600 mg PO TID Neurological 10/02/21 07/01/24 History
Condition
Patient Own Insulin Pump 1 sliding scale dose SC .NOVOLOG 09/16/23 07/01/24 History
VIA PUMP Diabetes
apixaban 5 mg tablet (Eliquis) 5 mg PO BID Blood Clot 09/16/23 07/01/24 History
Prevention/Tx
levothyroxine 200 mcg tablet 250 mcg PO DAILY Thyroid 09/16/23 07/01/24 History
(Synthroid)
omeprazole 20 mg capsule,delayed 40 mg PO DAILY Gastrointestinal 12/03/23 07/01/24 History
release Issue
aspirin 81 mg chewable tablet 81 mg PO DAILY #0 tabs 12/08/23 07/01/24 Rx
digoxin 125 mcg (0.125 mg) tablet 125 mcg PO DAILY Heart 04/10/24 07/01/24 History
Disease/Condition
ezetimibe 10 mg tablet 10 mg PO DAILY High Cholesterol 04/10/24 07/01/24 History
metoprolol succinate 25 mg capsule 25 mg PO DAILY Heart 04/10/24 07/01/24 History
sprinkle, ext. release 24 hr Disease/Condition
furosemide 40 mg tablet 40 mg PO .MON.WED.FRIBID Fluid 04/28/24 07/01/24 History
Retention/Swelling
furosemide 40 mg tablet 40 mg PO .TUTHSASU Fluid 04/28/24 07/01/24 History
Retention/Swelling
valsartan 40 mg tablet 40 mg PO BID Blood Pressure 06/07/24 07/01/24 History
rwogpf-ilrhggmp-pohbqzd 2 cap PO PRN PRN with snacks 07/01/24 07/01/24 History
24,000-76,000-120,000 unit
capsule,delayed rel (Creon)
votalu-fncgovak-gtlmxpc 5 cap PO AC Gastrointestinal Issue 07/01/24 07/01/24 History
24,000-76,000-120,000 unit
capsule,delayed rel (Creon)
oxycodone 10 mg tablet 10 mg PO Q4H PRN pain 07/01/24 07/01/24 History
sucralfate 100 mg/mL oral 10 ml PO Q6H Gastrointestinal Issue 07/01/24 07/01/24 History
suspension
Review of Systems
-
History Source: Patient
All other systems: Negative unless noted
Constitutional: Fatigue
EENT: Other (Swallowing)
Respiratory: Cough
Cardiac: No Symptoms
Abdomen/GI: No Symptoms and Other (Dysphagia)
: No Symptoms
Skin: Other (foot wound absess)
Physical Exam
Vital Signs
Vital Signs
Temp Pulse Resp BP Pulse Ox
97.5 F 69 14 104/50 97
07/03/24 07:25 07/03/24 06:00 07/03/24 06:00 07/03/24 06:00 07/03/24 10:42
Lab Results
07/03/24 04:16
07/03/24 04:16
WBC 9.7 10^3/uL (4.8-10.8) 07/03/24 04:16
RBC 3.12 10^6/uL (4.20-5.40) L 07/03/24 04:16
Hgb 9.0 g/dL (12.0-16.0) L 07/03/24 04:16
Hct 27.4 % (37.0-47.0) L 07/03/24 04:16
Plt Count 284 10^3/uL (130-400) 07/03/24 04:16
Sodium 132 mmol/L (135-145) L 07/03/24 04:16
Potassium 3.6 mmol/L (3.5-5.1) 07/03/24 04:16
Chloride 100 mmol/L (98-107) 07/03/24 04:16
Carbon Dioxide 30 mmol/L (22-30) 07/03/24 04:16
BUN 35 mg/dl (7-17) H 07/03/24 04:16
Creatinine 1.3 mg/dL (0.6-1.0) H 07/03/24 04:16
eGFR 46.21 07/03/24 04:16
Glucose 84 mg/dl (70-99) 07/03/24 04:16
Calcium 7.8 mg/dl (8.4-10.2) L 07/03/24 04:16
Phosphorus 2.8 mg/dl (2.5-4.5) 07/03/24 04:16
Albumin 2.3 g/dl (3.5-5.0) L 07/03/24 04:16
Physical Exam
General: AOx3, Nontoxic , NAD
HEENT: PERRL, EOMI, Anicteric, Conjunctivae Clear, Ear/Nose Intact, Hearing Normal, Oropharynx Clear/Moist, Dentition Intact, Facial Symmetry, Neck Supple, Neck: Trachea Midline, No JVD and No Thyromegaly, no Bruits
Respiratory: Clear to auscultation bilaterally with normal lung exersion
Cardiac: S1/S2 and Regular Rate/Rhythm
Chest: mediport
Breast: Deferred by me
Abdomen: Soft, Nontender, Nondistended, Normal Bowel Sounds and No Hepatosplenomegaly
Rectal: Deferred by Provider
Genito-urinary: No Costovertebral Tenderness
Extremities: No Clubbing, No Cyanosis and No Edema, right plantar foot wound with associated ecchymosis status post I&D
Skin: No Rash or open lesions
Neuro: Cranial nerves II through XII grossly intact and Strength (Musculoskeletal exam 5 out of 5 both upper and lower extremities)
Hematologic/Lymphatic: No Cervical Lymphadenopathy, No Submandibular Lymphadenopathy and No Supraclavicular Lymphadenopathy
Psych: Mood/afflect flat, Insight/judgement good and Appropriate
Vascular: plus poorly palpable pedal and plus1 radial pulses
Data Reviewed
-
Radiology: Image Personally Visualized and interpreted (Chest x-ray from date 07/01/2024 personally reviewed by me notable for clear lungs no evidence of congestive heart failure or pneumonia there is a right anterior chest wall Mediport noted)
Labs: Labs Reviewed by me ([facility])
Old Records: Reviewed (Reviewed old labs in electronic medical record creatinine 0.9 06/12/24)
Assessment/Plan
-
Impression:
CKD (1.1)
Hypertension
History of right nephrectomy
Hyponatremia
Metastatic pancreatic cancer
Klebsiella bacteremia from foot wound
History of congestive heart
Diabetes
Hypothyroidism
A-fib
Peripheral vascular disease with previous left lower extremity bypass
Dysphagia due to esophageal mets with esophageal stent
UTI
L2 compression fracture likely due to mets
Plan:
-check urine osm re: hyponatremia: Will place fluid restriction if hyponatremia exacerbates
- Urinalysis consistent with infection but also notable for underlying proteinuria and microhematuria
- Creatinine baseline oscillates between 0.9-1.1
- We will provide IV fluids contrast prophylaxis during angiogram procedure next week
- As creatinine somewhat elevated above baseline at 1.3 I would withhold Farxiga
- Maintain MAP at 65 or greater, with isotonic saline,patient now off pressors,holding anti-htns
- Dose antibiotics for GFR of 40 mL/min
--- NOTE | 2024-07-03 11:29 | PTCARENOTE ---
Assumed care of pt after morning report. Pt is drowsy but arouses easily to voice. She is oriented x 3 but has difficulty staying awake. is at bedside and is concerned about her LOC being drowsy and 'out of it' Dr. Bush arrived at
bedside for rounds and discussed, assessed and reviewed current meds with pt, family and nurse. Will change roxicodone frequency to 8 hour increments. Pt reports pain is zero. Room air pulse ox 97%, lungs diminished in bases. Abdomen distended, soft
with active bowel tones. Pt did pass loose brown bm x [address] Carroll aware, no indication for sending specimen at this time. Oral intake has been poor according pt . He reports she has pain in epigastric area when eating food. Pt was able
to take po meds whole in applesauce and no signs of difficulty and no complaints of pain. Pt will have VSE study today.
[2024-07-03 11:41] LABS: Glucose - Point of Care 150 mg/dl (70-99)
--- NOTE | 2024-07-03 11:58 | PN.CDI ---
CDI
- -
CDI:
Physician Documentation Request
Admit Date: 07/02/24 01:33
Dear Doctor Hieu,
Patient admitted for cellulitis and fracture.
07/02 Podiatry Consult: 'I have used a #15 blade to debride the right sub met 1 callus and noted some purulent drainage below the callus, which I have sent in for cultures of aerobic and anaerobic cultures. Dorsal bulla also drained 1 mL of serous
drainage.'
Could you provide, in the progress notes further clarification regarding the debridement.
Please specify the type of debridement performed:
1. Excisional Debridement - defined as removal by excision of devitalized tissue, necrosis or slough
2. Non-excisional debridement - defined as removal of devitalized tissue, necrosis or slough by such methods as irrigation, brushing, scrubbing or washing.
If the debridement was excisional, please also include:
1. What was excised (necrotic tissue, gangrenous tissue, slough etc.)
For excisional or non-excisional, please also include:
1. Depth of debridement (skin, subcutaneous tissue, fascia, muscle, bone etc)
2. Size and appearance of the wound (L, W, D, color of wound, drainage)
Use of terms such as suspected, likely, concern for, or probable (associated with a specific diagnosis that is being evaluated, monitored, or treated as if it exists) are acceptable and can be coded in the inpatient setting, when documented at the
time of discharge.
Thank you,
Karo Mehta RN, BSN
CDI Specialist
Available via [employer] text
Please use your independent medical judgment in providing your response.
[2024-07-03] MEDS: PT'S OWN INSULIN PUMP - NovoLOG 1.2 UNIT SC (13:59)
--- NOTE | 2024-07-03 17:10 | W.PN.POD ---
Today's Communication
Today's Communication
Scheduled for Rt foot I & d 07/04/24 at 8 AM by podiatry
Assessment / Plan
-
Rt foot cellultis with abscess,
Early signs of gangrenous changes
Diabetic small vessel disease
Rt foot injury - possible Rt proximal phalanx base non displaced fracture - stable
Plan: Appreciate vascular consult - for possible angio 07/06
Cont IV abx
Scheduled patient for Right foot I & D on 07/03/24 at 8AM
D/W hosp service, requested medical clearance
D/W patient and her about Rt foot I and D , discussed possible small vessel disease due to her diabetes, discussed all risks and no guarantees given with out come of the procedure, this procedure is only initial step to control the
infection and drain nay deep abscess et. they understand and willing to proceed with the plan
NPO past mid night
Surgical shoe to Rt foot can wt bear as tolerated.
Podiatry will follow
Subjective
Chief Complaint
Rt foot cellulitis
Subjective
Patient seen at bedside, appears slight lethargic but able to comprehend, alert. No fever, chills. Rt foot increased dusky ness , increased edema
Objective
Temp Pulse Resp BP Pulse Ox
97.5 F 69 15 113/52 98
07/03/24 11:10 07/03/24 14:00 07/03/24 14:00 07/03/24 14:00 07/03/24 14:00
07/03/24 04:16
07/03/24 04:16
Vital Signs and Lab results were reviewed.
PAlpable DP rt foot 1/4 , Diminished PT pulse Rt foot
Rt foot edematous, erythematous with distal cooling and increased duskiness to Rt hallux
Increased edema with serous drainage noted from Rt submet 1st
No red streaking up the leg, no crepitus felt to Rt foot
No other areas of any ecchymosis, no other open ulcerations noted.
[2024-07-03 18:02] LABS: Glucose - Point of Care 116 mg/dl (70-99)
[2024-07-03] MEDS: PT'S OWN INSULIN PUMP - NovoLOG 0.7 UNIT SC (19:04)
--- NOTE | 2024-07-03 19:07 | W.PN.UPDATE ---
Update Note
Progress Note Update
SHort run of NSVT as per RN - Metoprolol restarted
Patient planned for I&D in OR by Podiatry due to worsening of R foot redness. MRI stat requested by podiatry for surgical planning as OR scheduled for 8am
[employer]ER{O starting midnight
Patient is low to moderate risk for low risk procedure and no additional medical mgmt or tests advised ahead of procedure
--- NOTE | 2024-07-03 20:07 | CON.GI ---
Consultation
-
Date/Time Consultation Requested: 07/03/2024
Date/Time Consultation Performed: 07/03/2024
Performing Provider: Alfredo West
Reason for Consultation: odynophagia, esophageal stent
Medical History
Chief Complaint / HPI
Chief Complaint: odynophagia, esophageal stent
History of Present Illness:
64 year-old female with h/o metastatic pancreatic cancer (s/p Whipple) and recent dx of adenocarcinoma of esophagus (unknown if metastatic from pancreatic ca vs primary esophageal adenocarcinoma) who had recurrent admissions for food impaction from
her esophageal malignant stricture s/p RTX and eventual esophageal stent placement p/w confusion and hypotension and found to have bacteremia from her right food abscess. GI being consulted for her persistent odynophagia / pain when she swallows
since the esophageal stent placement.
Past Medical History
Past Medical History: CAD, CHF, GERD, HTN and Other
Past Surgical History: Other
Social History
Tobacco: Smoker
Alcohol: None
Family History
Family History: Reviewed & Not Pertinent
Allergies / Home Medications
Allergy/AdvReac Type Severity Reaction Status Date / Time
cephalexin monohydrate Allergy Rash; Verified 07/01/24 19:51
[From Keflex] tolerated
PCN per pt
clindamycin Allergy Rash Verified 07/01/24 19:51
influenza virus vaccine, Allergy Rash Verified 07/01/24 19:51
specific Swelling,
[influenza virus itching.
vacc,specific]
lisinopril Allergy cough Verified 07/01/24 19:51
pneumococcal vaccine Allergy rash, Verified 07/01/24 19:51
welts
throughout
body
Ndtqfqt-AST-DpQ Reductase Allergy LEG PAIN Verified 07/01/24 19:51
Inhibitor
[Mlurlao-Rzk-Tqr Reductase
Inhibitor]
�Medication �Instructions �Recorded
dapagliflozin propanediol 10 mg 10 mg PO DAILY #30 tabs 08/05/20
tablet (Farxiga)
duloxetine 60 mg capsule,delayed 60 mg PO DAILY Mental 06/20/21
release Health/Anxiety
gabapentin 600 mg tablet 600 mg PO TID Neurological 10/02/21
Condition
Patient Own Insulin Pump 1 sliding scale dose SC .NOVOLOG 09/16/23
VIA PUMP Diabetes
apixaban 5 mg tablet (Eliquis) 5 mg PO BID Blood Clot 09/16/23
Prevention/Tx
levothyroxine 200 mcg tablet 250 mcg PO DAILY Thyroid 09/16/23
(Synthroid)
omeprazole 20 mg capsule,delayed 40 mg PO DAILY Gastrointestinal 12/03/23
release Issue
aspirin 81 mg chewable tablet 81 mg PO DAILY #0 tabs 12/08/23
digoxin 125 mcg (0.125 mg) tablet 125 mcg PO DAILY Heart 04/10/24
Disease/Condition
ezetimibe 10 mg tablet 10 mg PO DAILY High Cholesterol 04/10/24
metoprolol succinate 25 mg capsule 25 mg PO DAILY Heart 04/10/24
sprinkle, ext. release 24 hr Disease/Condition
furosemide 40 mg tablet 40 mg PO .MON.WED.FRIBID Fluid 04/28/24
Retention/Swelling
furosemide 40 mg tablet 40 mg PO .TUTHSASU Fluid 04/28/24
Retention/Swelling
valsartan 40 mg tablet 40 mg PO BID Blood Pressure 06/07/24
xgpzuq-kgchpaxw-ulnmjzq 2 cap PO PRN PRN with snacks 07/01/24
24,000-76,000-120,000 unit
capsule,delayed rel (Creon)
qnvyez-iefodioa-qnehveq 5 cap PO AC Gastrointestinal Issue 07/01/24
24,000-76,000-120,000 unit
capsule,delayed rel (Creon)
oxycodone 10 mg tablet 10 mg PO Q4H PRN pain 07/01/24
sucralfate 100 mg/mL oral 10 ml PO Q6H Gastrointestinal Issue 07/01/24
suspension
Review of Systems
Vital Signs
Temp Pulse Resp BP Pulse Ox
97.8 F 78 17 122/58 99
07/03/24 15:35 07/03/24 19:00 07/03/24 19:00 07/03/24 19:00 07/03/24 19:00
Physical Exam
Exam
General: Well Developed and Other (cachectic)
HEENT: Normocephalic
Respiratory: Clear
Cardiac: S1/S2
GI: Soft, Non Tender, Non Distended and Normal Bowel Sounds
Results
WBC 9.7 10^3/uL (4.8-10.8) 07/03/24 04:16
Hgb 9.0 g/dL (12.0-16.0) L 07/03/24 04:16
Hct 27.4 % (37.0-47.0) L 07/03/24 04:16
MCV 87.8 fL (81.0-99.0) 07/03/24 04:16
Plt Count 284 10^3/uL (130-400) 07/03/24 04:16
Absolute Neuts (auto) 8.3 10^3/uL (1.4-6.5) H 07/03/24 04:16
PT 22.8 Sec (11.4-14.6) H 07/01/24 21:06
INR 1.96 07/01/24 21:06
Sodium 132 mmol/L (135-145) L 07/03/24 04:16
Potassium 3.6 mmol/L (3.5-5.1) 07/03/24 04:16
Chloride 100 mmol/L (98-107) 07/03/24 04:16
Carbon Dioxide 30 mmol/L (22-30) 07/03/24 04:16
BUN 35 mg/dl (7-17) H 07/03/24 04:16
Creatinine 1.3 mg/dL (0.6-1.0) H 07/03/24 04:16
Calcium 7.8 mg/dl (8.4-10.2) L 07/03/24 04:16
Total Bilirubin 0.7 mg/dl (0.2-1.3) 07/03/24 04:16
AST 34 U/L (14-36) 07/03/24 04:16
ALT 12 U/L (0-35) 07/03/24 04:16
Alkaline Phosphatase 133 U/L (38-126) H 07/03/24 04:16
Diagnostic Image Results:
Prior GI Procedures:
EGD:
Colonoscopy:
Assessment / Plan
-
64 year-old female with h/o metastatic pancreatic cancer (s/p Whipple) and recent dx of adenocarcinoma of esophagus (unknown if metastatic from pancreatic ca vs primary esophageal adenocarcinoma) who had recurrent admissions for food impaction from
her esophageal malignant stricture s/p RTX and eventual esophageal stent placement p/w confusion and hypotension and found to have bacteremia from her right food abscess. GI being consulted for her persistent odynophagia / pain when she swallows
since the esophageal stent placement.
Impression / Rec;
1. Odynophagia / pain during swallow - her CXR was reviewed which showed good placement of her esophageal stent w/o migration. Esophageal stent continues to function well as she is able to tolerate liquids and some solids since the stent
placement. PPI and carafate are not helping with her pain. We discussed possible stent removal if she is not tolerating the stent, which will inevitably result in recurrent food impactions. She will need to remain NPO exept for CLD and will
likely require PEG for nutrional support, which would not be ideal for her. There is no great option for her except for increasing pain control. Given her current oncologic status (widely metastatic disease), this may be appropriate time to
discuss GOC.
Total Time Spent with Patient (in minutes): 55
-
-
Thank you for consultation and allowing me to participate in the patient's care. Please call the conflicts analyst GI physician during the after hours with any questions or concerns.
[2024-07-03] MEDS: LOPRESSOR 25 MG PO (21:52)
[2024-07-03 22:45] LABS: Glucose - Point of Care 135 mg/dl (70-99)
--- NOTE | 2024-07-03 23:38 | PTCARENOTE ---
Pt received at beginning of shift resting in bed. MRI called for pt and was transported to [facility] by RN and tech. removed pt's insulin pump per MRI request. Brought back to room approx 1.15hr later. Made comfortable. reapplied insulin
pump to pt's left abd. Changed for small amount loose bm. VSS afebrile. SR on CM. 14 VT noted on monitor during start of shift report. Day shift RN TT'd Dr Bush and order entered for Lopressor. Pt received all HS meds without difficulty. Left
foot dressing c/d/i. IVF's infusing as ordered. Rest of assessment as documented. Will pt NPO after midnight. Pt aware. Maintained on Q2hr turns. Call cabrera remains within reach. Will continue to monitor.
[2024-07-04] VITALS (18 sets, daily range): BP systolic 85–144; BP diastolic 39–99
[2024-07-04] MEDS: NSS 1000 IV ×2 (00:01→18:06)
[2024-07-04 03:56] LABS: % Basophils 0.2 % (0-2); % Eosinophils 2.8 % (0-6); % Immature Granulocytes 0.5 % (0-0.5); % Lymphocytes 6.4 % (20.5-51.1); % Monocytes 8.3 % (1.7-9.3); % Neutrophils 81.8 % (42.2-75.2); Absolute Eosinophils 0.2 10^3/uL (0-0.7); Absolute Lymphocytes 0.4 10^3/uL (1.2-3.4); Absolute Monocytes 0.5 10^3/uL (0.1-0.6); Absolute Neutrophils 5.3 10^3/uL (1.4-6.5); Hematocrit 26.7 % (37.0-47.0); Hemoglobin 8.7 g/dL (12.0-16.0); Mean Corp Hgb Conc. 32.6 g/dL (33.0-37.0); Mean Corpuscular Hgb 28.6 pg (27.0-31.0); Mean Corpuscular Volume 87.8 fL (81.0-99.0); Mean Platelet Volume 9.5 fL (7.4-10.4); Nucleated Red Blood Cells % 0 %; Platelet Count 261 10^3/uL (130-400); Red Blood Cell Count 3.04 10^6/uL (4.20-5.40); Red Cell Dist. Width 14.5 % (11.5-14.5); White Blood Cell Count 6.5 10^3/uL (4.8-10.8)
[2024-07-04 04:12] LABS: Vancomycin Random 13.7 ug/ml
[2024-07-04 04:29] LABS: ALT (SGPT) 11 U/L (0-35); AST (SGOT) 23 U/L (14-36); Albumin 2.2 g/dl (3.5-5.0); Alkaline Phosphatase 115 U/L (38-126); Blood Urea Nitrogen 27 mg/dl (7-17); Calcium 7.8 mg/dl (8.4-10.2); Carbon Dioxide 28 mmol/L (22-30); Chloride 103 mmol/L (98-107); Digoxin 1.3 ng/ml (0.8-2.0); Estimated Creatinine Clearance 43 ml/min; Glucose 95 mg/dl (70-99); Potassium 3.3 mmol/L (3.5-5.1); Sodium 136 mmol/L (135-145); Total Bilirubin 0.5 mg/dl (0.2-1.3); Total Protein 5.1 g/dl (6.3-8.2); eGFR 56.46
[2024-07-04 05:11] LABS: Osmolality Urine 337 mOsm/kg (300-900)
[2024-07-04 05:45] LABS: Glucose - Point of Care 100 mg/dl (70-99)
[2024-07-04] MEDS: SYNTHROID 50 MCG PO (05:48)
[2024-07-04] MEDS: SYNTHROID 200 MCG PO (05:48)
[2024-07-04] MEDS: CARAFATE SUSPENSION 1 GM PO ×4 (05:48→23:31)
[2024-07-04] MEDS: ZOSYN 50 IV ×4 (05:48→23:31)
[2024-07-04] MEDS: KCL 270 MEQ IV (06:20)
--- NOTE | 2024-07-04 08:31 | PHA.VAN.FU ---
Vancomycin Assessment / Plan
- Assessment
Renal Function: SCR Decreasing
WBC's are: WNL
In the past 24 hrs, patient has been: Afebrile
Concomitant Antimicrobials: ZOSYN
- Assessment - Therapeutic Drug Monitoring
Random Level: 13.7
- Dosing Plan
Dosing by Level: Re-dose today (750MG)
- Monitoring Plan
Random Level: 5 IN AM
- Follow Up
Pharmacy will continue to follow.
Vancomycin Follow UP
- -
Patient Age: 64
Patient Sex: Female
Vancomycin Day #: 3
Indication: Skin And Soft Tissue
Requesting Provider: Dr. Cadena / Rashaad
Pertinent Antimicrobial Allergies:
cephalexin - rash, toelrated penicillin
clindamycin - rash
Height / Weight:
Height 5 ft 3 in
Actual Weight 57.3 kg
Pertinent Past Medical History: metastatic pancreatic cancer, DM 2
- Vital Signs / Lab Results
Temp Pulse Resp BP Pulse Ox
97.6 F 66 12 140/61 100
07/04/24 07:34 07/04/24 05:30 07/04/24 05:30 07/04/24 06:00 07/04/24 05:30
Lab Results - Hematology
07/01/24 07/02/24 07/03/24
20:29 04:09 04:16
WBC 16.7 H 16.6 H 9.7
07/04/24
03:25
WBC 6.5
Lab Results - Chemistry
07/01/24 07/02/24 07/02/24
20:29 04:09 06:50
BUN 32 H Cancelled Cancelled
Creatinine 1.3 H Cancelled Cancelled
Estimated Creat Clear 39 Cancelled Cancelled
Albumin 2.5 L
07/02/24 07/03/24 07/04/24
11:43 04:16 03:25
BUN 36 H 35 H 27 H
Creatinine 1.4 H 1.3 H 1.1 H
Estimated Creat Clear 34 37 43
Albumin 2.3 L 2.2 L
07/01/24 07/02/24 07/02/24
21:06 01:15 06:50
Lactic Acid 1.0 Cancelled 0.8
Lab Results - Urine
07/01/24
20:50
Urine Nitrite (Reflex) Negative
Leukocyte Esterase Rfl 3+ A
Ur Squamous Epith Cells 0-2
Microbiology Results
07/01/24 21:35 Blood Culture - Preliminary
Blood/Venous Klebsiella pneumoniae group
Staphylococcus species
Gram Stain - Final
07/02/24 22:13 Blood Culture - Preliminary
Blood/Venous No Growth in 24 hours- Final report to follow
07/02/24 21:10 Blood Culture - Preliminary
Blood/Venous No Growth in 24 hours- Final report to follow
07/02/24 13:37 Blood Culture - Preliminary
Blood/Venous No Growth in 24 hours- Final report to follow
07/02/24 12:51 Blood Culture - Preliminary
Blood/Venous No Growth in 24 hours- Final report to follow
07/01/24 20:50 Urine Culture - Preliminary
Urine Gram negative bacilli
Lactobacillus species
07/01/24 21:07 Blood Culture - Preliminary
Blood/Venous Staphylococcus species
Gram Stain - Final
07/02/24 11:43 Wound Culture - Preliminary
Foot - Right Staphylococcus species
Gram Stain - Preliminary
Therapeutic Drug Monitoring
Random Vancomycin 13.7 ug/ml 07/04/24 03:25
[2024-07-04 09:06] LABS: Glucose - Point of Care 86 mg/dl (70-99)
--- NOTE | 2024-07-04 09:06 | W.SUR.POST ---
Surgical Immediate Post Op
Note
Pre Op Diagnosis: Right foot cellultis and abscess
Post Op Diagnosis: Same as above
Procedure Performed: Right foot incision and drainage with packing
Primary Surgeon: Dr. Hagen
Secondary Surgeons: None
Anesthesia: MAC with local block
Estimated Blood Loss:3 cc
Fluids: None
Drains/Shunts: None
Specimens/Cultures: Aerobic and anaerobic cultures sent
Doppler/Duplex/Angio (Y/N): None
Complications: None
Operative Findings: Drained about 6 to7 cc of purulent drainage , presence deep tissue necrosis , no foul odor
Patient stable in PACU with intact vascular status and stable vital signs
--- NOTE | 2024-07-04 09:50 | W.PN.ID1 ---
Date of Service
Date of Service: July 04, 2024
Today's Communication
Continue Vancomycin and Zosyn
Follow cx's.
Assessment / Plan
# Right proximal hallux, 1,2 met head osteomyelitis
# Right foot gas gangrene
# Right foot cellulitis
# Klebsiella (1 of 4 bottles) and Staph species (2 of 4 bottles) bacteremia, foot source
# Right proximal hallux and distal fibula nondisplaced fx
# Klebsiella bacteruria
# Fever resolved
# Leukocytosis resolved
# Metastatic pancreatic ca on tx via port
# Dysphagia due to ssophageal mets with stent
# DM
# PAD hx failed LLE bypass
# Allergy to cephalosporin and clindamycin
- 07/02 Podiatry bedside debrided right submet callus, noted purulent drainage. Cx's: staph species
- 07/04 s/p OR I+D, + necrosis, cx pending
- Repeat blood cx's x 4 neg to date
- TTE no valvular disease
- For angiogram Saturday when EVETTE improves, per Vascular.
- Continue Vancomycin and Zosyn
- Prognosis guarded
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
Diabetes mellitus
Pancreatic cancer status post Whipple, mets to esophagus (s/p stent placed), mets to spine
Esophageal cancer status post stent
Pathological L2 compression fracture due to osseous mets
CAD status post PTCA with multiple stents
Cardiomyopathy
CVA
CKD3
PAD status post left lower extremity bypass
Hypothyroidism
History of DVT
Right nephrectomy, benign tumor
Right chest wall port placement
Osteomyelitis status post left fifth toe amputation
Chief Complaint
-: Clinical Sepsis, Cellulitis and Bacteremia
Vital Signs / Physical Exam
Vital Signs
Vital Signs
Temp Pulse Resp BP Pulse Ox
97.7 F 60 17 144/64 100
07/04/24 09:30 07/04/24 09:30 07/04/24 09:30 07/04/24 09:30 07/04/24 09:30
Physical Exam
Constitutional: Chronically Ill
Eyes: Sclera Anicteric
Cardiovascular: Regular Rate and S1/S2
Pulmonary: Clear
Gastrointestinal: Soft, Non Tender, Non Distended and Normal Bowel Sounds
Extremities: Edema (right foot/ankle), Cyanosis (Right great toe) and Erythema (Right dorsum foot)
Lines: Port (RCW no erythema)
Objective Data
Lab Data
Lab Results
07/04/24 03:25
07/04/24 03:25
ESR Cancelled 07/02/24 06:50
PT 22.8 Sec (11.4-14.6) H 07/01/24 21:06
INR 1.96 07/01/24 21:06
Estimated Creat Clear 43 ml/min 07/04/24 03:25
Lactic Acid 0.8 mmol/L (0.7-2.0) 07/02/24 06:50
Total Bilirubin 0.5 mg/dl (0.2-1.3) 07/04/24 03:25
AST 23 U/L (14-36) 07/04/24 03:25
ALT 11 U/L (0-35) 07/04/24 03:25
Alkaline Phosphatase 115 U/L (38-126) 07/04/24 03:25
Most recent labs reviewed.
Micro Results:
07/01/24 20:50 Urine Culture - Final
Urine Klebsiella pneumoniae
Lactobacillus species
07/04/24 08:40 Anaerobic Culture - Pending
Foot - Right
07/04/24 08:40 Wound Culture - Pending
Foot - Right Gram Stain - Pending
07/01/24 21:35 Blood Culture - Preliminary
Blood/Venous Klebsiella pneumoniae group
Staphylococcus species
Gram Stain - Final
07/02/24 22:13 Blood Culture - Preliminary
Blood/Venous No Growth in 24 hours- Final report to follow
07/02/24 21:10 Blood Culture - Preliminary
Blood/Venous No Growth in 24 hours- Final report to follow
07/02/24 13:37 Blood Culture - Preliminary
Blood/Venous No Growth in 24 hours- Final report to follow
07/02/24 12:51 Blood Culture - Preliminary
Blood/Venous No Growth in 24 hours- Final report to follow
07/01/24 21:07 Blood Culture - Preliminary
Blood/Venous Staphylococcus species
Gram Stain - Final
07/02/24 11:43 Wound Culture - Preliminary
Foot - Right Staphylococcus species
Gram Stain - Preliminary
07/01/24 CXR: No acute disease of the chest.
07/01/24 Foot XRAY: Possible nondisplaced fracture of the base of the proximal phalanx of the great toe. Clinical correlation recommended. Associated soft tissue subcutaneous emphysema. This can be seen with a laceration or infection. Clinical
correlation recommended. Probable subacute or old fracture of the base of the fifth metatarsal bone. New.
07/01/24 Ankle XRAY: Probable nondisplaced fracture of the tip of the distal fibula with associated mild soft tissue swelling. New.
07/03/24 MRI RLE: Osteomyelitis of the base of the first proximal phalanx and the heads of the first and second metatarsals. Nondisplaced pathologic fracture through the region of osteomyelitis in the first proximal phalanx. Rim-enhancing abscesses
in the plantar soft tissues of the forefoot at the level of the metatarsals, in the first intermetatarsal space, and dorsal to the distal second metatarsal. Adjacent nonenhancing necrotic tissue and gas in the soft tissues dorsal to the distal first
and second metatarsals.
--- NOTE | 2024-07-04 10:01 | W.PN.NEPH.PH ---
Today's Communication / Plan
-
Observe
Assessment/Plan
-
Impression:
CKD (1.1)
Hypertension
History of right nephrectomy
Hyponatremia
Metastatic pancreatic cancer
Klebsiella bacteremia from foot wound
History of congestive heart
Diabetes
Hypothyroidism
A-fib
Peripheral vascular disease with previous left lower extremity bypass
Dysphagia due to esophageal mets with esophageal stent
UTI
L2 compression fracture likely due to mets
Plan:
- Serum sodium stable at 136
-Replete potassium
- Urinalysis consistent with infection but also notable for underlying proteinuria and microhematuria
- Creatinine baseline oscillates between 0.9-1.1,now at baseline, holding Farxiga
- We will provide IV fluids contrast prophylaxis during angiogram procedure next week
- Maintain MAP at 65 or greater, with isotonic saline,patient now off pressors,holding anti-htns
- Dose antibiotics for GFR of 40 mL/min
-
-
Date of Service: July 04, 2024
CC / HPI / ROS
-
Chief Complaint:
CKD
History of Present Illness:
Hemodynamically stable on current antihypertensive
Creatinine at baseline 1.1
Review of Systems:
Nonoliguric
No fever
Labs
-
Labs:
WBC 6.5 10^3/uL (4.8-10.8) 07/04/24 03:25
RBC 3.04 10^6/uL (4.20-5.40) L 07/04/24 03:25
Hgb 8.7 g/dL (12.0-16.0) L 07/04/24 03:25
Hct 26.7 % (37.0-47.0) L 07/04/24 03:25
Plt Count 261 10^3/uL (130-400) 07/04/24 03:25
Sodium 136 mmol/L (135-145) 07/04/24 03:25
Potassium 3.3 mmol/L (3.5-5.1) L 07/04/24 03:25
Chloride 103 mmol/L (98-107) 07/04/24 03:25
Carbon Dioxide 28 mmol/L (22-30) 07/04/24 03:25
BUN 27 mg/dl (7-17) H 07/04/24 03:25
Creatinine 1.1 mg/dL (0.6-1.0) H 07/04/24 03:25
eGFR 56.46 07/04/24 03:25
Glucose 95 mg/dl (70-99) 07/04/24 03:25
Calcium 7.8 mg/dl (8.4-10.2) L 07/04/24 03:25
Phosphorus 2.8 mg/dl (2.5-4.5) 07/03/24 04:16
Albumin 2.2 g/dl (3.5-5.0) L 07/04/24 03:25
Physical Exam
-
Vital Signs:
Vital Signs
Temp Pulse Resp BP Pulse Ox
97.7 F 60 17 144/64 100
07/04/24 09:59 07/04/24 09:30 07/04/24 09:30 07/04/24 09:30 07/04/24 09:59
Respiratory:: Bilateral: Coarse
Lung Excursion:: Normal
Abdomen:: Nontender and Soft
Bowel Sounds:: Normal
Extremity Edema:: None: Bilateral:
Ying Catheter: No
--- NOTE | 2024-07-04 10:03 | PTCARENOTE ---
Patient returned to room, she is arousable to voice and oriented x2. Dressing to rt foot intact with scant amount of drainage noted. Toes are purple/black and pt does not feel touch at this time. Patient then became confused attempting to get OOB
without help. Safely moved to chair as pt is complaining of back pain while in bed. Pt reports relief when OOB to recliner
[2024-07-04] MEDS: CYMBALTA DELAYED RELEASE 60 MG PO (10:36)
[2024-07-04] MEDS: ZENPEP DELAYED RELEASE CAPSULE PO ×2 (10:36→13:53)
[2024-07-04] MEDS: PT'S OWN INSULIN PUMP - NovoLOG SC ×3 (10:36→22:04)
[2024-07-04] MEDS: ZETIA 10 MG PO (10:36)
[2024-07-04] MEDS: NEURONTIN 600 MG PO ×3 (10:36→20:23)
[2024-07-04] MEDS: LOPRESSOR 25 MG PO ×2 (10:37→20:23)
[2024-07-04] MEDS: PROTONIX 40 MG PO (10:37)
[2024-07-04] MEDS: VANCOCIN 150 IV (10:46)
[2024-07-04] MEDS: ELIQUIS 5 MG PO ×2 (10:49→20:23)
[2024-07-04] MEDS: LOW STRENGTH ASPIRIN 81 MG PO (10:50)
[2024-07-04] MEDS: ROXICODONE 5 MG PO (10:56)
--- NOTE | 2024-07-04 11:12 | W.PN.GI.CBS2 ---
Today's Communication / Plan
-
.
Assessment / Plan
-
64 year-old female with h/o metastatic pancreatic cancer (s/p Whipple) and recent dx of adenocarcinoma of esophagus (unknown if metastatic from pancreatic ca vs primary esophageal adenocarcinoma) who had recurrent admissions for food impaction from
her esophageal malignant stricture s/p RTX and eventual esophageal stent placement p/w confusion and hypotension and found to have bacteremia from her right food abscess. GI being consulted for her persistent odynophagia / pain when she swallows
since the esophageal stent placement.
Impression / Rec;
1. Odynophagia / pain during swallow - her CXR was reviewed which showed good placement of her esophageal stent w/o migration. Esophageal stent continues to function well as she is able to tolerate liquids and some solids since the stent
placement. PPI and carafate are not helping with her pain. We discussed possible stent removal if she is not tolerating the stent, which will inevitably result in recurrent food impactions. She will need to remain NPO exept for CLD and will
likely require PEG for nutrional support, which would not be ideal for her. There is no great option for her except for increasing pain control. Given her current oncologic status (widely metastatic disease), this may be appropriate time to
discuss GOC.
Spoke w/ her re: having GOC discussion w/ her oncologist. Pt continues to have substernal pain during swallow. Will discuss possible EGD for eval w/ pt tomorrow.
Total Time Spent with Patient (in minutes): 35
Subjective
Subjective
Date of Service: July 04, 2024
No acute events o/n.
Objective
Data Reviewed
Laboratory Data:
Laboratory Results
07/04/24 03:25
07/04/24 03:25
Laboratory Results
PT 22.8 Sec (11.4-14.6) H 07/01/24 21:06
INR 1.96 07/01/24 21:06
Phosphorus 2.8 mg/dl (2.5-4.5) 07/03/24 04:16
Magnesium 2.0 mg/dl (1.6-2.3) 07/04/24 03:25
Total Bilirubin 0.5 mg/dl (0.2-1.3) 07/04/24 03:25
AST 23 U/L (14-36) 07/04/24 03:25
ALT 11 U/L (0-35) 07/04/24 03:25
Alkaline Phosphatase 115 U/L (38-126) 07/04/24 03:25
Vital Signs and I&O:
Vital Signs
Temp Pulse Resp BP Pulse Ox
97.7 F 63 17 113/64 100
07/04/24 09:59 07/04/24 10:37 07/04/24 09:30 07/04/24 10:37 07/04/24 09:59
I&O
07/03/24 07/04/24 07/05/24
06:59 06:59 06:59
Intake Total 2045 2170 / 2170
Output Total 600 / 600
Balance 2045 1570 / 1570
[2024-07-04 12:42] LABS: Glucose - Point of Care 129 mg/dl (70-99)
--- NOTE | 2024-07-04 12:47 | W.PN.HOSP.TC ---
Today's Communication/Plan
-
corn Abx, IVF
Assessment / Plan
Assessment / Plan
64yo F with PMHx of metastatic pancreatic CA with spinal mets, currently on RT, anxiety, hypothyroidism, PAD s/p LLE bypass failure, Renal cell CA, HLD, HFrEF of 25%, NSTEMI and ischemic CM, DM, GERD, HTN, anxiety, Hx of recent admission due to
esophageal food impaction due to esophageal stricture with metastasis (left AMA declining stent), Hx of DVT on Eliquis brought by her due to hypotension, confusion. Was advised to bring patient to ED by oncologist.
Found R foot swelling, redness and pain, XR showed subacute or old fracture of the base of the fifth metatarsal bone and Possible nondisplaced fracture of the base of the proximal phalanx of the great toe with superimposed gas gangrene, OM and
abscess with bacteremia, concomitant UTI. Podiatry did I&D, first bedside and second time in OR on 07/04/24. VascularSx planning on angio on 07/06/24, GI evaluating for possible EGD due to painful swallowing with esophageal stent
A/P:
#nondisplaced fracture of the base of the proximal phalanx of the great toe - pathologic with underlying acute osteomyelitis
#subacute or old fracture of the base of the fifth metatarsal bone
#R foot gas gangrene with sepsis on admission (AMS, leukocytosis) and septic vs hypovolemic shock with R foot abscess and bacteremia
#Nondisplaced fracture at the inferior tip of the distal fibula
s/p MRI RLE on 07/04/24 with above findings
Abx as per ID Zosyn/vanco
Surgical boot for ambulation
Podiatry consult: s/p I&D, follow Cx (Staph)
PT/OT: cont with walker
weaned off pressors as of 07/02/24
Bcx: K.pneumonia (source UTI) and Staphylococcus schleiferi (source foot infection)
TTE with improved EF but persistent wall motion abnormalities, no overt signs of vegetations
#PAD s/p LLE failed bypass
VascConsult
for angio on 07/06/24 - hold Eliquis 24h prior
#Hx of dysphagia 2/2 esophageal mets and post RT stricture s/p esophageal stent with recurrent pain on swallowing
#Esophageal>pharyngeal dysfunction
Previously was also advised PEG if still not sufficient oral intake, GI offered either to cont esophageal stent as it is functioning appropriately or remove stent and cont with PEG, but then no oral intake. Patient decided to stay with stent at this
time. Ensure supplement TID, possible EGD on 07/05/24
MANAGER IT TRAINING: Regular and thin liquids
Since patient said that patient had trouble swallowing even before stent - VSE done, no oropharyngeal dysfunction
#Pyuria with dysuria (burning during urination) - UTI
Ucx K.Pneumonia
cont Abx
#Mild hyponatremia
#Mild hypocalcemia
#EVETTE
2/2 dehydration and poor oral intake
Baseline Cr 1.0
hydrate and follow labs
correct electrolytes
#Anemia, most likely 2/2 metastatic bleeds and CA
most likely 2/2 CA
JAIME
watch CBC
FOBT positive
#Hypothyroidism
TSH WNL so cont Synthroid
#DM type 2 with neuropathy
Accuchecks, Insulin SS, hold Farxiga ro avoid diuretic effect
DM diet
#pathological L2 compression Fx with lesion on RT
#Chronic pain on opioids
decrease OXy since patient is sleepy with home dose
cont RT upon D/C
#HLD
#Renal cell CA
#Metastatic pancreatic CA
#HFrEF, not in exacerbation
#Hx of DVT
#Ischemic CM
#Neuropathy
Essential HTN
Digoxin level elevated -hold and watch level. restart q48h and follow digoxin levels
hold BB and diuretics while hypotensive, watch for fluid overload with low EF
cont rest of meds
Cont outpatient follow up with established specialists
DVT ppx Eliquis
Full code
I have spent at least 59min reviewing chart, test results, communication with consultants, and providing direct patient care
Anticipated Discharge: > 48 hours
Subjective/Interval History
-
Date of Service: July 04, 2024
Objective Data
-
Labs:
Laboratory Results
07/04/24
03:25
WBC 6.5
Hgb 8.7 L
Hct 26.7 L
Plt Count 261
Sodium 136
Potassium 3.3 L
Chloride 103
Carbon Dioxide 28
BUN 27 H
Creatinine 1.1 H
Glucose 95
Calcium 7.8 L
Total Bilirubin 0.5
AST 23
ALT 11
Alkaline Phosphatase 115
Vital Signs:
Vital Signs
Temp Pulse Resp BP Pulse Ox
97.6 F 63 17 113/64 100
07/04/24 11:05 07/04/24 10:37 07/04/24 09:30 07/04/24 10:37 07/04/24 10:34
I&O
07/03/24 07/04/24 07/05/24
06:59 06:59 06:59
Intake Total 2045 2170 / 2170
Output Total 600 / 600
Balance 2045 1570 / 1570
--- NOTE | 2024-07-04 13:01 | W.PN.UPDATE ---
Update Note
Progress Note Update
mild Hgb decrease with hydration
cont to follow
[2024-07-04] MEDS: LANOXIN 125 MCG PO (14:05)
--- NOTE | 2024-07-04 16:22 | PTCARENOTE ---
Patient with intermittent bouts of confusion this afternoon she was disconnecting her IV and said she was leaving. chair alarm sounded and staff entered room and pt assisted back to chair and reoriented, Once settled safely into chair and IV's
straightened out Pt called and talked with on phone for short period. Pt calm and easily redirected. Pt had entered own carbs into Insulin Pump without staff or and is unsure of how to recall the # of units given. Her will
check when he returns this evening and confirm for staff. Pt's Cbs has remained >100 on personal monitor
[2024-07-04] MEDS: ZENPEP DELAYED RELEASE CAPSULE 3 CAPSULE PO (18:04)
[2024-07-04] MEDS: PT'S OWN INSULIN PUMP - NovoLOG 7.5 UNIT SC (18:17)
--- NOTE | 2024-07-04 18:27 | PTCARENOTE ---
Confirmed with Dr. Hagen that pt was to receive her Eliquis and her ASA today. Pt's scrolling through history and notes that pt put in 134 carbs and dosed herself 7.5 units.
[2024-07-04 18:30] LABS: Glucose - Point of Care 98 mg/dl (70-99)
--- NOTE | 2024-07-04 18:33 | PTCARENOTE ---
pt instructed to not dose herself without staff or present.
[2024-07-04 22:12] LABS: Glucose - Point of Care 142 mg/dl (70-99)
[2024-07-05] VITALS (12 sets, daily range): BP systolic 118–169; BP diastolic 59–95
--- NOTE | 2024-07-05 02:08 | PTCARENOTE ---
Pt received at beginning of shift resting in bed. Family at bedside. Emotional. Emotional support provided as they left for the night. Pt more confused this evening than last night. Having conversations with herself in room. Hallucinating at times.
Thinks there is a small child in room with her but she does not know this child. Also making numerous attempts to pick things up that are not there and 'places' these items on her side table then asks why this RN has moved them. Pt angry at one
point overnight. She stated she called her and he was coming up but has not showed up. Pt received CHG bath and all linens changed. SQport dressing loose and KILN [employer]ACER changed out dressing. Bed alarm remains on and working. Pt has made numerous
attempts oob. VSS. Afebrile. SB/SR on CM rate 50's-91. POX RA 95-97%. Rest of assessment as documented. Loose BM and beginning of shift with urine output on bedpan. Right foot dressing reinforced x 1 for s/s drainage. No further drainage noted since
reinforced. Call cabrera remains within reach. Will continue to monitor.
[2024-07-05] MEDS: ROXICODONE 5 MG PO (03:15)
[2024-07-05 03:53] LABS: % Basophils 0.5 % (0-2); % Eosinophils 2.9 % (0-6); % Immature Granulocytes 0.9 % (0-0.5); % Lymphocytes 9.2 % (20.5-51.1); % Monocytes 7.5 % (1.7-9.3); Absolute Eosinophils 0.2 10^3/uL (0-0.7); Absolute Immature Granulocytes 0.1 10^3/uL (0-0.05); Absolute Lymphocytes 0.6 10^3/uL (1.2-3.4); Absolute Monocytes 0.5 10^3/uL (0.1-0.6); Absolute Neutrophils 5.2 10^3/uL (1.4-6.5); Hematocrit 29.5 % (37.0-47.0); Hemoglobin 9.7 g/dL (12.0-16.0); Mean Corp Hgb Conc. 32.9 g/dL (33.0-37.0); Mean Corpuscular Volume 88.3 fL (81.0-99.0); Mean Platelet Volume 9.5 fL (7.4-10.4); Nucleated Red Blood Cells % 0.3 %; Platelet Count 335 10^3/uL (130-400); Red Blood Cell Count 3.34 10^6/uL (4.20-5.40); Red Cell Dist. Width 14.6 % (11.5-14.5); White Blood Cell Count 6.5 10^3/uL (4.8-10.8)
[2024-07-05 04:21] LABS: ALT (SGPT) 11 U/L (0-35); AST (SGOT) 19 U/L (14-36); Albumin 2.3 g/dl (3.5-5.0); Alkaline Phosphatase 109 U/L (38-126); Blood Urea Nitrogen 17 mg/dl (7-17); Calcium 7.9 mg/dl (8.4-10.2); Carbon Dioxide 28 mmol/L (22-30); Chloride 107 mmol/L (98-107); Digoxin 1.3 ng/ml (0.8-2.0); Estimated Creatinine Clearance 53 ml/min; Glucose 89 mg/dl (70-99); Sodium 136 mmol/L (135-145); Total Bilirubin 0.4 mg/dl (0.2-1.3); Total Protein 5.4 g/dl (6.3-8.2); eGFR > 60.00
[2024-07-05] MEDS: SYNTHROID 200 MCG PO (06:00)
[2024-07-05] MEDS: CARAFATE SUSPENSION 1 GM PO ×3 (06:00→22:55)
[2024-07-05] MEDS: SYNTHROID 50 MCG PO (06:00)
[2024-07-05] MEDS: ZOSYN 50 IV (06:01)
[2024-07-05 08:08] LABS: Glucose - Point of Care 91 mg/dl (70-99)
--- NOTE | 2024-07-05 08:26 | W.PN.HOSP.TC ---
Today's Communication/Plan
-
cont Abx
follow labs
cont digoxin q48h following levels
NPO starting midnight
Hold Eliquis before angio
Assessment / Plan
Assessment / Plan
64yo F with PMHx of metastatic pancreatic CA with spinal mets, currently on RT, anxiety, hypothyroidism, PAD s/p LLE bypass failure, Renal cell CA, HLD, HFrEF of 25%, NSTEMI and ischemic CM, DM, GERD, HTN, anxiety, Hx of recent admission due to
esophageal food impaction due to esophageal stricture with metastasis (left AMA declining stent), Hx of DVT on Eliquis brought by her due to hypotension, confusion. Was advised to bring patient to ED by oncologist.
Found R foot swelling, redness and pain, XR showed subacute or old fracture of the base of the fifth metatarsal bone and Possible nondisplaced fracture of the base of the proximal phalanx of the great toe with superimposed gas gangrene, OM and
abscess with bacteremia, concomitant UTI. Podiatry did I&D, first bedside and second time in OR on 07/04/24. VascularSx planning on angio on 07/06/24, GI evaluated for possible EGD due to painful swallowing with esophageal stent, planning for EGD
A/P:
#nondisplaced fracture of the base of the proximal phalanx of the great toe - pathologic with underlying acute osteomyelitis
#subacute or old fracture of the base of the fifth metatarsal bone
#R foot gas gangrene with sepsis on admission (AMS, leukocytosis) and septic vs hypovolemic shock with R foot abscess and bacteremia
#Nondisplaced fracture at the inferior tip of the distal fibula
s/p MRI RLE on 07/04/24 with above findings
Abx as per ID Zosyn/vanco
Surgical boot for ambulation
Podiatry consult: s/p I&D, follow Cx (Staph), awaiting demarkation for further mgmt
PT/OT: cont with walker
weaned off pressors as of 07/02/24
Bcx: K.pneumonia (source UTI) and Staphylococcus schleiferi (source foot infection)
TTE with improved EF but persistent wall motion abnormalities, no overt signs of vegetations
#PAD s/p LLE failed bypass
VascConsult
for angio on 07/06/24 - hold Eliquis 24h prior
#Hx of dysphagia 2/2 esophageal mets and post RT stricture s/p esophageal stent with recurrent pain on swallowing
#Esophageal>pharyngeal dysfunction
Previously was also advised PEG if still not sufficient oral intake, GI offered either to cont esophageal stent as it is functioning appropriately or remove stent and cont with PEG, but then no oral intake. Patient decided to stay with stent at this
time. Ensure supplement TID, possible EGD on 07/05/24
INTRAOPERATIVE NEURO TECH: Regular and thin liquids
Since patient said that patient had trouble swallowing even before stent - VSE done, no oropharyngeal dysfunction
#Pyuria with dysuria (burning during urination) - UTI
Ucx K.Pneumonia
cont Abx
#Mild hyponatremia
#Mild hypocalcemia
#EVETTE
2/2 dehydration and poor oral intake
Baseline Cr 1.0
hydrate and follow labs
correct electrolytes
#Anemia, most likely 2/2 metastatic bleeds and CA
most likely 2/2 CA - Hgb trend stable
JAIME
watch CBC
FOBT positive - possible EGD by GI
#Hypothyroidism
TSH WNL so cont Synthroid
#DM type 2 with neuropathy
Accuchecks, Insulin SS, hold Farxiga ro avoid diuretic effect
DM diet
#pathological L2 compression Fx with lesion on RT
#Chronic pain on opioids
decrease OXy since patient is sleepy with home dose
cont RT upon D/C
#HLD
#Renal cell CA
#Metastatic pancreatic CA
#HFrEF, not in exacerbation
#Hx of DVT
#Ischemic CM
#Neuropathy
Essential HTN
Digoxin level elevated -hold and watch level. restart q48h and follow digoxin levels
hold BB and diuretics while hypotensive, watch for fluid overload with low EF
cont rest of meds
Cont outpatient follow up with established specialists
DVT ppx Eliquis (SCDs, while held)
Full code
I have spent at least 39min reviewing chart, test results, communication with consultants, and providing direct patient care
Anticipated Discharge: > 48 hours
Subjective/Interval History
-
Date of Service: July 05, 2024
Objective Data
-
Labs:
Laboratory Results
07/05/24
03:23
WBC 6.5
Hgb 9.7 L
Hct 29.5 L
Plt Count 335 D
Sodium 136
Potassium 4.0
Chloride 107
Carbon Dioxide 28
BUN 17
Creatinine 0.9
Glucose 89
Calcium 7.9 L
Total Bilirubin 0.4
AST 19
ALT 11
Alkaline Phosphatase 109
Vital Signs:
Vital Signs
Temp Pulse Resp BP Pulse Ox
97.5 F 58 16 132/69 95
07/05/24 07:30 07/05/24 07:31 07/05/24 07:31 07/05/24 07:31 07/05/24 02:07
I&O
07/04/24 07/05/24 07/06/24
06:59 06:59 06:59
Intake Total 2170 / 2170 720 / 720
Output Total 600 / 600 600 / 600
Balance 1570 / 1570 120 / 120
[2024-07-05] MEDS: PT'S OWN INSULIN PUMP - NovoLOG SC ×3 (08:32→22:22)
[2024-07-05] MEDS: ZENPEP DELAYED RELEASE CAPSULE 3 CAPSULE PO ×2 (08:32→13:22)
[2024-07-05] MEDS: LOW STRENGTH ASPIRIN 81 MG PO (08:34)
[2024-07-05] MEDS: ZETIA 10 MG PO (08:35)
[2024-07-05] MEDS: PROTONIX 40 MG PO (08:35)
[2024-07-05] MEDS: NEURONTIN 600 MG PO ×2 (08:36→20:08)
[2024-07-05] MEDS: CYMBALTA DELAYED RELEASE 60 MG PO (08:36)
[2024-07-05] MEDS: LOPRESSOR PO (08:36)
[2024-07-05] MEDS: TYLENOL 650 MG PO (08:42)
--- NOTE | 2024-07-05 08:43 | W.PN.NEPH.PH ---
Today's Communication / Plan
-
Kidney function and electrolytes optimized for angiogram
Will provide contrast prophylaxis
Assessment/Plan
-
Impression:
CKD (1.1)
Hypertension
History of right nephrectomy
Hyponatremia
Metastatic pancreatic cancer
Klebsiella bacteremia from foot wound
History of congestive heart
Diabetes
Hypothyroidism
A-fib
Peripheral vascular disease with previous left lower extremity bypass
Dysphagia due to esophageal mets with esophageal stent
UTI
L2 compression fracture likely due to mets
Plan:
- Serum sodium stable at 136
- creatinine at 0.9
- Urinalysis consistent with infection but also notable for underlying proteinuria and microhematuria
- Creatinine baseline oscillates between 0.9-1.1,now at baseline, holding Farxiga
- We will provide IV fluids contrast prophylaxis during angiogram procedure this week
- Maintain MAP at 65 or greater, with isotonic saline,patient now off pressors,holding anti-htns
- Dose antibiotics for GFR of 40 mL/min
-
-
Date of Service: July 05, 2024
CC / HPI / ROS
-
Chief Complaint:
CKD
History of Present Illness:
Hemodynamically stable on current antihypertensive
Creatinine at baseline 0.9
Sodium normal
Review of Systems:
Nonoliguric
No fever
Labs
-
Labs:
WBC 6.5 10^3/uL (4.8-10.8) 07/05/24 03:23
RBC 3.34 10^6/uL (4.20-5.40) L 07/05/24 03:23
Hgb 9.7 g/dL (12.0-16.0) L 07/05/24 03:23
Hct 29.5 % (37.0-47.0) L 07/05/24 03:23
Plt Count 335 10^3/uL (130-400) D 07/05/24 03:23
Sodium 136 mmol/L (135-145) 07/05/24 03:23
Potassium 4.0 mmol/L (3.5-5.1) 07/05/24 03:23
Chloride 107 mmol/L (98-107) 07/05/24 03:23
Carbon Dioxide 28 mmol/L (22-30) 07/05/24 03:23
BUN 17 mg/dl (7-17) 07/05/24 03:23
Creatinine 0.9 mg/dL (0.6-1.0) 07/05/24 03:23
eGFR > 60.00 07/05/24 03:23
Glucose 89 mg/dl (70-99) 07/05/24 03:23
Calcium 7.9 mg/dl (8.4-10.2) L 07/05/24 03:23
Phosphorus 2.8 mg/dl (2.5-4.5) 07/03/24 04:16
Albumin 2.3 g/dl (3.5-5.0) L 07/05/24 03:23
Physical Exam
-
Vital Signs:
Vital Signs
Temp Pulse Resp BP Pulse Ox
97.5 F 58 16 132/69 95
07/05/24 07:30 07/05/24 07:31 07/05/24 07:31 07/05/24 07:31 07/05/24 02:07
Respiratory:: Bilateral: Coarse
Lung Excursion:: Normal
Abdomen:: Nontender and Soft
Bowel Sounds:: Normal
Extremity Edema:: None: Bilateral:
Ying Catheter: No
--- NOTE | 2024-07-05 09:52 | W.PN.ID1 ---
Date of Service
Date of Service: July 05, 2024
Today's Communication
Narrow abx's to Unasyn.
Assessment / Plan
# Right proximal hallux, 1,2 met head osteomyelitis
# Right foot gas gangrene
# Right foot cellulitis
# Staphylococcus schleiferi (2 of 4 bottles) bacteremia, foot source
# Klebsiella (1 of 4 bottles), urine source
# Klebsiella UTI
# Right proximal hallux and distal fibula nondisplaced fx
# Fever resolved
# Leukocytosis resolved
# EVETTE resolved
# Metastatic pancreatic ca on tx via port
# Dysphagia due to esophageal mets with stent
# DM
# PAD hx failed LLE bypass
# Allergy to cephalosporin and clindamycin
- 07/02 Podiatry bedside debrided right submet callus, noted purulent drainage. Cx's: Staphylococcus schleiferi
- 07/04 s/p OR I+D, + necrosis, cx pending
- Repeat blood cx's x 4 neg to date
- TTE no valvular disease
- For angiogram Saturday per Vascular.
- Discontinue Vancomycin
- Narrow Zosyn to Unasyn.
#Conditions HEAD OF PHYSICS
Diabetes mellitus
Pancreatic cancer status post Whipple, mets to esophagus (s/p stent placed), mets to spine
Esophageal cancer status post stent
Pathological L2 compression fracture due to osseous mets
CAD status post PTCA with multiple stents
Cardiomyopathy
CVA
CKD3
PAD status post left lower extremity bypass
Hypothyroidism
History of DVT
Right nephrectomy, benign tumor
Right chest wall port placement
Osteomyelitis status post left fifth toe amputation
Chief Complaint
-: Clinical Sepsis, Cellulitis and Bacteremia
Subjective / Review of Systems
No pain. Feels better.
Vital Signs / Physical Exam
Vital Signs
Vital Signs
Temp Pulse Resp BP Pulse Ox
97.5 F 57 16 132/69 95
07/05/24 07:30 07/05/24 08:36 07/05/24 07:31 07/05/24 08:36 07/05/24 02:07
Physical Exam
Constitutional: Chronically Ill
Eyes: Sclera Anicteric
Cardiovascular: Regular Rate and S1/S2
Pulmonary: Clear
Gastrointestinal: Soft, Non Tender, Non Distended and Normal Bowel Sounds
Extremities: Edema (right foot/ankle), Cyanosis (Right great toe) and Erythema (Right dorsum foot inmproved)
Wound: Other (Right foot wound dressing dry)
Lines: Port (RCW no erythema)
Objective Data
Lab Data
Lab Results
07/05/24 03:23
07/05/24 03:23
ESR Cancelled 07/02/24 06:50
PT 22.8 Sec (11.4-14.6) H 07/01/24 21:06
INR 1.96 07/01/24 21:06
Estimated Creat Clear 53 ml/min 07/05/24 03:23
Lactic Acid 0.8 mmol/L (0.7-2.0) 07/02/24 06:50
Total Bilirubin 0.4 mg/dl (0.2-1.3) 07/05/24 03:23
AST 19 U/L (14-36) 07/05/24 03:23
ALT 11 U/L (0-35) 07/05/24 03:23
Alkaline Phosphatase 109 U/L (38-126) 07/05/24 03:23
Most recent labs reviewed.
Micro Results:
07/02/24 22:13 Blood Culture - Preliminary
Blood/Venous No Growth in 48 hours- Final report to follow
07/02/24 21:10 Blood Culture - Preliminary
Blood/Venous No Growth in 48 hours- Final report to follow
07/04/24 08:40 Wound Culture - Pending
Foot - Right Gram Stain - Preliminary
07/02/24 13:37 Blood Culture - Preliminary
Blood/Venous No Growth in 48 hours- Final report to follow
07/02/24 12:51 Blood Culture - Preliminary
Blood/Venous No Growth in 48 hours- Final report to follow
07/02/24 11:43 Wound Culture - Preliminary
Foot - Right Staphylococcus schleiferi
Gram Stain - Preliminary
07/01/24 21:07 Blood Culture - Final
Blood/Venous Staphylococcus schleiferi
Gram Stain - Final
07/01/24 21:35 Blood Culture - Final
Blood/Venous Klebsiella pneumoniae
Staphylococcus schleiferi
Gram Stain - Final
07/01/24 20:50 Urine Culture - Final
Urine Klebsiella pneumoniae
Lactobacillus species
07/04/24 08:40 Anaerobic Culture - Pending
Foot - Right
07/01/24 CXR: No acute disease of the chest.
07/01/24 Foot XRAY: Possible nondisplaced fracture of the base of the proximal phalanx of the great toe. Clinical correlation recommended. Associated soft tissue subcutaneous emphysema. This can be seen with a laceration or infection. Clinical
correlation recommended. Probable subacute or old fracture of the base of the fifth metatarsal bone. New.
07/01/24 Ankle XRAY: Probable nondisplaced fracture of the tip of the distal fibula with associated mild soft tissue swelling. New.
07/03/24 MRI RLE: Osteomyelitis of the base of the first proximal phalanx and the heads of the first and second metatarsals. Nondisplaced pathologic fracture through the region of osteomyelitis in the first proximal phalanx. Rim-enhancing abscesses
in the plantar soft tissues of the forefoot at the level of the metatarsals, in the first intermetatarsal space, and dorsal to the distal second metatarsal. Adjacent nonenhancing necrotic tissue and gas in the soft tissues dorsal to the distal first
and second metatarsals.
[2024-07-05 12:53] LABS: Glucose - Point of Care 161 mg/dl (70-99)
--- NOTE | 2024-07-05 13:07 | W.PN.GI.CBS2 ---
Today's Communication / Plan
-
NPO from midnight for EGD tomorrow
Assessment / Plan
-
64 year-old female with h/o metastatic pancreatic cancer (s/p Whipple) and recent dx of adenocarcinoma of esophagus (unknown if metastatic from pancreatic ca vs primary esophageal adenocarcinoma) who had recurrent admissions for food impaction from
her esophageal malignant stricture s/p RTX and eventual esophageal stent placement p/w confusion and hypotension and found to have bacteremia from her right food abscess. GI being consulted for her persistent odynophagia / pain when she swallows
since the esophageal stent placement.
Impression / Rec;
1. Odynophagia / pain during swallow - her CXR was reviewed which showed good placement of her esophageal stent w/o migration. Esophageal stent continues to function well as she is able to tolerate liquids and some solids since the stent
placement. PPI and carafate are not helping with her pain. We discussed possible stent removal if she is not tolerating the stent, which will inevitably result in recurrent food impactions. She will need to remain NPO exept for CLD and will
likely require PEG for nutrional support, which would not be ideal for her. There is no great option for her except for increasing pain control. Given her current oncologic status (widely metastatic disease), this may be appropriate time to
discuss GOC.
Continues to have pain with swallow. Plan for EGD tomorrow. N.p.o. from midnight.
Total Time Spent with Patient (in minutes): 35
Subjective
Subjective
Date of Service: July 05, 2024
Continues to have pain with swallow
Objective
Data Reviewed
Laboratory Data:
Laboratory Results
07/05/24 03:23
07/05/24 03:23
Laboratory Results
PT 22.8 Sec (11.4-14.6) H 07/01/24 21:06
INR 1.96 07/01/24 21:06
Phosphorus 2.8 mg/dl (2.5-4.5) 07/03/24 04:16
Magnesium 2.0 mg/dl (1.6-2.3) 07/04/24 03:25
Total Bilirubin 0.4 mg/dl (0.2-1.3) 07/05/24 03:23
AST 19 U/L (14-36) 07/05/24 03:23
ALT 11 U/L (0-35) 07/05/24 03:23
Alkaline Phosphatase 109 U/L (38-126) 07/05/24 03:23
Vital Signs and I&O:
Vital Signs
Temp Pulse Resp BP Pulse Ox
97.6 F 57 16 132/69 95
07/05/24 11:02 07/05/24 08:36 07/05/24 07:31 07/05/24 08:36 07/05/24 02:07
I&O
07/04/24 07/05/24 07/06/24
06:59 06:59 06:59
Intake Total 2170 / 2170 720 / 720
Output Total 600 / 600 600 / 600
Balance 1570 / 1570 120 / 120
[2024-07-05] MEDS: NSS 1000 IV (13:18)
[2024-07-05] MEDS: UNASYN IV ×3 (13:24→22:56)
[2024-07-05] MEDS: PT'S OWN INSULIN PUMP - NovoLOG 1.5 UNIT SC (13:25)
--- NOTE | 2024-07-05 13:47 | W.PN.POD ---
Addendum entered and electronically signed by Chinedu Hagen DPM 07/05/24 14:04:
MRi read as Rt distal fibular non displaced fracture, Patient with no symptoms of any pain, no clinical signs of any acute incident
Original Note:
Today's Communication
Today's Communication
Will wait for vascular work up with angiogram ..
Assessment / Plan
-
Rt foot cellultis with ischemic changes to Rt hallux, mostly demarcated to RT hallux
S/P Rt foot Incision and drainage POD #1
Diabetic small vessel disease
Rt foot injury - possible Rt proximal phalanx base non displaced fracture - stable
Plan: Removed all packing from I & D site , applied dry gauze dressings
D/w patient and her that her big toe has gangrenous changes, probably due to diabetic small vessel disease and foot infection would have exacerbated or probably pressors during her septic shock as well.
Discussed that she will need mores surgical procedure once vascular surgery does angiogram
Cont IV abx
Surgical shoe to Rt foot can wt bear as tolerated.
Podiatry will follow
Subjective
Chief Complaint
Rt foot cellulitis
Subjective
Patient seen at bedside, awake, alert, Offers no new complaints No fever, chills. Rt foot angie ischemic changes to Rt big toe.
Intact surgical dressings
Objective
Temp Pulse Resp BP Pulse Ox
97.6 F 72 12 136/59 99
07/05/24 11:02 07/05/24 13:30 07/05/24 13:30 07/05/24 12:02 07/05/24 13:30
07/05/24 03:23
07/05/24 03:23
Vital Signs and Lab results were reviewed.
Rt foot diminished DP and PT pulses.
Rt foot erythematous mostly forefoot
Rt hallux with angie, ischemic changes, demarcated mostly hallux, other toes appear normal.
Rt foot surgical debrided site at dorsum 1st interspace with some fibrous slough, no more active purulence ,
[2024-07-05 18:09] LABS: Glucose - Point of Care 116 mg/dl (70-99)
[2024-07-05] MEDS: ZENPEP DELAYED RELEASE CAPSULE PO (18:23)
--- NOTE | 2024-07-05 18:24 | PTCARENOTE ---
pt OOB to chair for 3 hours this afternoon; tolerated well. Appropriate and AAOx3; somewhat forgetful at times. Vital signs stable. Low back pain relieved with tylenol this morning. Denies pain in right leg/foot. Dressing remains dry and intact to
right foot. Palpable but weak pedal pulse. Now sleeping but arouseable. Continuing to monitor
[2024-07-05] MEDS: NEURONTIN PO (19:13)
[2024-07-05] MEDS: CARAFATE SUSPENSION PO ×2 (19:14→22:55)
[2024-07-05] MEDS: LOPRESSOR 25 MG PO (20:08)
[2024-07-05 22:19] LABS: Glucose - Point of Care 101 mg/dl (70-99)
[2024-07-06] VITALS (19 sets, daily range): BP systolic 16–171; BP diastolic 53–81
--- NOTE | 2024-07-06 00:12 | PTCARENOTE ---
Patient AAOx3, NSR on monitor. RA sating at 99%. NPO at midnight for procedures in AM. Took pills in applesauce without issue. NS @ 60 ml/hr. 1:1 present in patients room. Assessment and vital signs as documented. Call cabrera in reach.
[2024-07-06] MEDS: CARAFATE SUSPENSION 1 GM PO ×3 (05:41→17:37)
[2024-07-06] MEDS: UNASYN IV ×3 (05:41→17:40)
[2024-07-06] MEDS: SYNTHROID 200 MCG PO (05:41)
[2024-07-06] MEDS: SYNTHROID 50 MCG PO (05:42)
[2024-07-06 05:50] LABS: % Basophils 0.4 % (0-2); % Eosinophils 3.7 % (0-6); % Immature Granulocytes 1.1 % (0-0.5); % Lymphocytes 10.4 % (20.5-51.1); % Monocytes 7.1 % (1.7-9.3); % Neutrophils 77.3 % (42.2-75.2); Absolute Eosinophils 0.2 10^3/uL (0-0.7); Absolute Immature Granulocytes 0.1 10^3/uL (0-0.05); Absolute Lymphocytes 0.6 10^3/uL (1.2-3.4); Absolute Monocytes 0.4 10^3/uL (0.1-0.6); Absolute Neutrophils 4.1 10^3/uL (1.4-6.5); Hematocrit 27.6 % (37.0-47.0); Mean Corp Hgb Conc. 32.6 g/dL (33.0-37.0); Mean Corpuscular Hgb 28.8 pg (27.0-31.0); Mean Corpuscular Volume 88.2 fL (81.0-99.0); Mean Platelet Volume 9.7 fL (7.4-10.4); Nucleated Red Blood Cells % 0 %; Platelet Count 296 10^3/uL (130-400); Red Blood Cell Count 3.13 10^6/uL (4.20-5.40); Red Cell Dist. Width 14.6 % (11.5-14.5); White Blood Cell Count 5.4 10^3/uL (4.8-10.8)
[2024-07-06 05:58] LABS: INR 1.21; PT 15.8 Sec (11.4-14.6)
[2024-07-06 05:59] LABS: APTT 37.5 Sec (23.4-35.0)
[2024-07-06 06:08] LABS: Glucose - Point of Care 82 mg/dl (70-99)
[2024-07-06 06:18] LABS: ALT (SGPT) < 10 U/L (0-35); AST (SGOT) 15 U/L (14-36); Albumin 2.2 g/dl (3.5-5.0); Alkaline Phosphatase 91 U/L (38-126); Blood Urea Nitrogen 12 mg/dl (7-17); Calcium 7.5 mg/dl (8.4-10.2); Carbon Dioxide 27 mmol/L (22-30); Chloride 110 mmol/L (98-107); Digoxin 1.4 ng/ml (0.8-2.0); Estimated Creatinine Clearance 60 ml/min; Glucose 78 mg/dl (70-99); Potassium 3.8 mmol/L (3.5-5.1); Sodium 137 mmol/L (135-145); Total Bilirubin 0.3 mg/dl (0.2-1.3); Total Protein 5.3 g/dl (6.3-8.2); eGFR > 60.00
--- NOTE | 2024-07-06 08:17 | PTCARENOTE ---
Assumed care of patient at beginning of this shift from previous RN. Patient has own insulin pump connected. arrived this morning and stated is was still running but he does not know the dose; he put it on standby at 08:09 as patient is NPO.
Patient is oriented but drowsy and confused/forgetful. Accu check done at 05:57 with result 82. On patient's pump result showed 85. This nurse spoke with Judith from [employer] who stated patient is an add-on for angio and will not be going until
much later in the day. She is also for EGD; per GI lab they do not have a time. There is an order for lieutenant governor that was entered on 07/02/24 for 'monitor instruction.' This nurse spoke with diabetes office who stated they are aware of the
consult; she did request that another consult be entered for ' medical management.' TT sent to Dr Mary Hernandez with all information stated above.
[2024-07-06] MEDS: PT'S OWN INSULIN PUMP - NovoLOG SC ×4 (08:26→22:12)
--- NOTE | 2024-07-06 08:27 | PTCARENOTE ---
Patient ordered IVF to start 1hr prior to angio. Dept unsure of time but will be much later today. IVF found sitting at nurses' station with label to refrigerate. This nurse spoke with pharmacist Wilma who instructed to send IVF back to
pharmacy. Previous NSS order timed out; TT sent to Dr Hernandez requesting new order as IVF almost complete.
--- NOTE | 2024-07-06 09:08 | PN.DE.MGMTRT ---
Insulin Management
- -
07/06/2024: Diabetes Management Consult
64 year old female with PMH: Metastatic pancreatic cancer (s/p Whipple) and esophageal cancer (? if metastatic vs primary esophageal adenocarcinoma), CAD, PAD, CVA, CHF, pleural effusion s/p thoracentesis 11/2023, IDDM, benign renal mass, history of
DVT (on Eliquis), hypothyroidism, and GERD. Patient presented to the emergency room yesterday Rt foot cellulitis with ischemic changes to Rt hallux, mostly demarcated to RT hallux. S/P Rt foot Incision and drainage POD #1.
Per podiatry, pt will need mores surgical procedure once vascular surgery does angiogram because her big toe has gangrenous changes, probably due to diabetic small vessel disease and foot infection.
Pt uses insulin pump- Medtronic mini med with guardian sensor, due to difficulty controlling her blood sugars from chronic steroid use and recurrent Hypoglycemic episodes. She sees Endo Dr. Hudson and [facility].
Pt Not available at time of my visit. She is off the floor for procedure and unable to discuss diabetes care plan. was at bedside earlier but he is not available at this moment either. Information obtained form chart review and Nurse.
Per the Nurse pt's insulin pump remains in place with insulin infusion suspended prior to procedure.
A1C was 6.0% on 06/08/24. Cr 0.8, eGFR >60. Recent POC was 82 this morning.
Will return to see pt after procedure and obtain pump settings and resume pump use.
Diabetes History
- -
Type of Diabetes: 2 requiring insulin
Pre-Admission Diabetes Regimen
07/06/24
05:11
Creatinine 0.8
Insulin Pump Settings
IP Diabetes Regimen
07/05/24 07/05/24 07/05/24
12:41 17:57 22:08
Glucose
POC Glucose 161 H 116 H 101 H
07/06/24 07/06/24
05:11 05:57
Glucose 78
POC Glucose 82
Meal type: Breakfast
Patient Education
[2024-07-06] MEDS: ZENPEP DELAYED RELEASE CAPSULE PO ×2 (09:28→12:47)
[2024-07-06] MEDS: LOPRESSOR 25 MG PO ×2 (09:44→21:16)
--- NOTE | 2024-07-06 09:46 | PTCARENOTE ---
Contact Dr Barclay regarding morning meds. Instructed to give only lopressor this morning and hold the rest until after procedure; he stated she is going in 1h. Patient able to take with small sip of water without difficulty. at bedside and
updated.
--- NOTE | 2024-07-06 10:20 | PTCARENOTE ---
Patient to GI lab. Update given to GI lab prior that patient had insulin pump attached but put on hold.
[2024-07-06 11:01] LABS: Glucose - Point of Care 100 mg/dl (70-99)
--- NOTE | 2024-07-06 11:19 | PN.CDI ---
Addendum entered and electronically signed by Arcadio Bush MD 07/13/24 07:43:
received query when off service for the patient - no further notes written.
patient had mild transient hypokalemia
Original Note:
CDI
- -
CDI:
Physician Documentation Request
Admit Date: 07/02/24 01:33
Dear Doctor Eleazar,
Patient admitted for fractures.
07/04 Potassium level: 3.3
07/04 Potassium chloride 40 meq IV administered
Based on the above, could you clarify in the progress notes, the appropriate diagnosis, if significant, that supports the above abnormalities and additional evaluation, monitoring and/or treatment rendered:
Hypokalemia
Abnormal lab value insignificant
Other
Use of terms such as suspected, likely, concern for, or probable (associated with a specific diagnosis that is being evaluated, monitored, or treated as if it exists) are acceptable and can be coded in the inpatient setting, when documented at the
time of discharge.
Thank you,
Karo Mehta RN, BSN
CDI Specialist
Available via [facility] text
Please use your independent medical judgment in providing your response.
--- NOTE | 2024-07-06 11:33 | PTCARENOTE ---
Report received from Suzanne in PACU. Dr Hernandez on unit and updated that patient will returning shortly and will need IVF renewed.
[2024-07-06 12:12] LABS: Glucose - Point of Care 96 mg/dl (70-99)
--- NOTE | 2024-07-06 12:21 | W.PN.ID1 ---
Date of Service
Date of Service: July 06, 2024
Today's Communication
Continue Unasyn
Start fluconazole for presumed esoph candiasis
Assessment / Plan
# Right proximal hallux, 1,2 met head osteomyelitis
# Right foot gas gangrene
# Right foot cellulitis
# Staphylococcus schleiferi (2 of 4 bottles) bacteremia, foot source
# Klebsiella (1 of 4 bottles), urine source
# Klebsiella UTI
# Right proximal hallux and distal fibula nondisplaced fx
# Fever resolved
# Leukocytosis resolved
# EVETTE resolved
# Metastatic pancreatic ca on tx via port
# Dysphagia due to esophageal mets with stent
# DM
# PAD hx failed LLE bypass
# Allergy to cephalosporin and clindamycin
- 07/02 Podiatry bedside debrided right submet callus, noted purulent drainage. Cx's: Staphylococcus schleiferi
- 07/04 s/p OR I+D, + necrosis, cx Staphylococcus schleiferi
- Repeat blood cx's x 4 neg to date
- TTE no valvular disease
- For angiogram today per Vascular.
- Continue Unasyn.
- 07/06 EGD: stent patent; scattered white plaques in upper third of esophagus.
Cytology pending.
Start empiric fluconazole for probable esophageal candidiasis.
Monitor QTc while on fluconazole.
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
Diabetes mellitus
Pancreatic cancer status post Whipple, mets to esophagus (s/p stent placed), mets to spine
Esophageal cancer status post stent
Pathological L2 compression fracture due to osseous mets
CAD status post PTCA with multiple stents
Cardiomyopathy
CVA
CKD3
PAD status post left lower extremity bypass
Hypothyroidism
History of DVT
Right nephrectomy, benign tumor
Right chest wall port placement
Osteomyelitis status post left fifth toe amputation
Chief Complaint
-: Clinical Sepsis, Cellulitis and Bacteremia
Subjective / Review of Systems
at bedside. Pt with confusion post anaesthesia.
Had 1 episode of diarrhea this am.
Has difficulty swallowing.
Vital Signs / Physical Exam
Vital Signs
Vital Signs
Temp Pulse Resp BP Pulse Ox
97.8 F 67 16 161/77 100
07/06/24 11:20 07/06/24 11:30 07/06/24 11:30 07/06/24 11:30 07/06/24 11:30
Physical Exam
Constitutional: Chronically Ill
Eyes: Sclera Anicteric
Cardiovascular: Regular Rate and S1/S2
Pulmonary: Clear (anteriorly)
Gastrointestinal: Soft, Non Tender, Non Distended and Normal Bowel Sounds
Extremities: Edema (right foot/ankle), Cyanosis (Right great toe) and Erythema (Right dorsum foot inmproved)
Wound: Other (Right foot wound dressing dry)
Neurological: Awake and Alert
Lines: Port (RCW no erythema)
Objective Data
Lab Data
Lab Results
07/06/24 05:11
07/06/24 05:11
ESR Cancelled 07/02/24 06:50
PT 15.8 Sec (11.4-14.6) H 07/06/24 05:11
INR 1.21 07/06/24 05:11
APTT 37.5 Sec (23.4-35.0) H 07/06/24 05:11
Estimated Creat Clear 60 ml/min 07/06/24 05:11
Lactic Acid 0.8 mmol/L (0.7-2.0) 07/02/24 06:50
Total Bilirubin 0.3 mg/dl (0.2-1.3) 07/06/24 05:11
AST 15 U/L (14-36) 07/06/24 05:11
ALT < 10 U/L (0-35) 07/06/24 05:11
Alkaline Phosphatase 91 U/L (38-126) 07/06/24 05:11
Most recent labs reviewed.
Micro Results:
07/04/24 08:40 Anaerobic Culture - Preliminary
Foot - Right Culture pending. Anaerobic cultures are examined after 3
days incubation. Additional information to follow.
07/04/24 08:40 Wound Culture - Preliminary
Foot - Right Staphylococcus schleiferi
Gram Stain - Preliminary
07/02/24 22:13 Blood Culture - Preliminary
Blood/Venous No Growth in 72 hours- Final report to follow
07/02/24 21:10 Blood Culture - Preliminary
Blood/Venous No Growth in 72 hours- Final report to follow
07/02/24 13:37 Blood Culture - Preliminary
Blood/Venous No Growth in 72 hours- Final report to follow
07/02/24 12:51 Blood Culture - Preliminary
Blood/Venous No Growth in 72 hours- Final report to follow
07/02/24 11:43 Wound Culture - Final
Foot - Right Staphylococcus schleiferi
Gram Stain - Final
07/01/24 21:07 Blood Culture - Final
Blood/Venous Staphylococcus schleiferi
Gram Stain - Final
07/01/24 21:35 Blood Culture - Final
Blood/Venous Klebsiella pneumoniae
Staphylococcus schleiferi
Gram Stain - Final
07/01/24 20:50 Urine Culture - Final
Urine Klebsiella pneumoniae
Lactobacillus species
07/01/24 CXR: No acute disease of the chest.
07/01/24 Foot XRAY: Possible nondisplaced fracture of the base of the proximal phalanx of the great toe. Clinical correlation recommended. Associated soft tissue subcutaneous emphysema. This can be seen with a laceration or infection. Clinical
correlation recommended. Probable subacute or old fracture of the base of the fifth metatarsal bone. New.
07/01/24 Ankle XRAY: Probable nondisplaced fracture of the tip of the distal fibula with associated mild soft tissue swelling. New.
07/03/24 MRI RLE: Osteomyelitis of the base of the first proximal phalanx and the heads of the first and second metatarsals. Nondisplaced pathologic fracture through the region of osteomyelitis in the first proximal phalanx. Rim-enhancing abscesses
in the plantar soft tissues of the forefoot at the level of the metatarsals, in the first intermetatarsal space, and dorsal to the distal second metatarsal. Adjacent nonenhancing necrotic tissue and gas in the soft tissues dorsal to the distal first
and second metatarsals.
--- NOTE | 2024-07-06 12:29 | W.PN.NEPH.PH ---
Today's Communication / Plan
-
IVF prophylaxis for angio today
Assessment/Plan
-
Impression:
CKD (1.1)
Hypertension
History of right nephrectomy
Hyponatremia
Metastatic pancreatic cancer
Klebsiella bacteremia from foot wound
History of congestive heart
Diabetes
Hypothyroidism
A-fib
Peripheral vascular disease with previous left lower extremity bypass
Dysphagia due to esophageal mets with esophageal stent
UTI
L2 compression fracture likely due to mets
Plan:
stable cr 0.8
- Urinalysis consistent with infection but also notable for underlying proteinuria and microhematuria
- Creatinine baseline oscillates between 0.9-1.1,now at baseline, holding Farxiga
- We will provide IV fluids contrast prophylaxis during angiogram procedure today
BPs now increasing trend- back on BB and likely resume ARB tomorrow
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
d/w pt and nursing
-
-
Date of Service: July 06, 2024
CC / HPI / ROS
-
Chief Complaint:
CKD
History of Present Illness:
Hemodynamically stable on current antihypertensive
Creatinine at baseline 0.8
Sodium normal
Review of Systems:
Nonoliguric
No fever
no cp or sob
Labs
-
Labs:
WBC 5.4 10^3/uL (4.8-10.8) 07/06/24 05:11
RBC 3.13 10^6/uL (4.20-5.40) L 07/06/24 05:11
Hgb 9.0 g/dL (12.0-16.0) L 07/06/24 05:11
Hct 27.6 % (37.0-47.0) L 07/06/24 05:11
Plt Count 296 10^3/uL (130-400) 05/19/25 05:11
Sodium 137 mmol/L (135-145) 07/06/24 05:11
Potassium 3.8 mmol/L (3.5-5.1) 07/06/24 05:11
Chloride 110 mmol/L (98-107) H 07/06/24 05:11
Carbon Dioxide 27 mmol/L (22-30) 07/06/24 05:11
BUN 12 mg/dl (7-17) 07/06/24 05:11
Creatinine 0.8 mg/dL (0.6-1.0) 07/06/24 05:11
eGFR > 60.00 07/06/24 05:11
Glucose 78 mg/dl (70-99) 07/06/24 05:11
Calcium 7.5 mg/dl (8.4-10.2) L 07/06/24 05:11
Phosphorus 2.8 mg/dl (2.5-4.5) 07/03/24 04:16
Albumin 2.2 g/dl (3.5-5.0) L 07/06/24 05:11
Physical Exam
-
Vital Signs:
Vital Signs
Temp Pulse Resp BP Pulse Ox
97.8 F 67 16 161/77 100
07/06/24 11:20 07/06/24 11:30 07/06/24 11:30 07/06/24 11:30 07/06/24 11:30
Cardiovascular:: Regular rate and rhythm
Respiratory:: Bilateral: CTA (anteriorly)
Lung Excursion:: Normal
Abdomen:: Nontender and Soft
Bowel Sounds:: Normal
Extremity Edema:: None: Bilateral:
Ying Catheter: No
--- NOTE | 2024-07-06 12:29 | W.PN.UPDATE ---
Update Note
Progress Note Update
EGD showed well positioned esophageal stent, patent. scattered white plaques, cytology obtained to exclude elizabeth. Otherwise unremarkable. Resume diet. Can resume eliquis today unless otherwise indicated. GI s/o.
[2024-07-06] MEDS: NSS 1000 IV (12:47)
[2024-07-06] MEDS: LANOXIN 125 MCG PO (12:57)
[2024-07-06] MEDS: NEURONTIN 600 MG PO ×3 (13:18→21:16)
[2024-07-06] MEDS: CYMBALTA DELAYED RELEASE 60 MG PO (13:18)
[2024-07-06] MEDS: PROTONIX 40 MG PO (13:18)
[2024-07-06] MEDS: ZETIA 10 MG PO (13:18)
[2024-07-06] MEDS: LOW STRENGTH ASPIRIN 81 MG PO (13:18)
--- NOTE | 2024-07-06 13:33 | PTCARENOTE ---
Confirmed with vascular labeling associate that patient is to be NPO for procedure. Dr Hernandez updated order to NPO except meds. TT sent to Dr Ying regarding patient's L great toe cool and dusky. He returned TT stating that patient will no longer be going for
procedure today d/t receiving anesthesia for EGD and that he will be up to see patient and speak with her.
--- NOTE | 2024-07-06 13:52 | W.PN.POD ---
Today's Communication
Today's Communication
probably need Rt hallux amputation with Rt foot debridement
Assessment / Plan
-
Rt foot cellultis with ischemic changes to Rt hallux, mostly demarcated to RT hallux
S/P Rt foot Incision and drainage POD # 2
Diabetic small vessel disease
Rt foot injury - possible Rt proximal phalanx base non displaced fracture - stable
Plan: changed Rt foot dressings
D/w patient that her big toe has gangrenous changes, probably due to diabetic small vessel disease and foot infection would have exacerbated or probably pressors during her septic shock as well.
Discussed that she will need probably big toe amputation with debridement Rt foot after vascular surgery does angiogram, if vascular planned
Cont IV abx
Surgical shoe to Rt foot can wt bear as tolerated.
Podiatry will follow
Subjective
Chief Complaint
Rt foot cellulitis S/P Rt foot I & D 07/04/2024
Subjective
Patient seen at bedside, awake, alert, Offers no new complaints No fever, chills. Rt foot angie ischemic changes to Rt big toe.
Intact surgical dressings
Objective
Temp Pulse Resp BP Pulse Ox
97.8 F 68 16 161/77 100
07/06/24 11:20 07/06/24 12:57 07/06/24 11:30 07/06/24 11:30 07/06/24 11:30
07/06/24 05:11
07/06/24 05:11
Vital Signs and Lab results were reviewed.
Rt foot palpable DP and PT pulses.
Rt foot resolving erythema well. No edema
Rt hallux with angie, ischemic changes, demarcated mostly to hallux, other toes appear normal.
Rt foot surgical debrided site at dorsum 1st interspace with some fibrous slough, scant purulence , no foul odor
[2024-07-06] MEDS: DIFLUCAN 200 MG 100 IV (14:30)
--- NOTE | 2024-07-06 15:27 | CM ---
Addendum entered by Sheryl Peoples RN 07/06/24 16:50:
Spoke with patient's Juan Jose;
discussed hospice philosophy and benefits.
agrees with speaking with hospice nurse and will be here tomorrow morning to meet with hospice nurse.
was tearful and says he plans on taking patient home.
Son Hans will come in tomorrow with the . The other son has special needs and will be given an update about his mother later.
Plan follow up after seen by Hospice.
Original Note:
Patient with Hx metastatic pancreatic CA with spinal mets, chest Port, recents falls with Dx fracture proximal phalanx great toe - pathologic with underlying acute osteomyelitis, dysphagia 2/2 esophageal mets with recurrent pain on swallowing. O2
2L. Full liqs. Receiving IV Abx. 1:1 per nurse.
CM Consult: Hospice
Met with patient who conveys that she remembers the conversation with Dr Ying today discussing hospice, she wants to wait to talk with hospice nurse when she can do that with her . Patient says she understands focus of hospice for keeping
her comfortable.
Phone calls to Juan Jose; left messages at home and cell #s requesting callback today to discuss plan of care.
Spoke with [facility]; discussed possible hospice consult. Agree to wait to initiate if agrees.
Plan follow up with re; hospice.
--- NOTE | 2024-07-06 15:38 | HOSPNOTE ---
Per CM patient would like her present to discuss hospice and the philosophy. Referral received and more information to follow.
--- NOTE | 2024-07-06 16:14 | W.PN.HOSP.TC ---
Today's Communication/Plan
-
Continue goals of care conversations
Consult hospice
Assessment / Plan
Assessment / Plan
64yo F with PMHx of metastatic pancreatic CA with spinal mets, currently on RT, anxiety, hypothyroidism, PAD s/p LLE bypass failure, Renal cell CA, HLD, HFrEF of 25%, NSTEMI and ischemic CM, DM, GERD, HTN, anxiety, Hx of recent admission due to
esophageal food impaction due to esophageal stricture with metastasis (left AMA declining stent), Hx of DVT on Eliquis brought by her due to hypotension, confusion. Was advised to bring patient to ED by oncologist.
Found R foot swelling, redness and pain, XR showed subacute or old fracture of the base of the fifth metatarsal bone and Possible nondisplaced fracture of the base of the proximal phalanx of the great toe with superimposed gas gangrene, OM and
abscess with bacteremia, concomitant UTI. Podiatry did I&D, first bedside and second time in OR on 07/04/24. VascularSx planning on angio on 07/06/24, GI evaluated for possible EGD due to painful swallowing with esophageal stent, planning for EGD
A/P:
#nondisplaced fracture of the base of the proximal phalanx of the great toe - pathologic with underlying acute osteomyelitis
#subacute or old fracture of the base of the fifth metatarsal bone
#R foot gas gangrene with sepsis on admission (AMS, leukocytosis) and septic vs hypovolemic shock with R foot abscess and bacteremia
#Nondisplaced fracture at the inferior tip of the distal fibula
s/p MRI RLE on 07/04/24 with above findings
Abx as per ID Zosyn/vanco
Surgical boot for ambulation
Podiatry consult: s/p I&D, follow Cx ([facility]), awaiting demarkation for further mgmt
PT/OT: cont with walker
weaned off pressors as of 07/02/24
Bcx: K.pneumonia (source UTI) and Staphylococcus schleiferi (source foot infection)
TTE with improved EF but persistent wall motion abnormalities, no overt signs of vegetations
#PAD s/p LLE failed bypass
Appreciate vascular surgery input, original plan was for angiogram 07/06/2024, Eliquis on hold
Further discussions by Dr. Ying, who recommended hospice to the patient and lieu of her metastatic pancreatic cancer
Continue goals of care discussion, consult hospice
#Hx of dysphagia 2/2 esophageal mets and post RT stricture s/p esophageal stent with recurrent pain on swallowing
#Esophageal>pharyngeal dysfunction
Previously was also advised PEG if still not sufficient oral intake, GI offered either to cont esophageal stent as it is functioning appropriately or remove stent and cont with PEG, but then no oral intake. Patient decided to stay with stent at this
time. Ensure supplement TID, EGD on 07/06/24 shows well-positioned esophageal stent, esophagitis, concerning for Eliana
Follow-up cytology, start clear liquid diet and advance as tolerated
SALES ORDER ADMINISTRATOR: Regular and thin liquids
Since patient said that patient had trouble swallowing even before stent - VSE done, no oropharyngeal dysfunction
#Pyuria with dysuria (burning during urination) - UTI
Ucx K.Pneumonia
cont Abx
#Mild hyponatremia
#Mild hypocalcemia
#EVETTE
2/2 dehydration and poor oral intake
Baseline Cr 1.0
hydrate and follow labs
correct electrolytes
#Anemia, most likely 2/2 metastatic bleeds and CA
most likely 2/2 CA - Hgb trend stable
JAIME
watch CBC
#Hypothyroidism
TSH WNL so cont Synthroid
#DM type 2 with neuropathy
Accuchecks, Insulin SS, hold Farxiga ro avoid diuretic effect
DM diet
#pathological L2 compression Fx with lesion on RT
#Chronic pain on opioids
decrease OXy since patient is sleepy with home dose
cont RT upon D/C
#HLD
#Renal cell CA
#Metastatic pancreatic CA
#HFrEF, not in exacerbation
#Hx of DVT
#Ischemic CM
#Neuropathy
Essential HTN
Digoxin level elevated -dose decreased to q48h and follow digoxin levels
hold BB and diuretics while hypotensive, watch for fluid overload with low EF
cont rest of meds
Cont outpatient follow up with established specialists
DVT ppx Eliquis
Full code
Updated on phone 07/06
Total time spent to see the patient on the floor, examine the patient, review data and lab results, discuss treatment plan with patient, nursing staff around 50 minutes.
Physical Exam
General: Appears chronically ill, no acute distress
HEENT: Normocephalic, Atraumatic, EOMI, MMM
Respiratory: Clear to Auscultation bilaterally
Cardiac: Normal S1/S2, Regular Rate and Rhythm
GI: Soft, Nontender, Nondistended, Normal Bowel Sounds
Extremities: No Clubbing, Cyanosis
Bluish discoloration of right great toe, rest of the foot is dressed
Anticipated Discharge: > 48 hours
Subjective/Interval History
-
Date of Service: July 06, 2024
Patient complains of esophageal chest pain. She also has nausea, no vomiting. Denies foot pain. She reports she has not. No fever.
Objective Data
-
Labs:
Laboratory Results
07/06/24
05:11
WBC 5.4
Hgb 9.0 L
Hct 27.6 L
Plt Count 296
PT 15.8 H
INR 1.21
APTT 37.5 H
Sodium 137
Potassium 3.8
Chloride 110 H
Carbon Dioxide 27
BUN 12
Creatinine 0.8
Glucose 78
Calcium 7.5 L
Total Bilirubin 0.3
AST 15
ALT < 10
Alkaline Phosphatase 91
Vital Signs:
Vital Signs
Temp Pulse Resp BP Pulse Ox
98.5 F 67 19 147/71 98
07/06/24 07:40 07/06/24 05:00 07/06/24 05:00 07/06/24 04:00 07/06/24 05:00
I&O
07/05/24 07/06/24 07/07/24
06:59 06:59 06:59
Intake Total 720 / 720 1260 / 1260
Output Total 600 / 600
Balance 120 / 120 1260 / 1260
--- NOTE | 2024-07-06 16:20 | PTCARENOTE ---
Addendum entered by Bobbi Kc RN 07/06/24 19:14:
TT from Rod Dunn stated that insulin pump can resume. is here and will restart.
Original Note:
Patient's insulin pump still on hold; not back in room yet. TT sent to Rod Dunn NP with diabetes education/management notifying her that patient ordered full liquid diet, pump is currently off and no insulin orders as of yet.
[2024-07-06 16:29] LABS: Glucose - Point of Care 151 mg/dl (70-99)
--- NOTE | 2024-07-06 16:45 | W.PN.UPDATE ---
Update Note
Progress Note Update
Patient seen at bedside with Dr. Jose Ying III, MD. Dr. Ying reviewed extensively all options of treatment with consideration to her metastatic cancer diagnosis and malnourished state. Currently patient is agreeable to considering hospice vs.
palliative care, will hold off on scheduling any vascular intervention until goals of care discussion is finalized and patient can consider all options.
[2024-07-06] MEDS: ZENPEP DELAYED RELEASE CAPSULE 5 CAPSULE PO (17:36)
[2024-07-06] MEDS: PT'S OWN INSULIN PUMP - NovoLOG 3.3 UNIT SC (19:18)
[2024-07-06 22:10] LABS: Glucose - Point of Care 169 mg/dl (70-99)
[2024-07-07] VITALS (13 sets, daily range): BP systolic 138–185; BP diastolic 69–84; PULSE 70–78; O2SAT 99
--- NOTE | 2024-07-07 00:18 | W.PN.UPDATE ---
Update Note
Progress Note Update
pt c/o itching. due to this she accidently dislodged port access and also insulin pump. will give po dose of benadryl. and add sliding scale insulin until can replace insulin pump in am.
[2024-07-07] MEDS: UNASYN IV ×5 (00:19→23:11)
[2024-07-07] MEDS: BENADRYL 25 MG PO (00:24)
[2024-07-07] MEDS: CARAFATE SUSPENSION 1 GM PO ×5 (00:24→23:11)
--- NOTE | 2024-07-07 00:52 | VATNOTE ---
0000-NOTIFIED BY PCN THAT PT HAD DEACCESSED R SUBQ PRT. PRT REACCESSED DOCUMENTED. FLUSHES WELL AND HAS A GOOD BR.
[2024-07-07] MEDS: NSS 1000 IV (04:22)
--- NOTE | 2024-07-07 04:28 | PTCARENOTE ---
assumed care of patient from previous RN. Patient began itching and complaining her whole body itches. TT SOLIDWORKS MECHANICAL DESIGNER for new orders, in the meantime, patient ripped out port access and insulin pump due to itching. SOLIDWORKS MECHANICAL DESIGNER made aware, new orders placed see
mar. TT vat team to regain port access which was done by Lisa YANG. Patient received Benadryl for itching which helped. asessment and vital signs as documented. call cabrera in reach.
[2024-07-07 04:47] LABS: % Basophils 0.3 % (0-2); % Eosinophils 2.3 % (0-6); % Immature Granulocytes 0.7 % (0-0.5); % Lymphocytes 12.6 % (20.5-51.1); % Monocytes 5.9 % (1.7-9.3); % Neutrophils 78.2 % (42.2-75.2); Absolute Eosinophils 0.1 10^3/uL (0-0.7); Absolute Lymphocytes 0.8 10^3/uL (1.2-3.4); Absolute Monocytes 0.4 10^3/uL (0.1-0.6); Absolute Neutrophils 4.7 10^3/uL (1.4-6.5); Hematocrit 27.7 % (37.0-47.0); Mean Corp Hgb Conc. 32.5 g/dL (33.0-37.0); Mean Corpuscular Hgb 28.7 pg (27.0-31.0); Mean Corpuscular Volume 88.2 fL (81.0-99.0); Mean Platelet Volume 9.5 fL (7.4-10.4); Nucleated Red Blood Cells % 0 %; Platelet Count 356 10^3/uL (130-400); Red Blood Cell Count 3.14 10^6/uL (4.20-5.40); Red Cell Dist. Width 14.6 % (11.5-14.5)
[2024-07-07 05:02] LABS: Blood Urea Nitrogen 11 mg/dl (7-17); Calcium 7.4 mg/dl (8.4-10.2); Carbon Dioxide 26 mmol/L (22-30); Chloride 112 mmol/L (98-107); Estimated Creatinine Clearance 68 ml/min; Glucose 123 mg/dl (70-99); Potassium 3.9 mmol/L (3.5-5.1); Sodium 138 mmol/L (135-145); eGFR > 60.00
[2024-07-07] MEDS: SYNTHROID 50 MCG PO (05:05)
[2024-07-07] MEDS: SYNTHROID 200 MCG PO (05:05)
[2024-07-07 07:41] LABS: Glucose - Point of Care 135 mg/dl (70-99)
[2024-07-07] MEDS: NOVOLOG FLEXPEN-LOW RESISTANCE SC ×2 (07:50→17:46)
[2024-07-07] MEDS: PT'S OWN INSULIN PUMP - NovoLOG SC ×3 (07:50→21:25)
--- NOTE | 2024-07-07 08:17 | PN.DE.MGMTRT ---
Insulin Management
- -
07/07/2024 Diabetes Management Consult Follow up
Patient admitted 07/01 with weakness, frequent falls, Rt foot cellulitis with ischemic changes to Rt hallux, mostly demarcated to RT hallux.
PMH: Metastatic pancreatic cancer (s/p Whipple) and esophageal cancer (? if metastatic vs primary esophageal adenocarcinoma), CAD, PAD, CVA, CHF, pleural effusion s/p thoracentesis 11/2023, IDDM, benign renal mass, history of DVT (on Eliquis),
hypothyroidism, and GERD. A1C was 6.0% on 06/08/24. Cr 0.8, eGFR >60.
POD #2 S/P Rt foot Incision and drainage
Per podiatry, pt will need additional surgical procedure once vascular surgery does angiogram because her big toe has gangrenous changes, probably due to diabetic small vessel disease and foot infection.
Pt uses insulin pump- [employer]tronic SmallRivers med with guardian sensor, due to difficulty controlling her blood sugars from chronic steroid use and recurrent Hypoglycemic episodes. She sees Endo Dr. Hudson and [facility].
Patient is awake alert and oriented oob in chair, able to discuss diabetes care. Last evening she was very itchy and pulled her infusion set out. She is receiving corrective insulin only. Call to to determine which infusion set she uses
(if available would provide). She uses the extended wear 7 day infusion set. He was going to bring it in this evening. Requested he come sooner if possible as she is getting no basal insulin. He stated he will try. does all insulin prep
and insertion for patient.
To continue insulin pump when arrives. Pump settings:
Basal rate .65 for 24 hours. Basal total 15.6 units
I:CHO ratio 1:13
Sensitivity 1:50
Active insulin 2 hours
Target range 100 to 120.
Will make no change to settings.
Patient and considering hospice versus palliative care.
Diabetes History
- -
Type of Diabetes: 2 requiring insulin
Pre-Admission Diabetes Regimen
07/07/24
04:20
Creatinine 0.7
Insulin Pump Settings
IP Diabetes Regimen
07/06/24 07/06/24 07/06/24
11:00 12:01 16:18
Glucose
POC Glucose 100 H 96 151 H
07/06/24 07/07/24 07/07/24
21:59 04:20 07:30
Glucose 123 H
POC Glucose 169 H 135 H
Meal type: Dinner
Meal type: Lunch
Meal type: Breakfast
Amount consumed: 90%
Amount consumed: 55%
Patient Education
[2024-07-07] MEDS: ZETIA 10 MG PO (08:39)
[2024-07-07] MEDS: ZENPEP DELAYED RELEASE CAPSULE 5 CAPSULE PO ×3 (08:39→17:51)
[2024-07-07] MEDS: NEURONTIN 600 MG PO ×3 (08:39→20:17)
[2024-07-07] MEDS: PROTONIX 40 MG PO (08:39)
[2024-07-07] MEDS: LOW STRENGTH ASPIRIN 81 MG PO (08:39)
[2024-07-07] MEDS: LOPRESSOR 25 MG PO ×2 (08:41→20:17)
[2024-07-07] MEDS: CYMBALTA DELAYED RELEASE 60 MG PO (08:42)
--- NOTE | 2024-07-07 09:02 | W.PN.HOSP.TC ---
Today's Communication/Plan
-
Change CODE STATUS to DNR
Started on valsartan 40 mg twice a day by nephrology
Continue goals of care discussion
Assessment / Plan
Assessment / Plan
64yo F with PMHx of metastatic pancreatic CA with spinal mets, currently on RT, anxiety, hypothyroidism, PAD s/p LLE bypass failure, Renal cell CA, HLD, HFrEF of 25%, NSTEMI and ischemic CM, DM, GERD, HTN, anxiety, Hx of recent admission due to
esophageal food impaction due to esophageal stricture with metastasis (left AMA declining stent), Hx of DVT on Eliquis brought by her due to hypotension, confusion. Was advised to bring patient to ED by oncologist.
Found R foot swelling, redness and pain, XR showed subacute or old fracture of the base of the fifth metatarsal bone and Possible nondisplaced fracture of the base of the proximal phalanx of the great toe with superimposed gas gangrene, OM and
abscess with bacteremia, concomitant UTI. Podiatry did I&D, first bedside and second time in OR on 07/04/24. VascularSx planning on angio on 07/06/24, GI evaluated for possible EGD due to painful swallowing with esophageal stent, planning for EGD
A/P:
#Septic shock
#Nondisplaced fracture of the base of the proximal phalanx of the great toe - pathologic with underlying acute osteomyelitis
#Subacute or old fracture of the base of the fifth metatarsal bone
#R foot gas gangrene with sepsis on admission (AMS, leukocytosis) and septic vs hypovolemic shock with R foot abscess and bacteremia
#Nondisplaced fracture at the inferior tip of the distal fibula
s/p MRI RLE on 07/04/24 with above findings
Abx as per ID Unasyn and Diflucan, status post Zosyn
Surgical boot for ambulation
Podiatry consult: s/p I&D
PT/OT: cont with walker
Weaned off pressors as of 07/02/24
Bcx: K.pneumonia (source UTI) and Staphylococcus schleiferi (source foot infection)
TTE with improved EF but persistent wall motion abnormalities, no overt signs of vegetations
Treatment plan depending upon goals of care discussions
Appreciate hospice nurse, continue goals of care discussion
#PAD s/p LLE failed bypass
Appreciate vascular surgery input, original plan was for angiogram 07/06/2024, Eliquis on hold
Further discussions by Dr. Ying, who recommended hospice to the patient in lieu of her metastatic pancreatic cancer
#Hx of dysphagia 2/2 esophageal mets and post RT stricture s/p esophageal stent with recurrent pain on swallowing
#Esophageal>pharyngeal dysfunction
Previously was advised PEG if still not sufficient oral intake, GI offered either to cont esophageal stent as it is functioning appropriately or remove stent and cont with PEG, but then no oral intake.
Patient decided to stay with stent at this time. Ensure supplement TID
EGD on 07/06/24 shows well-positioned esophageal stent, esophagitis, concerning for Eliana. Follow-up cytology.
Tolerating full liquid diet, will advance to soft
PROFESSOR OF VISUAL ARTS: Regular and thin liquids
Since patient said that patient had trouble swallowing even before stent - VSE done, no oropharyngeal dysfunction
#Pyuria with dysuria (burning during urination) - UTI
Ucx K.Pneumonia
cont Abx
#Mild hyponatremia
#Mild hypocalcemia
#EVETTE
2/2 dehydration and poor oral intake
Baseline Cr 1.0
hydrate and follow labs
correct electrolytes
#Anemia, most likely 2/2 metastatic bleeds and CA
most likely 2/2 CA - Hgb trend stable
JAIME
watch CBC
#Hypothyroidism
TSH WNL so cont Synthroid
#DM type 2 with neuropathy
Accuchecks, Insulin SS, hold Farxiga ro avoid diuretic effect
DM diet
#pathological L2 compression Fx with lesion on RT
#Chronic pain on opioids
decrease OXy since patient is sleepy with home dose
cont RT upon D/C
#Essential hypertension
Started on valsartan 40 mg twice a day by nephrology 07/07
Continue metoprolol tartrate 25 mg twice a day
#HLD
#Renal cell CA
#Metastatic pancreatic CA
#HFrEF, not in exacerbation
#Hx of DVT
#Ischemic CM
#Neuropathy
Digoxin level elevated -dose decreased to q48h and follow digoxin levels
Cont outpatient follow up with established specialists
DVT ppx Eliquis
DNR as per patient) family 07/07
Updated on phone 07/06
Updated and son at bedside 07/07
Total time spent to see the patient on the floor, examine the patient, review data and lab results, discuss treatment plan with patient, nursing staff around 51 minutes.
Physical Exam
General: Appears chronically ill, no acute distress
HEENT: Normocephalic, Atraumatic, EOMI, MMM
Respiratory: Clear to Auscultation bilaterally
Cardiac: Normal S1/S2, Regular Rate and Rhythm
GI: Soft, Nontender, Nondistended, Normal Bowel Sounds
Extremities: No Clubbing, Cyanosis
Bluish discoloration of right great toe, rest of the foot is dressed
Anticipated Discharge: > 48 hours
Subjective/Interval History
-
Date of Service: July 07, 2024
Patient denies chest pain, shortness of breath, or palpitations. Denies esophageal pain. She is tolerating her diet. Her right foot is numb. Denies abdominal pain. No fever, no vomiting.
Objective Data
-
Labs:
Laboratory Results
07/07/24
04:20
WBC 6.0
Hgb 9.0 L
Hct 27.7 L
Plt Count 356 D
Sodium 138
Potassium 3.9
Chloride 112 H
Carbon Dioxide 26
BUN 11
Creatinine 0.7
Glucose 123 H
Calcium 7.4 L
Vital Signs:
Vital Signs
Temp Pulse Resp BP Pulse Ox
98.2 F 75 13 158/74 98
07/06/24 23:05 07/07/24 08:41 07/07/24 06:00 07/07/24 08:41 07/07/24 06:00
I&O
07/06/24 07/07/24 07/08/24
06:59 06:59 06:59
Intake Total 1260 / 1260 1150 / 1150
Balance 1260 / 1260 1150 / 1150
--- NOTE | 2024-07-07 10:03 | PTCARENOTE ---
Assumed care of patient at beginning of this shift from prior RN. Patient had pulled off insulin pump on previous shift; this nurse sent TT to Rod Dunn NP. Patient Ox3 this morning. and son at bedside to meet with hospice. TT sent to both "[facility]" and [facility]. Patient, son and currently meeting with [facility] in room.
Received TT from Rod Dunn that Alison Andrew will be coming to see patient.
--- NOTE | 2024-07-07 11:10 | HOSPNOTE ---
Spoke with patient, spouse and son about hospice and the philosophy and addressed code status. I gave all the information no decisions are made and the family just needs time to discuss options. I will continue to follow and support.
--- NOTE | 2024-07-07 11:58 | W.PN.NEPH.PH ---
Today's Communication / Plan
-
resume ARB for high BPs
lasix prn
Assessment/Plan
-
Impression:
CKD (1.1)
Hypertension
History of right nephrectomy
Hyponatremia
Metastatic pancreatic cancer
Klebsiella bacteremia from foot wound
History of congestive heart
Diabetes
Hypothyroidism
A-fib
Peripheral vascular disease with previous left lower extremity bypass
Dysphagia due to esophageal mets with esophageal stent
UTI
L2 compression fracture likely due to mets
Plan:
stable cr 0.7
- Urinalysis consistent with infection but also notable for underlying proteinuria and microhematuria
- Creatinine baseline oscillates between 0.9-1.1,now at baseline, holding Farxiga
plan to provide IV fluids contrast prophylaxis during angiogram procedure
however now pt thinking of GOC, hospice considered
BPs high, cont BB and resume ARB
holding lasix and on NS per primary
d/w pt and nursing
will s/o, call with ?s
-
-
Date of Service: July 07, 2024
CC / HPI / ROS
-
Chief Complaint:
CKD
History of Present Illness:
bps high
Creatinine at baseline 0.7
Sodium normal
Review of Systems:
Nonoliguric
No fever
no cp or sob
Labs
-
Labs:
WBC 6.0 10^3/uL (4.8-10.8) 07/07/24 04:20
RBC 3.14 10^6/uL (4.20-5.40) L 07/07/24 04:20
Hgb 9.0 g/dL (12.0-16.0) L 07/07/24 04:20
Hct 27.7 % (37.0-47.0) L 07/07/24 04:20
Plt Count 356 10^3/uL (130-400) D 07/07/24 04:20
Sodium 138 mmol/L (135-145) 07/07/24 04:20
Potassium 3.9 mmol/L (3.5-5.1) 07/07/24 04:20
Chloride 112 mmol/L (98-107) H 07/07/24 04:20
Carbon Dioxide 26 mmol/L (22-30) 07/07/24 04:20
BUN 11 mg/dl (7-17) 07/07/24 04:20
Creatinine 0.7 mg/dL (0.6-1.0) 07/07/24 04:20
eGFR > 60.00 07/07/24 04:20
Glucose 123 mg/dl (70-99) H 07/07/24 04:20
Calcium 7.4 mg/dl (8.4-10.2) L 07/07/24 04:20
Phosphorus 2.8 mg/dl (2.5-4.5) 07/03/24 04:16
Albumin 2.2 g/dl (3.5-5.0) L 07/06/24 05:11
Physical Exam
-
Vital Signs:
Vital Signs
Temp Pulse Resp BP Pulse Ox
98.2 F 74 10 185/72 97
07/06/24 23:05 07/07/24 10:00 07/07/24 10:00 07/07/24 10:00 07/07/24 11:43
Cardiovascular:: Regular rate and rhythm
Respiratory:: Bilateral: CTA (anteriorly)
Lung Excursion:: Normal
Abdomen:: Nontender and Soft
Bowel Sounds:: Normal
Extremity Edema:: None: Bilateral: (discolored right foot toe)
Ying Catheter: No
[2024-07-07 12:58] LABS: Glucose - Point of Care 281 mg/dl (70-99)
[2024-07-07] MEDS: NOVOLOG FLEXPEN-LOW RESISTANCE 3 UNITS SC (14:02)
--- NOTE | 2024-07-07 14:21 | W.PN.ID1 ---
Date of Service
Date of Service: July 07, 2024
Today's Communication
Continue Unasyn and fluconazole for now.
Assessment / Plan
# Right proximal hallux, 1,2 met head osteomyelitis
# Right foot gas gangrene
# Right foot cellulitis
# Staphylococcus schleiferi (2 of 4 bottles) bacteremia, foot source
# Klebsiella (1 of 4 bottles), urine source
# Klebsiella UTI
# Right proximal hallux and distal fibula nondisplaced fx
# Fever resolved
# Leukocytosis resolved
# EVETTE resolved
# Metastatic pancreatic ca on tx via port
# Dysphagia due to esophageal mets with stent
# DM
# PAD hx failed LLE bypass
# Allergy to cephalosporin and clindamycin
- 07/02 Podiatry bedside debrided right submet callus, noted purulent drainage. Cx's: Staphylococcus schleiferi
- 07/04 s/p OR I+D, + necrosis, cx Staphylococcus schleiferi
- Repeat blood cx's x 4 neg to date
- TTE no valvular disease
- Vascular holding vascular intervention until goals of care finalized.
PT now DNR.
- Continue Unasyn for now. Abx unlikely reaching site of foot infection due to PVD.
- Dysphagia
07/06 EGD: stent patent; scattered white plaques in upper third of esophagus.
Cytology pending.
Continue fluconazole (d2) for probable esophageal candidiasis.
Monitor QTc while on fluconazole.
- Overall poor prognosis
#Conditions HEAD CONCIERGE
Diabetes mellitus
Pancreatic cancer status post Whipple, mets to esophagus (s/p stent placed), mets to spine
Esophageal cancer status post stent
Pathological L2 compression fracture due to osseous mets
CAD status post PTCA with multiple stents
Cardiomyopathy
CVA
CKD3
PAD status post left lower extremity bypass
Hypothyroidism
History of DVT
Right nephrectomy, benign tumor
Right chest wall port placement
Osteomyelitis status post left fifth toe amputation
Chief Complaint
-: Cellulitis and Bacteremia
Subjective / Review of Systems
Comfortable
Vital Signs / Physical Exam
Vital Signs
Vital Signs
Temp Pulse Resp BP Pulse Ox
97.3 F 74 10 185/72 97
07/07/24 11:05 07/07/24 10:00 07/07/24 10:00 07/07/24 10:00 07/07/24 11:43
Physical Exam
Constitutional: Chronically Ill
Eyes: Sclera Anicteric
Cardiovascular: Regular Rate and S1/S2
Pulmonary: Clear (anteriorly)
Gastrointestinal: Soft, Non Tender, Non Distended and Normal Bowel Sounds
Extremities: Edema (right foot/ankle), Cyanosis (Right great toe) and Erythema (Right dorsum foot improved)
Wound: Other (Right foot wound dressing dry)
Neurological: Awake and Alert
Lines: Port (RCW no erythema)
Objective Data
Lab Data
Lab Results
07/07/24 04:20
07/07/24 04:20
ESR Cancelled 07/02/24 06:50
PT 15.8 Sec (11.4-14.6) H 07/06/24 05:11
INR 1.21 07/06/24 05:11
APTT 37.5 Sec (23.4-35.0) H 07/06/24 05:11
Estimated Creat Clear 68 ml/min 07/07/24 04:20
Lactic Acid 0.8 mmol/L (0.7-2.0) 07/02/24 06:50
Total Bilirubin 0.3 mg/dl (0.2-1.3) 07/06/24 05:11
AST 15 U/L (14-36) 07/06/24 05:11
ALT < 10 U/L (0-35) 07/06/24 05:11
Alkaline Phosphatase 91 U/L (38-126) 07/06/24 05:11
Most recent labs reviewed.
Micro Results:
07/02/24 13:37 Blood Culture - Final
Blood/Venous No Growth - Final Report
07/02/24 12:51 Blood Culture - Final
Blood/Venous No Growth - Final Report
07/02/24 22:13 Blood Culture - Preliminary
Blood/Venous No Growth in 4 days- Final report to follow
07/02/24 21:10 Blood Culture - Preliminary
Blood/Venous No Growth in 4 days- Final report to follow
07/04/24 08:40 Anaerobic Culture - Preliminary
Foot - Right Culture pending. Anaerobic cultures are examined after 3
days incubation. Additional information to follow.
07/04/24 08:40 Wound Culture - Preliminary
Foot - Right Staphylococcus schleiferi
Gram Stain - Preliminary
07/02/24 11:43 Wound Culture - Final
Foot - Right Staphylococcus schleiferi
Gram Stain - Final
07/01/24 21:07 Blood Culture - Final
Blood/Venous Staphylococcus schleiferi
Gram Stain - Final
07/01/24 21:35 Blood Culture - Final
Blood/Venous Klebsiella pneumoniae
Staphylococcus schleiferi
Gram Stain - Final
07/01/24 20:50 Urine Culture - Final
Urine Klebsiella pneumoniae
Lactobacillus species
07/01/24 CXR: No acute disease of the chest.
07/01/24 Foot XRAY: Possible nondisplaced fracture of the base of the proximal phalanx of the great toe. Clinical correlation recommended. Associated soft tissue subcutaneous emphysema. This can be seen with a laceration or infection. Clinical
correlation recommended. Probable subacute or old fracture of the base of the fifth metatarsal bone. New.
07/01/24 Ankle XRAY: Probable nondisplaced fracture of the tip of the distal fibula with associated mild soft tissue swelling. New.
07/03/24 MRI RLE: Osteomyelitis of the base of the first proximal phalanx and the heads of the first and second metatarsals. Nondisplaced pathologic fracture through the region of osteomyelitis in the first proximal phalanx. Rim-enhancing abscesses
in the plantar soft tissues of the forefoot at the level of the metatarsals, in the first intermetatarsal space, and dorsal to the distal second metatarsal. Adjacent nonenhancing necrotic tissue and gas in the soft tissues dorsal to the distal first
and second metatarsals.
[2024-07-07] MEDS: DIFLUCAN 200 MG 100 IV (14:28)
--- NOTE | 2024-07-07 15:10 | PTCARENOTE ---
Per Dr Hernandez, patient does not need IVF; order not renewed.
[2024-07-07] MEDS: DIOVAN 40 MG PO ×2 (15:18→20:17)
[2024-07-07 17:55] LABS: Glucose - Point of Care 258 mg/dl (70-99)
[2024-07-07] MEDS: PT'S OWN INSULIN PUMP - NovoLOG 1 UNIT SC (18:28)
[2024-07-07 21:33] LABS: Glucose - Point of Care 276 mg/dl (70-99)
--- NOTE | 2024-07-07 22:31 | PTCARENOTE ---
assumed care of patient, pt is AAOx3, able to make needs known. flat affect. admits to neuropathy to feet. VSS. 97% RA. pt is incontinent of bowel and bladder at times, and then other times does ask for a bedpan. right foot dressing intact, podiatry
did not see patient. no complaints of pain besides some chronic back pain. bed alarm d/t potential confusion. able to take pills whole in applesauce without issues. care ongoing.
[2024-07-08] VITALS (12 sets, daily range): BP systolic 113–175; BP diastolic 56–94; PULSE 62
[2024-07-08] MEDS: SYNTHROID 50 MCG PO (05:35)
[2024-07-08] MEDS: CARAFATE SUSPENSION 1 GM PO ×4 (05:35→23:26)
[2024-07-08] MEDS: UNASYN IV ×2 (05:35→13:38)
[2024-07-08] MEDS: SYNTHROID 200 MCG PO (05:35)
[2024-07-08 05:59] LABS: Blood Urea Nitrogen 8 mg/dl (7-17); Calcium 7.3 mg/dl (8.4-10.2); Carbon Dioxide 27 mmol/L (22-30); Chloride 111 mmol/L (98-107); Estimated Creatinine Clearance 68 ml/min; Glucose 114 mg/dl (70-99); Potassium 3.4 mmol/L (3.5-5.1); Sodium 138 mmol/L (135-145); eGFR > 60.00
[2024-07-08 06:04] LABS: % Basophils 0.2 % (0-2); % Eosinophils 2.7 % (0-6); % Immature Granulocytes 0.7 % (0-0.5); % Lymphocytes 11.9 % (20.5-51.1); % Monocytes 6.3 % (1.7-9.3); % Neutrophils 78.2 % (42.2-75.2); Absolute Eosinophils 0.2 10^3/uL (0-0.7); Absolute Lymphocytes 0.7 10^3/uL (1.2-3.4); Absolute Monocytes 0.4 10^3/uL (0.1-0.6); Absolute Neutrophils 4.4 10^3/uL (1.4-6.5); Hematocrit 26.4 % (37.0-47.0); Hemoglobin 8.8 g/dL (12.0-16.0); Mean Corp Hgb Conc. 33.3 g/dL (33.0-37.0); Mean Corpuscular Hgb 29.1 pg (27.0-31.0); Mean Corpuscular Volume 87.4 fL (81.0-99.0); Mean Platelet Volume 9.5 fL (7.4-10.4); Nucleated Red Blood Cells % 0 %; Platelet Count 304 10^3/uL (130-400); Red Blood Cell Count 3.02 10^6/uL (4.20-5.40); Red Cell Dist. Width 14.8 % (11.5-14.5); White Blood Cell Count 5.6 10^3/uL (4.8-10.8)
[2024-07-08 07:44] LABS: Glucose - Point of Care 116 mg/dl (70-99)
[2024-07-08] MEDS: CYMBALTA DELAYED RELEASE 60 MG PO (07:51)
[2024-07-08] MEDS: ZENPEP DELAYED RELEASE CAPSULE 5 CAPSULE PO ×3 (07:51→17:09)
[2024-07-08] MEDS: NOVOLOG FLEXPEN-LOW RESISTANCE SC (07:51)
[2024-07-08] MEDS: ZETIA 10 MG PO (07:52)
[2024-07-08] MEDS: DIOVAN 40 MG PO ×2 (07:52→21:18)
[2024-07-08] MEDS: LOPRESSOR 25 MG PO ×2 (07:52→21:19)
[2024-07-08] MEDS: LOW STRENGTH ASPIRIN 81 MG PO (07:52)
[2024-07-08] MEDS: PROTONIX 40 MG PO (07:52)
[2024-07-08] MEDS: NEURONTIN 600 MG PO ×3 (07:52→21:20)
--- NOTE | 2024-07-08 07:54 | PN.DE.MGMTRT ---
Insulin Management
- -
07/08/2024 Diabetes Management Consult Follow up
Patient admitted 07/01 with weakness, frequent falls, Rt foot cellulitis with ischemic changes to Rt hallux, mostly demarcated to RT hallux.
PMH: Metastatic pancreatic cancer (s/p Whipple) and esophageal cancer (? if metastatic vs primary esophageal adenocarcinoma), CAD, PAD, CVA, CHF, pleural effusion s/p thoracentesis 11/2023, IDDM, benign renal mass, history of DVT (on Eliquis),
hypothyroidism, and GERD. A1C was 6.0% on 06/08/24. Cr 0.8, eGFR >60.
POD #3 S/P Rt foot Incision and drainage
Per podiatry, pt will need additional surgical procedure once vascular surgery does angiogram because her big toe has gangrenous changes, probably due to diabetic small vessel disease and foot infection.
Pt uses insulin pump- MedPebble med with guardian sensor, due to difficulty controlling her blood sugars from chronic steroid use and recurrent Hypoglycemic episodes. She sees Endo Dr. Hudson and [facility] Viv[facility].
Patient is awake alert and oriented oob in chair, able to discuss diabetes care. She uses the extended wear 7 day infusion set. brought infusion set afternoon 07/07, he inserted set and pump was restarted. does all insulin prep
and insertion for patient.
Will stop corrective insulin as all insulin to be administered through insulin pump. Pump settings:
Basal rate .65 for 24 hours. Basal total 15.6 units
I:CHO ratio 1:13
Sensitivity 1:50
Active insulin 2 hours
Target range 100 to 120.
Will make no change to settings.
Patient and considering hospice versus palliative care.
Diabetes History
- -
Type of Diabetes: 2 requiring insulin
Pre-Admission Diabetes Regimen
07/08/24
05:34
Creatinine 0.7
Insulin Pump Settings
IP Diabetes Regimen
07/07/24 07/07/24 07/07/24
12:46 17:43 21:21
Glucose
POC Glucose 281 H 258 H 276 H
07/08/24 07/08/24
05:34 07:32
Glucose 114 H
POC Glucose 116 H
Meal type: Breakfast
Amount consumed: 100%
Patient Education
--- NOTE | 2024-07-08 09:03 | W.PN.HOSP.TC ---
Addendum entered and electronically signed by Anatoly Hernandez MD 07/08/24 15:40:
#Hypokalemia
Replete po, recheck am labs
Original Note:
Today's Communication/Plan
-
Stable for telemetry
Assessment / Plan
Assessment / Plan
64yo F with PMHx of metastatic pancreatic CA with spinal mets, currently on RT, anxiety, hypothyroidism, PAD s/p LLE bypass failure, Renal cell CA, HLD, HFrEF of 25%, NSTEMI and ischemic CM, DM, GERD, HTN, anxiety, Hx of recent admission due to
esophageal food impaction due to esophageal stricture with metastasis (left AMA declining stent), Hx of DVT on Eliquis brought by her due to hypotension, confusion. Was advised to bring patient to ED by oncologist.
Found R foot swelling, redness and pain, XR showed subacute or old fracture of the base of the fifth metatarsal bone and Possible nondisplaced fracture of the base of the proximal phalanx of the great toe with superimposed gas gangrene, OM and
abscess with bacteremia, concomitant UTI. Podiatry did I&D, first bedside and second time in OR on 07/04/24. VascularSx planning on angio on 07/06/24, GI evaluated for possible EGD due to painful swallowing with esophageal stent, planning for EGD
A/P:
#Septic shock
#Nondisplaced fracture of the base of the proximal phalanx of the great toe - pathologic with underlying acute osteomyelitis
#Subacute or old fracture of the base of the fifth metatarsal bone
#R foot gas gangrene with sepsis on admission (AMS, leukocytosis) and septic vs hypovolemic shock with R foot abscess and bacteremia
#Nondisplaced fracture at the inferior tip of the distal fibula
s/p MRI RLE on 07/04/24 with above findings
Abx as per ID Unasyn and Diflucan, status post Zosyn
Surgical boot for ambulation
Podiatry consult: s/p I&D
PT/OT: cont with walker
Weaned off pressors as of 07/02/24
Bcx: K.pneumonia (source UTI) and Staphylococcus schleiferi (source foot infection)
TTE with improved EF but persistent wall motion abnormalities, no overt signs of vegetations
Appreciate hospice nurse, patient and family decided to go home on palliative care�they have an appointment on 07/20
Discussed with ID, vascular surgery, and podiatry, plan to send patient home on oral antibiotic
Stable for telemetry
#PAD s/p LLE failed bypass
Appreciate vascular surgery input, original plan was for angiogram 07/06/2024, Eliquis on hold
Further discussions by Dr. Ynig, who recommended hospice to the patient in lieu of her metastatic pancreatic cancer
#Hx of dysphagia 2/2 esophageal mets and post RT stricture s/p esophageal stent with recurrent pain on swallowing
#Esophageal>pharyngeal dysfunction
Previously was advised PEG if still not sufficient oral intake, GI offered either to cont esophageal stent as it is functioning appropriately or remove stent and cont with PEG, but then no oral intake.
Patient decided to stay with stent at this time.
EGD on 07/06/24 shows well-positioned esophageal stent, esophagitis, concerning for Eliana. Follow-up cytology.
Advance to regular diet with thin liquids, continue Ensure supplements
GLASSWORKER: Regular and thin liquids
Since patient said that patient had trouble swallowing even before stent - VSE done, no oropharyngeal dysfunction
#Pyuria with dysuria (burning during urination) - UTI
Ucx K.Pneumonia
cont Abx
#Mild hyponatremia
#Mild hypocalcemia
#EVETTE
2/2 dehydration and poor oral intake
Baseline Cr 1.0
hydrate and follow labs
correct electrolytes
#Anemia, most likely 2/2 metastatic bleeds and CA
most likely 2/2 CA - Hgb trend stable
JAIME
watch CBC
#Hypothyroidism
TSH WNL so cont Synthroid
#DM type 2 with neuropathy
Accuchecks, Insulin SS, hold Farxiga ro avoid diuretic effect
DM diet
#pathological L2 compression Fx with lesion on RT
#Chronic pain on opioids
decreased oxy since patient is sleepy with home dose
cont RT upon D/C
#Essential hypertension
Started on valsartan 40 mg twice a day by nephrology 07/07
Continue metoprolol tartrate 25 mg twice a day
#HLD
#Renal cell CA
#Metastatic pancreatic CA
#HFrEF, not in exacerbation
#Hx of DVT
#Ischemic CM
#Neuropathy
Digoxin level elevated -dose decreased to q48h and follow digoxin levels
Cont outpatient follow up with established specialists
DVT ppx Eliquis
DNR as per patient w/ family present 07/07
Updated at bedside 07/08
Total time spent to see the patient on the floor, examine the patient, review data and lab results, discuss treatment plan with patient, nursing staff around 52 minutes.
Physical Exam
General: Appears chronically ill, no acute distress
HEENT: Normocephalic, Atraumatic, EOMI, MMM
Respiratory: Clear to Auscultation bilaterally
Cardiac: Normal S1/S2, Regular Rate and Rhythm
GI: Soft, Nontender, Nondistended, Normal Bowel Sounds
Extremities: No Clubbing, Cyanosis
Bluish discoloration of right great toe, rest of the foot is dressed
Anticipated Discharge: Within 24 hours
Subjective/Interval History
-
Date of Service: July 07, 2024
Patient denies esophageal pain, right foot pain, or abdominal pain. She is tolerating her diet. No fever, no vomiting.
Objective Data
-
Labs:
Laboratory Results
07/07/24
04:20
WBC 6.0
Hgb 9.0 L
Hct 27.7 L
Plt Count 356 D
Sodium 138
Potassium 3.9
Chloride 112 H
Carbon Dioxide 26
BUN 11
Creatinine 0.7
Glucose 123 H
Calcium 7.4 L
Vital Signs:
Vital Signs
Temp Pulse Resp BP Pulse Ox
97.3 F 74 10 185/72 97
07/07/24 11:05 07/07/24 10:00 07/07/24 10:00 07/07/24 10:00 07/07/24 11:43
I&O
07/06/24 07/07/24 07/08/24
06:59 06:59 06:59
Intake Total 1260 / 1260 1150 / 1150
Balance 1260 / 1260 1150 / 1150
--- NOTE | 2024-07-08 09:41 | HOSPNOTE ---
Spoke with spouse and the patient would like to go home with VN and Palliative care. The patient already has an outpatient meeting with Palliative care that was set up prior to this admission. The spouse has my direct contact and will stay in touch
and knows to call me with any questions or concerns. Once patient is discharged we will continue to follow through Palliative Care.
[2024-07-08] MEDS: KCL 20 MEQ PO (10:12)
[2024-07-08] MEDS: PT'S OWN INSULIN PUMP - NovoLOG 2.3 UNIT SC (11:19)
--- NOTE | 2024-07-08 11:39 | CM ---
Addendum entered by Sheryl Peoples RN 07/08/24 11:58:
Patient has dressings right foot and is using surgical shoe.
Original Note:
Patient with Hx metastatic pancreatic CA with spinal mets, insulin pump, chest Port, recents falls with Dx Right foot cellultis and abscess s/p Right foot I&D with packing.
Per Hospice; hospice spoke with spouse and the patient would like to go home with VN and Palliative care.
Spoke with Dr Hernandez; patient will be seen by Palliative Care on an outpatient basis. Dr Ying confirmed patient will not need angiogram while here, MD requested clarification of home Abx.
Met with patient and Juan Jose;
discussed discharge to home when medically ready, with Palliative Care and VN - they would like [facility] again for SN/PT/OT---> referral to [facility]
expressed that he thought patient was not ambulating because she was not permitted to do so- provided update that patient successfully did transfers OOB on last PT yesterday - he would like to observe PT/OT ----> sent message to CLARITA Abbasi
who will see patient.
feels he will be able to manage the patient at home with the help of their 2 sons who are nearby. He does not think he will need to hire a caregiver at this time.
Patient wants to sleep in her own bed when going home, not hospital bed. Offered w/c for going out to medical appts and says he will think about it.
Plan home with [facility] with outpatient palliative care, with .
--- NOTE | 2024-07-08 12:17 | W.PN.POD ---
Today's Communication
Today's Communication
Asked patients to contact my office for any questions or concerns,
Gave him my office info.
Patient stable from podiatry side
Assessment / Plan
-
Rt foot cellultis with ischemic changes to Rt hallux, mostly demarcated to RT hallux
S/P Rt foot Incision and drainage 07/04/2024
Pancreatic ca with mets to bone
Diabetic small vessel disease
Rt foot injury - possible Rt proximal phalanx base non displaced fracture - stable
Plan: changed Rt foot dressings.
Patient and family opting for palliative care at home, so no major surgical intervention by podiatry.
Visiting nurse and patients will be changing her dressings once daily with Santyl and dry gauze and j carlos to Rt foot .
Surgical shoe to Rt foot can wt bear as tolerated, no wt bearing restrictions
Subjective
Chief Complaint
Rt foot cellulitis S/P Rt foot I & D 07/04/2024
Subjective
Patient seen at bedside, awake, alert, Offers no new complaints No fever, chills. Rt foot angie ischemic changes to Rt big toe.
Intact surgical dressings
Objective
Temp Pulse Resp BP Pulse Ox
97.9 F 65 19 142/84 97
07/08/24 11:46 07/08/24 10:00 07/08/24 10:00 07/08/24 10:00 07/07/24 20:10
07/08/24 05:34
07/08/24 05:34
Vital Signs and Lab results were reviewed.
Rt foot palpable DP and PT pulses.
Rt foot resolving erythema well. No edema
Rt hallux with angie, ischemic changes, demarcated mostly to hallux, other toes appear normal.
Rt foot surgical debrided site at dorsum 1st interspace with some fibrous slough, scant purulence , no foul odor
--- NOTE | 2024-07-08 12:41 | W.PN.ID1 ---
Addendum entered and electronically signed by Wendy Neil MD 07/08/24 16:14:
Correction: Pt with cephalosporin allergy. Cannot use cefuroxime as written below.
New plan: transition Unasyn to Augmentin 875mg po bid x 4 to 5 weeks.
Continue fluconazole 200mg po daily x 14 days.
Original Note:
Date of Service
Date of Service: July 08, 2024
Today's Communication
-At time of dc, transition Unasyn (d7) to cefuroxime 500mg po bid x 5 more weeks.
Of note antibiotic is mostly likely futile at this point without vascular intervention and unable to reach site of osteo.
-Can continue fluconazole 200mg po daily x 14 more days.
- See below
Assessment / Plan
# Right proximal hallux, 1,2 met head osteomyelitis
# Right foot gas gangrene
# Right foot cellulitis
# Staphylococcus schleiferi (2 of 4 bottles) bacteremia, foot source
# Klebsiella (1 of 4 bottles), urine source
# Klebsiella UTI
# Right proximal hallux and distal fibula nondisplaced fx
# Fever resolved
# Leukocytosis resolved
# EVETTE resolved
# Metastatic pancreatic ca on tx via port
# Dysphagia due to esophageal mets with stent
# DM
# PAD hx failed LLE bypass
# Allergy to cephalosporin and clindamycin
- 07/02 Podiatry bedside debrided right submet callus, noted purulent drainage. Cx's: Staphylococcus schleiferi
- 07/04 s/p OR I+D, + necrosis, cx Staphylococcus schleiferi
- Repeat blood cx's x 4 neg to date
- TTE no valvular disease
- Vascular recommends no vascular intervention due to poor performance status and GOC to palliative.
-Pt now transitioning to Palliative care.
-At time of dc, transition Unasyn (d7) to cefuroxime 500mg po bid x 5 more weeks.
- Of note antibiotic is mostly likely futile at this point without vascular intervention and unable to reach site of osteo.
- Take probiotic while on abx.
# Eliana esophagitis
07/06 EGD: stent patent; scattered white plaques in upper third of esophagus.
Cytology + fungal organisms
Continue fluconazole (d3) for probable esophageal candidiasis.
Can continue fluconazole 200mg po daily x 14 more days.
- Overall poor prognosis
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
Diabetes mellitus
Pancreatic cancer status post Whipple, mets to esophagus (s/p stent placed), mets to spine
Esophageal cancer status post stent
Pathological L2 compression fracture due to osseous mets
CAD status post PTCA with multiple stents
Cardiomyopathy
CVA
CKD3
PAD status post left lower extremity bypass
Hypothyroidism
History of DVT
Right nephrectomy, benign tumor
Right chest wall port placement
Osteomyelitis status post left fifth toe amputation
Chief Complaint
-: Cellulitis and Bacteremia
Subjective / Review of Systems
No specific complaints.
Vital Signs / Physical Exam
Vital Signs
Vital Signs
Temp Pulse Resp BP Pulse Ox
97.9 F 68 17 138/94 97
07/08/24 11:46 07/08/24 12:00 07/08/24 12:00 07/08/24 12:00 07/07/24 20:10
Physical Exam
Constitutional: Chronically Ill
Eyes: Sclera Anicteric
Cardiovascular: Regular Rate and S1/S2
Pulmonary: Clear (anteriorly)
Gastrointestinal: Soft, Non Tender, Non Distended and Normal Bowel Sounds
Extremities: Edema (right foot/ankle), Cyanosis (Right great toe) and Erythema (Right dorsum foot improved)
Wound: Other (Right foot wound dressing dry)
Neurological: Awake and Alert
Lines: Port (RCW no erythema)
Objective Data
Lab Data
Lab Results
07/08/24 05:34
07/08/24 05:34
ESR Cancelled 07/02/24 06:50
PT 15.8 Sec (11.4-14.6) H 07/06/24 05:11
INR 1.21 07/06/24 05:11
APTT 37.5 Sec (23.4-35.0) H 07/06/24 05:11
Estimated Creat Clear 68 ml/min 07/08/24 05:34
Lactic Acid 0.8 mmol/L (0.7-2.0) 07/02/24 06:50
Total Bilirubin 0.3 mg/dl (0.2-1.3) 07/06/24 05:11
AST 15 U/L (14-36) 07/06/24 05:11
ALT < 10 U/L (0-35) 07/06/24 05:11
Alkaline Phosphatase 91 U/L (38-126) 07/06/24 05:11
Most recent labs reviewed.
Micro Results:
07/02/24 22:13 Blood Culture - Final
Blood/Venous No Growth - Final Report
07/02/24 21:10 Blood Culture - Final
Blood/Venous No Growth - Final Report
07/04/24 08:40 Anaerobic Culture - Preliminary
Foot - Right Culture pending. Anaerobic cultures are examined after 3
days incubation. Additional information to follow.
07/02/24 13:37 Blood Culture - Final
Blood/Venous No Growth - Final Report
07/02/24 12:51 Blood Culture - Final
Blood/Venous No Growth - Final Report
07/04/24 08:40 Wound Culture - Preliminary
Foot - Right Staphylococcus schleiferi
Gram Stain - Preliminary
07/02/24 11:43 Wound Culture - Final
Foot - Right Staphylococcus schleiferi
Gram Stain - Final
07/01/24 21:07 Blood Culture - Final
Blood/Venous Staphylococcus schleiferi
Gram Stain - Final
07/01/24 21:35 Blood Culture - Final
Blood/Venous Klebsiella pneumoniae
Staphylococcus schleiferi
Gram Stain - Final
07/01/24 20:50 Urine Culture - Final
Urine Klebsiella pneumoniae
Lactobacillus species
07/01/24 CXR: No acute disease of the chest.
07/01/24 Foot XRAY: Possible nondisplaced fracture of the base of the proximal phalanx of the great toe. Clinical correlation recommended. Associated soft tissue subcutaneous emphysema. This can be seen with a laceration or infection. Clinical
correlation recommended. Probable subacute or old fracture of the base of the fifth metatarsal bone. New.
07/01/24 Ankle XRAY: Probable nondisplaced fracture of the tip of the distal fibula with associated mild soft tissue swelling. New.
07/03/24 MRI RLE: Osteomyelitis of the base of the first proximal phalanx and the heads of the first and second metatarsals. Nondisplaced pathologic fracture through the region of osteomyelitis in the first proximal phalanx. Rim-enhancing abscesses
in the plantar soft tissues of the forefoot at the level of the metatarsals, in the first intermetatarsal space, and dorsal to the distal second metatarsal. Adjacent nonenhancing necrotic tissue and gas in the soft tissues dorsal to the distal first
and second metatarsals.
Care Review
Plan reviewed with: Physician (Dr. Brit Hernandez)
--- NOTE | 2024-07-08 13:02 | VNURNOTE ---
Home Health Liaison met with patient and family at bedside to discuss [facility] nurse/therapy, visits, schedule and homebound status. Patient is agreeable and understands that visits at home will be 2-3 x per week to assess and teach medical management.
Patient is aware that [facility] will contact them for start of care in 1-2 days after discharge from . Patient declining hospital bed and w/c.
[facility] referral completed in Care Port.
[2024-07-08] MEDS: PT'S OWN INSULIN PUMP - NovoLOG 2.1 UNIT SC (13:37)
[2024-07-08] MEDS: LANOXIN 125 MCG PO (13:38)
[2024-07-08] MEDS: DIFLUCAN 200 MG PO (13:38)
[2024-07-08 13:44] LABS: Glucose - Point of Care 239 mg/dl (70-99)
--- NOTE | 2024-07-08 16:12 | PTCARENOTE ---
Assumed care of patient at beginning of this shift from previous RN. Patient continues using insulin pump; sliding scale coverage d/c'd by Abbey Andrew. Patient worked with PT/OT and ambulated in angel. OOB to chair for several hours; currently
sleeping. See worklist for full assessment.
[2024-07-08 17:15] LABS: Glucose - Point of Care 178 mg/dl (70-99)
[2024-07-08] MEDS: PT'S OWN INSULIN PUMP - NovoLOG 2.2 UNIT SC (17:38)
--- NOTE | 2024-07-08 18:22 | PTCARENOTE ---
Patient transferred to [facility] with all belongings. initially did not want patient to be transferred and wanted to speak with nursing rn house supervisor; this RN notified [facility] rn house supervisor by phone. Both and patient then agreeable after
speaking with this RN and did not need to speak with rn house supervisor. TT sent to [facility] to make her aware.
[2024-07-08] MEDS: AUGMENTIN 875 MG/125 MG 1 TABLET PO (21:19)
[2024-07-08] MEDS: ROXICODONE 5 MG PO (21:19)
[2024-07-08] MEDS: PT'S OWN INSULIN PUMP - NovoLOG SC (21:20)
[2024-07-09 03:00] VITALS: BP 160/80
[2024-07-09] MEDS: SYNTHROID 50 MCG PO (05:47)
[2024-07-09] MEDS: SYNTHROID 200 MCG PO (05:47)
[2024-07-09] MEDS: CARAFATE SUSPENSION 1 GM PO (05:47)
[2024-07-09 07:08] LABS: Glucose - Point of Care 113 mg/dl (70-99)
--- NOTE | 2024-07-09 07:21 | PN.DE.MGMTRT ---
Insulin Management
- -
07/09/2024 Diabetes Management Consult Follow up
Patient admitted 07/01 with weakness, frequent falls, Rt foot cellulitis with ischemic changes to Rt hallux, mostly demarcated to RT hallux.
PMH: Metastatic pancreatic cancer (s/p Whipple) and esophageal cancer (? if metastatic vs primary esophageal adenocarcinoma), CAD, PAD, CVA, CHF, pleural effusion s/p thoracentesis 11/2023, IDDM, benign renal mass, history of DVT (on Eliquis),
hypothyroidism, and GERD. A1C was 6.0% on 06/08/24. Cr 0.8, eGFR >60.
POD #4 S/P Rt foot Incision and drainage
Pt uses insulin pump- Medtronic mini med with guardian sensor, due to difficulty controlling her blood sugars from chronic steroid use and recurrent Hypoglycemic episodes. She sees Endo Dr. Hudson and [facility].
Patient is awake alert and oriented oob in chair, able to discuss diabetes care. She uses the extended wear 7 day infusion set. brought infusion set afternoon 07/07, he inserted set and pump was restarted. does all insulin prep
and insertion for patient.
Patient able to program pump to deliver meal and corrective insulin. Pump settings:
Basal rate .65 for 24 hours. Basal total 15.6 units
I:CHO ratio 1:13
Sensitivity 1:50
Active insulin 2 hours
Target range 100 to 120.
Will make no change to settings.
Patient and have chosen palliative care.
Diabetes History
- -
Type of Diabetes: 2 requiring insulin
Pre-Admission Diabetes Regimen
Insulin Pump Settings
IP Diabetes Regimen
07/08/24 07/08/24 07/08/24
07:32 13:33 17:04
POC Glucose 116 H 239 H 178 H
07/09/24
07:07
POC Glucose 113 H
Meal type: Breakfast
Amount consumed: 75%
Patient Education
[2024-07-09 07:48] VITALS: BP 156/65
[2024-07-09] MEDS: ZENPEP DELAYED RELEASE CAPSULE 5 CAPSULE PO (08:37)
[2024-07-09] MEDS: PT'S OWN INSULIN PUMP - NovoLOG SC (08:37)
[2024-07-09] MEDS: ZETIA 10 MG PO (08:38)
[2024-07-09] MEDS: DIFLUCAN 200 MG PO (08:38)
[2024-07-09] MEDS: LOW STRENGTH ASPIRIN 81 MG PO (08:38)
[2024-07-09] MEDS: VISBIOME 2 CAP PO (08:38)
[2024-07-09] MEDS: LOPRESSOR 25 MG PO (08:38)
[2024-07-09] MEDS: NEURONTIN 600 MG PO (08:38)
[2024-07-09] MEDS: PROTONIX 40 MG PO (08:38)
[2024-07-09] MEDS: AUGMENTIN 875 MG/125 MG 1 TABLET PO (08:38)
[2024-07-09] MEDS: DIOVAN 40 MG PO (08:38)
[2024-07-09] MEDS: CYMBALTA DELAYED RELEASE 60 MG PO (08:39)
--- NOTE | 2024-07-09 09:01 | W.PN.HOSP.TC ---
Today's Communication/Plan
-
Discharge home today
Assessment / Plan
Assessment / Plan
64yo F with PMHx of metastatic pancreatic CA with spinal mets, currently on RT, anxiety, hypothyroidism, PAD s/p LLE bypass failure, Renal cell CA, HLD, HFrEF of 25%, NSTEMI and ischemic CM, DM, GERD, HTN, anxiety, Hx of recent admission due to
esophageal food impaction due to esophageal stricture with metastasis (left AMA declining stent), Hx of DVT on Eliquis brought by her due to hypotension, confusion. Was advised to bring patient to ED by oncologist.
Found R foot swelling, redness and pain, XR showed subacute or old fracture of the base of the fifth metatarsal bone and Possible nondisplaced fracture of the base of the proximal phalanx of the great toe with superimposed gas gangrene, OM and
abscess with bacteremia, concomitant UTI. Podiatry did I&D, first bedside and second time in OR on 07/04/24. VascularSx planning on angio on 07/06/24, GI evaluated for possible EGD due to painful swallowing with esophageal stent, planning for EGD
A/P:
#Septic shock
#Nondisplaced fracture of the base of the proximal phalanx of the great toe - pathologic with underlying acute osteomyelitis
#Subacute or old fracture of the base of the fifth metatarsal bone
#R foot gas gangrene with sepsis on admission (AMS, leukocytosis) and septic vs hypovolemic shock with R foot abscess and bacteremia
#Nondisplaced fracture at the inferior tip of the distal fibula
s/p MRI RLE on 07/04/24 with above findings
S/p Unasyn and Diflucan, status post Zosyn
Surgical boot for ambulation
Podiatry consult: s/p I&D
PT/OT: cont with walker
Weaned off pressors as of 07/02/24
Bcx: K.pneumonia (source UTI) and Staphylococcus schleiferi (source foot infection)
TTE with improved EF but persistent wall motion abnormalities, no overt signs of vegetations
Appreciate hospice nurse, patient and family decided to go home on palliative care�they have an appointment on 07/20
Discussed with ID, vascular surgery, and podiatry, plan to send patient home on oral antibiotic
Will discharge home on Augmentin 875/125 mg twice a day for 5 more weeks, Diflucan 200 mg daily for 14 more days
Follow-up with PCP, oncology, and palliative care
#PAD s/p LLE failed bypass
Appreciate vascular surgery input, original plan was for angiogram 07/06/2024, Eliquis on hold
Further discussions by Dr. Ying, who recommended hospice to the patient in lieu of her metastatic pancreatic cancer
#Hx of dysphagia 2/2 esophageal mets and post RT stricture s/p esophageal stent with recurrent pain on swallowing
#Esophageal>pharyngeal dysfunction
Previously was advised PEG if still not sufficient oral intake, GI offered either to cont esophageal stent as it is functioning appropriately or remove stent and cont with PEG, but then no oral intake.
Patient decided to stay with stent at this time.
EGD on 07/06/24 shows well-positioned esophageal stent, esophagitis, concerning for Eliana. Cytology confirms Eliana
Already on Diflucan as above, tolerating regular diet, continue protein supplements
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
Since patient said that patient had trouble swallowing even before stent - VSE done, no oropharyngeal dysfunction
#Pyuria with dysuria (burning during urination) - UTI
Ucx K.Pneumonia
cont Abx
#Mild hyponatremia
#Mild hypocalcemia
#EVETTE
2/2 dehydration and poor oral intake
Baseline Cr 1.0
hydrate and follow labs
correct electrolytes
#Anemia, most likely 2/2 metastatic bleeds and CA
most likely 2/2 CA - Hgb trend stable
JAIME
watch CBC
#Hypothyroidism
TSH WNL so cont Synthroid
#DM type 2 with neuropathy
Accuchecks, Insulin SS, hold Farxiga ro avoid diuretic effect
DM diet
#pathological L2 compression Fx with lesion on RT
#Chronic pain on opioids
decreased oxy since patient is sleepy with home dose
cont RT upon D/C
#Essential hypertension
Started on valsartan 40 mg twice a day by nephrology 07/07
Continue metoprolol tartrate 25 mg twice a day
#HLD
#Renal cell CA
#Metastatic pancreatic CA
#HFrEF, not in exacerbation
#Hx of DVT
#Ischemic CM
#Neuropathy
Digoxin level elevated -dose decreased to q48h and follow digoxin levels
Cont outpatient follow up with established specialists
DVT ppx Eliquis
DNR as per patient w/ family present 07/07
Updated at bedside 07/09
Physical Exam
General: Appears chronically ill, no acute distress
HEENT: Normocephalic, Atraumatic, EOMI, MMM
Respiratory: Clear to Auscultation bilaterally
Cardiac: Normal S1/S2, Regular Rate and Rhythm
GI: Soft, Nontender, Nondistended, Normal Bowel Sounds
Extremities: No Clubbing, Cyanosis
Bluish discoloration of right great toe, rest of the foot is dressed
Anticipated Discharge: Today
Subjective/Interval History
-
Date of Service: July 08, 2024
Patient complains of back pain, she thinks it may be from the bed. Denies right foot pain, denies abdominal pain, denies esophageal pain. She is tolerating a regular diet. No fever, no vomiting.
Objective Data
-
Labs:
Laboratory Results
07/08/24
05:34
WBC 5.6
Hgb 8.8 L
Hct 26.4 L
Plt Count 304
Sodium 138
Potassium 3.4 L
Chloride 111 H
Carbon Dioxide 27
BUN 8
Creatinine 0.7
Glucose 114 H
Calcium 7.3 L
Vital Signs:
Vital Signs
Temp Pulse Resp BP Pulse Ox
97.9 F 68 17 138/94 96
07/08/24 11:46 07/08/24 12:00 07/08/24 12:00 07/08/24 12:00 07/08/24 08:48
I&O
07/07/24 07/08/24 07/09/24
06:59 06:59 06:59
Intake Total 1150 / 1150 120 / 120
Balance 1150 / 1150 120 / 120
[2024-07-09 09:54] VITALS: BP 156/75; PULSE 75; O2SAT 96
[2024-07-09] MEDS: ROXICODONE 5 MG PO (10:08)
--- NOTE | 2024-07-09 10:09 | CM ---
Patient seen at bedside
Referral in for [facility]
pallliative appt 07/20
PT rec [facility]
PLAN: Home with [facility] & outpatient palliative
to transport
--- NOTE | 2024-07-09 10:43 | W.DCSUMMARY ---
Discharge Summary
Discharge Data
Date of Admission: 07/02/24
Date of Discharge: 07/09/24
-
Pending Results: No
Hospital Course
Discharge diagnoses:
Septic shock
Right foot gas gangrene with osteomyelitis
Severe peripheral artery disease
Pancreatic cancer with metastases to the esophagus
Nondisplaced fracture of the proximal phalanx of the right great toe
Severe dysphagia with history of esophageal stent placement
Eliana esophagitis
Acute urinary tract infection
Hyponatremia
Hypocalcemia
Acute kidney injury
Diabetes
Nonischemic cardiomyopathy
Consults: Podiatry, ID, vascular surgery, nephrology, GI
Procedures:
07/04/2024 Right foot incision and drainage with packing
07/06/2024 EGD with well-positioned esophageal stent, esophagitis concerning for Eliana. Cytology confirms Eliana
Hospital course:
64-year-old female with a past medical history of pancreatic cancer with metastases to the esophagus, dysphagia status post esophageal stent placement, diabetes, and nonischemic cardiomyopathy was admitted for septic shock secondary to right foot
gas gangrene with osteomyelitis. Patient was seen in conjunction with ID, podiatry, and vascular surgery. She was treated with IV antibiotics. She underwent right foot incision and drainage with packing on 07/04/2024. Her wound culture grew
Staphylococcus schleiferi. ID transitioned her to Unasyn.
Patient was seen in conjunction with nephrology for acute kidney injury. Her creatinine normalized with IV fluids, and IV antibiotics.
Patient complained of dysphagia. She has a history of severe dysphagia with esophageal stent placement. She was seen in conjunction with GI, and had an EGD, which shows a well-positioned esophageal stent and esophagitis. Cytology confirms
Eliana. She was treated with Diflucan. Patient tolerated a regular diet.
Patient has a history of severe peripheral artery disease. She was seen in conjunction with vascular surgery. There were initial plans for angiogram with revascularization. However due to her metastatic pancreatic cancer, vascular surgery
recommended hospice. Patient was seen in conjunction with the hospice nurse. She agreed to change her CODE STATUS to DNR. Patient and family decided to go home on palliative care.
ID recommends discharge home on Augmentin 875/125 mg twice a day for 5 weeks, and Diflucan 200 mg daily for 2 weeks. She can follow-up with her primary care doctor, oncology, and palliative care outpatient.
Disposition: Home with home care
Discharge planning: Required 43 minutes
Discharge Plan
-
Patient Disposition: Home with Home Care
Discharge Diagnosis/Procedures: Septic shock, right foot osteomyelitis, metastatic pancreatic cancer, dysphagia
Condition: Serious
Diet: As tolerated and Regular
Activity: As tolerated
Activity Restrictions/Additional Instructions:
Keep your palliative care appointment on 07/20/2024.
Follow-up with your family doctor in 1 week, and your usual oncologist in 1-2 weeks.
Referrals:
Daniel Billingsley MD [Family Provider] - in one week
Prescriptions:
New
fluconazole 200 mg Tablet
200 mg PO DAILY 14 Days Qty: 14 0RF
amoxicillin-pot clavulanate 875-125 mg Tablet
1 tab PO Q12 35 Days Qty: 70 0RF
Santyl 250 unit/gram ointment
1 applic topical DAILY Qty: 90 0RF
Continued
dapagliflozin propanediol [Farxiga] 10 MG tablet
10 mg PO DAILY Qty: 30 5RF
duloxetine 60 MG capsule,delayed release(DR/EC)
60 mg PO DAILY
gabapentin 600 mg Tablet
600 mg PO TID
levothyroxine [Synthroid] 200 mcg Tablet
250 mcg PO DAILY
Eliquis 5 mg Tablet
5 mg PO BID
Patient Own Insulin Pump
1 sliding scale dose SC .NOVOLOG VIA PUMP
omeprazole 20 mg Capsule,Delayed Release(Dr/Ec)
40 mg PO DAILY
aspirin 81 mg Tablet,Chewable
81 mg PO DAILY Qty: 0 0RF
metoprolol succinate 25 mg Capsule,Sprinkle,Er 24hr
25 mg PO DAILY
valsartan 40 mg Tablet
40 mg PO BID
sucralfate 100 mg/mL Suspension
10 ml PO Q6H
Creon 24,000-76,000 -120,000 unit Capsule,Delayed Release(Dr/Ec)
5 cap PO AC
Creon 24,000-76,000 -120,000 unit Capsule,Delayed Release(Dr/Ec)
2 cap PO PRN PRN (Reason: with snacks)
Changed
furosemide 40 mg tablet
40 mg PO .SAT.SAT.FRIBID PRN (Reason: Fluid Retention/Swelling) Qty: 0 0RF
furosemide 40 mg Tablet
40 mg PO .TUTHSASU PRN (Reason: Fluid Retention/Swelling) Qty: 0 0RF
digoxin 125 mcg (0.125 mg) Tablet
125 mcg PO Q48H Qty: 0 0RF
oxycodone 10 mg Tablet
5 mg PO Q4H PRN (Reason: pain) Qty: 30 0RF
Discontinued
ezetimibe 10 mg Tablet
10 mg PO DAILY
Discharge Orders:
Discharge Patient (As Directed); Ordered 07/09/24
Ordered By: Anatoly Hernandez
Discharge Date and Time
Discharge Date/Time: 07/09/24 11:51
Print Language: KITTITIAN
[2024-07-09 10:54] VITALS: BP 120/53
== END 2024-07-09 11:51 | disposition home health service (06) | DRG 871 ==
LOC: 3 WEST ACU 01:33
PROVIDERS: Internal Medicine; Nurse Practitioner Family; Nurse Practitioner Gerontology; Registered Nurse; ADMITTING PHYSICIAN Internal Medicine; ATTENDING PHYSICIAN Family Medicine; CONSULT PHYSICIAN Internal Medicine Gastroenterology; CONSULT PHYSICIAN Podiatrist Foot & Ankle Surgery; CONSULT PHYSICIAN Specialist; EMERGENCY PHYSICIAN Emergency Medicine; FAMILY PHYSICIAN Family Medicine; OTHER PHYSICIAN Internal Medicine Infectious Disease
PROC: 0H9MXZZ Drainage of Right Foot Skin, External Approach (ICD-10-PCS; 2024-07-02)
PROC: 0J9Q0ZZ Drainage of Right Foot Subcutaneous Tissue and Fascia, Open Approach (ICD-10-PCS; 2024-07-04)
PROC: 0HDMXZZ Extraction of Right Foot Skin, External Approach (ICD-10-PCS; 2024-07-04)
PROC: 0DD18ZX Extraction of Upper Esophagus, Via Natural or Artificial Opening Endoscopic, Diagnostic (ICD-10-PCS; 2024-07-06)
DX: A41.59 Other Gram-negative sepsis (principal); R65.21 Severe sepsis with septic shock; C25.9 Malignant neoplasm of pancreas, unspecified; C79.51 Secondary malignant neoplasm of bone; L03.115 Cellulitis of right lower limb; L02.611 Cutaneous abscess of right foot; E11.52 Type 2 diabetes mellitus with diabetic peripheral angiopathy with gangrene; I13.0 Hypertensive heart and chronic kidney disease with heart failure and stage 1 through stage 4 chronic kidney disease, or unspecified chronic kidney disease; I50.22 Chronic systolic (congestive) heart failure; N39.0 Urinary tract infection, site not specified; M48.56XA Collapsed vertebra, not elsewhere classified, lumbar region, initial encounter for fracture; E87.1 Hypo-osmolality and hyponatremia; N17.9 Acute kidney failure, unspecified; I42.8 Other cardiomyopathies; S92.414A Nondisplaced fracture of proximal phalanx of right great toe, initial encounter for closed fracture; F41.9 Anxiety disorder, unspecified; E11.22 Type 2 diabetes mellitus with diabetic chronic kidney disease; Z83.3 Family history of diabetes mellitus; N18.30 Chronic kidney disease, stage 3 unspecified; E88.A Wasting disease (syndrome) due to underlying condition; Z68.22 Body mass index [BMI] 22.0-22.9, adult; E03.9 Hypothyroidism, unspecified; E78.00 Pure hypercholesterolemia, unspecified; K21.9 Gastro-esophageal reflux disease without esophagitis; K22.2 Esophageal obstruction; Z86.718 Personal history of other venous thrombosis and embolism; I25.5 Ischemic cardiomyopathy; Z90.411 Acquired partial absence of pancreas; E83.51 Hypocalcemia; E86.0 Dehydration; D63.0 Anemia in neoplastic disease; S82.831A Other fracture of upper and lower end of right fibula, initial encounter for closed fracture; Z86.73 Personal history of transient ischemic attack (TIA), and cerebral infarction without residual deficits; Z90.5 Acquired absence of kidney; Z88.1 Allergy status to other antibiotic agents; Z88.8 Allergy status to other drugs, medicaments and biological substances; F17.200 Nicotine dependence, unspecified, uncomplicated; Z95.5 Presence of coronary angioplasty implant and graft; I25.10 Atherosclerotic heart disease of native coronary artery without angina pectoris; Z85.01 Personal history of malignant neoplasm of esophagus; Z79.4 Long term (current) use of insulin; I48.91 Unspecified atrial fibrillation; W19.XXXA Unspecified fall, initial encounter; Z79.01 Long term (current) use of anticoagulants; Z79.82 Long term (current) use of aspirin; Z79.890 Hormone replacement therapy; Z79.899 Other long term (current) drug therapy; Z80.7 Family history of other malignant neoplasms of lymphoid, hematopoietic and related tissues; Z85.528 Personal history of other malignant neoplasm of kidney; Z88.7 Allergy status to serum and vaccine; I70.201 Unspecified atherosclerosis of native arteries of extremities, right leg; K21.00 Gastro-esophageal reflux disease with esophagitis, without bleeding; Z66 Do not resuscitate; Z96.41 Presence of insulin pump (external) (internal)
CPT/HCPCS: 88305; 93308; 70450; 71046; 73610; 73630; 73720; 74230; 80048; 80053; 80162; 80202; 81003; 81015; 82550; 82607; 82728; 82746; 82962; 83540; 83550; 83605; 83615; 83735; 83935; 84100; 84443; 85014; 85018; 85025; 85027; 85045; 85610; 85652; 85730; 87040; 87070; 87075; 87076; 87077; 87086; 87147; 87154; 87186; 87205; 88112; 92610; 92611; 93005; 93321; 93325; 96360; 97116; 97163; 97167; 97530; 97535; 99285; A9575

== ENCOUNTER → 2024-07-28 10:21 | Outpatient (REF) | payer OTHER, SELFPAY | LOC: RCS 10:21 | PROVIDERS: ATTENDING PHYSICIAN Internal Medicine; FAMILY PHYSICIAN Family Medicine | DX: I47.10 Supraventricular tachycardia, unspecified (principal) | CPT/HCPCS: 93225; 93226 ==

== ENCOUNTER → 2024-08-31 08:59 | Outpatient (REF) | payer OTHER, SELFPAY | LOC: RAD 08:59 | PROVIDERS: ATTENDING PHYSICIAN Internal Medicine Hematology & Oncology; FAMILY PHYSICIAN Family Medicine | DX: I74.9 Embolism and thrombosis of unspecified artery (principal); C25.1 Malignant neoplasm of body of pancreas; D50.9 Iron deficiency anemia, unspecified; D63.0 Anemia in neoplastic disease; M84.50XA Pathological fracture in neoplastic disease, unspecified site, initial encounter for fracture; S32.000S Wedge compression fracture of unspecified lumbar vertebra, sequela | CPT/HCPCS: 71046 ==

== ENCOUNTER 2024-09-03 11:13 | Emergency (ER) | payer OTHER, SELFPAY ==
[2024-09-03] VITALS (8 sets, daily range): BP systolic 120–165; BP diastolic 68–86; BMI 17.1
[2024-09-03 11:30] LABS: Glucose - Point of Care 93 mg/dl (70-99)
--- NOTE | 2024-09-03 11:41 | ED.GENMED ---
History of Present Illness
General
Chief Complaint: Breathing Problem
Time Seen by Provider: 09/03/24 11:38
History of Present Illness
History of Present Illness:
64-year-old female currently being treated for pancreatic cancer presents to the emergency department with for evaluation of lethargy and altered mental status. Apparently she has had a cough for several days and had a chest x-ray earlier
in the week that showed trace pleural effusions bilaterally. noted that this morning she was minimally responsive and thus brought her to the ED. On arrival the patient is somnolent but arouses to loud verbal stimuli, she is oriented to
place but not to year. Pupils are not pinpoint. She does take opiates for pain
Past History
Past History
ED Past Medical History: CAD, Cancer (Pancreatic CA, Kidney CA), CVA (No residual), GERD, HTN, Hypercholesterolemia, IDDM, ID, Psychiatric (Anxiety) and Other (Emphysema, PNA, )
ED Past Surgical History: Cardiac (Stents X 7), Cholecystectomy, Orthopedic (Right knee surgery, , Left 5th toe amputation, ), Urological (Right Nephrectomy) and Other (Mini Whipple, right-sided nephrectomy, Popliteal to tibial artery bypass)
Social History
Tobacco: Smoker
Alcohol: None
Drug: None
Personal:
Living: with family
Employment: Employed
Family History
Family History: CAD (Her brother at age 47 had an ID )
Review of Systems
Review of Systems
Allergies reviewed?: Yes
All Other Systems: ROS reviewed and negative except as documented in HPI and ROS
Phy Exam
Physical Exam
Physical Exam:
GEN: Ill-appearing, thin and cachectic, somnolent
Eyes: PERRLA, EOMs intact
HENT: NCAT, oral mucosa dry
Lungs: Tachypneic, good inspiratory effort, no obvious wheezes or rales
Cardiac: RRR, no M/R/G, no peripheral edema. Radial pulses 2+ bilat
Abdomen: S, NT, ND, NABS, no masses or hepatosplenomegaly
Neuro: Somnolent, follows commands, arouses to loud verbal stimuli, GCS 13
MSK: No gross deformity or ecchymosis. No edema. No digital clubbing
Skin: No rashes, petechiae. Normal color, no pallor or jaundice.
Psych: Calm, cooperative, proper hygiene
Scores
Heart Failure Risk
Heart Failure Risk Score: Not Applicable
Course
Orders/Labs/Results
Orders:
Orders
09/03/24 11:14
Electrocardiogram (*1) Urgent
Reason for Study: Shortness of Breath
EKG- Treatment ONCE
09/03/24 11:39
CT Head W/o Iv Contrast Urgent
Comment:
Reason For Exam: AMS
CR Chest Portable - 1 View Urgent
Comment:
Reason For Exam: SOB
Reason Study Needs to be Portable: Unable to Transport
09/03/24 11:44
Acetaminophen Urgent
Alcohol Urgent
Ammonia Urgent
Complete Blood Count/With Diff Urgent
Comprehensive Metabolic Panel Urgent
Salicylate Urgent
Venous Blood Gas Urgent
%Oxygen/Room Air: 99
09/03/24 12:24
Fentanyl, Urine Urgent
Urinalysis Reflex To Culture Urgent
Date Specimen was Collected: 09/03/24
Time Specimen was Collected: 12:23
Urine Drug Abuse Screen Urgent
Date Specimen was Collected: 09/03/24
Time Specimen was Collected: 12:23
Urine Microscopic Reflex Cult Urgent
09/03/24 13:13
Add On- LAB Urgent
Tests Added?: urine drug
09/03/24 16:33
0.9% Sodium Chloride 1000 ml [Nss] 1,000 ml IV BOLUS
09/03/24 16:51
CT Chest PE Study Urgent
Comment:
Reason For Exam: chest pain/tachycardia/active CA
09/03/24 17:26
COVID-19 Antigen Urgent
Source: Nasal Swab
Abnormal Lab Results
09/03/24 09/03/24
11:44 12:24
RBC 3.84 L 10^6/uL
(4.20-5.40)
Hgb 11.1 L g/dL
(12.0-16.0)
Hct 34.2 L %
(37.0-47.0)
MCHC 32.5 L g/dL
(33.0-37.0)
RDW 17.9 H %
(11.5-14.5)
Plt Count 733 H 10^3/uL
(130-400)
Absolute Lymphs (auto) 0.6 L 10^3/uL
(1.2-3.4)
Absolute Monos (auto) 0.8 H 10^3/uL
(0.1-0.6)
Neutrophils % 80.0 H %
(42.2-75.2)
Lymphocytes % 8.1 L %
(20.5-51.1)
Monocytes % 10.8 H %
(1.7-9.3)
VBG pH 7.49 H
(7.32-7.43)
VBG pO2 55 H mmHg
(30-50)
VBG HCO3 35.1 H mmol/L
(22-27)
Carbon Dioxide 34 H mmol/L
(22-30)
Ammonia < 9 L umol/L
(9-30)
Albumin 3.2 L g/dl
(3.5-5.0)
Ur Occult Blood Reflex 1+ A
(Negative)
Urine RBC 3-6 A /HPF
(0-2)
Urine Bacteria (Reflex) Few A
(Negative)
Urine Glucose 3+ A
(Negative)
Urine Albumin (Reflex) 3+ A
(Neg - Trace)
Salicylates < 1.0 L mg/dl
(2.0-20.0)
Ur Oxycodone Screen Positive H
(Negative)
Acetaminophen < 10 L ug/ml
(10-30)
09/03/24 11:44
09/03/24 11:44
Vital Signs
Initial and Last Documented VS:
Initial Vital Signs
Temp Pulse Resp BP Pulse Ox
98.3 F 50 18 120/76 99
09/03/24 11:26 09/03/24 11:26 09/03/24 11:26 09/03/24 11:26 09/03/24 11:26
Last Documented Vital Signs
Temp Pulse Resp BP Pulse Ox
98.4 F 90 20 144/68 100
09/03/24 12:00 09/03/24 19:00 09/03/24 19:00 09/03/24 19:00 09/03/24 15:03
MDM/Problems Addressed
MDM/Problems Addressed:
64-year-old female presents lethargic quite altered, broad workup was obtained which initially showed no abnormalities. Given complaints of chest pain when upright and frequent cough a PE study was obtained due to her active cancer treatments and
this was negative. She did improve with IV fluids and was able to ambulate under her own power at time of discharge. May just be severe dehydration in the setting of a URI. Given her immunocompromise state we will treat with empiric antibiotics
Comment
Comment:
EKG independently interpreted by me shows a sinus rhythm with PVCs, lateral ST depressions comparable to prior
*Pulse Oximetry
SaO2: 99
Oxygen Mode of Delivery: Room air
Patient hypoxic: no
*Critical Care Note
Total Time (30-74mins, 75-104mins- exclusive of procedures): Not Applicable
ED Attending Note
-
Portions of this chart may have been created with voice recognition software.� Occasional wrong word or��sound alike� substitutions may have occurred due to the inherent limitations of voice recognition software.
Discharge Plan
Departure
Patient Disposition: Home (Routine Discharge)
Date of Disposition: 09/03/24
Time of Disposition: 20:13
Patient with high blood pressure during this ER visit?: No
Discharge Problem:
Bronchitis, Acute dehydration
Instructions: Dehydration in adults - ED discharge instructions
Prescriptions:
New
doxycycline hyclate 100 mg tablet
100 mg PO BID 5 Days Qty: 10 0RF
No Action
dapagliflozin propanediol [Farxiga] 10 MG tablet
10 mg PO DAILY Qty: 30 5RF
duloxetine 60 MG capsule,delayed release(DR/EC)
60 mg PO DAILY@1500
gabapentin 600 mg Tablet
600 mg PO TID
levothyroxine [Synthroid] 200 mcg Tablet
200 mcg PO DAILY
Eliquis 5 mg Tablet
5 mg PO BID
Patient Own Insulin Pump
1 sliding scale dose SC .NOVOLOG VIA PUMP
omeprazole 20 mg Capsule,Delayed Release(Dr/Ec)
40 mg PO DAILY
aspirin 81 mg Tablet,Chewable
81 mg PO DAILY Qty: 0 0RF
valsartan 40 mg Tablet
40 mg PO DAILY
sucralfate 100 mg/mL Suspension
10 ml PO ACHS
capecitabine 500 mg Tablet
1,000 mg PO DIRECTED
Rx Instructions:
take 100mg bid for 14 days then 14 days off
metoprolol succinate [Toprol XL] 25 mg Tablet Extended Release 24 Hr
25 mg PO DAILY
ezetimibe [Zetia] 10 mg Tablet
10 mg PO DAILY
Creon 36,000-114,000- 180,000 unit Capsule,Delayed Release(Dr/Ec)
2 cap PO DAILYPRN PRN (Reason: with a snacks)
Creon 36,000-114,000- 180,000 unit Capsule,Delayed Release(Dr/Ec)
3 cap PO AC
furosemide 40 mg tablet
40 mg PO SuTuThSa@0800
furosemide 40 mg tablet
80 mg PO MOWEFR@0800
digoxin 125 mcg (0.125 mg) tablet
125 mcg PO DAILY
oxycodone 10 mg tablet
10 mg PO Q4HPRN PRN (Reason: severe pains)
Referrals:
Daniel Billingsley MD [Family Provider, Family Practice]
Interventions
Interventions:
*Risk Screen - Suicide Last Done: 09/03/24 11:26
*General Assessment Last Done: 09/03/24 11:26
*Neglect/Abuse Screening Last Done: 09/03/24 15:00
*ED- Fall Risk Assessment Last Done: 09/03/24 11:59
*ED COVID-19 Vaccine History Last Done: 09/03/24 11:59
ED- Cardiac Assessment Last Done: 09/03/24 11:45
ED- Pulmonary Assessment Last Done: 09/03/24 11:45
Discharge Date and Time
Print Language: TUNISIAN
[2024-09-03 12:03] LABS: Venous Blood Gas B.E. 10.4 mmol/L (-4 to +4); Venous Blood Gas O2 Sat % 91.0 %
[2024-09-03 12:15] LABS: Hematocrit 34.2 % (37.0-47.0); Hemoglobin 11.1 g/dL (12.0-16.0); Mean Corp Hgb Conc. 32.5 g/dL (33.0-37.0); Mean Corpuscular Volume 89.1 fL (81.0-99.0); Nucleated Red Blood Cells % 0 %; Platelet Count 733 10^3/uL (130-400); Red Cell Dist. Width 17.9 % (11.5-14.5)
[2024-09-03 12:21] LABS: Ammonia < 9 umol/L (9-30)
[2024-09-03 12:25] LABS: ALT (SGPT) < 10 U/L (0-35); AST (SGOT) 17 U/L (14-36); Acetaminophen < 10 ug/ml (10-30); Albumin 3.2 g/dl (3.5-5.0); Alkaline Phosphatase 124 U/L (38-126); Blood Urea Nitrogen 17 mg/dl (7-17); Calcium 8.7 mg/dl (8.4-10.2); Carbon Dioxide 34 mmol/L (22-30); Chloride 99 mmol/L (98-107); Estimated Creatinine Clearance 53 ml/min; Glucose 91 mg/dl (70-99); Potassium 4.1 mmol/L (3.5-5.1); Salicylate < 1.0 mg/dl (2.0-20.0); Sodium 135 mmol/L (135-145); Total Protein 7.3 g/dl (6.3-8.2); eGFR > 60.00
[2024-09-03 13:07] LABS: Urine Character Clear (Clear)
[2024-09-03 16:32] LABS: Glucose - Point of Care 78 mg/dl (70-99)
[2024-09-03] MEDS: NSS 1000 IV (16:45)
[2024-09-03 17:52] LABS: COVID-19 Antigen Negative (Negative)
== END 2024-09-03 20:43 | disposition home or self-care (01) ==
LOC: EMR 11:13
PROVIDERS: Physician Assistant; EMERGENCY PHYSICIAN Emergency Medicine; FAMILY PHYSICIAN Family Medicine
DX: R41.82 Altered mental status, unspecified (principal); R53.83 Other fatigue; E78.00 Pure hypercholesterolemia, unspecified; E86.0 Dehydration; I10 Essential (primary) hypertension; I25.10 Atherosclerotic heart disease of native coronary artery without angina pectoris; J20.9 Acute bronchitis, unspecified; Z82.49 Family history of ischemic heart disease and other diseases of the circulatory system; Z85.528 Personal history of other malignant neoplasm of kidney; Z86.73 Personal history of transient ischemic attack (TIA), and cerebral infarction without residual deficits; Z90.49 Acquired absence of other specified parts of digestive tract; Z95.5 Presence of coronary angioplasty implant and graft; F17.200 Nicotine dependence, unspecified, uncomplicated
CPT/HCPCS: 99284; 96360; 70450; 71045; 71275; 80053; 80143; 80179; 80306; 80307; 81003; 81015; 82077; 82140; 82805; 82962; 85025; 87811; 93005; Q9967

== ENCOUNTER → 2024-09-07 12:11 | Outpatient (REF) | payer OTHER, SELFPAY ==
[2024-09-07 12:30] LABS: Hematocrit 29.8 % (37.0-47.0); Hemoglobin 9.5 g/dL (12.0-16.0); Mean Corp Hgb Conc. 31.9 g/dL (33.0-37.0); Mean Corpuscular Volume 90.3 fL (81.0-99.0); Platelet Count 426 10^3/uL (130-400); Red Cell Dist. Width 17.4 % (11.5-14.5)
[2024-09-07 13:11] LABS: ALT (SGPT) < 10 U/L (0-35); AST (SGOT) 17 U/L (14-36); Albumin 3.0 g/dl (3.5-5.0); Alkaline Phosphatase 90 U/L (38-126); Blood Urea Nitrogen 15 mg/dl (7-17); Calcium 7.8 mg/dl (8.4-10.2); Carbon Dioxide 32 mmol/L (22-30); Chloride 97 mmol/L (98-107); Glucose 144 mg/dl (70-99); Potassium 3.0 mmol/L (3.5-5.1); Sodium 132 mmol/L (135-145); Total Protein 6.7 g/dl (6.3-8.2); eGFR > 60.00
== END ==
LOC: OIDL 12:11
PROVIDERS: ATTENDING PHYSICIAN Nurse Practitioner Primary Care
DX: I74.9 Embolism and thrombosis of unspecified artery (principal); C25.1 Malignant neoplasm of body of pancreas; D50.9 Iron deficiency anemia, unspecified; D63.0 Anemia in neoplastic disease; M84.50XA Pathological fracture in neoplastic disease, unspecified site, initial encounter for fracture; S32.000S Wedge compression fracture of unspecified lumbar vertebra, sequela
CPT/HCPCS: 80053; 85025

== ENCOUNTER → 2024-09-18 09:06 | Outpatient (REF) | payer OTHER, SELFPAY | LOC: RAD 09:06 | PROVIDERS: ATTENDING PHYSICIAN Nurse Practitioner Primary Care; FAMILY PHYSICIAN Family Medicine; REFERRING PHYSICIAN Podiatrist Foot & Ankle Surgery | DX: I74.9 Embolism and thrombosis of unspecified artery (principal); C25.1 Malignant neoplasm of body of pancreas; D50.9 Iron deficiency anemia, unspecified; D63.0 Anemia in neoplastic disease; M84.50XA Pathological fracture in neoplastic disease, unspecified site, initial encounter for fracture; S32.000S Wedge compression fracture of unspecified lumbar vertebra, sequela; E11.52 Type 2 diabetes mellitus with diabetic peripheral angiopathy with gangrene | CPT/HCPCS: 71046; 73630 ==

== ENCOUNTER 2024-11-10 12:31 | Emergency (ER) | payer OTHER, SELFPAY ==
[2024-11-10 12:36] VITALS: BP 115/64
--- NOTE | 2024-11-10 13:46 | EDRN ---
Tiera Comer PA in room w/pt at this time.
--- NOTE | 2024-11-10 13:55 | ED.GENMED ---
History of Present Illness
General
Chief Complaint: Swallowing Problem
Time Seen by Provider: 11/10/24 13:39
History of Present Illness
History of Present Illness:
64-year-old female with history of metastatic pancreatic cancer presents to the emergency department for evaluation of difficulty swallowing for the past 2 to 3 days. She feels that when she drinks liquid and immediately regurgitates. She is able
to swallow saliva however. She reports intense pain with swallowing which has been the case for her before, she does have an esophageal stent due to frequent obstructions. Notes that she has not eaten or drank anything in the past 24 hours with
the exception of pudding for her medications which she was able to tolerate yesterday. She also reports an increasingly wet cough in the past 48 hours, no fevers or chills.
Past History
Past History
ED Past Medical History: CAD, Cancer (Pancreatic CA, Kidney CA), CVA (No residual), GERD, HTN, Hypercholesterolemia, IDDM, AZ, Psychiatric (Anxiety) and Other (Emphysema, PNA, )
ED Past Surgical History: Cardiac (Stents X 7), Cholecystectomy, Orthopedic (Right knee surgery, , Left 5th toe amputation, ), Urological (Right Nephrectomy) and Other (Mini Whipple, right-sided nephrectomy, Popliteal to tibial artery bypass)
Social History
Tobacco: Smoker
Alcohol: None
Drug: None
Personal:
Living: with family
Employment: Employed
Family History
Family History: CAD (Her brother at age 47 had an AZ )
Review of Systems
Review of Systems
Allergies reviewed?: Yes
All Other Systems: ROS reviewed and negative except as documented in HPI and ROS
Phy Exam
Physical Exam
Physical Exam:
GEN: Chronically ill-appearing, thin and cachectic, tolerating secretions
HEENT: Oral mucosa moist, no scleral icterus
Cardiac: Regular rate and rhythm, no murmur
Lung: No respiratory distress, no tachypnea, bibasilar rhonchi, clears with cough
MSK: No gross deformity or injuries
Skin: Good color, no pallor or jaundice, no rashes
Neuro: AO x3, moves all extremities freely
Psych: Calm, cooperative
Course
Orders/Labs/Results
Orders:
Orders
11/10/24 13:51
0.9% Sodium Chloride 1000 ml [Nss] 1,000 ml IV BOLUS
CR Chest - 2 Views Urgent
Comment:
Reason For Exam: cough, possible aspiration
11/10/24 14:16
Complete Blood Count/With Diff Urgent
11/10/24 15:16
Comprehensive Metabolic Panel Urgent
11/10/24 16:10
0.9% Sodium Chloride 500 ml [Nss] 500 ml IV BOLUS
11/10/24 16:38
Ampicillin/Sulbactam 3 G [Unasyn] 3 gm 0.9% Sodium Chloride 100 ml [Nss] 100 ml IV NOW
11/10/24 17:23
Heparin Pf [Heparin Lock Flush] 500 unit .ROUTE .STK-MED ONE
Abnormal Lab Results
11/10/24 11/10/24
14:16 15:16
RBC 3.40 L 10^6/uL
(4.20-5.40)
Hgb 10.2 L g/dL
(12.0-16.0)
Hct 30.8 L %
(37.0-47.0)
RDW 19.6 H %
(11.5-14.5)
Abs Immat Gran (auto) 0.1 H 10^3/uL
(0-0.05)
Absolute Neuts (auto) 8.2 H 10^3/uL
(1.4-6.5)
Absolute Lymphs (auto) 0.5 L 10^3/uL
(1.2-3.4)
Immature Gran % 1.4 H %
(0-0.5)
Neutrophils % 90.0 H %
(42.2-75.2)
Lymphocytes % 5.6 L %
(20.5-51.1)
Sodium 129 L mmol/L
(135-145)
Chloride 97 L mmol/L
(98-107)
Carbon Dioxide 31 H mmol/L
(22-30)
BUN 22 H mg/dl
(7-17)
Calcium 7.7 L mg/dl
(8.4-10.2)
Albumin 2.6 L g/dl
(3.5-5.0)
11/10/24 14:16
11/10/24 15:16
Vital Signs
Initial and Last Documented VS:
Initial Vital Signs
Temp Pulse Resp BP Pulse Ox
98.7 F 100 14 115/64 96
11/10/24 12:36 11/10/24 12:36 11/10/24 12:36 11/10/24 12:36 11/10/24 12:36
Last Documented Vital Signs
Temp Pulse Resp BP Pulse Ox
98.7 F 85 18 123/78 94
11/10/24 12:36 11/10/24 16:53 11/10/24 16:53 11/10/24 16:53 11/10/24 16:53
MDM/Problems Addressed
MDM/Problems Addressed:
Patient was recommended to be admitted to the hospital for IV hydration and treatment of aspiration pneumonia however after seeing the gastroenterology team the patient has elected to leave AGAINST MEDICAL ADVICE. She states she does not want to be
admitted to the hospital for several days if she is not guaranteed to undergo an endoscopy for further evaluation, I informed her that I cannot guarantee her of this and she has elected to sign out AGAINST MEDICAL ADVICE. She did receive IV
hydration and IV antibiotics in the ED and I will prescribe her Augmentin for treatment of aspiration pneumonia however she is advised that this will not treat the underlying etiology of her aspiration and she will likely need gastroenterology
intervention at some point in near future. She is encouraged to return to the emergency department at any time
*Pulse Oximetry
SaO2: 96
Oxygen Mode of Delivery: Room air
Patient hypoxic: no
*Critical Care Note
Total Time (30-74mins, 75-104mins- exclusive of procedures): Not Applicable
Update Note
Update Note:
Patient informs me that she wishes to sign out AGAINST MEDICAL ADVICE, she states 'I am fed up with the GI team' and they do not wish to stay in the hospital. She is willing to be treated further with IV fluids and IV antibiotics for the aspiration
pneumonia but understands the risk of leaving without further GI intervention to evaluate her swallowing difficulty.
ED Attending Note
-
Portions of this chart may have been created with voice recognition software.� Occasional wrong word or��sound alike� substitutions may have occurred due to the inherent limitations of voice recognition software.
Discharge Plan
Departure
Patient Disposition: Against Medical Advice
Date of Disposition: 11/10/24
Time of Disposition: 17:21
Discharge Problem:
Adult failure to thrive, Aspiration pneumonia, Dysphagia
Instructions: Aspiration pneumonia (DC)
Prescriptions:
New
amoxicillin-pot clavulanate 400-57 mg/5 mL suspension for reconstitution
12.5 ml PO BID 7 Days Qty: 175 0RF
No Action
dapagliflozin propanediol [Farxiga] 10 MG tablet
10 mg PO DAILY Qty: 30 5RF
duloxetine 60 MG capsule,delayed release(DR/EC)
60 mg PO DAILY@1500
gabapentin 600 mg Tablet
600 mg PO TID
levothyroxine [Synthroid] 200 mcg Tablet
200 mcg PO DAILY
Eliquis 5 mg Tablet
5 mg PO BID
Patient Own Insulin Pump
1 sliding scale dose SC .NOVOLOG VIA PUMP
omeprazole 20 mg Capsule,Delayed Release(Dr/Ec)
40 mg PO DAILY
aspirin 81 mg Tablet,Chewable
81 mg PO DAILY Qty: 0 0RF
valsartan 40 mg Tablet
40 mg PO DAILY
sucralfate 100 mg/mL Suspension
10 ml PO ACHS
capecitabine 500 mg Tablet
1,000 mg PO DIRECTED
Rx Instructions:
take 100mg bid for 14 days then 14 days off
metoprolol succinate [Toprol XL] 25 mg Tablet Extended Release 24 Hr
25 mg PO DAILY
ezetimibe [Zetia] 10 mg Tablet
10 mg PO DAILY
Creon 36,000-114,000- 180,000 unit Capsule,Delayed Release(Dr/Ec)
2 cap PO DAILYPRN PRN (Reason: with a snacks)
Creon 36,000-114,000- 180,000 unit Capsule,Delayed Release(Dr/Ec)
3 cap PO AC
furosemide 40 mg tablet
40 mg PO SuTuThSa@0800
furosemide 40 mg tablet
80 mg PO MOWEFR@0800
digoxin 125 mcg (0.125 mg) tablet
125 mcg PO DAILY
oxycodone 10 mg tablet
10 mg PO Q4HPRN PRN (Reason: severe pains)
doxycycline hyclate 100 mg tablet
100 mg PO BID 5 Days Qty: 10 0RF
Referrals:
Daniel Billingsley MD [Family Provider, [facility]]
Activity Restrictions/Additional Instructions:
We recommended admission to the hospital for further gastroenterology evaluation and IV antibiotics in addition to IV fluids, however you have declined and chose to leave AGAINST MEDICAL ADVICE. Please do not hesitate to return if at any point you
change your mind. The risk of leaving includes worsening difficulty swallowing, worsening dehydration, or worsening infection. I have provided you with antibiotics to treat the aspiration pneumonia however this may continue to happen given your
swallowing difficulties and further evaluation with a envelope press operator is necessary
Call Dr. West's office tomorrow for a follow-up
Interventions
Interventions:
*Risk Screen - Suicide Last Done: 11/10/24 12:36
*General Assessment Last Done: 11/10/24 12:36
*Neglect/Abuse Screening Last Done: 11/10/24 12:36
*ED- Fall Risk Assessment Last Done: 11/10/24 14:31
*ED COVID-19 Vaccine History Last Done: 11/10/24 14:31
*Nursing Disposition Last Done: 11/10/24 17:45
ED-EENT Assessment Last Done: 11/10/24 14:30
DB-Sfrqgo-Udahzkkziw Assessment Last Done: 11/10/24 14:30
ED- Pulmonary Assessment Last Done: 11/10/24 14:30
ED- Neurological Assessment Last Done: 11/10/24 14:30
Discharge Date and Time
Discharge Date/Time: 11/10/24 17:45
Print Language: TURKMEN
[2024-11-10 14:22] LABS: Hematocrit 30.8 % (37.0-47.0); Hemoglobin 10.2 g/dL (12.0-16.0); Mean Corp Hgb Conc. 33.1 g/dL (33.0-37.0); Mean Corpuscular Volume 90.6 fL (81.0-99.0); Nucleated Red Blood Cells % 0 %; Platelet Count 322 10^3/uL (130-400); Red Cell Dist. Width 19.6 % (11.5-14.5)
--- NOTE | 2024-11-10 14:30 | EDRN ---
Was able to draw blood but unable to thread catheter into vein. Was about to attempt another IV when pt requested we use her R ACW port and this RN TT VAT RN at that time.
[2024-11-10 14:31] VITALS: BMI 16.6
--- NOTE | 2024-11-10 14:40 | CON.GI ---
Addendum entered and electronically signed by Nabila Campos Do, MD 11/10/24 17:37:
I saw and examined the patient.
The BAKER APPRENTICE's note was reviewed and I agree with the note.
Comment: Suzanne is a 64yo W with h/o pancreatic ca s/p mini Whipple 2021 with mets to spine and esophagus s/p chemoXRT with enteral stent who presents with worsening dysphagia and chest discomfort. It has been worsening. There is wt loss. Vitals
stable exam chronically ill appearing cachexia, NTTP. Labs reviewed
Impression
- Acute on Chronic dysphagia
- Enteral stent
- Esophageal mets
- Spine mets
- Metastatic pancreatic ca s/p whipple
- Tobacco use
- CAD
- PAD
- CVA
- CKD
- GERD
Recommendations
- Keep NPO
- Hold AC
- Case d/w Dr West advanced endoscopist about EGD for re-eval of stent and to eval for tumor ingrowth
- Discussed PEG tube she would be interested
- Protonix daily
Was alerted by ER team later in day that patient left AMA
Original Note:
Consultation
-
Date/Time Consultation Requested: 11/10/24 1420
Date/Time Consultation Performed: 11/10/24 1440
Requesting Provider: Jey Comre PA-C
Performing Provider: SHERIDAN Blanc, Nabila Hernandez MD
Reason for Consultation: dysphagia
Medical History
Chief Complaint / HPI
Chief Complaint: food bolus impaction
History of Present Illness:
64 year-old female with h/o tobacco abuse with continued use, benign renal mass with nephrectomy, CAD with prior stenting , PAD with bypass, toe amp, CKD, CVA, GERD, prior PNA, emphysema, CHF, pleural effusion s/p thoracentesis 11/2023, IDDM,
history of DVT (on Eliquis), hypothyroidism and metastatic pancreatic cancer (s/p mini Whipple at [place] 2021) with mets to esophagus and spine with chemo and radiation. She is following with Dr. Erazo with plan to finish treatment and
proceed with follow up CT in November for follow up staging. She now presents with ongoing issues of odynophagia and difficulty with swallowing. She is concerned for food impaction vs infection vs tumor causing blockage of stent. On admission she
is noted with concern for PNA and dehydration with wt loss with not eating well.
In review with patient and family. She related she has stent placed in May then repeat EGD in June with concern for elizabeth. She was treated with diflucan therapy and carafate and on stopping medication she began with recurrent symptoms for
several weeks. She did review with Dr. West in September and recommended continued Carafate. She now has continued odynophagia and dysphagia for several week and not tolerating minimal diet with wt loss. She admits to some abdominal pain, nausea,
vomiting, shortness of breath and chest pain. On admission hbg 10.2 with stable WBC and platelets, na 129, BUN 22, creat 1, albumin 2.6 and normal LFT's.
Past Medical History
Past Medical History: Other (metastatic pancreatic cancer (s/p Whipple), esophageal CA, spinal mets, kidney CA- benign mass , CAD, PAD, CVA, GERD, PNA, CKD, emphysema, CHF, pleural effusion s/p thoracentesis 11/2023, IDDM, benign renal mass,
history of DVT (on Eliquis), hypothyroidism)
Past Surgical History: Cardiac (stents) and Other (PTCA with Multiple Stents (5), LLE Bypass, Whipple, Right Nephrectomy (benign), R ACW Port Placement, L 5th Toe Amputations (Osteomyelitis))
Social History
Tobacco: Smoker (4 cigs per day )
Alcohol: None
Drug: None
Personal:
Living: With Family
Employment: Retired
Family History
Family History: Other (no FH colon or pancreatic cancer)
Allergies / Home Medications
Allergy/AdvReac Type Severity Reaction Status Date / Time
cephalexin monohydrate (From Allergy Rash; Verified 07/01/24 19:51
Keflex) tolerated
PCN per pt
clindamycin Allergy Rash Verified 07/01/24 19:51
influenza virus vaccine, Allergy Rash Verified 07/01/24 19:51
specific (influenza virus Swelling,
vacc,specific) itching.
lisinopril Allergy cough Verified 07/01/24 19:51
pneumococcal vaccine Allergy rash, Verified 07/01/24 19:51
welts
throughout
body
Rlrllrk-FYL-MaP Reductase Allergy LEG PAIN Verified 07/01/24 19:51
Inhibitor (Zgbpzjr-Tdp-Pod
Reductase Inhibitor)
�Medication �Instructions �Recorded
dapagliflozin propanediol 10 mg 10 mg PO DAILY #30 tabs 08/05/20
tablet (Farxiga)
duloxetine 60 mg capsule,delayed 60 mg PO DAILY@1500 Mental 06/20/21
release Health/Anxiety
gabapentin 600 mg tablet 600 mg PO TID Neurological 10/02/21
Condition
Patient Own Insulin Pump 1 sliding scale dose SC .NOVOLOG 09/16/23
VIA PUMP Diabetes
apixaban 5 mg tablet (Eliquis) 5 mg PO BID Blood Clot 09/16/23
Prevention/Tx
levothyroxine 200 mcg tablet 200 mcg PO DAILY Thyroid 09/16/23
(Synthroid)
omeprazole 20 mg capsule,delayed 40 mg PO DAILY Gastrointestinal 12/03/23
release Issue
aspirin 81 mg chewable tablet 81 mg PO DAILY #0 tabs 12/08/23
valsartan 40 mg tablet 40 mg PO DAILY Blood Pressure 06/07/24
sucralfate 100 mg/mL oral 10 ml PO ACHS Gastrointestinal 07/01/24
suspension Issue
capecitabine 500 mg tablet 1,000 mg PO DIRECTED 09/03/24
digoxin 125 mcg (0.125 mg) tablet 125 mcg PO DAILY Heart 09/03/24
Disease/Condition
doxycycline hyclate 100 mg tablet 100 mg PO BID 5 days #10 tabs 09/03/24
ezetimibe 10 mg tablet (Zetia) 10 mg PO DAILY 09/03/24
furosemide 40 mg tablet 40 mg PO SuTuThSa@0800 Fluid 09/03/24
Retention/Swelling
furosemide 40 mg tablet 80 mg PO MOWEFR@0800 Fluid 09/03/24
Retention/Swelling
ibkrvk-wkysqhzo-pnhcafp 2 cap PO DAILYPRN PRN with a snacks 09/03/24
(pork)36,000-114,000-180k unit
capsule,del rel (Creon)
qtefad-afkjogpt-yltzusi 3 cap PO AC 09/03/24
(pork)36,000-114,000-180k unit
capsule,del rel (Creon)
metoprolol succinate 25 mg 25 mg PO DAILY 09/03/24
tablet,extended release 24 hr
(Toprol XL)
oxycodone 10 mg tablet 10 mg PO Q4HPRN PRN severe pains 09/03/24
Review of Systems
-
History Source: Patient and Family
Constitutional: Reports Weight Loss and Fatigue
EENT: Reports No Symptoms
Respiratory: Reports Trouble Breathing
Cardiac: Reports Chest Pain
Abdomen/GI: Reports Abdominal Pain, Nausea, Vomiting and Other (odynophagia, dysphagia)
: Reports No Symptoms
Musculoskeletal: Reports No Symptoms
Skin: Reports No Symptoms
Neurological: Reports Weakness
Endocrine: Reports No Symptoms
Hematologic/Lymphatic: Reports No Symptoms
Vital Signs
Temp Pulse Resp BP Pulse Ox
98.7 F 100 14 115/64 96
11/10/24 12:36 11/10/24 12:36 11/10/24 12:36 11/10/24 12:36 11/10/24 13:55
Physical Exam
Exam
General: Other (pale, thin appearing )
HEENT: Normocephalic and Anicteric
Respiratory: Clear
Cardiac: Other (tachy)
GI: Soft, Non Tender and Non Distended
Musculoskeletal: No Clubbing and No Cyanosis
Skin: Warm and Dry
Neuro: Awake, Alert and AO x 3
Psych: Calm
Results
WBC 9.2 10^3/uL (4.8-10.8) 11/10/24 14:16
Hgb 10.2 g/dL (12.0-16.0) L 11/10/24 14:16
Hct 30.8 % (37.0-47.0) L 11/10/24 14:16
MCV 90.6 fL (81.0-99.0) 11/10/24 14:16
Plt Count 322 10^3/uL (130-400) 11/10/24 14:16
Absolute Neuts (auto) 8.2 10^3/uL (1.4-6.5) H 11/10/24 14:16
Sodium Cancelled 11/10/24 14:16
Potassium Cancelled 11/10/24 14:16
Chloride Cancelled 11/10/24 14:16
Carbon Dioxide Cancelled 11/10/24 14:16
BUN Cancelled 11/10/24 14:16
Creatinine Cancelled 11/10/24 14:16
Calcium Cancelled 11/10/24 14:16
Total Bilirubin Cancelled 11/10/24 14:16
AST Cancelled 11/10/24 14:16
ALT Cancelled 11/10/24 14:16
Alkaline Phosphatase Cancelled 11/10/24 14:16
Diagnostic Image Results:
11/10/24 CR Chest - 2 Views
Ill-defined retrocardiac opacities which may represent pneumonia or aspiration pneumonitis.
Stable positioning of esophageal stent.
Prior GI Procedures:
EGD: 06/2024- Brett - Scattered esophageal plaques were found, suspicious
for possible candidiasis. Cells for cytology obtained.
- Pre-existing esophageal stent.
- Erythematous mucosa in the stomach.
- Widely patent pylorus-sparing Whipple, characterized
by healthy appearing mucosa was found in the duodenum.
EGD: 05/2024 Brett - Malignant-appearing esophageal stenosis. Prosthesis
placed. Endoscopic suturing performed.
- Erythematous mucosa in the stomach.
- No gross lesions in the duodenal bulb, in the first
portion of the duodenum and in the second portion of
the duodenum.
- No specimens collected.
04/28/24 Endoscopic US: (Dr West):
Benign-appearing esophageal stenosis. Biopsied.
- No gross lesions in the entire stomach.
- Widely patent mini Whipple was found.
- Wall thickening was seen in the thoracic esophagus.
The thickening appeared to primarily be within the
deep mucosa (Layer 2) and submucosa (Layer 3).
- One enlarged lymph node was visualized in the
possibly aortopulmonary region (level 5).
- One enlarged lymph node was visualized in the
gastrohepatic ligament (level 18). Fine needle
aspiration performed.
- Three enlarged lymph nodes were visualized in the
celiac region (level 20).
- No obvious mass in the genu of pancreas region.
Abnormal echogenic area was seen and attempts were
made to sample the region but further attempts were
deferred due to benign preliminary finding and absence
of obvious target lesion.
- Pancreatic parenchymal abnormalities consisting of
atrophy were noted in the pancreatic body and
pancreatic tail.
- There was no evidence of significant pathology in
the left lobe of the liver.
Pathology: esophageal stricture- invasive moderately differentiated adenocarcinoma
04/10/24 EGD: (Dr Muhammad):
- Food in the middle third of the esophagus-large
piece of chicken. Removal was successful.
- Extrinsic compression in the middle third of the
esophagus around 28 cm from incisors with luminal
narrowing.
- Normal stomach.
- Pylorus-sparing Whipple, characterized by healthy
appearing anastamosis and mucosa was found in the
duodenum bulb.
- Normal examined jejunum.
Assessment / Plan
-
64 year-old female with h/o tobacco abuse with continued use, 64 year-old female with h/o tobacco abuse with continued use, benign renal mass with nephrectomy, CAD with prior stenting , PAD with bypass, toe amp, CKD, CVA, GERD, prior PNA,
emphysema, CHF, pleural effusion s/p thoracentesis 11/2023, IDDM, history of DVT (on Eliquis), hypothyroidism and metastatic pancreatic cancer (s/p mini Whipple at [place] 2021) with mets to esophagus and spine with chemo and radiation. She is
following with Dr. Erazo with plan to finish treatment and proceed with follow up CT in November for follow up staging. She now presents with ongoing issues of odynophagia and difficulty with swallowing. She is concerned for food impaction vs
infection vs tumor causing blockage of stent. On admission she is noted with concern for PNA and dehydration with wt loss with not eating well. In review with patient and family. She related she has stent placed in May then repeat EGD in June
with concern for elizabeth. She was treated with Diflucan therapy and carafate and on stopping medication she began with recurrent symptoms for several weeks. She did review with Dr. West in September and recommended continued Carafate. She now has
continued odynophagia and dysphagia for several week and not tolerating minimal diet with wt loss. She admits to some abdominal pain, nausea, vomiting, shortness of breath and chest pain. On admission hbg 10.2 with stable WBC and platelets, na
129, BUN 22, creat 1, albumin 2.6 and normal LFT's.
-dysphagia/odynophagia
-panc CA with mets to esophagus and spine
-hx elizabeth esophagitis
-DVT on Eliquis
-PNA on admission
-tachycardia
-wt loss/hypoalbuminemia
other medical problems:
h/o tobacco abuse with continued use, benign renal mass with nephrectomy, CAD with prior stenting , PAD with bypass, toe amp, CKD, CVA, GERD, prior PNA, emphysema, CHF, pleural effusion s/p thoracentesis 11/2023, IDDM, hypothyroidism
PLAN:
Etiology of odynophagia and dysphagia related to recurrent elizabeth, stent occlusion, recurrent tumor, pain from stent vs other
plan for admission
treat PNA per medical team
hold Eliquis
plan for eventual EGD when medically optimized
NPO
speech eval
due OP staging work up in November
PPI/carafate on admission
pain control per hospitalist
discussed concern if tumor growth may need to consider peg for nutrition
family updated
-
-
Thank you for consultation and allowing me to participate in the patient's care. Please call the [facility] GI physician during the after hours with any questions or concerns.
--- NOTE | 2024-11-10 15:04 | EDRN ---
VAT RN Micki in room access port and redrawing SST that was hemolyzed.
[2024-11-10] MEDS: NSS 1000 IV (15:14)
[2024-11-10] MEDS: NSS 500 IV (15:15)
[2024-11-10 15:35] VITALS: BP 135/84
[2024-11-10 15:40] LABS: ALT (SGPT) < 10 U/L (0-35); AST (SGOT) 16 U/L (14-36); Albumin 2.6 g/dl (3.5-5.0); Alkaline Phosphatase 92 U/L (38-126); Blood Urea Nitrogen 22 mg/dl (7-17); Calcium 7.7 mg/dl (8.4-10.2); Carbon Dioxide 31 mmol/L (22-30); Chloride 97 mmol/L (98-107); Estimated Creatinine Clearance 41 ml/min; Glucose 79 mg/dl (70-99); Potassium 3.7 mmol/L (3.5-5.1); Sodium 129 mmol/L (135-145); Total Protein 6.3 g/dl (6.3-8.2); eGFR > 60.00
[2024-11-10] MEDS: UNASYN IV (16:47)
[2024-11-10 16:53] VITALS: BP 123/78
--- NOTE | 2024-11-10 17:28 | EDRN ---
Pt to BR in w/c at this time. IVF and antibiotic completed and SQ port flushed w/ 10 mL of NSS and then 500 units of heparin
--- NOTE | 2024-11-10 17:34 | EDRN ---
Pt done in BR and back in her room. Tiera KANG went over paperwork w/ spouse. Pt will be leaving post port de-access.
--- NOTE | 2024-11-10 17:42 | EDRN ---
VAT RN in room de-accessing port now.
== END 2024-11-10 17:45 | disposition left against medical advice (07) ==
LOC: EMR 12:31
PROVIDERS: Physician Assistant; EMERGENCY PHYSICIAN Emergency Medicine; FAMILY PHYSICIAN Family Medicine
DX: J69.0 Pneumonitis due to inhalation of food and vomit (principal); R62.7 Adult failure to thrive; Z68.1 Body mass index [BMI] 19.9 or less, adult; C25.9 Malignant neoplasm of pancreas, unspecified; C78.89 Secondary malignant neoplasm of other digestive organs; K86.81 Exocrine pancreatic insufficiency; C79.51 Secondary malignant neoplasm of bone; E10.22 Type 1 diabetes mellitus with diabetic chronic kidney disease; I13.0 Hypertensive heart and chronic kidney disease with heart failure and stage 1 through stage 4 chronic kidney disease, or unspecified chronic kidney disease; N18.9 Chronic kidney disease, unspecified; I50.9 Heart failure, unspecified; E10.51 Type 1 diabetes mellitus with diabetic peripheral angiopathy without gangrene; I25.10 Atherosclerotic heart disease of native coronary artery without angina pectoris; E78.00 Pure hypercholesterolemia, unspecified; I25.2 Old myocardial infarction; J43.9 Emphysema, unspecified; E03.9 Hypothyroidism, unspecified; K21.9 Gastro-esophageal reflux disease without esophagitis; F41.9 Anxiety disorder, unspecified; F17.210 Nicotine dependence, cigarettes, uncomplicated; Z79.01 Long term (current) use of anticoagulants; Z79.82 Long term (current) use of aspirin; Z79.4 Long term (current) use of insulin; Z86.73 Personal history of transient ischemic attack (TIA), and cerebral infarction without residual deficits; Z95.5 Presence of coronary angioplasty implant and graft; Z86.718 Personal history of other venous thrombosis and embolism; Z96.41 Presence of insulin pump (external) (internal); Z87.01 Personal history of pneumonia (recurrent); Z90.5 Acquired absence of kidney; Z92.3 Personal history of irradiation; Z90.411 Acquired partial absence of pancreas; Z90.49 Acquired absence of other specified parts of digestive tract; Z89.422 Acquired absence of other left toe(s); Z82.49 Family history of ischemic heart disease and other diseases of the circulatory system
CPT/HCPCS: 99284; 96365; 96361 ×3; 71046; 80053; 85025

== ENCOUNTER → 2024-11-13 13:21 | Outpatient (REF) | payer OTHER, SELFPAY | LOC: RAD 13:21 | PROVIDERS: ATTENDING PHYSICIAN Nurse Practitioner Adult Health; FAMILY PHYSICIAN Family Medicine | DX: M84.50XA Pathological fracture in neoplastic disease, unspecified site, initial encounter for fracture (principal); S32.000S Wedge compression fracture of unspecified lumbar vertebra, sequela; D63.0 Anemia in neoplastic disease; D50.9 Iron deficiency anemia, unspecified; C25.1 Malignant neoplasm of body of pancreas; I74.9 Embolism and thrombosis of unspecified artery | CPT/HCPCS: 71260; 74177; Q9967 ==

== ENCOUNTER → 2024-11-19 09:40 | Outpatient (REF) | payer OTHER, SELFPAY | LOC: RST 09:40 | PROVIDERS: ATTENDING PHYSICIAN Internal Medicine Hematology & Oncology; FAMILY PHYSICIAN Family Medicine | DX: I74.9 Embolism and thrombosis of unspecified artery (principal); C25.1 Malignant neoplasm of body of pancreas; D50.9 Iron deficiency anemia, unspecified; D63.0 Anemia in neoplastic disease; M84.50XA Pathological fracture in neoplastic disease, unspecified site, initial encounter for fracture; S32.000S Wedge compression fracture of unspecified lumbar vertebra, sequela; R13.10 Dysphagia, unspecified | CPT/HCPCS: 74230; 92611 ==

== ENCOUNTER 2024-11-19 11:12 | Emergency (ER) | payer OTHER, SELFPAY ==
[2024-11-19] VITALS (8 sets, daily range): BP systolic 115–159; BP diastolic 72–86; BMI 17.5
--- NOTE | 2024-11-19 11:42 | ED.GENMED ---
History of Present Illness
General
Chief Complaint: Throat Problem
Source: patient and spouse
Time Seen by Provider: 11/19/24 11:25
History of Present Illness
History of Present Illness:
64-year-old female presents emergency department, history of metastatic pancreatic CA, status post mini Whipple 2021, mets to spine and esophagus, with esophageal stent. She has been reporting difficulty swallowing, with choking episodes since late
October. She had a swallowing study today consistent with a TE fistula at the level of the stent and was therefore referred to the ER. Patient has not been able to tolerate anything to eat or drink for several days. She describes feeling very
tired. She denies pain. She denies chest pain, shortness of breath, abdominal pain.
Past History
Past History
ED Past Medical History: CAD, Cancer (Pancreatic CA, Kidney CA), CVA (No residual), GERD, HTN, Hypercholesterolemia, IDDM, [place], Psychiatric (Anxiety) and Other (Emphysema, PNA, )
ED Past Surgical History: Cardiac (Stents X 7), Cholecystectomy, Orthopedic (Right knee surgery, , Left 5th toe amputation, ), Urological (Right Nephrectomy) and Other (Mini Whipple, right-sided nephrectomy, Popliteal to tibial artery bypass)
Social History
Tobacco: Smoker
Alcohol: None
Drug: None
Personal:
Living: with family
Employment: Employed
Family History
Family History: CAD (Her brother at age 47 had an [place] )
Phy Exam
Physical Exam
Physical Exam:
GENERAL: Alert , cachectic
EYE: pupils equal and reactive
NECK: Supple, no significant adenopathy.
ENT: o/p clr, mm very dry, white residue noted in mouth (mack from study)
CARDIAC: Regular rate and rhythm .
LUNGS: Equalbreath sounds bilaterally, no acute respiratory distress, scattered rhonchi
ABDOMEN: Soft, without focal tenderness, no r/g
NEUROLOGICAL: Alert and oriented, no focal neuro deficits
SKIN: Warm and dry, skin intact.
MUSCULOSKELETAL: No edema, well perfused.
PSYCH: Normal and appropriate interaction.
Course
Orders/Labs/Results
Orders:
Orders
11/19/24 11:30
Electrocardiogram (*1) Urgent
Reason for Study: Chest Pain
Cardiac Monitoring- Treatment ONCE
EKG- Treatment ONCE
IV Insert/Care/Rem.- Treatment PRN
O2 Therapy [RESP] Urgent
Titrate/Wean O2 to maintain O2 sat greater than (%): 90
Special Instructions: Maintain sats >/=90%
11/19/24 11:42
Complete Blood Count/With Diff Urgent
Comprehensive Metabolic Panel Urgent
11/19/24 11:57
Case Management Consult ONCE
Case Management Consult: Other
11/19/24 12:14
0.9% Sodium Chloride 1000 ml [Nss] 1,000 ml IV BOLUS
Abnormal Lab Results
11/19/24
11:42
WBC 18.0 H 10^3/uL
(4.8-10.8)
RBC 3.06 L 10^6/uL
(4.20-5.40)
Hgb 9.2 L g/dL
(12.0-16.0)
Hct 28.8 L %
(37.0-47.0)
MCHC 31.9 L g/dL
(33.0-37.0)
RDW 20.1 H %
(11.5-14.5)
Abs Immat Gran (auto) 0.1 H 10^3/uL
(0-0.05)
Absolute Neuts (auto) 16.7 H 10^3/uL
(1.4-6.5)
Absolute Lymphs (auto) 0.4 L 10^3/uL
(1.2-3.4)
Absolute Monos (auto) 0.8 H 10^3/uL
(0.1-0.6)
Immature Gran % 0.6 H %
(0-0.5)
Neutrophils % 92.9 H %
(42.2-75.2)
Lymphocytes % 1.9 L %
(20.5-51.1)
Potassium 3.3 L mmol/L
(3.5-5.1)
Carbon Dioxide 34 H mmol/L
(22-30)
BUN 19 H mg/dl
(7-17)
Glucose 111 H mg/dl
(70-99)
Calcium 7.8 L mg/dl
(8.4-10.2)
Total Protein 6.2 L g/dl
(6.3-8.2)
Albumin 2.6 L g/dl
(3.5-5.0)
11/19/24 11:42
11/19/24 11:42
Vital Signs
Initial and Last Documented VS:
Initial Vital Signs
Temp Pulse Resp BP Pulse Ox
98.1 F 83 12 115/72 81
11/19/24 11:14 11/19/24 11:14 11/19/24 11:14 11/19/24 11:14 11/19/24 11:14
Last Documented Vital Signs
Temp Pulse Resp BP Pulse Ox
98.1 F 95 23 146/80 100
11/19/24 11:14 11/19/24 11:30 11/19/24 11:30 11/19/24 11:27 11/19/24 11:43
*Pulse Oximetry
SaO2: 100
Nasal Cannula flow liters per minute: 6
Oxygen Mode of Delivery: Room air
Update Note
Update Note:
Patient presents to the Emergency Department with te fistula
Number and Complexity of Problems Addressed at the Encounter
� Chronic conditions affecting care:
� Acute Exacerbation and/or Progression of Chronic Illness:
� Differential Diagnosis includes:but not limited to fistula, dehdration, aspiration pna, etc etc
Amount and/or Complexity of Data to be Reviewed and Analyzed
� I performed an independent evaluation of and my interpretation is:
EKG:
CT:
Xrays:
Laboratory Studies:leukocytosis, anemia
Other:
� Review of other/old records reveals:
� Clinical information was obtained by an independent historian: who is bedside. Fe reviewed admit note from 11/10, detailing her aspiratino pna, left AMA etc.
� Prescriptions/Medications Considered but not given:
� Further testing considered but not performed:
Risk of Complications and/or Morbidity or Mortality of Patient Management
� Social determinants of health affecting care:
� Discussion with other providers (PCP, Hospitalists, Consultants, etc):
� Escalation of care including admission/observation vs risk of discharge considered:Pt had a approx 20 beat run of VT. Pads applied, code cart in room. Pt's vitals normal at this time.
Patient seen by Dr. Brayan Erazo in the ER, and both patient and mutually agree that best plan at this point is hospice care. They very much would like to go home from the ER and not be admitted. We are arranging for an oxygen tank for the
to use upon bringing the patient home. She will be discharged when we are notified that the oxygen tank has been delivered to her home as well. Patient comfortable at this time without pain.
ED Attending Note
-
Portions of this chart may have been created with voice recognition software.� Occasional wrong word or��sound alike� substitutions may have occurred due to the inherent limitations of voice recognition software.
Discharge Plan
Departure
Patient Disposition: Home (Routine Discharge)
Date of Disposition: 11/19/24
Time of Disposition: 13:47
Patient with high blood pressure during this ER visit?: Yes
Condition: Good
Discharge Problem:
Tracheo-esophageal fistula
Instructions: Pancreatic cancer, BLOOD PRESSURE
Prescriptions:
No Action
dapagliflozin propanediol [Farxiga] 10 MG tablet
10 mg PO DAILY Qty: 30 5RF
duloxetine 60 MG capsule,delayed release(DR/EC)
60 mg PO DAILY@1500
gabapentin 600 mg Tablet
600 mg PO TID
levothyroxine [Synthroid] 200 mcg Tablet
200 mcg PO DAILY
Eliquis 5 mg Tablet
5 mg PO BID
Patient Own Insulin Pump
1 sliding scale dose SC .NOVOLOG VIA PUMP
omeprazole 20 mg Capsule,Delayed Release(Dr/Ec)
40 mg PO DAILY
aspirin 81 mg Tablet,Chewable
81 mg PO DAILY Qty: 0 0RF
valsartan 40 mg Tablet
40 mg PO DAILY
sucralfate 100 mg/mL Suspension
10 ml PO ACHS
capecitabine 500 mg Tablet
1,000 mg PO DIRECTED
Rx Instructions:
take 100mg bid for 14 days then 14 days off
metoprolol succinate [Toprol XL] 25 mg Tablet Extended Release 24 Hr
25 mg PO DAILY
ezetimibe [Zetia] 10 mg Tablet
10 mg PO DAILY
Creon 36,000-114,000- 180,000 unit Capsule,Delayed Release(Dr/Ec)
2 cap PO DAILYPRN PRN (Reason: with a snacks)
Creon 36,000-114,000- 180,000 unit Capsule,Delayed Release(Dr/Ec)
3 cap PO AC
furosemide 40 mg tablet
40 mg PO SuTuThSa@0800
furosemide 40 mg tablet
80 mg PO MOWEFR@0800
digoxin 125 mcg (0.125 mg) tablet
125 mcg PO DAILY
oxycodone 10 mg tablet
10 mg PO Q4HPRN PRN (Reason: severe pains)
doxycycline hyclate 100 mg tablet
100 mg PO BID 5 Days Qty: 10 0RF
amoxicillin-pot clavulanate 400-57 mg/5 mL suspension for reconstitution
12.5 ml PO BID 7 Days Qty: 175 0RF
Referrals:
Daniel Billingsley MD [Family Provider, Family Practice]
Interventions
Interventions:
*Risk Screen - Suicide Last Done: 11/19/24 11:14
*General Assessment Last Done: 11/19/24 11:14
*Neglect/Abuse Screening Last Done: 11/19/24 11:14
*ED- Fall Risk Assessment Last Done: 11/19/24 11:43
*ED COVID-19 Vaccine History Last Done: 11/19/24 11:14
*ED Influenza Vaccine History Last Done: 11/19/24 11:14
ED- Pulmonary Assessment Last Done: 11/19/24 11:37
Discharge Date and Time
Print Language: [place]
[2024-11-19 12:05] LABS: Hematocrit 28.8 % (37.0-47.0); Hemoglobin 9.2 g/dL (12.0-16.0); Mean Corp Hgb Conc. 31.9 g/dL (33.0-37.0); Mean Corpuscular Volume 94.1 fL (81.0-99.0); Nucleated Red Blood Cells % 0.1 %; Platelet Count 228 10^3/uL (130-400); Red Cell Dist. Width 20.1 % (11.5-14.5)
[2024-11-19] MEDS: NSS 1000 IV (12:17)
[2024-11-19 12:22] LABS: ALT (SGPT) 10 U/L (0-35); AST (SGOT) 14 U/L (14-36); Albumin 2.6 g/dl (3.5-5.0); Alkaline Phosphatase 92 U/L (38-126); Blood Urea Nitrogen 19 mg/dl (7-17); Calcium 7.8 mg/dl (8.4-10.2); Carbon Dioxide 34 mmol/L (22-30); Chloride 103 mmol/L (98-107); Estimated Creatinine Clearance 47 ml/min; Glucose 111 mg/dl (70-99); Potassium 3.3 mmol/L (3.5-5.1); Sodium 137 mmol/L (135-145); Total Protein 6.2 g/dl (6.3-8.2); eGFR > 60.00
--- NOTE | 2024-11-19 12:51 | CM ---
Patient seen with in the ED. Patient lives in a single story home with . Patient family asking for hospice, CM spoke with [facility] liaison for hospice and she spoke with patient and . Patient plan is for home with hospice. Patient
currently on O2. CM updated liaison. CM will continue to follow for discharge planning needs.
Plan; home with [facility] hospice
--- NOTE | 2024-11-19 12:53 | HOSPNOTE ---
Addendum entered by Destinee Moran RN 11/19/24 13:02:
Per spouses request, would like this evening to explain initiating hospice to their sons and requested that we come tomorrow at 9 am
Original Note:
Hospice referral received. Spoke to patients spouse Juan Jose. He will take patient home himself today. Patient will then be admitting onto home hospice tomorrow morning at 9 am. Oxygen being delivered this afternoon. CM and Attending updated.
== END 2024-11-19 14:45 | disposition home or self-care (01) ==
LOC: EMR 11:12
PROVIDERS: EMERGENCY PHYSICIAN Emergency Medicine; FAMILY PHYSICIAN Family Medicine
DX: J86.0 Pyothorax with fistula (principal); D72.829 Elevated white blood cell count, unspecified; D64.9 Anemia, unspecified; C25.9 Malignant neoplasm of pancreas, unspecified; C79.51 Secondary malignant neoplasm of bone; C78.89 Secondary malignant neoplasm of other digestive organs; E10.9 Type 1 diabetes mellitus without complications; I25.10 Atherosclerotic heart disease of native coronary artery without angina pectoris; I10 Essential (primary) hypertension; E78.00 Pure hypercholesterolemia, unspecified; I25.2 Old myocardial infarction; J43.9 Emphysema, unspecified; K86.81 Exocrine pancreatic insufficiency; K21.9 Gastro-esophageal reflux disease without esophagitis; F41.9 Anxiety disorder, unspecified; F17.200 Nicotine dependence, unspecified, uncomplicated; Z79.82 Long term (current) use of aspirin; Z85.528 Personal history of other malignant neoplasm of kidney; Z90.5 Acquired absence of kidney; Z90.49 Acquired absence of other specified parts of digestive tract; Z86.73 Personal history of transient ischemic attack (TIA), and cerebral infarction without residual deficits; Z95.5 Presence of coronary angioplasty implant and graft; Z96.41 Presence of insulin pump (external) (internal); Z89.422 Acquired absence of other left toe(s); Z82.49 Family history of ischemic heart disease and other diseases of the circulatory system
CPT/HCPCS: 99284; 96360; 80053; 85025; 93005